=== PATIENT | female | born 1960 | race Caucasian/White ===

== ENCOUNTER 2016-08-30 13:55 | Inpatient (IN) | payer BC ==
--- NOTE | 2016-08-30 14:54 | PDOC ---
History of Present Illness - General Chief Complaint: Wound Stated Complaint: PCP SENT, RT LEG PAIN Time Seen by Provider: 08/30/16 14:43 History Source: Patient Exam Limitations: No Limitations - History of Present Illness Initial Comments: 08/30/16 14:55 Patient is a 56 year old female with significant PMH of HTN, Aortic stenosis, A- fib & lower extremity lymphedema who presents to ED with Right ankle erythema & tenderness since yesterday morning. Patient noticed posterior right ankle was tender & red yesterday morning. The pain is localized to that region and does not radiate up her calf or down to her feet. The pain has become more pronounced since then & the erythema has increased as well. Both legs are very swollen at baseline so unable to gauge if there has been an increase in swelling of that limb. Denies any calf tenderness. Denies fever, chills, SOB, CP , abdominal pain or changes in bowel movements. Patient is currently on Amoxicillin 500mg TID for bronchitis (day 3 of 10). Past History - Travel Traveled outside of the country in the last 30 days: No Close contact w/someone who was outside of country & ill: No - Past Medical History Allergies/Adverse Reactions: Allergies Allergy/AdvReac Type Severity Reaction Status Date / Time No Known Allergies Allergy Verified 08/30/16 14:01 Home Medications: Ambulatory Orders Apixaban [Eliquis -] 5 mg PO BID #60 tablet 11/28/15 Acetaminophen [Tylenol .Regular Strength -] 650 mg PO Q6H PRN #0 tablet Amlodipine Besylate [Norvasc -] 5 mg PO DAILY #14 tablet 04/12/16 Miscellaneous Medical Supply [Blood Pressure Cuff] 1 each MC DAILY #1 each 04/12 Nitroglycerin Sublingual [Nitrostat -] 0.4 mg SL Q5M PRN #7 tab 04/12/16 Metoprolol Succinate [Toprol XL -] 25 mg PO DAILY 06/15/16 Anemia: No Asthma: Yes Cancer: Yes (UTERINE AND OVARIAN. CA FREE X 3 YEARS) Cardiac Disorders: Yes (afib) CVA: No COPD: No CHF: No Dementia: No Diabetes: No GI Disorders: Yes (sbo) Disorders: No HTN: Yes Hypercholesterolemia: No Liver Disease: No Seizures: No Thyroid Disease: No Other medical history: Obesity - Surgical History Abdominal Surgery: Yes (hernia colon recection s/p sbo) Cardiac Surgery: No Cholecystectomy: Yes (2002) GI Surgery: Yes ([facility] 2001) Lung Surgery: No Neurologic Surgery: No Orthopedic Surgery: No - Immunization History Immunization Up to Date: Yes (FLU UTD) - Psycho/Social/Smoking Cessation Hx Anxiety: No Suicidal Ideation: No Smoking Status: No Smoking History: Never smoked Have you smoked in the past 12 months: No Number of Cigarettes Smoked Daily: 0 Information on smoking cessation initiated: No Hx Alcohol Use: No Drug/Substance Use Hx: No Substance Use Type: None Hx Substance Use Treatment: No Review of Systems - Review of Systems Able to Perform ROS?: Yes Is the patient limited Japanese proficient: No Constitutional: No: Chills, Diaphoresis, Fever HEENTM: No: Blurred Vision, Recent change in vision, Ear Pain Respiratory: Yes: Cough Cardiac (ROS): No: Chest Pain, Lightheadedness, Palpitations ABD/GI: No: Abdominal Distended, Blood Streaked Bowels, Diarrhea, Nausea, Vomiting, Indigestion : No: Burning, Dysuria Integumentary: Yes: Erythema Neurological: No: Headache, Tingling, Tremors, Weakness All Other Systems: Reviewed and Negative *Physical Exam - Vital Signs Last Vital Signs Temp Pulse Resp BP Pulse Ox 97.9 F 64 17 148/54 100 08/30/16 13:58 08/30/16 13:58 08/30/16 13:58 08/30/16 13:58 08/30/16 13:58 - Physical Exam General Appearance: Yes: Nourished, Appropriately Dressed, Obese HEENT: positive: EOMI, [place], Normal ENT Inspection Neck: positive: Trachea midline, Normal Thyroid, Supple Respiratory/Chest: positive: Lungs Clear, Normal Breath Sounds Cardiovascular: positive: Regular Rhythm, Regular Rate, S1, S2, Systolic Murmur (aortic stenosis) Gastrointestinal/Abdominal: positive: Normal Bowel Sounds, Soft, Other ( nontender) Musculoskeletal: positive: Normal Inspection Extremity: positive: Normal Range of Motion, Tender (tender, erythematous, right posterior ankle w/ increased warmth). negative: Coldness, Calf Tenderness Integumentary: negative: Dry, Warm Neurologic: positive: seed expert II-XII NML intact, Fully Oriented, Alert, Normal Mood/ Affect, Motor Strength 5/5 Medical Decision Making - Medical Decision Making 08/30/16 15:28 Acute cellulitis likely diagnosis. Given wide margins and 6/10 pain, patient will likely require admission for IV antibiotic treatment. 08/30/16 15:41 Discussed case with PCP Dr Link. Agrees patient will require inpatient admission. Started Cefazolin 1gm q8h and consulted ID Dr Laura. Will admit to Dr Link's service. *DC/Admit/Observation/Transfer Diagnosis at time of Disposition: Cellulitis of right ankle - Discharge Dispostion Admit: Yes Addendum entered and electronically signed by Kun Koroma, CASIMIRO 08/30/16 16:57: Progress Note - Progress Note Progress Note: Added Vancomycin to cover for MRSA.
--- NOTE | 2016-08-30 15:21 | PDOC ---
[id number] have performed the following: I have examined & evaluated the patient, The case was reviewed & discussed with the resident, I agree w/resident 's findings & plan, Exceptions are as noted - HPI HPI: 56 yo F history lymphedema presents with erythema, warmth, and pain to the RLE. Sent by Dr. Link for further evaluation. She notes worsening redness and pain to the posterior R leg, but that the swelling is no larger than her typical swelling. No recent fever. No open wounds or drainage. - Physicial Exam PE: GENERAL: Awake, alert, and fully oriented, in no acute distress HEAD: No signs of trauma EYES: PERRLA, EOMI, sclera anicteric, conjunctiva clear ENT: Auricles normal inspection, hearing grossly normal, nares patent, oropharynx clear without exudates. Moist mucosa NECK: Normal ROM, supple, no lymphadenopathy, JVD, or masses LUNGS: Breath sounds equal, clear to auscultation bilaterally. No wheezes, and no crackles HEART: Regular rate and rhythm, normal S1 and S2, no murmurs, rubs or gallops ABDOMEN: Soft, nontender, normoactive bowel sounds. No guarding, no rebound. No masses EXTREMITIES: Normal range of motion. No clubbing or cyanosis. +Significant lymphedema to BLE, no open wounds. BLE with chronic stasis changes. RLE noted to have erythema, warmth, and posterior tenderness. NEUROLOGICAL: Cranial nerves II through XII grossly intact. Normal speech, normal gait SKIN: Warm, Dry, normal turgor, no rashes or lesions noted. - Medical Decision Making D/w Dr. Link. Patient with lymphedema and significant cellulitis. Will place on IV abx and admit.
[2016-08-30] MEDS ORDERED: CEFAZOLIN 1 GM in DEXTROSE 5%-WATER - 50 ML IVPB SCH (15:45)
[2016-08-30 16:13] LABS: BASOPHIL 0.2 % (0-2.0); EOSINOPHIL 1.1 % (0-4.5); MCHC 32.1 g/dl (32.0-36.0); MEAN PLT VOLUME 8.9 fl (7.5-11.1); NEUTROPHILS 73.4 % (42.8-82.8); PLATELET COUNT 203 K/MM3 (134-434); RDW 15.9 % (11.6-15.6); WHITE BLOOD COUNT 6.4 K/mm3 (4.0-10.0)
[2016-08-30 16:52] LABS: ALBUMIN 3.4 g/dl (3.4-5.0); ANION GAP 9 (8-16); CALCIUM 8.6 mg/dL (8.5-10.1); CO2 27 mmol/L (21-32); CREATININE 0.7 mg/dL (0.55-1.02); GLUCOSE,RANDOM 91 mg/dL (74-106); SGOT/AST 15 U/L (15-37); SGPT/ALT 16 U/L (12-78)
[2016-08-30 16:54] LABS: ALK PHOS 122 U/L (45-117); BILIRUBIN,TOTAL 0.6 mg/dL (0.2-1.0); TOT PROT 7.1 g/dl (6.4-8.2)
[2016-08-30] MEDS ORDERED: VANCOMYCIN 1,250 MG in DEXTROSE 5%-WATER - 250 ML IVPB ONE (16:56)
[2016-08-30] MEDS ORDERED: NITROGLYCERIN SUBLINGUAL 1/150 0.4 MG TAB SL PRN (17:05)
[2016-08-30] MEDS ORDERED: ALBUTEROL SO4 6.7 GM HFA INHALER IH PRN (17:09)
[2016-08-30] MEDS ORDERED: CEFAZOLIN (PRE-DOCKED) 50 ML IVPB ONE (17:24)
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
--- NOTE | 2016-08-30 17:49 | PN ---
Progress Note (short form) - Note Progress Note: ID consult dictated imp/reccd 56 year old female with obesity and chronic lymphedema admitted with erythema and swelling of left foot/leg with pain she had some fever, chill, and cough on Friday- saw her PMD and was started on amox she noted the painful red leg and came to ED no more fever or chills d/w Dr Fariba mcdaniel/maria luisa cultures pending imaging of leg -r/o abscess
[2016-08-30] MEDS: oxyCODONE HCL 10 MG SUSTAINED ACTING TABLET PO SCH (22:15)
[2016-08-30] MEDS: POLYETHYLENE GLYCOL 3350 119 GM BTL PO SCH (22:15)
[2016-08-30] MEDS: PIPERACILLIN/TAZOB 4.5 GM/100 ML PRE-DOCKED IVPB SCH (22:15)
[2016-08-30] MEDS: APIXABAN 5 MG TABLET PO SCH (22:15)
[2016-08-30] MEDS ORDERED: PT OWN MED DRAWER 7, Y5N ONE (23:29)
[2016-08-30 23:38] VITALS: BMI 56.1
[2016-08-31] MEDS: PIPERACILLIN/TAZOB 4.5 GM/100 ML PRE-DOCKED IVPB SCH ×3 (02:11→18:02)
[2016-08-31 07:36] LABS: BASOPHIL 0.3 % (0-2.0); EOSINOPHIL 2.3 % (0-4.5); MCH 26.6 pg (25.7-33.7); MCHC 32.4 g/dl (32.0-36.0); MEAN CELL VOLUME 81.9 fl (80-96); MEAN PLT VOLUME 9.3 fl (7.5-11.1); PLATELET COUNT 162 K/MM3 (134-434)
[2016-08-31 08:26] LABS: ALBUMIN 2.9 g/dl (3.4-5.0); ANION GAP 10 (8-16); CALCIUM 8.1 mg/dL (8.5-10.1); CHOLESTEROL 119 mg/dL (50-200); CO2 29 mmol/L (21-32); GLUCOSE,RANDOM 75 mg/dL (74-106); MAGNESIUM 2.2 mg/dL (1.8-2.4); SGOT/AST 11 U/L (15-37)
[2016-08-31 08:28] LABS: ALK PHOS 100 U/L (45-117); BILIRUBIN,TOTAL 0.7 mg/dL (0.2-1.0); CREATININE 0.7 mg/dL (0.55-1.02); SGPT/ALT 12 U/L (12-78); TOT PROT 6.1 g/dl (6.4-8.2)
--- NOTE | 2016-08-31 08:30 | CONS ---
DATE OF CONSULTATION: 08/30/2016 REQUESTING PHYSICIAN: Juaquin Link MD HISTORY OF PRESENT ILLNESS: This is a 56-year-old woman with a history of lymphedema and morbid obesity. She was seen on Friday at Ds office with cough and fever and chills. She was given amoxicillin. It was subsequently noted that she had pain and erythema of her right lower extremity, and she came to the hospital. Both her legs are always swollen. She has chronic lymphedema, but she now notes that the right leg is perhaps slightly more swollen than the left. She also complains of pain. ALLERGIES: She has no known drug allergies. MEDICATIONS AT HOME: Include Eliquis, Norvasc, Nitrostat, Toprol XL. PAST MEDICAL HISTORY: Notable for asthma, uterine and ovarian cancer, atrial fibrillation. She has had a small bowel obstruction in the past. She has a history of morbid obesity. She has had cholecystitis in the past. She has a history of aortic valve stenosis, bilateral osteoarthritis of her knees, and obstructive sleep apnea. She has atrial fibrillation, as well. SURGICAL HISTORY: Notable for bariatric surgery, cholecystectomy, hernia repair, hysterectomy, oophorectomy. She has had radiation and chemotherapy, as well. FAMILY HISTORY: Notable for diabetes in her mother as well as heart disease. 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 She lives in the community. There is no history of any cigarette or substance use. REVIEW OF SYSTEMS: She still has a cough. She has had no further fevers or chills. She has no nausea, vomiting, diarrhea, or dysuria. PHYSICAL EXAMINATION: General: She is awake and alert. Vital signs: Her temperature was 97.9, blood pressure is 148/64, pulse is 64, respiratory rate 17. She weighs 175 pounds. HEENT: She is normocephalic. Her eyes are anicteric. Neck: Her neck is supple. Lungs: Clear to auscultation. Heart: Regular rate and rhythm. Abdomen: Soft, nontender. Extremities: Notable for chronic bilateral lymphedema, right worse than left. She has questionable area of fluctuance in her right ankle that is tender, and she has erythema of both her legs, right greater than left. LABORATORIES: White count is 6.4, hemoglobin 11.6, platelets are 203. BUN 14, creatinine 0.9. Blood cultures are pending. SUMMARY: This is a 56-year-old woman with cellulitis of both her legs in the setting of chronic lymphedema and obesity. We will treat her with vancomycin and Zosyn. Cultures are pending with imaging of the legs to rule out abscess. All of the above was discussed with Dr. Link. As well, will obtain an influenza screen given her cough. MERY DAVIS M.D. [id number]
[2016-08-31] MEDS ORDERED: PT OWN MED DRAWER 7, Y5N ONE ×2 (08:59→21:43)
[2016-08-31] MEDS: amLODIPine BESYLATE 5 MG TABLET (FP) PO SCH (09:23)
[2016-08-31] MEDS: LOSARTAN 50MG/HCTZ 12.5MG 1 TAB (FP) PO SCH (09:24)
[2016-08-31] MEDS: APIXABAN 5 MG TABLET PO SCH ×2 (09:24→21:46)
[2016-08-31] MEDS: METOPROLOL SUCCINATE 25 MG TAB.SR.24H (FP) PO SCH (09:24)
[2016-08-31] MEDS: oxyCODONE HCL 10 MG SUSTAINED ACTING TABLET PO SCH ×2 (09:25→21:47)
[2016-08-31] MEDS: POLYETHYLENE GLYCOL 3350 119 GM BTL PO SCH ×2 (09:25→21:48)
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
[2016-08-31] MEDS ORDERED: LOSARTAN 50MG/HCTZ 12.5MG 1 TAB (FP) PO SCH (10:00)
[2016-08-31 13:31] LABS: LDL CHOLESTEROL (ONLY SJRH) 61 mg/dL (5-100)
--- NOTE | 2016-08-31 14:50 | PN ---
Progress Note (short form) - Note Progress Note: much improved, still some pain but much less, less erythema Vital Signs Period Temp Pulse Resp BP Sys/Ruiz Pulse Ox Last 24 Hr 98.2 F-98.5 F 52-60 18-20 101-128/41-63 cor-rrr lungs clear abd soft,nt ext less erythema, less edema of both legs, wayne right ct scan no abscess CBC, BMP 08/31/16 06:15 08/31/16 06:15 Microbiology 08/30/16 19:15 Nasopharyngeal Swab Respiratory Virus Panel - Preliminary 08/30/16 19:15 Nasopharyngeal Swab Influenza Types A,B Antigen (SARAH) - Final 08/30/16 19:15 Nasopharyngeal Swab - Final a/p cellulitis lymphedema obesity doing well would continue iv antibiotics until Friday- hopefully switch to po on Friday day #1 jonas/maria luisa
[2016-09-01] MEDS: PIPERACILLIN/TAZOB 4.5 GM/100 ML PRE-DOCKED IVPB SCH ×3 (02:32→17:29)
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
[2016-09-01] MEDS ORDERED: PT OWN MED DRAWER 7, Y5N ONE ×2 (08:28→16:53)
[2016-09-01] MEDS: METOPROLOL SUCCINATE 25 MG TAB.SR.24H (FP) PO SCH (09:02)
[2016-09-01] MEDS: APIXABAN 5 MG TABLET PO SCH ×2 (09:02→21:53)
[2016-09-01] MEDS: LOSARTAN 50MG/HCTZ 12.5MG 1 TAB (FP) PO SCH (09:04)
[2016-09-01] MEDS: amLODIPine BESYLATE 5 MG TABLET (FP) PO SCH (09:04)
[2016-09-01] MEDS: POLYETHYLENE GLYCOL 3350 119 GM BTL PO SCH ×2 (09:04→21:54)
--- NOTE | 2016-09-01 09:36 | EKG ---
Test Reason : Blood Pressure : / mmHG Vent. Rate : 052 BPM Atrial Rate : 052 BPM P-R Int : 190 ms QRS Dur : 118 ms QT Int : 462 ms P-R-T Axes : -07 -24 046 degrees QTc Int : 429 ms SINUS BRADYCARDIA LEFT VENTRICULAR HYPERTROPHY WITH QRS WIDENING ABNORMAL ECG WHEN COMPARED WITH ECG OF 30-AUG-2016 17:25, NO SIGNIFICANT CHANGE WAS FOUND Confirmed by GARY KELLY MD ([id number]) on 09/01/2016 9:36:15 AM Referred By: Delmi VELEZ Confirmed By:GARY KELLY MD
--- NOTE | 2016-09-01 09:43 | EKG ---
Test Reason : Blood Pressure : / mmHG Vent. Rate : 062 BPM Atrial Rate : 062 BPM P-R Int : 148 ms QRS Dur : 114 ms QT Int : 440 ms P-R-T Axes : -05 -26 063 degrees QTc Int : 446 ms POOR DATA QUALITY, INTERPRETATION MAY BE ADVERSELY AFFECTED NORMAL SINUS RHYTHM INCOMPLETE RIGHT BUNDLE BRANCH BLOCK LEFT VENTRICULAR HYPERTROPHY WITH REPOLARIZATION ABNORMALITY ABNORMAL ECG Confirmed by GARY KELLY MD ([id number]) on 09/01/2016 9:42:36 AM Referred By: Confirmed By:GARY KELLY MD
[2016-09-01] MEDS: oxyCODONE HCL 10 MG SUSTAINED ACTING TABLET PO SCH ×2 (10:43→21:54)
[2016-09-02] MEDS: PIPERACILLIN/TAZOB 4.5 GM/100 ML PRE-DOCKED IVPB SCH ×2 (02:55→09:46)
--- NOTE | 2016-09-02 08:02 | PN ---
Progress Note (short form) - Note Progress Note: Less discomfort RLE. Afebrile Vital Signs Temp 97.4 F L 09/02/16 06:00 Pulse 51 L 09/02/16 06:00 Resp 20 09/02/16 06:00 BP 117/76 09/02/16 06:00 Pulse Ox 96 09/01/16 21:00 Intake & Output 09/01/16 09/01/16 09/02/16 11:59 23:59 11:59 Intake Total 1180 1060 350 Balance 1180 1060 350 Weight 369 lb 2 oz Intake: IVPB 700 100 350 Oral 480 960 Other: Voiding Method Toilet Toilet Bowel Movement Yes # Bowel Movements 1 Awake, alert, Ox3 Lungs clear Heart s1S2 abdomen soft, NT LE b/l lymphedema chronic stasis changes Current Active Problems Problem Status Diagnosed Bradycardia Acute Cellulitis of right ankle Acute Chest pain Acute DVT prophylaxis Acute Near syncope Acute Aortic stenosis, moderate Chronic HTN (hypertension) Chronic Paroxysmal atrial fibrillation Chronic Plan D/c home on PO abx F/u at the offic Surgical/vascular consult as outpt Compression stockings Problem List - Problems (1) Cellulitis of right ankle Code(s): L03.115 - CELLULITIS OF RIGHT LOWER LIMB (2) Aortic stenosis, moderate Code(s): I35.0 - NONRHEUMATIC AORTIC (VALVE) STENOSIS (3) HTN (hypertension) Code(s): I10 - ESSENTIAL (PRIMARY) HYPERTENSION Qualifiers: Hypertension type: essential hypertension (4) Paroxysmal atrial fibrillation Code(s): I48.0 - PAROXYSMAL ATRIAL FIBRILLATION
--- NOTE | 2016-09-02 08:04 | DS ---
Physical Examination Vital Signs: Vital Signs Temperature 97.4 F L 09/02/16 06:00 Pulse Rate 51 L 09/02/16 06:00 Respiratory Rate 20 09/02/16 06:00 Blood Pressure 117/76 09/02/16 06:00 O2 Sat by Pulse Oximetry (%) 96 09/01/16 21:00 Constitutional: Yes: No Distress, Calm Eyes: Yes: Conjunctiva Clear, EOM Intact HENT: Yes: Atraumatic, Normocephalic Neck: Yes: Supple, Trachea Midline Cardiovascular: Yes: Regular Rate and Rhythm. No: JVD Respiratory: Yes: Regular, CTA Bilaterally Gastrointestinal: Yes: Normal Bowel Sounds, Soft, Abdomen, Obese ...Rectal Exam: Yes: Deferred Renal/: No: Anuria, Bladder Distention, CVA Tenderness - Left, CVA Tenderness - Right Extremities: No: Cold, Cool, Cyanosis Edema: (Lymphedema) Integumentary: Yes: Other (chronic stasis changes LE) Neurological: Yes: Alert, Oriented. No: Aphasia, Dysarthria ...Motor Strength: WNL Psychiatric: Yes: WNL Labs: CBC, BMP 08/31/16 06:15 08/31/16 06:15 Discharge Summary Reason For Visit: CELLULITIS OF RIGHT ANKLE/b/l lymphedema Current Active Problems Bradycardia (Acute) Cellulitis of right ankle (Acute) Chest pain (Acute) DVT prophylaxis (Acute) Near syncope (Acute) Aortic stenosis, moderate (Chronic) HTN (hypertension) (Chronic) Paroxysmal atrial fibrillation (Chronic) Condition: Improved - Instructions Referrals: Juaquin Link MD [Primary Care Provider] - Disposition: HOME - Home Medications Comprehensive Discharge Medication List: Ambulatory Orders Apixaban [Eliquis -] 5 mg PO BID #60 tablet 11/28/15 Acetaminophen [Tylenol .Regular Strength -] 650 mg PO Q6H PRN #0 tablet Amlodipine Besylate [Norvasc -] 5 mg PO DAILY #14 tablet 04/12/16 Miscellaneous Medical Supply [Blood Pressure Cuff] 1 each [facility] DAILY #1 each 04/12 Nitroglycerin Sublingual [Nitrostat -] 0.4 mg SL Q5M PRN #7 tab 04/12/16 Metoprolol Succinate [Toprol XL -] 25 mg PO DAILY 06/15/16
[2016-09-02] MEDS ORDERED: PT OWN MED DRAWER 7, Y5N ONE (09:44)
[2016-09-02] MEDS: oxyCODONE HCL 10 MG SUSTAINED ACTING TABLET PO SCH (09:45)
[2016-09-02] MEDS: LOSARTAN 50MG/HCTZ 12.5MG 1 TAB (FP) PO SCH (09:47)
[2016-09-02] MEDS: amLODIPine BESYLATE 5 MG TABLET (FP) PO SCH (09:47)
[2016-09-02] MEDS: METOPROLOL SUCCINATE 25 MG TAB.SR.24H (FP) PO SCH (09:47)
[2016-09-02] MEDS: APIXABAN 5 MG TABLET PO SCH (09:48)
[2016-09-02] MEDS: POLYETHYLENE GLYCOL 3350 119 GM BTL PO SCH (09:48)
--- NOTE | 2016-09-02 10:34 | PN ---
Progress Note (short form) - Note Progress Note: leg much improved, minimal pain, no erythema, ambulating to the bathroom Vital Signs Period Temp Pulse Resp BP Sys/Ruiz Pulse Ox Last 24 Hr 97.4 F-99 F 51-70 18-20 114-132/50-76 96-96 cor-rrr lungs clear abd soft,nt ext minimal erythema of the RLE, lymphedema unchanged, less swelling CBC, BMP 08/31/16 06:15 08/31/16 06:15 Microbiology 08/30/16 15:30 Blood - Peripheral Venous Blood Culture - Preliminary NO GROWTH OBTAINED AFTER 48 HOURS, INCUBATION TO CONTINUE FOR 3 DAYS. 08/30/16 15:58 Blood - Peripheral Venous Blood Culture - Preliminary NO GROWTH OBTAINED AFTER 48 HOURS, INCUBATION TO CONTINUE FOR 3 DAYS. 08/30/16 19:15 Nasopharyngeal Swab Respiratory Virus Panel - Preliminary 08/30/16 19:15 Nasopharyngeal Swab Influenza Types A,B Antigen (SARAH) - Final 08/30/16 19:15 Nasopharyngeal Swab - Final a/p resolving cellulitis chronic lymphedema obesity can switch to po keflex 500 tid
[2016-09-02 10:39] VITALS: BP 123/58; PULSE 70; TEMP 97.9
== END 2016-09-02 11:48 | disposition home or self-care (01) | DRG 603 ==
LOC: JER 13:55 → JERBED 15:47 → J5S 20:11
PROVIDERS: ADMIT Internal Medicine; ATTEND Internal Medicine
DX: L03.115 Cellulitis of right lower limb (principal); Z68.43 Body mass index [BMI] 50.0-59.9, adult; I89.0 Lymphedema, not elsewhere classified; I48.0 Paroxysmal atrial fibrillation; Z79.01 Long term (current) use of anticoagulants; I35.0 Nonrheumatic aortic (valve) stenosis; I10 Essential (primary) hypertension; Z85.43 Personal history of malignant neoplasm of ovary; Z85.42 Personal history of malignant neoplasm of other parts of uterus; E66.9 Obesity, unspecified; Z98.84 Bariatric surgery status; Z90.710 Acquired absence of both cervix and uterus
CPT/HCPCS: 36415; 73700-TC-RT; 80053; 80061; 83721; 83735; 84100; 85025; 87040; 87254; 87804; 93005; 93010; 99282-25

== ENCOUNTER 2016-12-06 07:06 | Day surgery (SDC) | payer BC ==
[2016-12-02 14:02] VITALS: BMI 56.2
[2016-12-06] MEDS ORDERED: PROPOFOL 20 ML ONE ×2 (08:10→08:57)
[2016-12-06] MEDS ORDERED: MIDAZOLAM HCL 2 MG/2 ML SINGLE DOSE VIAL ONE (08:10)
[2016-12-06] MEDS ORDERED: ROCURONIUM BROMIDE 50 MG/5 ML VIAL ONE (08:57)
[2016-12-06] MEDS ORDERED: BUPIVACAINE HCL/PF 2.5 MG/ML - 30 ML VIAL IJ ONE (08:59)
[2016-12-06] MEDS ORDERED: ceFAZolin SODIUM 1 GM VIAL ONE (09:19)
[2016-12-06] MEDS ORDERED: ONDANSETRON 4 MG/2 ML VIAL ONE ×2 (09:23)
[2016-12-06] MEDS ORDERED: DEXAMETHASONE SOD PHOSPHATE 4 MG/1 ML VIAL ONE ×2 (09:23)
[2016-12-06] MEDS ORDERED: BUPIVACAINE HCL/PF 0.25% (2.5MG/ML) 10 ML VIAL IJ ONE (09:49)
[2016-12-06] MEDS ORDERED: LACTATED RINGERS SOLUTION 1,000 ML IV SCH (10:15)
[2016-12-06] MEDS ORDERED: oxyCODONE HCL 5 MG TABLET PO ONE ×2 (12:10→14:00)
[2016-12-06 13:13] VITALS: TEMP 97.5
[2016-12-06 13:23] VITALS: BP 163/96; PULSE 49
[2016-12-06] MEDS ORDERED: ONDANSETRON 4 MG/2 ML VIAL IVPUSH PRN (13:30)
[2016-12-06] MEDS ORDERED: oxyCODONE HCL 5 MG TABLET PO PRN (13:31)
--- NOTE | 2016-12-09 00:29 | OP ---
DATE OF OPERATION: 12/06/2016 SURGEON: Gómez Loja MD [facility] RN: DANNIELLE Hdz PREOPERATIVE DIAGNOSIS: 1. Left knee medial lateral meniscal tear. 2. Left knee cartilage injury and left knee synovitis. POSTOPERATIVE DIAGNOSIS: 1. Left knee medial lateral meniscal tear. 2. Left knee cartilage injury and left knee synovitis. PROCEDURE: 1. Left knee arthroscopy and partial meniscectomy of the medial and lateral meniscus. 2. Left knee arthroscopy with abrasioplasty. 3. Left knee arthroscopy with synovectomy major, CPT code 30529, 60353, 65110. FINDINGS: 1. Medial meniscus posterior horn tear. 2. Lateral meniscus posterior two-thirds tear. 3. Synovitis of patellofemoral, medial and lateral notch area. 4. Central grade 1-2 cartilage injury of the femoral condyle with small area of anterior grade 3 changes of medial femoral condyle. 5. ACL and PCL are intact. 6. Diffuse grade 1-2 cartilage injury of the mediolateral joint line. 7. Central grade 2-4 cartilage injury of the patellofemoral trochlea. PROCEDURE: Informed consent was obtained. The patient was taken to the operating room where the left lower extremity was prepped and draped in a sterile fashion. A tourniquet was placed on the left upper thigh but not inflated. Using standard arthroscopic technique, a lateral incision and portal were made which allowed for introduction of the camera into the suprapatellar bursa. This was then taken to the medial joint line where under direct visualization, a medial incision and portal were made. Excessive synovium noted in the medial, lateral, patellofemoral and notch area was removed by the up-biting shaver and Bovie cautery. This was found to bring inflammatory tissue into the joint surface, a source of joint pain and dysfunction. Probing of the medial and lateral meniscus found tears described in the findings. These were removed with an up-biting shaver and taken back to a stable rim. Grade 2-3 degenerative changes were treated with chondroplasty, removing all flaking surfaces with low setting Bovie used along the periphery. Grade 4 changes were treated with abrasion-plasty. All areas of the knee were once again re-examined. The knee was then drained. A single suture was placed on all portals. Sterile dressing was placed. The patient was transferred to the recovery room. GÓMEZ LOJA M.D. [id number]
--- NOTE | 2016-12-09 13:25 | PATH ---
Surgical Pathology Report Patient Name: [facility]. Rec. #: [id number] /Age/Gender: 1960 (Age: 56) / F Account: [id number] Location: [facility] AMBUL[facility]ORY Taken: 12/06/2016 Received: 12/06/2016 Reported: 12/09/2016 Physicians: Evan Brock M.D. Specimen(s) Received LEFT KNEE SHAVINGS Clinical History Left knee internal derangement Final Diagnosis KNEE, LEFT, ARTHROSCOPIC SHAVING: FIBROCARTILAGE WITH MYXOID DEGENERATIVE CHANGES, ALONG WITH PORTIONS OF SYNOVIUM AND HYALINE CARTILAGE. Electronically Signed Mo Haque M.D. Gross Description Received in formalin, labeled "left knee shavings," is a 4.0 x 3.4 x 0.5 cm. aggregate of sapp-yellow soft tissue fragments. A guest services representative portion is submitted in one cassette. /12/06/201612/06/2016
== END 2016-12-06 13:25 | disposition home or self-care (01) ==
LOC: FASU 07:06
PROVIDERS: ATTEND Orthopaedic Surgery
PROC: 0SBD4ZZ Excision of Left Knee Joint, Percutaneous Endoscopic Approach (ICD-10-PCS; 2016-12-06)
PROC: 0SBD4ZZ Excision of Left Knee Joint, Percutaneous Endoscopic Approach (ICD-10-PCS; 2016-12-06)
PROC: 0SBD4ZZ Excision of Left Knee Joint, Percutaneous Endoscopic Approach (ICD-10-PCS; principal; 2016-12-06 08:30)
DX: S83.242A Other tear of medial meniscus, current injury, left knee, initial encounter (principal); S83.282A Other tear of lateral meniscus, current injury, left knee, initial encounter; S83.8X2A Sprain of other specified parts of left knee, initial encounter; M65.862 Other synovitis and tenosynovitis, left lower leg; X58.XXXA Exposure to other specified factors, initial encounter; Y93.9 Activity, unspecified; Y92.9 Unspecified place or not applicable
CPT/HCPCS: 88304-TC; 94760

== ENCOUNTER 2017-01-03 16:29 | Inpatient (IN) | payer BC ==
[2017-01-03 16:37] VITALS: BMI 56.7
--- NOTE | 2017-01-03 17:23 | PDOC ---
History of Present Illness - History of Present Illness Initial Comments: 01/03/17 18:03 Patient is a 56 year old female with significant medical hx of AFib (on Eliquis) , HTN, aortic stenosis, and lower extremity lymphedema who is presenting to the ED with palpitations, chest pressure, and exertional dyspnea since today. Patient reports she becomes increasingly short of breath after walking ten feet or so which is unusual for her. She also endorses some non-radiating chest pressure that lasted for about a minute and then resolved. Patient denies any associated nausea, vomiting, diarrhea, diaphoresis, lightheadedness or weakness. Yesterday the patient saw her glove turner where she received an ECG which was normal. She also saw her PCP yesterday where she received IV abx in the office for lower extremity cellulitis and sent home with Keflex and Bactrim. Denies fever, chills. Commercial Correspondent: Devan Reddy MD PCP: Juaquin Link MD Surgical Hx: hernia colon resection s/p SBO, gastric bypass, left knee sx, cholecystectomy Other PMH: Uterine and ovarian CA, SBO, obesity <Abida Matthew - Last Filed: 01/03/17 18:11> <Suad Hernandez - Last Filed: 01/03/17 19:03> - General Chief Complaint: Irregular Heart Beat Stated Complaint: SHORTNESS OF BREATH,HEART PAL. Time Seen by Provider: 01/03/17 17:22 Past History <Abida Matthew - Last Filed: 01/03/17 18:11> - Past Medical History Anemia: No Asthma: Yes (CONTROLLED UNLESS PT GETS A COLD) Cancer: Yes (UTERINE AND OVARIAN. CA FREE 2008) Cardiac Disorders: Yes (AFIB 12/2015 / AORTIC STENOSIS) CVA: No COPD: No CHF: No Dementia: No Diabetes: No GI Disorders: No Disorders: No HTN: Yes Hypercholesterolemia: No Liver Disease: No Seizures: No Thyroid Disease: No Other medical history: CURRENT CELLULITIS OF RLE - Surgical History Abdominal Surgery: Yes (HERNIA REPAIR AFTER ALESSANDRO 2011) Appendectomy: No Cardiac Surgery: No Cholecystectomy: Yes (2002) GI Surgery: Yes ([facility]PASS 2001) Lung Surgery: No Neurologic Surgery: No Orthopedic Surgery: No - Immunization History Immunization Up to Date: Yes (FLU UTD) - Psycho/Social/Smoking Cessation Hx Anxiety: No Suicidal Ideation: No Smoking Status: No Smoking History: Never smoked Have you smoked in the past 12 months: No Number of Cigarettes Smoked Daily: 0 Hx Alcohol Use: No Drug/Substance Use Hx: No Substance Use Type: Alcohol Hx Substance Use Treatment: No <Suad Hernandez - Last Filed: 01/03/17 19:03> - Past Medical History Allergies/Adverse Reactions: Allergies Allergy/AdvReac Type Severity Reaction Status Date / Time No Known Allergies Allergy Verified 01/03/17 16:37 Home Medications: Ambulatory Orders Apixaban [Eliquis -] 5 mg PO BID #60 tablet 11/28/15 Acetaminophen [Tylenol .Regular Strength -] 650 mg PO Q6H PRN #0 tablet Nitroglycerin Sublingual [Nitrostat -] 0.4 mg SL Q5M PRN #7 tab 04/12/16 Metoprolol Succinate [Toprol XL -] 25 mg PO DAILY 06/15/16 Cholecalciferol (Vitamin D3) [Vitamin D-400] 800 unit PO HS 12/02/16 Losartan/Hydrochlorothiazide [Hyzaar 50-12.5 Tablet] 1 each PO DAILY 12/02/16 Hydrocodone/Acetaminophen [Hankins 5-325 Tablet] 1 each PO Q6H PRN #40 tablet MDD 4 12/06/16 Cephalexin [Keflex] 500 mg PO QID 01/03/17 Sulfamethoxazole/Trimethoprim [Bactrim Ds -] 1 tab PO DAILY 01/03/17 Review of Systems - Review of Systems Comments:: 01/03/17 18:04 GENERAL/CONSTITUTIONAL: No fever or chills. No weakness. HEAD, EYES, EARS, NOSE AND THROAT: No change in vision. No ear pain or discharge. No sore throat. CARDIOVASCULAR: Chest pain, palpitations, shortness of breath. RESPIRATORY: No cough, wheezing, or hemoptysis. GASTROINTESTINAL: No nausea, vomiting, diarrhea or constipation. GENITOURINARY: No dysuria, frequency, or change in urination. MUSCULOSKELETAL: No joint or muscle swelling or pain. No neck or back pain. ENDOCRINE: No increased thirst. No abnormal weight change. SKIN: No rash NEUROLOGIC: No headache, vertigo, loss of consciousness, or change in strength/ sensation. <Tiff,Abida - Last Filed: 01/03/17 18:11> *Physical Exam - Vital Signs Last Vital Signs Temp Pulse Resp BP Pulse Ox 97.8 F 82 20 118/79 98 01/03/17 16:34 01/03/17 16:34 01/03/17 16:34 01/03/17 16:34 01/03/17 16:34 - Physical Exam Comments: 01/03/17 18:04 GENERAL: Morbidly obese. Awake, alert, and fully oriented, in no acute distress HEAD: No signs of trauma EYES: PERRLA, EOMI, sclera anicteric, conjunctiva clear ENT: Auricles normal inspection, hearing grossly normal, nares patent, oropharynx clear without exudates. Moist mucosa NECK: Normal ROM, supple, no lymphadenopathy, JVD, or masses LUNGS: Breath sounds equal, clear to auscultation bilaterally. No wheezes, and no crackles HEART: 3/6 holosystolic murmur that radiated to carotids. Regular rate and rhythm, normal S1 and S2, no rubs or gallops ABDOMEN: Obese. Soft, nontender, normoactive bowel sounds. No guarding, no rebound. No masses EXTREMITIES: Skin changes consistent with lymphadema. Bilateral symmetric non pitting edema. Tenderness and erythema of her right ankle. NEUROLOGICAL: Cranial nerves II through XII grossly intact. Normal speech SKIN: Cellulitis of right ankle consistent with lymphadema. Warm, Dry HEMATOLOGIC/LYMPHATIC: No anemia, easy bleeding, or history of blood clots. ALLERGIC/IMMUNOLOGIC: No hives or skin allergy. <Abida Matthew - Last Filed: 01/03/17 18:11> - Vital Signs Last Vital Signs Temp Pulse Resp BP Pulse Ox 97.8 F 82 20 118/79 98 01/03/17 16:34 01/03/17 16:34 01/03/17 16:34 01/03/17 16:34 01/03/17 16:34 <Suad Hernandez - Last Filed: 01/03/17 19:03> Heart Score/ECG Review #1 01/03/17 18:10 Atrial fibrillation with rapid ventricular response Voltage criteria for left ventricular hypertrophy ST & T wave abnormality, consider lateral ischemia Abnormal ECG <Abida Matthew - Last Filed: 01/03/17 18:11> ED Treatment Course - LABORATORY CBC & Chemistry Diagram: 01/03/17 17:47 01/03/17 17:47 - Consult/PCP Time Called: 18:00 (Case discussed with Dr. Gaston. He agrees with checking cardiac enzymes and admitting to cardiac telemetry. Offers no other recommendations at this time.) Case discussed with personal care physician: Kamran Gaston <Abida Matthew - Last Filed: 01/03/17 18:11> - LABORATORY CBC & Chemistry Diagram: 01/03/17 17:47 01/03/17 17:47 <Suad Hernandez - Last Filed: 01/03/17 19:03> Medical Decision Making - Medical Decision Making 01/03/17 18:51 Pt presents to the ED complaining of a one day history of intermittent chest pressure and palpitations accompanied by shortness of breath and dyspnea on exertion. Labs are unremarkable. Initial EKG shows A fib with RVR, now in sinus with no intervention. Currently chest pain free. Will admit to medicine for continuned monitoring and serial enzymes. Case discussed with Dr. Gaston, who agrees with plan. <Suad Hernandez - Last Filed: 01/03/17 19:03> *DC/Admit/Observation/Transfer - Attestations Scribe Attestion: 01/03/17 18:10 Documentation prepared by Abida Matthew, acting as pediatrician/medical doctor for Suad Hernandez MD. <Abida Matthew - Last Filed: 01/03/17 18:11> - Discharge Dispostion Admit: Yes <Suad Hernandez - Last Filed: 01/03/17 19:03> Diagnosis at time of Disposition: Palpitations - Discharge Dispostion Condition at time of disposition: Good - Referrals Referrals: Juaquin Link MD [Primary Care Provider] -
[2017-01-03] MEDS ORDERED: ASPIRIN 81 MG CHEWABLE TABLETS PO ONE (17:43)
[2017-01-03 18:03] LABS: BASOPHIL 0.4 % (0-2.0); EOSINOPHIL 0.8 % (0-4.5); MCH 27.6 pg (25.7-33.7); MCHC 32.2 g/dl (32.0-36.0); MEAN CELL VOLUME 85.7 fl (80-96); MEAN PLT VOLUME 9.2 fl (7.5-11.1); NEUTROPHILS 76.1 % (42.8-82.8); PLATELET COUNT 223 K/MM3 (134-434); WHITE BLOOD COUNT 6.5 K/mm3 (4.0-10.0)
[2017-01-03] MEDS ORDERED: ASPIRIN 81 MG CHEWABLE TABLETS ONE (18:11)
[2017-01-03 18:16] LABS: INR 1.22 (0.82-1.09); PROTHROMBIN TIME (PATIENT) 13.5 SEC (9.98-11.88)
[2017-01-03 18:25] LABS: ALBUMIN 3.4 g/dl (3.4-5.0); ANION GAP 8 (8-16); BILIRUBIN,TOTAL 0.4 mg/dL (0.2-1.0); CALCIUM 8.9 mg/dL (8.5-10.1); CO2 30 mmol/L (21-32); COCKROFT - GAULT 188.615; CREATININE 0.9 mg/dL (0.55-1.02); GLUCOSE,RANDOM 95 mg/dL (74-106); MAGNESIUM 1.9 mg/dL (1.8-2.4); SGOT/AST 19 U/L (15-37); SGPT/ALT 16 U/L (12-78); TOT PROT 7.3 g/dl (6.4-8.2)
[2017-01-03 18:28] LABS: ALK PHOS 127 U/L (45-117); TROPONIN I 0.02 ng/ml (0.00-0.05)
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
[2017-01-03] MEDS: APIXABAN 5 MG TABLET PO SCH (21:45)
[2017-01-03] MEDS ORDERED: CHOLECALCIFEROL (VITAMIN D3) 400 UNIT TABLET (FP) PO SCH (22:00)
[2017-01-04 00:02] LABS: TROPONIN I 0.03 ng/ml (0.00-0.05)
[2017-01-04] MEDS ORDERED: CEFAZOLIN (PRE-DOCKED) 1 GM in DEXTROSE 5%-WATER - 50 ML IVPB SCH (02:00)
[2017-01-04] MEDS: APIXABAN 5 MG TABLET PO SCH (09:50)
[2017-01-04] MEDS ORDERED: POLYETHYLENE GLYCOL 3350 119 GM BTL PO SCH (10:00)
[2017-01-04] MEDS ORDERED: METOPROLOL SUCCINATE 25 MG TAB.SR.24H (FP) PO SCH (10:00)
[2017-01-04] MEDS ORDERED: LOSARTAN 50MG/HCTZ 12.5MG 1 TAB (FP) PO SCH (10:00)
[2017-01-04 10:28] LABS: BASOPHIL 0.6 % (0-2.0); EOSINOPHIL 3.3 % (0-4.5); MCH 27.8 pg (25.7-33.7); MCHC 32.6 g/dl (32.0-36.0); MEAN CELL VOLUME 85.4 fl (80-96); MEAN PLT VOLUME 8.5 fl (7.5-11.1); NEUTROPHILS 67.3 % (42.8-82.8); PLATELET COUNT 195 K/MM3 (134-434); RDW 16.9 % (11.6-15.6)
[2017-01-04 11:29] LABS: ALBUMIN 3.2 g/dl (3.4-5.0); ALK PHOS 116 U/L (45-117); ANION GAP 8 (8-16); BILIRUBIN,TOTAL 0.5 mg/dL (0.2-1.0); CALCIUM 8.7 mg/dL (8.5-10.1); CO2 29 mmol/L (21-32); COCKROFT - GAULT 242.505; CREATININE 0.7 mg/dL (0.55-1.02); GLUCOSE,RANDOM 76 mg/dL (74-106); MAGNESIUM 1.9 mg/dL (1.8-2.4); PHOSPHOROUS 3.3 mg/dL (2.5-4.9); SGOT/AST 15 U/L (15-37); SGPT/ALT 15 U/L (12-78); TOT PROT 6.8 g/dl (6.4-8.2)
--- NOTE | 2017-01-04 12:14 | CON.CARD ---
Consult Consult Specialty:: Cardiology Referred by:: Dr. Link Reason for Consultation:: Cardiac evaluation - History of Present Illness Chief Complaint: Palpitations History of Present Illness: Patient is a 56 year old female well known to our service (sees Dr. Reddy) with underlying history of hypertension, bronchial asthma, aortic valve disease , mitral valve disease, pulmonary hypertension, obstructive sleep apnea, CKD and paroxysmal atrial fibrillation. She presented to ED yesterday with recurrence of atrial fibrillation with RVR. She complained of shortness of breath on exertion as well. She was admitted for further evaluation. Currently , she is in sinus rhythm. She was given antibiotic for treatment of cellulitis. She denies fever or chills. She denies chest pain at this time and she denies SOB or palpitations at this time. She denies paroxysmal nocturnal dyspnea or orthopnea. She denies headache or lightheadedness. - History Source History Provided By: Patient Limitations to Obtaining History: No Limitations - Past Medical History Cardio/Vascular: Yes: AFIB, Aortic Stenosis, HTN, Mitral Insufficiency, Pulmonary Hypertension Pulmonary: Yes: Asthma, Sleep Apnea Gastrointestinal: Yes: Other (ventral hernia, small bowel obstruction) Hepatobiliary: Yes: Cholecystitis Musculoskeletal: Yes: Other (carpal tunnel) - Past Surgical History Past Surgical History: Yes: Bariatric Surgery, Cholecystectomy, Hernia Repair, Hysterectomy, Oopherectomy - Alcohol/Substance Use Hx Alcohol Use: No History of Substance Use: reports: None - Smoking History Smoking history: Never smoked Have you smoked in the past 12 months: No Aproximately how many cigarettes per day: 0 - Social History 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 History of Recent Travel: No Home Medications - Allergies Allergies/Adverse Reactions: Allergies Allergy/AdvReac Type Severity Reaction Status Date / Time No Known Allergies Allergy Verified 01/03/17 16:37 - Home Medications Home Medications: Ambulatory Orders Apixaban [Eliquis -] 5 mg PO BID #60 tablet 11/28/15 Acetaminophen [Tylenol .Regular Strength -] 650 mg PO Q6H PRN #0 tablet Nitroglycerin Sublingual [Nitrostat -] 0.4 mg SL Q5M PRN #7 tab 04/12/16 Metoprolol Succinate [Toprol XL -] 25 mg PO DAILY 06/15/16 Cholecalciferol (Vitamin D3) [Vitamin D-400] 800 unit PO HS 12/02/16 Losartan/Hydrochlorothiazide [Hyzaar 50-12.5 Tablet] 1 each PO DAILY 12/02/16 Hydrocodone/Acetaminophen [[place] 5-325 Tablet] 1 each PO Q6H PRN #40 tablet MDD 4 12/06/16 Cephalexin [Keflex] 500 mg PO QID 01/03/17 Sulfamethoxazole/Trimethoprim [Bactrim Ds -] 1 tab PO DAILY 01/03/17 Family Disease History - Family Disease History Family Disease History: Diabetes: Mother, Heart Disease: Mother, CA: Father ( colon) Review of Systems - Review of Systems Constitutional: denies: Chills, Fever Cardiovascular: reports: Palpitations, Shortness of Breath. denies: Chest Pain Respiratory: reports: SOB, SOB on Exertion. denies: Cough, Hemoptysis, Orthopnea, PND Gastrointestinal: denies: Abdominal Pain, Constipation, Diarrhea, Melena, Nausea , Rectal Bleeding, Vomiting Genitourinary: denies: Dysuria Musculoskeletal: denies: Joint Pain Neurological: denies: Dizziness, Headache, Numbness, Seizure, Syncope, Unsteady Gait Vital Signs: Vital Signs Temperature 98.2 F 01/04/17 08:00 Pulse Rate 62 01/04/17 08:00 Respiratory Rate 16 01/04/17 08:00 Blood Pressure 128/72 01/04/17 08:00 O2 Sat by Pulse Oximetry (%) 98 01/03/17 21:00 Neck: Yes: Supple Respiratory: Yes: Diminished Gastrointestinal: Yes: Normal Bowel Sounds, Soft, Abdomen, Obese. No: Tenderness Cardiovascular: Yes: Regular Rate and Rhythm JVD: No Carotid Bruit: No PMI: Non-Displaced Heart Sounds: Yes: S1, S2 Murmur: Yes: Systolic Murmur (Soft SLOAN right intercostal space) Edema: Yes - Other Data Labs, Other Data: CBC, BMP 01/04/17 09:40 01/04/17 09:40 INR, PTT INR 1.22 (0.82-1.09) H 01/03/17 17:47 Troponin, BNP 01/03/17 23:00 Troponin I 0.03 Laboratory Results - last 24 hr 01/03/17 01/03/17 01/03/17 17:47 17:47 17:47 WBC 6.5 D RBC 4.47 Hgb 12.3 D Hct 38.3 D MCV 85.7 MCHC 32.2 RDW 17.0 H Plt Count 223 D MPV 9.2 Neutrophils % 76.1 Lymphocytes % 13.7 D Monocytes % 9.0 Eosinophils % 0.8 Basophils % 0.4 INR 1.22 H Sodium 140 Potassium 4.0 Chloride 102 Carbon Dioxide 30 Anion Gap 8 BUN 16 D Creatinine 0.9 D Creat Clearance w eGFR > 60 Random Glucose 95 D Calcium 8.9 Phosphorus Magnesium 1.9 Total Bilirubin 0.4 D AST 19 D ALT 16 D Alkaline Phosphatase 127 H D Creatine Kinase 109 Troponin I 0.02 Total Protein 7.3 Albumin 3.4 01/03/17 01/04/17 01/04/17 23:00 09:40 09:40 WBC 5.0 RBC 3.97 Hgb 11.1 Hct 33.9 MCV 85.4 MCHC 32.6 RDW 16.9 H Plt Count 195 MPV 8.5 Neutrophils % 67.3 Lymphocytes % 18.5 D Monocytes % 10.3 H Eosinophils % 3.3 D Basophils % 0.6 INR Sodium 141 Potassium 3.9 Chloride 104 Carbon Dioxide 29 Anion Gap 8 BUN 14 Creatinine 0.7 D Creat Clearance w eGFR > 60 Random Glucose 76 Calcium 8.7 Phosphorus 3.3 Magnesium 1.9 Total Bilirubin 0.5 D AST 15 D ALT 15 Alkaline Phosphatase 116 Creatine Kinase 83 Troponin I 0.03 Total Protein 6.8 Albumin 3.2 L Atrial fibrillation with RVR now in sinus rhythm Problem List - Problems (1) Palpitations Code(s): R00.2 - PALPITATIONS (2) Aortic stenosis, moderate Code(s): I35.0 - NONRHEUMATIC AORTIC (VALVE) STENOSIS (3) HTN (hypertension) Code(s): I10 - ESSENTIAL (PRIMARY) HYPERTENSION Qualifiers: Hypertension type: essential hypertension (4) Paroxysmal atrial fibrillation Code(s): I48.0 - PAROXYSMAL ATRIAL FIBRILLATION (5) Cellulitis of right ankle Code(s): L03.115 - CELLULITIS OF RIGHT LOWER LIMB (6) Lymph edema Code(s): I89.0 - LYMPHEDEMA, NOT ELSEWHERE CLASSIFIED Assessment/Plan 1. Paroxysmal atrial fibrillation now back in sinus rhythm 2. Hypertension 3. Aortic valve disease with 4. Mitral valve disease with MR 5. Pulmonary hypertension 6. Obstructive sleep apnea 7. History of bronchial asthma 8. Possible cellulitis lower extremity 9. Exogenous obesity PLAN: 1. Continue Metoprolol and Hyzaar 2. Continue Eliquis 3. If patient continues to have intermittent AF with RVR, may consider reinitiation of antiarrhythmics. 4. Antibiotic given by PMD May discharge home cardiac standpoint. Kamran Gaston MD
[2017-01-04 15:23] VITALS: BP 122/68; PULSE 73; TEMP 98.5
--- NOTE | 2017-01-04 15:26 | PN ---
Progress Note (short form) - Note Progress Note: No Complaints, no A.Fib on monitor Vital Signs (72 hours) 01/03/17 01/03/17 01/03/17 16:34 17:04 17:25 Temperature 97.8 F Pulse Rate 82 115 H Pulse Rate [ 100 H Right Radial] Respiratory 20 16 Rate Blood Pressure 118/79 Blood Pressure 116/73 [Left Arm] O2 Sat by Pulse 98 100 100 Oximetry (%) 01/03/17 01/03/17 01/03/17 17:40 18:30 20:25 Temperature 97.7 F Pulse Rate Pulse Rate [ 75 73 72 Right Radial] Respiratory 17 16 20 Rate Blood Pressure Blood Pressure 114/83 106/71 111/67 [Left Arm] O2 Sat by Pulse 100 100 98 Oximetry (%) 01/03/17 01/04/17 01/04/17 21:00 02:00 05:49 Temperature 98.4 F 98 F 98 F Pulse Rate 76 64 61 Pulse Rate [ Right Radial] Respiratory 20 20 20 Rate Blood Pressure 124/77 115/78 125/71 Blood Pressure [Left Arm] O2 Sat by Pulse 98 Oximetry (%) 01/04/17 01/04/17 08:00 09:00 Temperature 98.2 F Pulse Rate 62 Pulse Rate [ Right Radial] Respiratory 16 Rate Blood Pressure 128/72 Blood Pressure [Left Arm] O2 Sat by Pulse 96 Oximetry (%) Necki-no JVD Lungs are clear Heart S1S2 3/6 SM LSB and apex Abdomen soft, NT, obese Ext -decreased redness RLE Laboratory Results - last 24 hr 01/03/17 01/03/17 01/03/17 17:47 17:47 17:47 WBC 6.5 D RBC 4.47 Hgb 12.3 D Hct 38.3 D MCV 85.7 MCHC 32.2 RDW 17.0 H Plt Count 223 D MPV 9.2 Neutrophils % 76.1 Lymphocytes % 13.7 D Monocytes % 9.0 Eosinophils % 0.8 Basophils % 0.4 INR 1.22 H Sodium 140 Potassium 4.0 Chloride 102 Carbon Dioxide 30 Anion Gap 8 BUN 16 D Creatinine 0.9 D Creat Clearance w eGFR > 60 Random Glucose 95 D Calcium 8.9 Phosphorus Magnesium 1.9 Total Bilirubin 0.4 D AST 19 D ALT 16 D Alkaline Phosphatase 127 H D Creatine Kinase 109 Troponin I 0.02 Total Protein 7.3 Albumin 3.4 01/03/17 01/04/17 01/04/17 23:00 09:40 09:40 WBC 5.0 RBC 3.97 Hgb 11.1 Hct 33.9 MCV 85.4 MCHC 32.6 RDW 16.9 H Plt Count 195 MPV 8.5 Neutrophils % 67.3 Lymphocytes % 18.5 D Monocytes % 10.3 H Eosinophils % 3.3 D Basophils % 0.6 INR Sodium 141 Potassium 3.9 Chloride 104 Carbon Dioxide 29 Anion Gap 8 BUN 14 Creatinine 0.7 D Creat Clearance w eGFR > 60 Random Glucose 76 Calcium 8.7 Phosphorus 3.3 Magnesium 1.9 Total Bilirubin 0.5 D AST 15 D ALT 15 Alkaline Phosphatase 116 Creatine Kinase 83 Troponin I 0.03 Total Protein 6.8 Albumin 3.2 L Current Active Problems Problem Status Diagnosed Bradycardia Acute Cellulitis and abscess of foot Acute Chest pain Acute DVT prophylaxis Acute Near syncope Acute Palpitations Acute Aortic stenosis, moderate Chronic HTN (hypertension) Chronic Paroxysmal atrial fibrillation Chronic Plan Dr Gaston cardiology consult appreciated. Dr Gaston recommends to d/c pt from cardiac point will d/c home and f/u as outpt F/u with cardiology Problem List - Problems (1) Aortic stenosis, moderate Code(s): I35.0 - NONRHEUMATIC AORTIC (VALVE) STENOSIS (2) Paroxysmal atrial fibrillation Code(s): I48.0 - PAROXYSMAL ATRIAL FIBRILLATION (3) Cellulitis and abscess of foot Code(s): L03.119 - CELLULITIS OF UNSPECIFIED PART OF LIMB L02.619 - CUTANEOUS ABSCESS OF UNSPECIFIED FOOT (4) Chest pain Code(s): R07.9 - CHEST PAIN, UNSPECIFIED Qualifiers: Chest pain type: unspecified Qualified Code(s): R07.9 - Chest pain, unspecified (5) HTN (hypertension) Code(s): I10 - ESSENTIAL (PRIMARY) HYPERTENSION Qualifiers: Hypertension type: essential hypertension
--- NOTE | 2017-01-04 15:27 | DS ---
Physical Examination Vital Signs: Vital Signs Temperature 98.5 F 01/04/17 14:00 Pulse Rate 73 01/04/17 14:00 Respiratory Rate 20 01/04/17 14:00 Blood Pressure 122/68 01/04/17 14:00 O2 Sat by Pulse Oximetry (%) 96 01/04/17 09:00 Constitutional: Yes: Well Nourished, Calm Eyes: Yes: Conjunctiva Clear, EOM Intact HENT: Yes: Atraumatic, Normocephalic Neck: Yes: Supple, Trachea Midline Cardiovascular: Yes: Regular Rate and Rhythm Respiratory: Yes: Regular, CTA Bilaterally Gastrointestinal: Yes: Normal Bowel Sounds, Soft, Abdomen, Obese. No: Pulsatile Mass, Tenderness, Tenderness, Epigastrium ...Rectal Exam: Yes: Deferred Renal/: No: Anuria Musculoskeletal: No: Joint Swelling, Muscle Weakness Extremities: No: Calf Tenderness, Cyanosis Edema: Yes Edema: LLE: Trace, RLE: Trace Peripheral Pulses WNL: No Integumentary: Yes: Erythema (improved) Neurological: Yes: WNL ...Motor Strength: WNL Psychiatric: Yes: WNL Labs: CBC, BMP 01/04/17 09:40 01/04/17 09:40 Discharge Summary Reason For Visit: PALPITATIONS Current Active Problems Bradycardia (Acute) Cellulitis and abscess of foot (Acute) Chest pain (Acute) DVT prophylaxis (Acute) Near syncope (Acute) Palpitations (Acute) Aortic stenosis, moderate (Chronic) HTN (hypertension) (Chronic) Paroxysmal atrial fibrillation (Chronic) - Instructions Referrals: Juaquin Link MD [Primary Care Provider] - - Home Medications Comprehensive Discharge Medication List: Ambulatory Orders Apixaban [Eliquis -] 5 mg PO BID #60 tablet 11/28/15 Acetaminophen [Tylenol .Regular Strength -] 650 mg PO Q6H PRN #0 tablet Nitroglycerin Sublingual [Nitrostat -] 0.4 mg SL Q5M PRN #7 tab 04/12/16 Metoprolol Succinate [Toprol XL -] 25 mg PO DAILY 06/15/16 Cholecalciferol (Vitamin D3) [Vitamin D-400] 800 unit PO HS 12/02/16 Losartan/Hydrochlorothiazide [Hyzaar 50-12.5 Tablet] 1 each PO DAILY 12/02/16 Hydrocodone/Acetaminophen [[place] 5-325 Tablet] 1 each PO Q6H PRN #40 tablet MDD 4 12/06/16 Cephalexin [Keflex] 500 mg PO QID 01/03/17 Sulfamethoxazole/Trimethoprim [Bactrim Ds -] 1 tab PO DAILY 01/03/17
--- NOTE | 2017-01-05 16:29 | EKG ---
Test Reason : Blood Pressure : / mmHG Vent. Rate : 117 BPM Atrial Rate : 092 BPM P-R Int : 000 ms QRS Dur : 112 ms QT Int : 330 ms P-R-T Axes : 000 -10 124 degrees QTc Int : 460 ms ATRIAL FIBRILLATION WITH RAPID VENTRICULAR RESPONSE VOLTAGE CRITERIA FOR LEFT VENTRICULAR HYPERTROPHY ABNORMAL ECG WHEN COMPARED WITH ECG OF 31-AUG-2016 10:44, ATRIAL FIBRILLATION HAS REPLACED SINUS RHYTHM VENT. RATE HAS INCREASED BY 65 BPM T WAVE INVERSION NOW EVIDENT IN LATERAL LEADS Confirmed by ENEDELIA CASTANON MD ([id number]) on 01/05/2017 4:29:17 PM Referred By: Confirmed By:ENEDELIA CASTANON MD
== END 2017-01-04 15:58 | disposition home or self-care (01) | DRG 309 ==
LOC: JER 16:29 → JERBED 19:03 → J4W 21:14
PROVIDERS: ADMIT Internal Medicine; ATTEND Internal Medicine
DX: I48.0 Paroxysmal atrial fibrillation (principal); Z68.43 Body mass index [BMI] 50.0-59.9, adult; L03.115 Cellulitis of right lower limb; Z79.01 Long term (current) use of anticoagulants; I35.0 Nonrheumatic aortic (valve) stenosis; E66.01 Morbid (severe) obesity due to excess calories; G47.33 Obstructive sleep apnea (adult) (pediatric); J45.909 Unspecified asthma, uncomplicated; I27.2 Other secondary pulmonary hypertension; I12.9 Hypertensive chronic kidney disease with stage 1 through stage 4 chronic kidney disease, or unspecified chronic kidney disease; N18.9 Chronic kidney disease, unspecified; I34.0 Nonrheumatic mitral (valve) insufficiency
CPT/HCPCS: 36415; 71010-TC; 80053; 82550; 83735; 84100; 84484; 85025; 85610; 93005; 93010; 99285-25

== ENCOUNTER 2017-03-02 23:01 | Emergency (ER) | payer BC ==
[2017-03-02 23:05] VITALS: BP 160/91; PULSE 68; TEMP 98.1; BMI 55.5
[2017-03-03 03:00] LABS: BASOPHIL 0.5 % (0-2.0); EOSINOPHIL 2.2 % (0-4.5); MCH 27.4 pg (25.7-33.7); MCHC 31.6 g/dl (32.0-36.0); MEAN CELL VOLUME 86.9 fl (80-96); MEAN PLT VOLUME 9.3 fl (7.5-11.1); NEUTROPHILS 66.8 % (42.8-82.8); PLATELET COUNT 167 K/MM3 (134-434); RDW 15.9 % (11.6-15.6); WHITE BLOOD COUNT 5.1 K/mm3 (4.0-10.0)
[2017-03-03 03:02] LABS: URINE APPEARANCE CLEAR; URINE BILIRUBIN NEGATIVE (NEGATIVE); URINE BLOOD 3+ (NEGATIVE); URINE COLOR LTYELLOW; URINE GLUCOSE (UA) NEGATIVE (NEGATIVE); URINE KETONE NEGATIVE (NEGATIVE); URINE LEUK ESTERASE NEGATIVE (NEGATIVE); URINE NITRITE NEGATIVE (NEGATIVE); URINE PROTEIN NEGATIVE (NEGATIVE); URINE UROBILINOGEN NEGATIVE mg/dL (0.2-1.0)
[2017-03-03 03:27] LABS: ALBUMIN 3.5 g/dl (3.4-5.0); ANION GAP 10 (8-16); BILIRUBIN,TOTAL 0.5 mg/dL (0.2-1.0); CALCIUM 8.6 mg/dL (8.5-10.1); CO2 25 mmol/L (21-32); CREATININE 0.9 mg/dL (0.55-1.02); GLUCOSE,RANDOM 92 mg/dL (74-106); SGOT/AST 20 U/L (15-37); SGPT/ALT 21 U/L (12-78); TOT PROT 7.1 g/dl (6.4-8.2)
[2017-03-03 03:28] LABS: ALK PHOS 132 U/L (45-117)
[2017-03-03] MEDS ORDERED: SODIUM CHLORIDE 1,000 ML IV STA (03:55)
--- NOTE | 2017-03-03 05:21 | PDOC ---
History of Present Illness - General Chief Complaint: Urinary Problem Stated Complaint: BLOOD IN URINE Time Seen by Provider: 03/03/17 01:39 History Source: Patient Exam Limitations: No Limitations - History of Present Illness Travel History: No Initial Comments: 03/03/17 05:15 56yo Female patient w/ PmHx: Afib, HTN, Lymph edema, Uterine and Ovarian Ca ( Remission), Hysterectomy, Obesity presents to ED c/o hematuria w/ lower abdominal discomfort. Patient states she currently take Eliquis 5mg BID. She denies vaginal bleeding, rectal bleeding, h/a, n/v/d, fever, CP, diff breathing , or any other complaints at this time. Timing/Duration: reports: constant Quality: reports: moderate Abdominal Pain Onset Location: reports: suprapubic Pain Radiation: reports: no radiation Activities at Onset: reports: no specific activity Treatment Prior to Arrive: worse with: analgesics, antacids, cold pack, heat, laxative, enema, other Aggravating Factors: worse with: None, Defecation, Eating, Emotional upset, Exertion, [place], Movement, Voiding, Change in position Alleviating Factors: worse with: None, Belching, Shallow Breathing, Defecation, Eating, Holding Breath, Passing Gas, Change in Position, Rest, Voiding, Vomiting Past History - Travel Traveled outside of the country in the last 30 days: No Close contact w/someone who was outside of country & ill: No - Past Medical History Allergies/Adverse Reactions: Allergies Allergy/AdvReac Type Severity Reaction Status Date / Time No Known Allergies Allergy Verified 03/02/17 23:05 Home Medications: Ambulatory Orders Apixaban [Eliquis -] 5 mg PO BID #60 tablet 11/28/15 Acetaminophen [Tylenol .Regular Strength -] 650 mg PO Q6H PRN #0 tablet Metoprolol Succinate [Toprol XL -] 25 mg PO DAILY 06/15/16 Losartan/Hydrochlorothiazide [Hyzaar 50-12.5 Tablet] 1 each PO DAILY 12/02/16 Anemia: No Asthma: Yes (CONTROLLED UNLESS PT GETS A COLD) Cancer: Yes (UTERINE AND OVARIAN. CA FREE 2008) Cardiac Disorders: Yes (AFIB 12/2015 / AORTIC STENOSIS) CVA: No COPD: No CHF: No Dementia: No Diabetes: No GI Disorders: No Disorders: No HTN: Yes Hypercholesterolemia: No Liver Disease: No Seizures: No Thyroid Disease: No - Surgical History Abdominal Surgery: Yes (HERNIA REPAIR AFTER ALESSANDRO 2011) Appendectomy: No Cardiac Surgery: No Cholecystectomy: Yes (2002) GI Surgery: Yes ([facility]PASS 2001) Lung Surgery: No Neurologic Surgery: No Orthopedic Surgery: No - Immunization History Immunization Up to Date: Yes (FLU UTD) - Psycho/Social/Smoking Cessation Hx Anxiety: No Suicidal Ideation: No Smoking Status: No Smoking History: Never smoked Have you smoked in the past 12 months: No Number of Cigarettes Smoked Daily: 0 Hx Alcohol Use: No Drug/Substance Use Hx: No Substance Use Type: Alcohol Hx Substance Use Treatment: No Abd/GI Specific PMHX - Complaint Specific PMHX Colitis: No Diverticulitis: No Gall Bladder Disease: No GERD: No Hepatitis: No Irritable Bowel Synd (IBS): No Pancreatitis: No GI Ulcer Disease: No Review of Systems - Review of Systems Able to Perform ROS?: Yes Is the patient limited Cypriot proficient: No Constitutional: No: Chills, Fever Respiratory: No: Shortness of Breath, Stridor, Wheezing Cardiac (ROS): No: Chest Pain, Edema ABD/GI: Yes: Abdominal cramping. No: Nausea, Vomiting : Yes: Hematuria. No: Dysuria, Flank Pain, Pain, Urgency Musculoskeletal: No: Back Pain Neurological: No: Headache All Other Systems: Reviewed and Negative *Physical Exam - Vital Signs Last Vital Signs Temp Pulse Resp BP Pulse Ox 98.1 F 68 18 160/91 98 03/02/17 23:02 03/02/17 23:02 03/02/17 23:02 03/02/17 23:02 03/03/17 02:10 - Physical Exam General Appearance: Yes: Nourished, Appropriately Dressed. No: Apparent Distress, Mild Distress, Moderate Distress, Severe Distress Neck: positive: Trachea midline, Supple. negative: Decreased range of motion, Stridor, Lymphadenopathy (R), Lymphadenopathy (L) Respiratory/Chest: positive: Lungs Clear, Normal Breath Sounds. negative: Chest Tender, Respiratory Distress, Accessory Muscle Use, Labored Respiration, Rapid RR, Stridor, Wheezing Cardiovascular: positive: Regular Rhythm, Regular Rate. negative: Tachycardia Gastrointestinal/Abdominal: positive: Normal Bowel Sounds, Soft, Distended. negative: Tender, Guarding, Rebound, Tenderness Musculoskeletal: positive: Normal Inspection. negative: CVA Tenderness, Vertebral Tenderness Extremity: positive: Normal Capillary Refill, Normal Inspection, Normal Range of Motion, Pedal Edema, Swelling. negative: Calf Tenderness, Erythema, Inflammation Integumentary: positive: Normal Color, Dry, Warm Neurologic: positive: broomcorn press feeder II-XII NML intact, Fully Oriented, Alert, Normal Mood/ Affect, Normal Response, Motor Strength 12/06 ED Treatment Course - LABORATORY CBC & Chemistry Diagram: 03/03/17 02:55 03/03/17 02:55 - ADDITIONAL ORDERS Additional order review: Laboratory Results 03/03/17 03/03/17 02:55 02:13 Sodium 141 Potassium 4.0 Chloride 106 Carbon Dioxide 25 Anion Gap 10 BUN 24 H D Creatinine 0.9 D Creat Clearance w eGFR > 60 Random Glucose 92 D Calcium 8.6 Total Bilirubin 0.5 AST 20 D ALT 21 D Alkaline Phosphatase 132 H Total Protein 7.1 Albumin 3.5 Urine Color Ltyellow Urine Appearance Clear Urine pH 5.0 Urine Protein Negative Urine Glucose (UA) Negative Urine Ketones Negative Urine Blood 3+ H Urine Nitrite Negative Urine Bilirubin Negative Urine Urobilinogen Negative Ur Leukocyte Esterase Negative 03/03/17 02:55 RBC 4.18 MCV 86.9 MCHC 31.6 L RDW 15.9 H MPV 9.3 Neutrophils % 66.8 Lymphocytes % 21.1 Monocytes % 9.4 Eosinophils % 2.2 Basophils % 0.5 - RADIOLOGY Radiology Studies Ordered: Category Date Time Status ABDOMEN & PELVIS CT W/O CONTR [CT] Stat CT Scan 03/03/17 04:34 Taken *DC/Admit/Observation/Transfer Diagnosis at time of Disposition: Hematuria Qualifiers: Hematuria type: gross Qualified Code(s): R31.0 - Gross hematuria - Discharge Dispostion Disposition: HOME Condition at time of disposition: Stable Admit: No - Referrals Referrals: Juaquin Dewey MD [Primary Care Provider] - Khoi Wilson MD [Staff Physician] - - Patient Instructions Printed Discharge Instructions: DI for Hematuria Additional Instructions: FOLLOW UP WITH DR. DEWEY THIS WEEK FOR FURTHER EVALUATION. CALL TO SCHEDULE APPOINTMENT. ALSO, FOLLOW UP WITH DR. WILSON (UROLOGY) REGARDING BLOOD IN URINE. CONTINUE YOUR MEDICATIONS PRESCRIBED. RETURN IF SYMPTOM WORSEN SUCH PASSING OUT, SHORTNESS OF BREATH, RECTAL BLEEDING OR ANY OTHER COMPLAINTS FOR FURTHER EVALUATION. Print Language: SAMMARINESE
[2017-03-03 06:16] LABS: INR 0.97 (0.82-1.09); PROTHROMBIN TIME (PATIENT) 10.7 SEC (9.98-11.88)
[2017-03-03 06:19] LABS: ACTIVATED PTT 30.3 SECONDS (26.9-34.4)
== END 2017-03-03 07:06 | disposition home or self-care (01) ==
LOC: JER 23:01
PROC: 3E0337Z Introduction of Electrolytic and Water Balance Substance into Peripheral Vein, Percutaneous Approach (ICD-10-PCS; principal; 2017-03-02)
DX: R31.0 Gross hematuria (principal); I48.91 Unspecified atrial fibrillation; Z79.01 Long term (current) use of anticoagulants; I10 Essential (primary) hypertension; I89.0 Lymphedema, not elsewhere classified; Z85.43 Personal history of malignant neoplasm of ovary; Z85.42 Personal history of malignant neoplasm of other parts of uterus
CPT/HCPCS: 36415; 74176-TC; 80053; 81003; 81015; 85025; 85610; 85730; 99283-25

== ENCOUNTER 2017-04-01 15:28 | Inpatient (IN) | payer BC ==
[2017-04-01 15:33] VITALS: BMI 56.2
--- NOTE | 2017-04-01 16:35 | PDOC ---
History of Present Illness - General Chief Complaint: Shortness of Breath Stated Complaint: SOB/a.fib/nebs,prednison Time Seen by Provider: 04/01/17 16:11 - History of Present Illness Initial Comments: 04/01/17 17:14 Ms. Simone Lopez is a 56 year old female with a significant past medical history of Super Morbid Obesity, Lymphadenopathy, HTN, Asthma, afib, aortic stenosis, gastric bypass, gall bladder, ovarian and uterine cancer who presents to the emergency department with a 2 day history of shortness of breath with any exertion. Of note she recently had an instance of acute bronchitis 3 weeks ago with confirmatory x-ray of clearance after. The patient denies chest pain, headache and dizziness. Denies fever, chills, nausea, vomit, diarrhea and constipation. Denies dysuria, frequency, urgency and hematuria. Allergies: NKDA Past surgical history: Gastric bypass '02, cholecystectomy '03, full hysterectomy '09 PMD - Juaquin Link 04/01/17 17:14 Past History - Past Medical History Allergies/Adverse Reactions: Allergies Allergy/AdvReac Type Severity Reaction Status Date / Time No Known Allergies Allergy Verified 04/01/17 15:29 Home Medications: Ambulatory Orders Apixaban [Eliquis -] 5 mg PO BID #60 tablet 11/28/15 Acetaminophen [Tylenol .Regular Strength -] 650 mg PO Q6H PRN #0 tablet Metoprolol Succinate [Toprol XL -] 25 mg PO DAILY 06/15/16 Losartan/Hydrochlorothiazide [Hyzaar 50-12.5 Tablet] 1 each PO DAILY 12/02/16 Anemia: No Asthma: Yes (CONTROLLED UNLESS PT GETS A COLD) Cancer: Yes (UTERINE AND OVARIAN. CA FREE 2008) Cardiac Disorders: Yes (AFIB 12/2015 / AORTIC STENOSIS) CVA: No COPD: No CHF: No Dementia: No Diabetes: No GI Disorders: No Disorders: No HTN: Yes Hypercholesterolemia: No Liver Disease: No Seizures: No Thyroid Disease: No - Surgical History Abdominal Surgery: Yes (HERNIA REPAIR AFTER ALESSANDRO 2011) Appendectomy: No Cardiac Surgery: No Cholecystectomy: Yes (2002) GI Surgery: Yes (BYPASS 2001) Lung Surgery: No Neurologic Surgery: No Orthopedic Surgery: No - Immunization History Immunization Up to Date: Yes (FLU UTD) - Psycho/Social/Smoking Cessation Hx Anxiety: No Suicidal Ideation: No Smoking Status: No Smoking History: Never smoked Have you smoked in the past 12 months: No Number of Cigarettes Smoked Daily: 0 Information on smoking cessation initiated: No Hx Alcohol Use: No Drug/Substance Use Hx: No Substance Use Type: Alcohol Hx Substance Use Treatment: No Review of Systems - Review of Systems Comments:: 04/01/17 17:14 GENERAL/CONSTITUTIONAL: No fever or chills. No weakness. HEAD, EYES, EARS, NOSE AND THROAT: No change in vision. No ear pain or discharge. No sore throat. CARDIOVASCULAR: +shortness of breath with any exertion for 2 days RESPIRATORY: No cough, wheezing, or hemoptysis. GASTROINTESTINAL: No nausea, vomiting, diarrhea or constipation. GENITOURINARY: No dysuria, frequency, or change in urination. MUSCULOSKELETAL: No joint or muscle swelling or pain. No neck or back pain. SKIN: No rash NEUROLOGIC: No headache, vertigo, loss of consciousness, or change in strength/ sensation. ENDOCRINE: No increased thirst. No abnormal weight change HEMATOLOGIC/LYMPHATIC: No anemia, easy bleeding, or history of blood clots. ALLERGIC/IMMUNOLOGIC: No hives or skin allergy. 04/01/17 17:19 *Physical Exam - Vital Signs Last Vital Signs Temp Pulse Resp BP Pulse Ox 98.2 F 98 H 22 146/74 99 04/01/17 15:29 04/01/17 15:29 04/01/17 15:29 04/01/17 15:29 04/01/17 15:29 - Physical Exam Comments: 04/01/17 17:14 GENERAL: +Patient super morbidly obese. Awake, alert, and fully oriented, in no acute distress HEAD: No signs of trauma, normocephalic, atraumatic EYES: PERRLA, EOMI, sclera anicteric, conjunctiva clear ENT: Auricles normal inspection, hearing grossly normal, nares patent, oropharynx clear without exudates. Moist mucosa NECK: Normal ROM, supple, no lymphadenopathy, JVD, or masses LUNGS: No distress at rest, speaks full sentences, clear to auscultation bilaterally HEART: +Afib irregular rhythm appreciated. ABDOMEN: Soft, nontender, normoactive bowel sounds. No guarding, no rebound. No masses EXTREMITIES: +Lymphadema in all extremities. Lower bilaterally discolored with R warmer than L in 1 central location. Normal range of motion. No clubbing or cyanosis. NEUROLOGICAL: Cranial nerves II through XII grossly intact. Normal speech, normal gait, no focal sensorimotor deficits SKIN: Warm, Dry, normal turgor, no rashes or lesions noted. ED Treatment Course - LABORATORY CBC & Chemistry Diagram: 04/01/17 17:45 04/01/17 17:45 Medical Decision Making - Medical Decision Making 04/01/17 17:27 Ms. Nichols presents on advice of her PCP as she has been having SOB for the past 2 days. Discussed patient with Dr. Link who recommended basic labs as well as imaging to look for possible causes. Patient signed out to oncoming resident for further care. *DC/Admit/Observation/Transfer Diagnosis at time of Disposition: Shortness of breath
--- NOTE | 2017-04-01 16:54 | PDOC ---
History of Present Illness - General Chief Complaint: Shortness of Breath Stated Complaint: SOB/a.fib/nebs,prednison Time Seen by Provider: 04/01/17 16:11 Past History - Past Medical History Allergies/Adverse Reactions: Allergies Allergy/AdvReac Type Severity Reaction Status Date / Time No Known Allergies Allergy Verified 04/01/17 15:29 Home Medications: Ambulatory Orders Apixaban [Eliquis -] 5 mg PO BID #60 tablet 11/28/15 Acetaminophen [Tylenol .Regular Strength -] 650 mg PO Q6H PRN #0 tablet Metoprolol Succinate [Toprol XL -] 25 mg PO DAILY 06/15/16 Losartan/Hydrochlorothiazide [Hyzaar 50-12.5 Tablet] 1 each PO DAILY 12/02/16 Anemia: No Asthma: Yes (CONTROLLED UNLESS PT GETS A COLD) Cancer: Yes (UTERINE AND OVARIAN. CA FREE 2008) Cardiac Disorders: Yes (AFIB 12/2015 / AORTIC STENOSIS) CVA: No COPD: No CHF: No Dementia: No Diabetes: No GI Disorders: No Disorders: No HTN: Yes Hypercholesterolemia: No Liver Disease: No Seizures: No Thyroid Disease: No - Surgical History Abdominal Surgery: Yes (HERNIA REPAIR AFTER ALESSANDRO 2011) Appendectomy: No Cardiac Surgery: No Cholecystectomy: Yes (2002) GI Surgery: Yes (BYPASS 2001) Lung Surgery: No Neurologic Surgery: No Orthopedic Surgery: No - Immunization History Immunization Up to Date: Yes (FLU UTD) - Psycho/Social/Smoking Cessation Hx Anxiety: No Suicidal Ideation: No Smoking Status: No Smoking History: Never smoked Have you smoked in the past 12 months: No Number of Cigarettes Smoked Daily: 0 Information on smoking cessation initiated: No Hx Alcohol Use: No Drug/Substance Use Hx: No Substance Use Type: Alcohol Hx Substance Use Treatment: No *Physical Exam - Vital Signs Last Vital Signs Temp Pulse Resp BP Pulse Ox 98.2 F 98 H 22 146/74 99 04/01/17 15:29 04/01/17 15:29 04/01/17 15:29 04/01/17 15:29 04/01/17 15:29
--- NOTE | 2017-04-01 17:06 | PDOC ---
Attending Attestation - Resident Resident Name: Edy Parnell - ED Attending Attestation I have performed the following: I have examined & evaluated the patient, The case was reviewed & discussed with the resident, I agree w/resident's findings & plan, Exceptions are as noted - HPI HPI: 04/01/17 16:54 morbidly obese 56 yo female sent in by Dr Keating for dyspnea since Friday. Denies fever,chills,nausea,vomiting, or productive cough. Recently finished prednisone for bronchitis -PMh -afib on ,hysterectomy 2008 for ovarian and cervical cancer,HTN, aortic stenosis 04/01/17 17:15 - Physicial Exam PE: 04/01/17 17:06 56 yo morbidly obese female HEENT wnl NECK no bruits LUNGS cta b/l CVS irreg rr S1S2,+ murmur ABd obese,no focal tenderness Extremities -mild tenderness on medial aspect right ankle neuro axox3 04/01/17 17:14 - Medical Decision Making 04/01/17 17:22 ekg,cbc,comp, cardiac 04/01/17 18:35 CBC is unremarkable, chemistries show a negative troponin, creatinine of 1.0 04/01/17 21:27 Discussed the case with primary care physician, Dr. Juaquin Link and the patient will be admitted to telemetry for shortness of breath, mild congestive heart failure, resulting from intermittent rapid A. fib. She also has some early cellulitis in the medial aspect of her right ankle Cardiac is [facility] Plan admit to telemetry, patient will get 100 mg Metroprolol, cardiology consult , IV antibiotics
[2017-04-01] MEDS ORDERED: LIDOCAINE HCL 1%, 10 MG/ML (20ML VIAL) ONE (17:29)
[2017-04-01 17:53] LABS: BASOPHIL 0.4 % (0-2.0); EOSINOPHIL 1.5 % (0-4.5); MCH 28.1 pg (25.7-33.7); MCHC 32.5 g/dl (32.0-36.0); MEAN CELL VOLUME 86.5 fl (80-96); MEAN PLT VOLUME 9.4 fl (7.5-11.1); NEUTROPHILS 80.5 % (42.8-82.8); PLATELET COUNT 188 K/MM3 (134-434); RDW 16.6 % (11.6-15.6); WHITE BLOOD COUNT 7.8 K/mm3 (4.0-10.0)
[2017-04-01 18:15] LABS: ALBUMIN 3.3 g/dl (3.4-5.0); ANION GAP 7 (8-16); BILIRUBIN,TOTAL 0.5 mg/dL (0.2-1.0); CALCIUM 8.8 mg/dL (8.5-10.1); CO2 25 mmol/L (21-32); GLUCOSE,RANDOM 92 mg/dL (74-106); SGOT/AST 30 U/L (15-37); SGPT/ALT 51 U/L (12-78)
[2017-04-01 18:18] LABS: ALK PHOS 141 U/L (45-117); CPK 55 IU/L (26-192); TROPONIN I < 0.02 ng/ml (0.00-0.05)
[2017-04-01] MEDS ORDERED: dilTIAZem HCL 50 MG/10 ML - 10 ML VIAL IVPUSH ONE (18:25)
[2017-04-01] MEDS ORDERED: dilTIAZem HCL 125 MG/25 ML - 25 ML VIAL ONE (18:51)
[2017-04-01] MEDS ORDERED: ACETAMINOPHEN 325 MG TABLET (FP) PO PRN (20:46)
[2017-04-01] MEDS ORDERED: CEFAZOLIN (PRE-DOCKED) 50 ML IVPB ONE (21:11)
[2017-04-01] MEDS: APIXABAN 5 MG TABLET PO SCH (21:29)
[2017-04-01] MEDS ORDERED: METOPROLOL SUCCINATE 50 MG TAB.SR.24H (FP) ONE (21:30)
--- NOTE | 2017-04-01 21:31 | PDOC ---
*Physical Exam - Vital Signs Last Vital Signs Temp Pulse Resp BP Pulse Ox 98.2 F 99 H 20 122/101 100 04/01/17 15:29 04/01/17 19:07 04/01/17 20:44 04/01/17 20:44 04/01/17 20:44 ED Treatment Course - LABORATORY CBC & Chemistry Diagram: 04/01/17 17:45 04/01/17 17:45 - ADDITIONAL ORDERS Additional order review: Laboratory Results 04/01/17 17:45 Sodium 140 Potassium 4.0 Chloride 108 H Carbon Dioxide 25 Anion Gap 7 L BUN 20 H Creatinine 1.0 Creat Clearance w eGFR 57.56 Random Glucose 92 Calcium 8.8 Total Bilirubin 0.5 AST 30 D ALT 51 D Alkaline Phosphatase 141 H Creatine Kinase 55 Troponin I < 0.02 B-Natriuretic Peptide 3370.16 H Total Protein 7.0 Albumin 3.3 L 04/01/17 17:45 RBC 4.18 MCV 86.5 MCHC 32.5 RDW 16.6 H MPV 9.4 Neutrophils % 80.5 D Lymphocytes % 13.1 D Monocytes % 4.5 Eosinophils % 1.5 Basophils % 0.4 - RADIOLOGY Radiology Studies Ordered: Category Date Time Status CHEST CT WITHOUT CONTRAST [CT] Stat CT Scan 04/01/17 20:18 Completed - Medications Given in the ED: ED Medications Discontinued Medications Generic Name Dose Route Start Last Admin Trade Name Freq PRN Reason Stop Dose Admin Diltiazem HCl 20 mg 04/01/17 18:25 04/01/17 18:45 Cardizem Injection - IVPUSH 04/01/17 18:26 20 mg ONCE ONE Administration *DC/Admit/Observation/Transfer Diagnosis at time of Disposition: Acute on chronic diastolic (congestive) heart failure, Paroxysmal atrial fibrillation, Aortic stenosis, moderate, Palpitations, Cellulitis of ankle Dyspnea Qualifiers: Dyspnea type: dyspnea on exertion Qualified Code(s): R06.09 - Other forms of dyspnea - Discharge Dispostion Admit: Yes
[2017-04-01] MEDS ORDERED: CEFAZOLIN 1 GM/D5W 50 ML IVPB ONE (21:39)
[2017-04-01] MEDS ORDERED: METOPROLOL SUCCINATE 100 MG TAB.SR.24H (FP) PO ONE (21:55)
[2017-04-02] MEDS ORDERED: METOPROLOL SUCCINATE 25 MG TAB.SR.24H (FP) PO ONE (00:30)
[2017-04-02] MEDS ORDERED: CEFAZOLIN (PRE-DOCKED) 50 ML IVPB SCH (02:00)
[2017-04-02] MEDS ORDERED: ceFAZolin SODIUM 1 GM VIAL ONE ×3 (04:12→16:47)
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
[2017-04-02 07:38] LABS: MCH 27.9 pg (25.7-33.7); MCHC 32.1 g/dl (32.0-36.0); MEAN CELL VOLUME 86.7 fl (80-96); MEAN PLT VOLUME 8.9 fl (7.5-11.1); PLATELET COUNT 153 K/MM3 (134-434); RDW 16.3 % (11.6-15.6); WHITE BLOOD COUNT 4.9 K/mm3 (4.0-10.0)
[2017-04-02 08:08] LABS: ALBUMIN 2.7 g/dl (3.4-5.0); ANION GAP 7 (8-16); BILIRUBIN,TOTAL 0.7 mg/dL (0.2-1.0); CALCIUM 8.5 mg/dL (8.5-10.1); CO2 26 mmol/L (21-32); CREATININE 0.8 mg/dL (0.55-1.02); GLUCOSE,RANDOM 80 mg/dL (74-106); SGOT/AST 18 U/L (15-37); SGPT/ALT 39 U/L (12-78); TOT PROT 5.6 g/dl (6.4-8.2)
[2017-04-02 08:09] LABS: ALK PHOS 108 U/L (45-117)
[2017-04-02] MEDS ORDERED: DEXTROSE 5%-WATER - 50 ML IVPB ONE ×2 (09:55→16:48)
[2017-04-02] MEDS ORDERED: LOSARTAN 50MG/HCTZ 12.5MG 1 TAB (FP) PO SCH (10:00)
[2017-04-02] MEDS ORDERED: METOPROLOL SUCCINATE 100 MG TAB.SR.24H (FP) PO SCH (10:00)
[2017-04-02] MEDS ORDERED: METOPROLOL SUCCINATE 25 MG TAB.SR.24H (FP) PO SCH (10:00)
[2017-04-02] MEDS ORDERED: predniSONE 5 MG TABLET (UD) PO SCH (10:00)
[2017-04-02] MEDS: CEFAZOLIN 1 GM in DEXTROSE 5%-WATER - 50 ML IVPB SCH ×2 (10:08→17:03)
[2017-04-02] MEDS: APIXABAN 5 MG TABLET PO SCH ×2 (10:09→21:34)
[2017-04-02] MEDS: METOPROLOL SUCCINATE 50 MG TAB.SR.24H (FP) PO SCH (10:09)
[2017-04-02] MEDS ORDERED: PT OWN MED DRAWER 7, Y5N ONE (10:12)
--- NOTE | 2017-04-02 11:54 | EKG ---
Test Reason : Blood Pressure : / mmHG Vent. Rate : 120 BPM Atrial Rate : 105 BPM P-R Int : 000 ms QRS Dur : 110 ms QT Int : 320 ms P-R-T Axes : 000 -15 135 degrees QTc Int : 452 ms ATRIAL FIBRILLATION WITH RAPID VENTRICULAR RESPONSE VOLTAGE CRITERIA FOR LEFT VENTRICULAR HYPERTROPHY ABNORMAL ECG WHEN COMPARED WITH ECG OF 03-JAN-2017 16:44, NO SIGNIFICANT CHANGE WAS FOUND REPEAT EKG IF CLINICALLY INDICATED Confirmed by LESA JAIMES MD ([id number]) on 04/02/2017 11:54:04 AM Referred By: Confirmed By:LESA JAIMES MD
--- NOTE | 2017-04-02 13:38 | CON.PULM ---
Consult Consult Specialty:: PULMONARY Referred by:: EDWARD Reason for Consultation:: SOB - History of Present Illness Chief Complaint: SOB History of Present Illness: Ms. Simone Lopez is a 56 year old female with a significant past medical history of Super Morbid Obesity, Lymphedema, HTN, Asthma, afib, aortic stenosis , gastric bypass, gall bladder, ovarian and uterine cancer, untreated osas who presents to the emergency department with a 2 day history of shortness of breath with minimal exertion. Of note she recently had an episode of acute bronchitis 3 weeks ago wich was successfully treated by the PMD and patient returned to work for one week without symptoms.The patient denies chest pain, headache and dizziness. Denies fever, chills, nausea, vomit, diarrhea and constipation. Denies dysuria, frequency, urgency and hematuria. Patient has been admitted with progressive sob and found to have rapid AF. 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 No: Ascites Hepatobiliary: Yes: Cholecystitis Renal/: No: Renal Failure Reproductive: Yes: Postmenopausal Heme/Onc: Yes: Anemia Infectious Disease: No: AIDS Psych: No: Addictions Musculoskeletal: Yes: Other (carpal tunnel) Rheumatology: No: Sarcoidosis - Past Surgical History Past Surgical History: Yes: Bariatric Surgery, Cholecystectomy, Hernia Repair, Hysterectomy, Oopherectomy - Alcohol/Substance Use Hx Alcohol Use: No History of Substance Use: reports: None - Smoking History Smoking history: Never smoked Have you smoked in the past 12 months: No Aproximately how many cigarettes per day: 0 - Social History ADL: Independent 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 Place of : [facility] History of Recent Travel: No Home Medications - Allergies Allergies/Adverse Reactions: Allergies Allergy/AdvReac Type Severity Reaction Status Date / Time No Known Allergies Allergy Verified 04/01/17 15:29 - Home Medications Home Medications: Ambulatory Orders Apixaban [Eliquis -] 5 mg PO BID #60 tablet 11/28/15 Acetaminophen [Tylenol .Regular Strength -] 650 mg PO Q6H PRN #0 tablet Metoprolol Succinate [Toprol XL -] 25 mg PO DAILY 06/15/16 Losartan/Hydrochlorothiazide [Hyzaar 50-12.5 Tablet] 1 each PO DAILY 12/02/16 Prednisone [Deltasone -] 20 mg PO DAILY 04/01/17 Family Disease History - Family Disease History Family Disease History: Diabetes: Mother, Heart Disease: Mother, CA: Father ( colon) Review of Systems - Review of Systems Constitutional: denies: Fever Eyes: denies: Blurred Vision HENT: denies: Difficult Swallowing Neck: denies: Decreased ROM Cardiovascular: reports: Shortness of Breath. denies: Chest Pain, Palpitations Respiratory: reports: Exercise Intolerance, SOB, SOB on Exertion, Wheezing. denies: Cough, Hemoptysis Gastrointestinal: denies: Abdominal Pain Genitourinary: reports: No Symptoms Physical Exam Vital Sings: Vital Signs Temperature 98 F 04/02/17 04:34 Pulse Rate 100 H 04/02/17 04:34 Respiratory Rate 20 04/02/17 04:34 Blood Pressure 112/78 04/02/17 04:34 O2 Sat by Pulse Oximetry (%) 97 04/02/17 01:58 Constitutional: Yes: Calm Eyes: Yes: EOM Intact HENT: Yes: Normocephalic Cardiovascular: Yes: Pulse Irregular, S1, S2 Gastrointestinal: Yes: Soft, Abdomen, Obese Edema: Yes Edema: LLE: 2+, RLE: 2+ Integumentary: Yes: WNL Neurological: Yes: WNL Labs: CBC, BMP 04/02/17 05:50 04/02/17 05:50 rest reviewed Imaging - Results Chest X-ray: Report Reviewed, Image Reviewed Cat Scan: Report Reviewed, Image Reviewed EKG: Report Reviewed, Image Reviewed Other: Report Reviewed Problem List - Problems (1) Acute on chronic diastolic (congestive) heart failure Code(s): I50.33 - ACUTE ON CHRONIC DIASTOLIC (CONGESTIVE) HEART FAILURE (2) Afib Code(s): I48.91 - UNSPECIFIED ATRIAL FIBRILLATION Qualifiers: Atrial fibrillation type: chronic Qualified Code(s): I48.2 - Chronic atrial fibrillation (3) Dyspnea Code(s): R06.00 - DYSPNEA, UNSPECIFIED Qualifiers: Dyspnea type: dyspnea on exertion Qualified Code(s): R06.09 - Other forms of dyspnea Assessment/Plan RAPID AF CAUSING DIMINISHED LV FILLING TIME WITH RESULTANT HF NO EVIDENCE TO SUPPORT INFECTIOUS PNEUMONIC PROCESS WOULD OPT FOR RATE CONTROL/DIURETICS MULTIPLE CO-MORBID CONDITIONS LISTED UNTREATED OSAS (TITRATION STUDY DONE WHICH SHOWED A CPAP PRESSURE OF 9CM WITH RELIEF OF APNEAS) UNTREATED OSAS IS ASSOCIATED WITH INCREASED INCIDENCE OF AF/FL/CVA/TIA IT IS IMPERATIVE THAT THIS PATIENT BE TREATED EITHER WITH ORAL APPLIANCE OR IDEALLY NASAL CPAP I HAVE EXPLAINED THIS IN DETAIL TO THE PATIENT AND SHE WILL FOLLOW IN MY OFFICE POST DISCHARGE WILL FOLLOW THANK YOU Clemente SAGE MD
[2017-04-03] MEDS ORDERED: ceFAZolin SODIUM 1 GM VIAL ONE ×2 (03:22→18:27)
[2017-04-03] MEDS ORDERED: DEXTROSE 5%-WATER - 50 ML IVPB ONE ×2 (03:23→18:27)
[2017-04-03] MEDS: CEFAZOLIN 1 GM in DEXTROSE 5%-WATER - 50 ML IVPB SCH ×3 (03:30→22:30)
--- NOTE | 2017-04-03 08:22 | PN ---
Progress Note (short form) - Note Progress Note: C/o still being very SOB, COWART. Pulmonary consult appreciated RLE ankle cellulitis improving HR is better controlled, Noted low BP Vital Signs Temp 98 F 04/03/17 06:14 Pulse 80 04/03/17 06:14 Resp 20 04/03/17 06:14 BP 88/54 04/03/17 06:14 Pulse Ox 97 04/02/17 21:00 Intake & Output 04/02/17 04/02/17 04/03/17 11:59 23:59 11:59 Intake Total 450 550 Balance 450 550 Intake: IVPB 50 Oral 400 550 Other: Voiding Method Toilet Toilet Bowel Movement No ECHO mod-sev MR, Mod Awake, alert Neck-no JVD Lungs Clear Heart S1S2 irregular, irregular Abdomen soft, NT LE blymphedema, cellulitis around ankle. Current Active Problems Problem Status Diagnosed Acute on chronic diastolic (congestive) heart failure Acute Afib Acute Bradycardia Acute Cellulitis of ankle Acute Chest pain Acute DVT prophylaxis Acute Dyspnea Acute Near syncope Acute Palpitations Acute Aortic stenosis, moderate Chronic HTN (hypertension) Chronic Paroxysmal atrial fibrillation Chronic Plan cHANGE Losartan HCT to Losartan Continue BAB 150 mg QD IV Abx Decrease Prednisone to 5 mg QD Problem List - Problems (1) Acute on chronic diastolic (congestive) heart failure Code(s): I50.33 - ACUTE ON CHRONIC DIASTOLIC (CONGESTIVE) HEART FAILURE (2) Dyspnea Code(s): R06.00 - DYSPNEA, UNSPECIFIED Qualifiers: Dyspnea type: dyspnea on exertion Qualified Code(s): R06.09 - Other forms of dyspnea (3) Cellulitis of ankle Code(s): L03.119 - CELLULITIS OF UNSPECIFIED PART OF LIMB (4) Afib Code(s): I48.91 - UNSPECIFIED ATRIAL FIBRILLATION Qualifiers: Atrial fibrillation type: chronic Qualified Code(s): I48.2 - Chronic atrial fibrillation
[2017-04-03] MEDS ORDERED: MAGNESIUM HYDROX 2400MG/30ML ORAL SUSPENSION 30 ML CUP PO ONE (08:24)
[2017-04-03] MEDS: predniSONE 5 MG TABLET (UD) PO SCH (09:55)
[2017-04-03] MEDS: APIXABAN 5 MG TABLET PO SCH ×2 (09:55→22:42)
--- NOTE | 2017-04-03 11:07 | CONS ---
DATE OF CONSULTATION: 04/03/2017 TIME OF CONSULTATION: 9:45 a.m. CARDIOLOGY CONSULTATION CONSULTATION REQUESTED BY: Juaquin Link M.D. HISTORY OF PRESENT ILLNESS: The patient is a 56-year-old morbidly obese female with a long-standing history of hypertension, hypertensive cardiovascular disease, calcific aortic valvular disease with probable moderate aortic stenosis, chronic bronchial asthma, paroxysmal atrial fibrillation, mitral valvular disease with mitral regurgitation, tricuspid regurgitation, history of moderate pulmonary hypertension, obstructive sleep apnea, and chronic venous insufficiency with chronic pedal edema. The patient states that a few weeks ago she developed an upper respiratory infection followed by acute asthmatic bronchitis, treated with antibiotics and oral steroids. The patient said she recovered from the episode, but for the last few days she started noticing increasing exertional dyspnea and prior to admission she was dyspneic even while walking in the room and came to the emergency room. The patient states on admission she found that she had gained approximately 20 pounds of weight. She denies having paroxysmal nocturnal dyspnea or orthopnea. There is no history of chest pain or discomfort either at rest or with exertion. She has a history of intermittent cough that is mostly nonproductive. She also was experiencing intermittent palpitations that usually were short-lived. There is no history of lightheadedness, dizziness, presyncope or syncope. There is no history of diabetes mellitus. PAST MEDICAL HISTORY: 1. As mentioned in the history of present illness. 2. History of ovarian and endometrial carcinoma. SURGICAL HISTORY: 1. Status post tonsillectomy. 2. Status post hysterectomy and oophorectomy, followed by radiation therapy. 3. Status post repair of a ventral hernia. 4. Status post laparoscopic surgery for left knee meniscus tear. 5. Status post cholecystectomy. 6. Status post surgery for intestinal adhesions causing bowel obstruction. 7. Status post gastric bypass surgery. SOCIAL HISTORY: She is , has no children, does not smoke. She has a drink on a rare occasion. She does not drink excessive amounts of caffeine. FAMILY HISTORY: Father in his 70s. He was a heavy smoker and alcoholic, and of a myocardial infarction. Mother in her 60s. She was a diabetic and was on dialysis, and also of a myocardial infarction. She had 2 brothers and 1 sister. One of the brother from a drug overdose. ALLERGIES: None reported. CURRENT MEDICATIONS: 1. Prednisone 5 mg p.o. daily. 2. Losartan 50 mg p.o. daily. 3. Eliquis 5 mg p.o. b.i.d. 4. Metoprolol succinate 150 mg p.o. daily. 5. Cefazolin 1 g IV q.8 h. REVIEW OF SYSTEMS: Constitutional: No history of chills, fever or night sweats. No history of unintentional weight loss. HEENT: No history of headaches, diplopia or blurred vision. No history of epistaxis, hoarseness, tinnitus or deafness reported. Cardiovascular: See history of present illness. Respiratory: See history of present illness. No history of hemoptysis or tuberculosis. Gastrointestinal: See history of present illness. No history of nausea, vomiting, melena or hematemesis. No history of abdominal pain or discomfort. No history of change in bowel habits. Neurological: No history of seizures, syncope or focal weakness. No history of lightheadedness or dizziness. No history of paresthesias. Endocrine: No history of polyuria or polydipsia. No history of intolerance to cold or warm weather. Musculoskeletal: No history of myalgias or arthralgias reported. Hematological: No history of anemia, bleeding or ecchymosis. Lymphatic: No history of lymphadenopathy. PHYSICAL EXAMINATION: General: A 56-year-old morbidly obese female who was in no distress. No pallor, cyanosis, clubbing or jaundice. Vital Signs: Weight on April 01, 2017, was 395 pounds 6 ounces. Blood pressure 88/55 mmHg. Pulse 80 beats per minute and irregularly irregular. Temperature 98 degrees Fahrenheit. Respirations 20 per minute. Neck: Supple. No jugular venous distention. Hepatojugular reflux was negative. Carotids were 2+; upstrokes were normal. No bruits were heard. No thyromegaly was present. Heart: PMI was not localized. No heaves or thrills. Heart sounds were distant. S1 was variable. S2 was normal. A faint grade 1/6 ejection systolic murmur was heard at held expiration at the 2nd right intercostal space. No diastolic murmur or gallops were appreciated. Lungs: Clear on auscultation. Abdomen: Morbidly obese, soft and nontender. No hepatosplenomegaly was appreciated. No palpable masses were felt. Bowel sounds were present. No bruits were heard. Extremities: There was 3+ to 4+ brawny edema involving both lower extremities. There were varicosities seen. No calf tenderness was elicited. There was an area of resolving cellulitis involving the right lower extremity just above the knee. DIAGNOSTIC STUDIES: ECG of April 01, 2017, showed atrial fibrillation with a rapid ventricular response, LVH by voltage criteria, left axis deviation, and diffuse ST and T-wave abnormalities. CT scan of the chest dated April 01, 2017, impression: 1. In comparison to a prior CT study of December 17, there has been apparent interval development of minimal to mild subtle ground-glass interstitial thickening within the mid and lower lung vásquez bilaterally, which could be on the basis of small airway disease. Correlate clinically. 2. Note is again made of mild parenchymal scarring within the right middle lobe. 3. The main pulmonary artery diameter appears to be mildly prominent. Correlate clinically in regards to possibly pulmonary hypertension. Additional evaluation utilizing echocardiogram. 4. Also mentioned was mitral annular calcification. Atherosclerotic aortic valve calcifications are seen. Chemistry on April 02, 2017: Sodium 143, potassium 4.1, chloride 110, CO2 of 26 mmol/L, BUN 18, creatinine 0.8 mg/dL. Alkaline phosphatase on April 01 was 141, and repeat on April 02 was 108. BNP on April 01, 2017, was 3370. 116. CBC on April 02, 2017: WBC count 4800; hemoglobin 10.4 g/dL; platelet count 153,000. Echocardiogram interpretation/summary: 1. The left ventricular size, thickness and function are normal. 2. The left ventricular ejection fraction is normal. 3. Right ventricular systolic pressure is normal. 4. Mild to moderate pulmonic valvular regurgitation. 5. There is moderate to severe mitral regurgitation. 6. There is severe tricuspid regurgitation. 7. Moderate valvular aortic stenosis. 8. Mild aortic regurgitation. 9. Regional wall motion abnormalities cannot be excluded due to limited visualization. IMPRESSION: 1. Clinical presentation is compatible with congestive heart failure, [place] Heart Association classification III. 2. Mitral valvular disease with mitral regurgitation, probably moderate to severe. 3. Tricuspid regurgitation reported to be severe. 4. Paroxysmal atrial fibrillation. 5. Hypertension, hypertensive cardiovascular disease. 6. Calcific aortic valvular disease, with probable moderate aortic stenosis. 7. Bronchial asthma. 8. Morbid obesity. 9. Pulmonary hypertension. 10. Venous insufficiency. 11. History of recent cellulitis involving the right lower extremity. RECOMMENDATIONS: 1. The patient should be on a diuretic in view of her clinical presentation and echocardiographic findings. 2. She will require further evaluation of her valvular heart disease. 3. Amiodarone should be reinstituted initially as 200 mg b.i.d. 4. Daily weights. 5. The patient is aware of her dietary restrictions. 6. T3, T4, TSH. 7. Further suggestions will depend on the patient's response to the above mentioned therapy. 8. The patient was again advised that she must consider the use of CPAP, as obstructive sleep apnea is contributing to some of her above-mentioned diagnoses. PROGNOSIS: Guarded. Thank you for your referral. Adela GILMAN/[id number] cc: PAULETTE ALATORRE M.D.
--- NOTE | 2017-04-03 12:40 | PN ---
Progress Note, Physician History of Present Illness: PULMONARY ALERT,FEELING BETTER,LESS DYSPNEIC - Current Medication List Current Medications: Active Medications Acetaminophen (Tylenol -) 650 mg PO Q6H PRN PRN Reason: FEVER OR PAIN Apixaban (Eliquis -) 5 mg PO BID [facility] Last Admin: 04/03/17 09:55 Dose: 5 mg Cefazolin Sodium 1 gm/ (Dextrose) 50 mls @ 100 mls/hr IVPB Q8H-IV [facility] Last Admin: 04/03/17 09:55 Dose: 100 mls/hr Losartan Potassium (Cozaar -) 50 mg PO DAILY [facility] Metoprolol Succinate (Toprol Xl -) 150 mg PO DAILY [facility] Last Admin: 04/02/17 10:09 Dose: 150 mg Prednisone (Deltasone -) 5 mg PO DAILY [facility] Last Admin: 04/03/17 09:55 Dose: 5 mg - Objective Vital Signs: Vital Signs Temperature 98.1 F 04/03/17 10:00 Pulse Rate 122 H 04/03/17 10:00 Respiratory Rate 20 04/03/17 10:00 Blood Pressure 106/68 04/03/17 10:00 O2 Sat by Pulse Oximetry (%) 98 04/03/17 10:00 Constitutional: Yes: Calm, Obese Eyes: Yes: WNL HENT: Yes: WNL Cardiovascular: Yes: Pulse Irregular, S1, S2 Respiratory: Yes: Rales (BIBASILAR RALES) Gastrointestinal: Yes: Normal Bowel Sounds, Soft Extremities: Yes: WNL Edema: Yes Labs: CBC, BMP 04/02/17 05:50 04/02/17 05:50 Assessment/Plan Problem List - Problems (1) Atrial fibrillation Code(s): I48.91 - UNSPECIFIED ATRIAL FIBRILLATION Qualifiers: Atrial fibrillation type: chronic Qualified Code(s): I48.2 - Chronic atrial fibrillation (2) SOB (shortness of breath) Code(s): R06.02 - SHORTNESS OF BREATH (3) CHF (congestive heart failure) Code(s): I50.9 - HEART FAILURE, UNSPECIFIED (4) ASHD (arteriosclerotic heart disease) Code(s): I25.10 - ATHSCL HEART DISEASE OF [place] CORONARY ARTERY W/O ANG PCTRS Assessment/Plan CHF RAPID AF MORBID OBESITY H/O GASTRIC BYPASS ASTHMA HTN H/O OVARIAN AND UTERINE CA PLAN O2 DIURETICS DAILY WTS INHALED BRONCHODILATORS CPAP RATE CONTROL AC DR LEMUS
[2017-04-03] MEDS: LOSARTAN POTASSIUM 50 MG TABLET (FP) PO SCH (13:48)
[2017-04-03] MEDS: METOPROLOL SUCCINATE 50 MG TAB.SR.24H (FP) PO SCH (13:48)
[2017-04-03] MEDS ORDERED: FUROSEMIDE 40 MG TABLET (FP) PO ONE (18:00)
[2017-04-04] MEDS: CEFAZOLIN 1 GM in DEXTROSE 5%-WATER - 50 ML IVPB SCH ×3 (05:07→17:50)
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
[2017-04-04 09:18] LABS: ANION GAP 8 (8-16); BILIRUBIN,TOTAL 0.5 mg/dL (0.2-1.0); CALCIUM 8.1 mg/dL (8.5-10.1); CO2 25 mmol/L (21-32); CREATININE 0.9 mg/dL (0.55-1.02); GLUCOSE,RANDOM 97 mg/dL (74-106); SGOT/AST 11 U/L (15-37); SGPT/ALT 28 U/L (12-78); TOT PROT 6.2 g/dl (6.4-8.2)
[2017-04-04 09:27] LABS: ALK PHOS 117 U/L (45-117); THYROID STIMULATING HORMONE 1.16 uIU/ml (0.358-3.74)
[2017-04-04] MEDS ORDERED: DEXTROSE 5%-WATER - 50 ML IVPB ONE ×2 (09:31→17:36)
[2017-04-04] MEDS ORDERED: ceFAZolin SODIUM 1 GM VIAL ONE ×2 (09:31→17:35)
[2017-04-04] MEDS: AMIODARONE HCL 200 MG TABLET (FP) PO SCH ×2 (09:46→21:50)
[2017-04-04] MEDS: APIXABAN 5 MG TABLET PO SCH ×2 (09:47→21:50)
[2017-04-04] MEDS: predniSONE 5 MG TABLET (UD) PO SCH (09:47)
--- NOTE | 2017-04-04 12:50 | PN ---
Progress Note, Physician History of Present Illness: pulmonary alert,feeling better,-resp distress. pt slept well on cpap - Current Medication List Current Medications: Active Medications Acetaminophen (Tylenol -) 650 mg PO Q6H PRN PRN Reason: FEVER OR PAIN Amiodarone HCl (Cordarone -) 200 mg PO BID [facility] Last Admin: 04/04/17 09:46 Dose: 200 mg Apixaban (Eliquis -) 5 mg PO BID [facility] Last Admin: 04/04/17 09:47 Dose: 5 mg Cefazolin Sodium 1 gm/ (Dextrose) 50 mls @ 100 mls/hr IVPB Q8H-IV [facility] Last Admin: 04/04/17 09:46 Dose: 100 mls/hr Losartan Potassium (Cozaar -) 50 mg PO DAILY [facility] Last Admin: 04/03/17 13:48 Dose: 50 mg Metoprolol Succinate (Toprol Xl -) 50 mg PO DAILY [facility] Prednisone (Deltasone -) 5 mg PO DAILY [facility] Last Admin: 04/04/17 09:47 Dose: 5 mg - Objective Vital Signs: Vital Signs Temperature 98.6 F 04/04/17 10:00 Pulse Rate 90 04/04/17 11:17 Respiratory Rate 20 04/04/17 10:00 Blood Pressure 104/68 04/04/17 10:00 O2 Sat by Pulse Oximetry (%) 100 04/04/17 11:17 Constitutional: Yes: Well Nourished, Calm, Obese Eyes: Yes: WNL HENT: Yes: WNL Neck: Yes: WNL Cardiovascular: Yes: Pulse Irregular, S1, S2 Respiratory: Yes: Diminished Gastrointestinal: Yes: WNL Extremities: Yes: WNL Edema: Yes Labs: 04/04/17 08:25 Assessment/Plan Problem List - Problems (1) Atrial fibrillation Code(s): I48.91 - UNSPECIFIED ATRIAL FIBRILLATION Qualifiers: Atrial fibrillation type: chronic Qualified Code(s): I48.2 - Chronic atrial fibrillation (2) SOB (shortness of breath) Code(s): R06.02 - SHORTNESS OF BREATH (3) CHF (congestive heart failure) Code(s): I50.9 - HEART FAILURE, UNSPECIFIED (4) ASHD (arteriosclerotic heart disease) Code(s): I25.10 - ATHSCL HEART DISEASE OF [id number] CORONARY ARTERY W/O ANG PCTRS Assessment/Plan CHF IMPROVING RAPID AF MORBID OBESITY H/O GASTRIC BYPASS ASTHMA HTN H/O OVARIAN AND UTERINE CA PLAN O2 DIURETICS DAILY WTS INHALED BRONCHODILATORS CPAP 9 cmH2O RATE CONTROL AC DR LEMUS
[2017-04-04] MEDS: LOSARTAN POTASSIUM 50 MG TABLET (FP) PO SCH (13:47)
[2017-04-04] MEDS: METOPROLOL SUCCINATE 50 MG TAB.SR.24H (FP) PO SCH (14:29)
--- NOTE | 2017-04-04 18:40 | PN ---
Progress Note (short form) - Note Progress Note: 56 year old female,feels better was on CPAP last night, less dyspneic, on amiodarone, dose of toprol was reduced,increase in heart rate,underlying rhythm is atrial fib. Active Medications Acetaminophen (Tylenol -) 650 mg PO Q6H PRN PRN Reason: FEVER OR PAIN Amiodarone HCl (Cordarone -) 200 mg PO BID [facility] Last Admin: 04/04/17 09:46 Dose: 200 mg Apixaban (Eliquis -) 5 mg PO BID [facility] Last Admin: 04/04/17 09:47 Dose: 5 mg Cefazolin Sodium 1 gm/ (Dextrose) 50 mls @ 100 mls/hr IVPB Q8H-IV [facility] Last Admin: 04/04/17 17:50 Dose: 100 mls/hr Losartan Potassium (Cozaar -) 50 mg PO DAILY [facility] Last Admin: 04/04/17 13:47 Dose: Not Given Metoprolol Succinate (Toprol Xl -) 50 mg PO DAILY [facility] Last Admin: 04/04/17 14:29 Dose: 50 mg Prednisone (Deltasone -) 5 mg PO DAILY [facility] Last Admin: 04/04/17 09:47 Dose: 5 mg 56 year morbidly obese female was resting comfortly, no pallor,cyanosis clubbing or jaundice. Vital Signs - 8 hr 04/04/17 04/04/17 04/04/17 11:15 11:17 14:03 Temperature 97.8 F Pulse Rate 90 81 Respiratory 16 Rate Blood Pressure 105/63 O2 Sat by Pulse 100 100 Oximetry (%) 04/04/17 15:42 Temperature Pulse Rate Respiratory Rate Blood Pressure O2 Sat by Pulse 99 Oximetry (%) NECK: Supple,no JVD,carotids 2+ no bruits. HEART: NO heaves or thrills, distant sounds,no murmur or gallops heard. LUNGS: Clear on auscultation. ABDOMEN: Obese,no organomegaly appreciated. EXTREMITIES: Bilateral 4+ brawny edema,no calf tenderness, CBC, BMP 04/02/17 05:50 04/04/17 08:25 A: 1. Paroxysmal atrial fibrillationwith periods of rapid ventricular response. 2. CHF,etiology: a). LV diastolic dysfunction. b). Mitral regurgitation. c). Aortic stenosis' 3. Morbid obesity 4. OSAS 1. Add lasix. 2. If necessary in dose of Toprol. 3. Daily weight.
[2017-04-05] MEDS ORDERED: ceFAZolin SODIUM 1 GM VIAL ONE ×2 (02:57→08:59)
[2017-04-05] MEDS ORDERED: DEXTROSE 5%-WATER - 50 ML IVPB ONE ×2 (02:58→08:59)
[2017-04-05] MEDS: CEFAZOLIN 1 GM in DEXTROSE 5%-WATER - 50 ML IVPB SCH ×2 (03:02→09:21)
[2017-04-05 08:09] LABS: ANION GAP 6 (8-16); CALCIUM 8.2 mg/dL (8.5-10.1); CO2 30 mmol/L (21-32); CREATININE 0.8 mg/dL (0.55-1.02); GLUCOSE,RANDOM 75 mg/dL (74-106)
[2017-04-05] MEDS: AMIODARONE HCL 200 MG TABLET (FP) PO SCH (09:21)
[2017-04-05] MEDS: APIXABAN 5 MG TABLET PO SCH (09:21)
[2017-04-05] MEDS: METOPROLOL SUCCINATE 50 MG TAB.SR.24H (FP) PO SCH (09:21)
[2017-04-05] MEDS: predniSONE 5 MG TABLET (UD) PO SCH (09:22)
[2017-04-05 10:11] VITALS: BP 114/64; PULSE 114; TEMP 98
--- NOTE | 2017-04-05 12:13 | PN ---
Progress Note (short form) - Note Progress Note: PULMONARY States breathing is improving. No chest pain. No cough or wheezing. Exercise tolerance improving. Last Vital Signs Temp Pulse Resp BP Pulse Ox 98 F 114 H 18 114/64 98 04/05/17 10:00 04/05/17 10:00 04/05/17 10:00 04/05/17 10:00 04/05/17 09:00 Intake & Output 04/02/17 04/03/17 04/04/17 04/05/17 23:59 23:59 23:59 23:59 Intake Total 1000 1390 635 50 Balance 1000 1390 635 50 Weight 392 lb 8 oz Gen: NAD in chair Heart: tachycardic, irregular Lung: decreased breath sounds at the bases Abd: soft, nontender Ext: + edema CBC, BMP 04/02/17 05:50 04/05/17 06:00 Active Medications Acetaminophen (Tylenol -) 650 mg PO Q6H PRN PRN Reason: FEVER OR PAIN Amiodarone HCl (Cordarone -) 200 mg PO BID [facility] Last Admin: 04/05/17 09:21 Dose: 200 mg Apixaban (Eliquis -) 5 mg PO BID [facility] Last Admin: 04/05/17 09:21 Dose: 5 mg Cefazolin Sodium 1 gm/ (Dextrose) 50 mls @ 100 mls/hr IVPB Q8H-IV [facility] Last Admin: 04/05/17 09:21 Dose: 100 mls/hr Losartan Potassium (Cozaar -) 50 mg PO DAILY [facility] Last Admin: 04/04/17 13:47 Dose: Not Given Metoprolol Succinate (Toprol Xl -) 50 mg PO DAILY [facility] Last Admin: 04/05/17 09:21 Dose: 50 mg Prednisone (Deltasone -) 5 mg PO DAILY [facility] Last Admin: 04/05/17 09:22 Dose: 5 mg A/P Acute on Chronic Diastolic Heart Failure Improving Atrial Fibrillation with RVR Mitral Regurgitation Morbid Obesity h/o Asthma HTN - continue lasix - monitor urine output, creatinine - rate control - continue anticoagulation - CPAP at night - O2 to keep Spo2 >90%
[2017-04-05] MEDS ORDERED: FUROSEMIDE 40 MG TABLET (FP) PO SCH (12:15)
--- NOTE | 2017-04-05 13:30 | PN ---
Progress Note (short form) - Note Progress Note: Pulmonary and cardiology f/u appreciated. Patient feels better, less dyspneic. Still in AFIB Vital Signs Temp 98 F 04/05/17 10:00 Pulse 114 H 04/05/17 10:00 Resp 18 04/05/17 10:00 BP 114/64 04/05/17 10:00 Pulse Ox 98 04/05/17 09:00 Intake & Output 04/04/17 04/05/17 04/05/17 23:59 11:59 23:59 Intake Total 285 50 Balance 285 50 Intake: IVPB 50 Oral 285 Other: Voiding Method Toilet Toilet Toilet Neck-no JVD Lungs are clear Heart S1S2 irregular, irregular abdomen obese, soft, NT/ND LE stasis changes, lymphedema Cellulitis RLE improved. Laboratory Results - last 24 hr 04/04/17 04/05/17 08:25 06:00 Sodium 142 Potassium 4.4 Chloride 106 Carbon Dioxide 30 Anion Gap 6 L BUN 23 H Creatinine 0.8 Random Glucose 75 D Calcium 8.2 L Free T3 1.8 L Imp Current Active Problems Problem Status Diagnosed Acute on chronic diastolic (congestive) heart failure Acute Afib Acute Bradycardia Acute Cellulitis of ankle Acute Chest pain Acute DVT prophylaxis Acute Dyspnea Acute Near syncope Acute Palpitations Acute Aortic stenosis, moderate Chronic HTN (hypertension) Chronic Paroxysmal atrial fibrillation Chronic Plan Continue Amio BID, Toprol XL, A/C, Lasix CPAP discussed D/C Abx. Follow up in the office. Problem List - Problems (1) Acute on chronic diastolic (congestive) heart failure Code(s): I50.33 - ACUTE ON CHRONIC DIASTOLIC (CONGESTIVE) HEART FAILURE (2) Dyspnea Code(s): R06.00 - DYSPNEA, UNSPECIFIED Qualifiers: Dyspnea type: dyspnea on exertion Qualified Code(s): R06.09 - Other forms of dyspnea (3) Cellulitis of ankle Code(s): L03.119 - CELLULITIS OF UNSPECIFIED PART OF LIMB (4) Afib Code(s): I48.91 - UNSPECIFIED ATRIAL FIBRILLATION Qualifiers: Atrial fibrillation type: chronic Qualified Code(s): I48.2 - Chronic atrial fibrillation
--- NOTE | 2017-04-05 13:33 | DS ---
Physical Examination Vital Signs: Vital Signs Temperature 98 F 04/05/17 10:00 Pulse Rate 114 H 04/05/17 10:00 Respiratory Rate 18 04/05/17 10:00 Blood Pressure 114/64 04/05/17 10:00 O2 Sat by Pulse Oximetry (%) 98 04/05/17 09:00 Constitutional: Yes: Calm, Mild Distress, Obese Eyes: Yes: Conjunctiva Clear, EOM Intact HENT: Yes: Atraumatic, Normocephalic. No: Drooling, Epistaxis, Hoarseness Neck: Yes: Supple, Trachea Midline. No: Lymphadenopathy, Rigid Cardiovascular: Yes: Pulse Irregular, Murmur, S1, S2. No: Tachycardia, Bruit, JVD, Rub Respiratory: Yes: Regular, CTA Bilaterally Gastrointestinal: Yes: Normal Bowel Sounds, Soft, Abdomen, Obese. No: Ascites, Palpable Mass, Tenderness ...Rectal Exam: Yes: Deferred Renal/: No: Anuria, Bladder Distention, CVA Tenderness - Left, CVA Tenderness - Right Extremities: No: Calf Tenderness, Cold, Cyanosis Edema: Yes (Lymphedema) Peripheral Pulses WNL: No Integumentary: Yes: Venous Stasis Changes. No: Erythema, Laceration, Pressure Ulcer, Rash, Skin Tear Wound/Incision: Yes: Unapproximated Neurological: Yes: Alert, Cran Nerves II-XII Intact. No: Aphasia, Asterixis, Ataxia, Confusion, Dysarthria, Unsteady Gait ...Motor Strength: WNL Psychiatric: Yes: WNL Labs: CBC, BMP 04/02/17 05:50 04/05/17 06:00 Discharge Summary Reason For Visit: PALPITATIONS,DYSPNEA,CELLULITIS OF RIGHT ANKLE Current Active Problems Acute on chronic diastolic (congestive) heart failure (Acute) Afib (Acute) Bradycardia (Acute) Cellulitis of ankle (Acute) Chest pain (Acute) DVT prophylaxis (Acute) Dyspnea (Acute) Near syncope (Acute) Palpitations (Acute) Aortic stenosis, moderate (Chronic) HTN (hypertension) (Chronic) Paroxysmal atrial fibrillation (Chronic) - Instructions Referrals: Juaquin Link MD [Primary Care Provider] - Disposition: HOME - Home Medications Comprehensive Discharge Medication List: Ambulatory Orders Apixaban [Eliquis -] 5 mg PO BID #60 tablet 11/28/15 Acetaminophen [Tylenol .Regular Strength -] 650 mg PO Q6H PRN #0 tablet Metoprolol Succinate [Toprol XL -] 25 mg PO DAILY 06/15/16 Losartan/Hydrochlorothiazide [Hyzaar 50-12.5 Tablet] 1 each PO DAILY 12/02/16 Prednisone [Deltasone -] 20 mg PO DAILY 04/01/17
[2017-04-05] MEDS: LOSARTAN POTASSIUM 50 MG TABLET (FP) PO SCH (13:56)
--- NOTE | 2017-04-05 15:17 | PN ---
Progress Note (short form) - Note Progress Note: 56 year old female with history of hypertension,aortic stenosis mitral regurgitation,severe trigurgitation,pulmonary hypertension,OSAS,recent recurrence of atrial fib, recent excerbationof bronchial asthma and CHF. feeling better and is to be discharged,tolerating therapy Active Medications Generic Name Dose Route Start Last Admin Trade Name Freq PRN Reason Stop Dose Admin Acetaminophen 650 mg 04/01/17 20:46 Tylenol - PO Q6H PRN FEVER OR PAIN Amiodarone HCl 200 mg 04/04/17 10:00 04/05/17 09:21 Cordarone - PO 200 mg BID [facility] Administration Apixaban 5 mg 04/01/17 22:00 04/05/17 09:21 Eliquis - PO 5 mg BID [facility] Administration Furosemide 40 mg 04/05/17 12:15 04/05/17 12:25 Lasix - PO 40 mg DAILY [facility] Administration Cefazolin Sodium 1 gm/ 50 mls @ 100 mls/hr 04/02/17 03:26 04/05/17 09:21 Dextrose IVPB 100 mls/hr Q8H-IV [facility] Administration Losartan Potassium 50 mg 04/03/17 10:00 04/05/17 13:56 Cozaar - PO 50 mg DAILY [facility] Administration Metoprolol Succinate 50 mg 04/04/17 07:27 04/05/17 09:21 Toprol Xl - PO 50 mg DAILY [facility] Administration Prednisone 5 mg 04/03/17 08:14 04/05/17 09:22 Deltasone - PO 5 mg DAILY [facility] Administration 56 year morbidly obese female was resting comfortly, no pallor,cyanosis clubbing or jaundice. Vital Signs - 8 hr 04/05/17 04/05/17 09:00 10:00 Temperature 98 F Pulse Rate 114 H Respiratory 18 Rate Blood Pressure 114/64 O2 Sat by Pulse 98 Oximetry (%) NECK: Supple,no JVD,carotids 2+ no bruits. HEART: NO heaves or thrills, distant sounds,no murmur or gallops heard. LUNGS: Clear on auscultation. ABDOMEN: Obese,no organomegaly appreciated. EXTREMITIES: Bilateral 4+ brawny edema,no calf tenderness, CBC, BMP 04/02/17 05:50 04/05/17 06:00 A: 1. Paroxysmal atrial fibrillation with controlled ventricular response. 2. CHF,resolved,etiology: a). LV diastolic dysfunction. b). Mitral regurgitation. c). Tricuspid reguritation. d). Pulmonary hypertension 3. Morbid obesity 4. OSAS. 1. current medications. 2. Patient is aware of er dietary restraints including salt restriction. 3. She is will to use a CPAP and will be following up with pulmonary medicine. 4. Out patient f/u in 2 weeks,earlier if necessary. 5. daily weights.
== END 2017-04-05 15:34 | disposition home or self-care (01) | DRG 292 ==
LOC: JER 15:28 → JERBED 21:31 → J4W 23:30
PROVIDERS: ADMIT Internal Medicine; ATTEND Internal Medicine
DX: I11.0 Hypertensive heart disease with heart failure (principal); L03.115 Cellulitis of right lower limb; Z68.43 Body mass index [BMI] 50.0-59.9, adult; I50.33 Acute on chronic diastolic (congestive) heart failure; E66.01 Morbid (severe) obesity due to excess calories; J45.909 Unspecified asthma, uncomplicated; I35.0 Nonrheumatic aortic (valve) stenosis; Z79.01 Long term (current) use of anticoagulants; Z85.43 Personal history of malignant neoplasm of ovary; Z85.41 Personal history of malignant neoplasm of cervix uteri; G47.33 Obstructive sleep apnea (adult) (pediatric); I34.0 Nonrheumatic mitral (valve) insufficiency; I36.1 Nonrheumatic tricuspid (valve) insufficiency; I27.2 Other secondary pulmonary hypertension; I87.2 Venous insufficiency (chronic) (peripheral); I35.1 Nonrheumatic aortic (valve) insufficiency; I48.0 Paroxysmal atrial fibrillation; M17.0 Bilateral primary osteoarthritis of knee; Z98.84 Bariatric surgery status
CPT/HCPCS: 36415; 71250-TC; 80048; 80053; 83880; 84439; 84443; 84481; 84484; 85025; 85027; 93005; 93010; 93306-TC; 94660; 99284-25

== ENCOUNTER 2017-09-30 10:42 | Inpatient (IN) | payer BC ==
[2017-09-30 10:49] VITALS: BMI 56.2
[2017-09-30] MEDS ORDERED: ACETAMINOPHEN 325 MG TABLET (FP) PO PRN (11:49)
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
[2017-09-30 12:22] LABS: BASO % 1.3 % (0-2.0); EOS % 2.7 % (0-4.5); HEMATOCRIT 35.5 % (32.4-45.2); HEMOGLOBIN 11.1 GM/dL (10.7-15.3); MCH 25.1 pg (25.7-33.7); MCHC 31.3 g/dl (32.0-36.0); MEAN CELL VOLUME 80.2 fl (80-96); MEAN PLT VOLUME 8.5 fl (7.5-11.1); MONO % 7.2 % (3.8-10.2); NEUT % 71.8 % (42.8-82.8); PLATELET COUNT 207 K/MM3 (134-434); RBC 4.43 M/mm3 (3.60-5.2); RDW 18.3 % (11.6-15.6); WHITE BLOOD COUNT 4.9 K/mm3 (4.0-10.0)
[2017-09-30] MEDS ORDERED: CEFTRIAXONE 1 GM/50 ML BAG IVPB SCH (12:30)
[2017-09-30 12:50] LABS: ALBUMIN 3.5 g/dl (3.4-5.0); ALK PHOS 127 U/L (45-117); ANION GAP 6 (8-16); BILIRUBIN,TOTAL 0.5 mg/dL (0.2-1.0); BLOOD UREA NITROGEN 16 mg/dL (7-18); CALCIUM 8.4 mg/dL (8.5-10.1); CHLORIDE 103 mmol/L (98-107); CO2 31 mmol/L (21-32); CREATININE 1.2 mg/dL (0.55-1.02); GLUCOSE,RANDOM 75 mg/dL (74-106); SGPT/ALT 16 U/L (12-78); SODIUM 140 mmol/L (136-145); TOT PROT 7.6 g/dl (6.4-8.2)
[2017-09-30 12:57] LABS: POTASSIUM 4.7 mmol/L (3.5-5.1); SGOT/AST 27 U/L (15-37)
[2017-09-30] MEDS ORDERED: CEFTRIAXONE 1 GM/50 ML BAG ONE (12:59)
[2017-09-30 13:05] LABS: URINE APPEARANCE CLEAR; URINE BILIRUBIN NEGATIVE (NEGATIVE); URINE BLOOD NEGATIVE (NEGATIVE); URINE COLOR COLORLESS; URINE GLUCOSE (UA) NEGATIVE (NEGATIVE); URINE KETONE NEGATIVE (NEGATIVE); URINE LEUK ESTERASE NEGATIVE (NEGATIVE); URINE NITRITE NEGATIVE (NEGATIVE); URINE PROTEIN NEGATIVE (NEGATIVE); URINE UROBILINOGEN NEGATIVE mg/dL (0.2-1.0)
--- NOTE | 2017-09-30 13:10 | PN ---
Progress Note (short form) - Note Progress Note: ID Consult dictated Cellulitis R LE Chronic LE lymphedema Pending c/s empiric cefazolin 2gm IVPB q8h
--- NOTE | 2017-09-30 13:51 | CONS ---
INFECTIOUS DISEASE CONSULTATION DATE OF CONSULTATION: 09/30/2017 REASON FOR CONSULTATION: The patient is a 57-year-old female with a history of chronic lower extremity lymphedema, history of cellulitis of the right lower extremity, now admitted with recurrent right lower extremity cellulitis. HISTORY OF PRESENT ILLNESS: She reports a several-day history of worsening erythema, warmth, and swelling of the distal right lower extremity. She had recently been seen by a dentist for a dental procedure and was prescribed Augmentin for a dental infection. Despite the oral antibiotic therapy, she noted increasing pain, redness, and swelling of her distal right leg. She denied any traumatic injury. No insect or animal bites or scratches. No fever or chills. She presented to her PMD who referred her to the emergency room for IV antibiotic therapy. Patient has a history of chronic lower extremity lymphedema. She has had a history of cellulitis of the right ankle approximately 1 year ago; for which, she was hospitalized for 3 days. PAST MEDICAL HISTORY: Positive for chronic lower extremity lymphedema, atrial fibrillation, aortic stenosis, uterine and ovarian carcinoma, obstructive sleep apnea, congestive heart failure, hypertension. PAST SURGICAL HISTORY: Status post small-bowel obstruction, hysterectomy, cholecystectomy, ventral hernia. ALLERGIES: No known allergies. MEDICATIONS: Include Eliquis, Tylenol, amiodarone, Lasix, Toprol. 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 She lives in the community. No active tobacco or alcohol use. SYSTEMS REVIEW: Neurologic: No loss of consciousness, seizure activity, focal weakness. Cardiac: Negative chest pain or palpitations. Respiratory: Negative cough or sputum production. Gastrointestinal: Negative vomiting or diarrhea. Genitourinary: Negative for urinary tract infection. LABORATORY DATA: White count 4.9, hematocrit 35.5, platelet count 207. BUN 16, creatinine 1.2. Liver enzymes normal. Blood culture is pending. PHYSICAL EXAMINATION: General: She is awake and alert. She is not acutely toxic appearing. Vital Signs: Temperature 97.7; blood pressure 160/40; pulse 51, regular; respirations 18 per minute. HEENT: Sclerae are anicteric. Heart: Sounds S1, S2. Lungs: Clear. Abdomen: Obese, soft, nontender. Extremities: Positive for lower extremity lymphedema, chronic venous stasis dermatitis. There is erythema and warmth involving the distal right lower extremity. There is slight tenderness. No crepitance or fluctuance. No lymphangitic streaking. IMPRESSION: 1. Recurrent lower extremity cellulitis. 2. Chronic lower extremity lymphedema. Previous cultures reviewed. Patient had a positive wound culture for Staphylococcus aureus in the past, methicillin sensitive. We will start cefazolin 2 g IV piggyback every 8 hours in conjunction with elevation and analgesics. Will follow. Thank you for the kind referral. GARY EDWARDS M.D. [id number]
[2017-09-30] MEDS: CEFAZOLIN 2 GM/D5W 2 GM/50 ML ML IVPB SCH ×2 (14:21→18:51)
[2017-09-30] MEDS: AMIODARONE HCL 200 MG TABLET (FP) PO SCH (22:27)
[2017-09-30] MEDS: APIXABAN 5 MG TABLET PO SCH (23:15)
[2017-10-01] MEDS: CEFAZOLIN 2 GM/D5W 2 GM/50 ML ML IVPB SCH ×3 (01:19→18:23)
[2017-10-01 07:06] LABS: BASO % 0.7 % (0-2.0); EOS % 2.6 % (0-4.5); HEMATOCRIT 31.6 % (32.4-45.2); LYMPH % 26.1 % (8-40); MCH 25.1 pg (25.7-33.7); MCHC 31.6 g/dl (32.0-36.0); MEAN CELL VOLUME 79.6 fl (80-96); MEAN PLT VOLUME 8.7 fl (7.5-11.1); MONO % 9.9 % (3.8-10.2); NEUT % 60.7 % (42.8-82.8); PLATELET COUNT 148 K/MM3 (134-434); RBC 3.97 M/mm3 (3.60-5.2); RDW 17.6 % (11.6-15.6); WHITE BLOOD COUNT 3.9 K/mm3 (4.0-10.0)
[2017-10-01 07:10] LABS: CHLORIDE 103 mmol/L (98-107); POTASSIUM 3.9 mmol/L (3.5-5.1); SODIUM 140 mmol/L (136-145)
[2017-10-01 07:13] LABS: ALBUMIN 2.9 g/dl (3.4-5.0); ALK PHOS 107 U/L (45-117); ANION GAP 7 (8-16); BILIRUBIN,TOTAL 0.4 mg/dL (0.2-1.0); BLOOD UREA NITROGEN 15 mg/dL (7-18); CALCIUM 7.9 mg/dL (8.5-10.1); CO2 30 mmol/L (21-32); CREATININE 0.8 mg/dL (0.55-1.02); GLUCOSE,RANDOM 78 mg/dL (74-106); MAGNESIUM 2.1 mg/dL (1.8-2.4); SGOT/AST 13 U/L (15-37); SGPT/ALT 9 U/L (12-78); TOT PROT 5.9 g/dl (6.4-8.2)
[2017-10-01] MEDS ORDERED: PT OWN MED DRAWER 7, Y5N ONE ×2 (09:34→21:11)
[2017-10-01] MEDS: AMIODARONE HCL 200 MG TABLET (FP) PO SCH ×2 (09:37→21:16)
[2017-10-01] MEDS: LOSARTAN POTASSIUM 50 MG TABLET (FP) PO SCH (09:38)
[2017-10-01] MEDS: FUROSEMIDE 40 MG TABLET (FP) PO SCH (09:38)
[2017-10-01] MEDS: APIXABAN 5 MG TABLET PO SCH ×2 (09:38→21:16)
--- NOTE | 2017-10-01 11:12 | PN ---
Progress Note (short form) - Note Progress Note: Vascular Surgery Pt seen and examined. Bilateral lower extremity lymphedema. Now has some cellulitis in right posterior ankle. Good pulses. ID on case for IV antibiotics. leg elevation. Pt has lymphedema pump at home. Advised pt to use lymphedema pump in the morning and at night. One hour each session. Pt should wear compression either with stockings or robert, once cellulitis resolves. Can follow up in wound care clinic as outpt once [facility] [phone] for appt. Wiley Lyles DO
--- NOTE | 2017-10-01 11:14 | PN ---
Progress Note, Physician History of Present Illness: Pt w/o fever, chill, SOB, CP, abd pain, diarrhea. Pt with leg pain, asking for medication (oxycodone). - Current Medication List Current Medications: Active Medications Acetaminophen (Tylenol -) 650 mg PO QID PRN PRN Reason: PAIN Amiodarone HCl (Cordarone -) 200 mg PO BID [facility] Last Admin: 10/01/17 09:37 Dose: 200 mg Apixaban (Eliquis -) 5 mg PO BID [facility] Last Admin: 10/01/17 09:38 Dose: 5 mg Furosemide (Lasix -) 40 mg PO DAILY [facility] Last Admin: 10/01/17 09:38 Dose: 40 mg Cefazolin Sodium/Dextrose (Ancef 2 Gm Premixed Ivpb -) 2 gm in 50 mls @ 200 mls /hr IVPB Q8H-IV [facility] Last Admin: 10/01/17 09:36 Dose: 200 mls/hr Losartan Potassium (Cozaar -) 50 mg PO DAILY [facility] Last Admin: 10/01/17 09:38 Dose: Not Given Metoprolol Succinate (Toprol Xl -) 50 mg PO DAILY [facility] Last Admin: 10/01/17 09:38 Dose: 50 mg - Objective Vital Signs: Vital Signs Temperature 98.4 F 10/01/17 09:00 Pulse Rate 45 L 10/01/17 09:00 Respiratory Rate 22 10/01/17 09:00 Blood Pressure 174/78 10/01/17 09:00 O2 Sat by Pulse Oximetry (%) 98 09/30/17 21:00 Constitutional: Yes: No Distress, Calm Cardiovascular: Yes: Regular Rate and Rhythm, Murmur, S1, S2 Respiratory: Yes: Regular, CTA Bilaterally Gastrointestinal: Yes: Normal Bowel Sounds, Soft, Abdomen, Obese. No: Tenderness Extremities: Yes: Other (Right posterior ankle with minimal erythema, calor.) Edema: Yes (Bilat Lymphedema) Neurological: Yes: Alert, Oriented Labs: CBC, BMP 10/01/17 06:10 10/01/17 06:10 Problem List - Problems (1) Cellulitis of right ankle Code(s): L03.115 - CELLULITIS OF RIGHT LOWER LIMB (2) HTN (hypertension) Code(s): I10 - ESSENTIAL (PRIMARY) HYPERTENSION Qualifiers: Hypertension type: essential hypertension (3) CHF (congestive heart failure) Code(s): I50.9 - HEART FAILURE, UNSPECIFIED (4) Obesity Code(s): E66.9 - OBESITY, UNSPECIFIED (5) Afib Code(s): I48.91 - UNSPECIFIED ATRIAL FIBRILLATION Qualifiers: Atrial fibrillation type: chronic Qualified Code(s): I48.2 - Chronic atrial fibrillation (6) Lymph edema Code(s): I89.0 - LYMPHEDEMA, NOT ELSEWHERE CLASSIFIED (7) Aortic valve stenosis Code(s): I35.0 - NONRHEUMATIC AORTIC (VALVE) STENOSIS Assessment/Plan ID, Vasc surgery consults appreciated IV abtx per ID Pain control Cont meds- pt states that is not taking [place] AM labs Case was d/w pt's nurse Covering Dr. Link.
--- NOTE | 2017-10-01 11:41 | EKG ---
Test Reason : Blood Pressure : / mmHG Vent. Rate : 049 BPM Atrial Rate : 049 BPM P-R Int : 146 ms QRS Dur : 110 ms QT Int : 500 ms P-R-T Axes : 045 -18 042 degrees QTc Int : 451 ms POOR DATA QUALITY, INTERPRETATION MAY BE ADVERSELY AFFECTED SINUS BRADYCARDIA VOLTAGE CRITERIA FOR LEFT VENTRICULAR HYPERTROPHY NONSPECIFIC ST ABNORMALITY ABNORMAL ECG WHEN COMPARED WITH ECG OF 01-APR-2017 15:51, SINUS RHYTHM HAS REPLACED ATRIAL FIBRILLATION VENT. RATE HAS DECREASED BY [address] ELEVATION NOW PRESENT IN LATERAL LEADS T WAVE INVERSION NO LONGER EVIDENT IN LATERAL LEADS Confirmed by LESA JAIMES MD ([id number]) on 10/01/2017 11:41:11 AM Referred By: Confirmed By:LESA JAIMES MD
[2017-10-01] MEDS: oxyCODONE HCL 5 MG TABLET PO PRN ×2 (14:11→21:14)
--- NOTE | 2017-10-01 16:27 | CONS ---
DATE OF CONSULTATION: 10/01/2017 REQUESTING PHYSICIAN: Juaquin Lnik M.D. REASON FOR CONSULTATION: Cardiology consultation. HISTORY OF PRESENT ILLNESS: Patient is a 57-year-old female with longstanding history of hypertension, hypertensive cardiovascular disease, morbid obesity, calcific aortic valvular disease, paroxysmal atrial fibrillation, chronic bronchial asthma, mitral valvular disease, mitral regurgitation, tricuspid regurgitation, history of pulmonary hypertension, obstructive sleep apnea syndrome, chronic venous insufficiency with chronic bilateral lower extremity edema. Patient recently developed cellulitis involving the right lower extremity especially around the ankle and lower calf which was initially treated with antibiotics and continue to persist and was hospitalized for IV antibiotics. Patient recently had palpitations associated with increasing exertional dyspnea, was found to be back in atrial fibrillation, and the dose of amiodarone was increased to 200 mg b.i.d. and has converted back to sinus rhythm. She denies any recent dyspnea either at rest or with exertion, no history of paroxysmal nocturnal dyspnea or orthopnea reported. There is no history of palpitations. No history of chest pain or discomfort either at rest or with exertion. No history of lightheadedness, dizziness, presyncope, or syncope. Patient admits to poor dietary compliance and has been noticing progressive bilateral pedal edema. PAST HISTORY: 1. As mentioned in the history of present illness. 2. History of endometrial and ovarian carcinoma. SURGICAL HISTORY: 1. Status post tonsillectomy. 2. Status post hysterectomy and oophorectomy. 3. Status post repair of a ventral hernia. 4. Status post gastric bypass surgery . 5. Status post laparoscopic surgery for left knee meniscal tear. 6. Status post cholecystectomy. 7. Status post surgery for intestinal adhesions. SOCIAL HISTORY: She is , has no children, does not smoke. She has a rare alcoholic drink. Does not drink excessive amounts of caffeine. FAMILY HISTORY: Father in his 70s . He was an alcoholic and was a heavy smoker, apparently had a myocardial infarction. Mother in her 60s . She was a diabetic, had end-stage renal disease, and also of a myocardial infarction. She has 2 brothers and a sister. One of the brothers of drug overdose. ALLERGIES: None reported. CURRENT MEDICATIONS: 1. Amiodarone 200 mg p.o. b.i.d. 2. Losartan 50 mg p.o. daily. 3. Tylenol 650 mg p.o. q.i.d. p.r.n. 4. Eliquis 5 mg p.o. b.i.d. 5. Metoprolol succinate 50 mg p.o. daily. 6. Furosemide 40 mg p.o. daily. 7. Oxycodone 5 mg p.o. q.6h. p.r.n. On admission, patient had received ceftriaxone 1 g IV piggyback. REVIEW OF SYSTEMS: Constitutional: No history of chills, fever, or night sweats reported. No history of unintentional weight loss. HEENT: No history of headaches, diplopia, blurred vision. No history of epistaxis, hoarseness, vertigo, tinnitus, or deafness. Cardiovascular: See history of present illness. Respiratory: No history of cough, expectoration or hemoptysis. No history of recent shortness of breath. Gastrointestinal: No history of nausea, vomiting, melena or hematemesis. No history of abdominal pain or discomfort. No history of change in bowel habits. Neurological: No history of seizures, syncope, focal weakness. No history of lightheadedness or dizziness. No history of paresthesias. Endocrine: No history of intolerance to cold or warm weather. No history of polyuria or polydipsia. No known history of thyroid disorder. Musculoskeletal: No history of myalgias or arthralgias. Hematological: No history of anemia, bleeding, or ecchymosis. Lymphatics: No history of lymphadenopathy or masses. PHYSICAL EXAMINATION: General: A 57-year-old morbidly obese female was in no distress, no pallor, cyanosis, clubbing, or jaundice. Vital signs: Blood pressure at 9 a.m. was 174/78 mmHg, pulse was 45 beats per minute, respirations 22 per minute, temperature 98.4 degrees Fahrenheit. Weight 366 pounds and 2 ounces. Neck: Supple. No jugulovenous distention, carotids were 2+, upstrokes were normal, there was bilateral radiation of murmur. No thyromegaly was appreciated. Heart: PMI was not localized. No heaves or thrills. S1 was normal. S2 A2 was slightly reduced. Ejection systolic murmur grade 2/6 was heard at the 2nd right intercostal space and along the lower left sternal border ending in systole. No diastolic murmur was heard. Lungs: Clear on auscultation . Abdomen: Obese, soft, nontender. No hepatosplenomegaly or palpable masses were felt. Extremities: Bilateral brawny nonpitting edema involving both lower extremities. There was induration around the right ankle and lower calf. Dorsalis pedis and posterior tibial pulses could not be palpated. Pulses in the upper extremities were equal. LABORATORY DATA: On October 01, 2017, CBC: WBC count 3900, hemoglobin 10.0 g/dL, microcytic disease. Platelet count 148,000. Differential was normal. Chemistry, October 01, 2017: sodium 140, potassium 3.9, chloride 103, CO2 of 30 mmol/L, BUN 15, creatinine 0.8 mg/dL, random glucose was 78 mg/dL, calcium was 7.9 mg per dL, magnesium was 2.1 mg/dL. Liver function tests were normal. Total protein was 5.9 and albumin was 2.9 (low). TSH was 1.16. ECG: Sinus bradycardia, left axis deviation, LVH by voltage criteria, nonspecific ST changes dated September 30, 2017. X-ray, chest: There is equivocal development of mild cephalization of the pulmonary vasculature in comparison to a prior radiological study of March 10, 2017, clinical correlation regards to possible mild volume overload. IMPRESSION: 1. Hypertension, hypertensive cardiovascular disease. 2. Paroxysmal atrial fibrillation currently in sinus rhythm. 3. Obstructive sleep apnea syndrome. 4. Chronic lower extremity brawny edema partly related to venous insufficiency. 5. Calcific aortic valvular disease with aortic stenosis probably of moderate severity. 6. Mitral valvular disease with mitral regurgitation. 7. History of tricuspid regurgitation. 8. Pulmonary hypertension. 9. Cellulitis involving the right ankle and lower right calf. 10. Bronchial asthma. RECOMMENDATION: 1. Continue current cardiac medication. 2. Amiodarone level. 3. Followup and treatment for sleep apnea syndrome. 4. Weight reduction. 5. Evaluation of anemia. Thank you for your referral. Yours sincerely, PAULETTE ALATORRE M.D. [id number]
[2017-10-02] MEDS: CEFAZOLIN 2 GM/D5W 2 GM/50 ML ML IVPB SCH ×2 (01:17→10:35)
[2017-10-02 08:04] LABS: HEMATOCRIT 32.1 % (32.4-45.2); HEMOGLOBIN 10.5 GM/dL (10.7-15.3); MCHC 32.7 g/dl (32.0-36.0); MEAN CELL VOLUME 79.6 fl (80-96); MEAN PLT VOLUME 8.7 fl (7.5-11.1); PLATELET COUNT 155 K/MM3 (134-434); RBC 4.03 M/mm3 (3.60-5.2); RDW 17.7 % (11.6-15.6); WHITE BLOOD COUNT 3.4 K/mm3 (4.0-10.0)
[2017-10-02 08:56] LABS: ANION GAP 6 (8-16); BLOOD UREA NITROGEN 19 mg/dL (7-18); CALCIUM 8.1 mg/dL (8.5-10.1); CHLORIDE 104 mmol/L (98-107); CO2 31 mmol/L (21-32); CREATININE 0.9 mg/dL (0.55-1.02); GLUCOSE,RANDOM 78 mg/dL (74-106); SGOT/AST 13 U/L (15-37); SGPT/ALT 9 U/L (12-78); SODIUM 141 mmol/L (136-145); TOT PROT 6.3 g/dl (6.4-8.2)
[2017-10-02 08:57] LABS: ALK PHOS 107 U/L (45-117); BILIRUBIN,TOTAL 0.5 mg/dL (0.2-1.0)
--- NOTE | 2017-10-02 09:46 | PN ---
Progress Note, Physician History of Present Illness: Pt w/o fever, chill, SOB, CP, abd pain, diarrhea. Pt with right leg pain, on and off, controlled with medication; pt states that is not much improvement since yesterday without medication. - Current Medication List Current Medications: Active Medications Acetaminophen (Tylenol -) 650 mg PO QID PRN PRN Reason: PAIN Amiodarone HCl (Cordarone -) 200 mg PO BID [facility] Last Admin: 10/01/17 21:16 Dose: 200 mg Apixaban (Eliquis -) 5 mg PO BID [facility] Last Admin: 10/01/17 21:16 Dose: 5 mg Furosemide (Lasix -) 40 mg PO DAILY [facility] Last Admin: 10/01/17 09:38 Dose: 40 mg Cefazolin Sodium/Dextrose (Ancef 2 Gm Premixed Ivpb -) 2 gm in 50 mls @ 200 mls /hr IVPB Q8H-IV [facility] Last Admin: 10/02/17 01:17 Dose: 200 mls/hr Losartan Potassium (Cozaar -) 50 mg PO DAILY [facility] Last Admin: 10/01/17 09:38 Dose: Not Given Metoprolol Succinate (Toprol Xl -) 50 mg PO DAILY [facility] Last Admin: 10/01/17 09:38 Dose: 50 mg Oxycodone HCl (Roxicodone -) 5 mg PO Q6H PRN PRN Reason: PAIN LEVEL 6-10 Last Admin: 10/01/17 21:14 Dose: 5 mg - Objective Vital Signs: Vital Signs Temperature 98.2 F 10/02/17 06:00 Pulse Rate 42 L 10/02/17 06:00 Respiratory Rate 20 10/01/17 23:24 Blood Pressure 154/89 10/02/17 06:00 O2 Sat by Pulse Oximetry (%) 97 10/01/17 22:00 Constitutional: Yes: No Distress, Calm Cardiovascular: Yes: Regular Rate and Rhythm, Murmur, S1, S2 Respiratory: Yes: Regular, CTA Bilaterally. No: Rales Gastrointestinal: Yes: Normal Bowel Sounds, Soft, Abdomen, Obese. No: Tenderness Extremities: Yes: Other (Bilateral lymphedema. Right distal leg with more skin changes c/w prior infections and chronic venous changes) Neurological: Yes: Alert, Oriented Labs: CBC, BMP 10/02/17 07:15 10/02/17 07:15 Problem List - Problems (1) Cellulitis of right ankle Code(s): L03.115 - CELLULITIS OF RIGHT LOWER LIMB (2) HTN (hypertension) Code(s): I10 - ESSENTIAL (PRIMARY) HYPERTENSION Qualifiers: Hypertension type: essential hypertension (3) CHF (congestive heart failure) Code(s): I50.9 - HEART FAILURE, UNSPECIFIED (4) Obesity Code(s): E66.9 - OBESITY, UNSPECIFIED (5) Afib Code(s): I48.91 - UNSPECIFIED ATRIAL FIBRILLATION Qualifiers: Atrial fibrillation type: chronic Qualified Code(s): I48.2 - Chronic atrial fibrillation (6) Lymph edema Code(s): I89.0 - LYMPHEDEMA, NOT ELSEWHERE CLASSIFIED (7) Aortic valve stenosis Code(s): I35.0 - NONRHEUMATIC AORTIC (VALVE) STENOSIS (8) Leukocytosis Code(s): D72.829 - ELEVATED WHITE BLOOD CELL COUNT, UNSPECIFIED Assessment/Plan ID, Vasc surgery consults appreciated IV abtx per ID To monitor WBC Pain control Cont meds- pt states that is not taking Losartan AM labs Case was d/w pt's nurse Covering Dr. Link.
[2017-10-02] MEDS ORDERED: PT OWN MED DRAWER 7, Y5N ONE ×3 (10:33→21:12)
[2017-10-02] MEDS: LOSARTAN POTASSIUM 50 MG TABLET (FP) PO SCH (10:34)
[2017-10-02] MEDS: FUROSEMIDE 40 MG TABLET (FP) PO SCH (10:35)
[2017-10-02] MEDS: AMIODARONE HCL 200 MG TABLET (FP) PO SCH ×2 (10:35→21:13)
[2017-10-02] MEDS: APIXABAN 5 MG TABLET PO SCH ×2 (10:36→21:13)
[2017-10-02] MEDS: CEFAZOLIN 2 GM in DEXTROSE 5%-WATER - 100 ML IVPB SCH ×2 (19:14→19:40)
[2017-10-02] MEDS: oxyCODONE HCL 5 MG TABLET PO PRN (19:30)
--- NOTE | 2017-10-02 22:00 | PN ---
Progress Note, Physician History of Present Illness: C/O R leg pain with wt bearing No fever/ chills Tolerating antibiotics - Current Medication List Current Medications: Active Medications Acetaminophen (Tylenol -) 650 mg PO QID PRN PRN Reason: PAIN Amiodarone HCl (Cordarone -) 200 mg PO BID [facility] Last Admin: 10/02/17 21:13 Dose: 200 mg Apixaban (Eliquis -) 5 mg PO BID [facility] Last Admin: 10/02/17 21:13 Dose: 5 mg Furosemide (Lasix -) 40 mg PO DAILY [facility] Last Admin: 10/02/17 10:35 Dose: 40 mg Cefazolin Sodium 2 gm/ (Dextrose) 100 mls @ 200 mls/hr IVPB Q8H-IV [facility] Last Admin: 10/02/17 19:40 Dose: 200 mls/hr Losartan Potassium (Cozaar -) 50 mg PO DAILY [facility] Last Admin: 10/02/17 10:34 Dose: Not Given Metoprolol Succinate (Toprol Xl -) 50 mg PO DAILY [facility] Last Admin: 10/02/17 10:36 Dose: 50 mg Oxycodone HCl (Roxicodone -) 5 mg PO Q6H PRN PRN Reason: PAIN LEVEL 6-10 Last Admin: 10/02/17 19:30 Dose: 5 mg - Objective Vital Signs: Vital Signs Temperature 98.0 F 10/02/17 21:51 Pulse Rate 50 L 10/02/17 21:51 Respiratory Rate 20 10/02/17 21:51 Blood Pressure 125/79 10/02/17 21:51 O2 Sat by Pulse Oximetry (%) 97 10/01/17 22:00 Constitutional: Yes: No Distress, Obese Cardiovascular: Yes: Regular Rate and Rhythm, S1, S2 Respiratory: Yes: CTA Bilaterally Gastrointestinal: Yes: Normal Bowel Sounds, Soft, Abdomen, Obese Extremities: Yes: Other (+ lymphedema + erythema / warmth R LE) Labs: CBC, BMP 10/02/17 07:15 10/02/17 07:15 Assessment/Plan Cellulitis, LE Lymphedema Leukopenia Continue cefazolin, elevation
[2017-10-03] MEDS: CEFAZOLIN 2 GM in DEXTROSE 5%-WATER - 100 ML IVPB SCH (01:57)
[2017-10-03 07:32] LABS: HEMATOCRIT 32.5 % (32.4-45.2); HEMOGLOBIN 10.4 GM/dL (10.7-15.3); MCH 25.6 pg (25.7-33.7); MEAN CELL VOLUME 80.1 fl (80-96); MEAN PLT VOLUME 8.5 fl (7.5-11.1); PLATELET COUNT 161 K/MM3 (134-434); RBC 4.05 M/mm3 (3.60-5.2); RDW 17.7 % (11.6-15.6); WHITE BLOOD COUNT 3.6 K/mm3 (4.0-10.0)
[2017-10-03 08:14] LABS: CHLORIDE 102 mmol/L (98-107); SODIUM 141 mmol/L (136-145)
[2017-10-03 08:20] LABS: ANION GAP 11 (8-16); BLOOD UREA NITROGEN 16 mg/dL (7-18); CALCIUM 8.6 mg/dL (8.5-10.1); CO2 28 mmol/L (21-32); CREATININE 0.8 mg/dL (0.55-1.02); GLUCOSE,RANDOM 76 mg/dL (74-106)
[2017-10-03] MEDS ORDERED: PT OWN MED DRAWER 7, Y5N ONE ×2 (10:11→21:16)
[2017-10-03] MEDS: APIXABAN 5 MG TABLET PO SCH ×2 (10:20→21:22)
[2017-10-03] MEDS: AMIODARONE HCL 200 MG TABLET (FP) PO SCH ×2 (10:20→21:22)
[2017-10-03] MEDS: FUROSEMIDE 40 MG TABLET (FP) PO SCH (10:20)
[2017-10-03] MEDS: LOSARTAN POTASSIUM 50 MG TABLET (FP) PO SCH ×2 (10:20→10:26)
[2017-10-03] MEDS: CEFAZOLIN 2 GM/D5W 2 GM/50 ML ML IVPB SCH ×2 (10:21→17:53)
--- NOTE | 2017-10-03 10:52 | PN ---
Progress Note, Physician History of Present Illness: Pt w/o fever, chill, SOB, CP, abd pain, diarrhea. Pt with right leg pain, on and off, controlled with PRN medication. - Current Medication List Current Medications: Active Medications Acetaminophen (Tylenol -) 650 mg PO QID PRN PRN Reason: PAIN Amiodarone HCl (Cordarone -) 200 mg PO BID [facility] Last Admin: 10/03/17 10:20 Dose: 200 mg Apixaban (Eliquis -) 5 mg PO BID [facility] Last Admin: 10/03/17 10:20 Dose: 5 mg Furosemide (Lasix -) 40 mg PO DAILY [facility] Last Admin: 10/03/17 10:20 Dose: 40 mg Cefazolin Sodium/Dextrose (Ancef 2 Gm Premixed Ivpb -) 2 gm in 50 mls @ 200 mls /hr IVPB Q8H-IV [facility] Last Admin: 10/03/17 10:21 Dose: 200 mls/hr Losartan Potassium (Cozaar -) 50 mg PO DAILY [facility] Last Admin: 10/03/17 10:26 Dose: Not Given Metoprolol Succinate (Toprol Xl -) 50 mg PO DAILY [facility] Last Admin: 10/03/17 10:20 Dose: 50 mg Oxycodone HCl (Roxicodone -) 5 mg PO Q6H PRN PRN Reason: PAIN LEVEL 6-10 Last Admin: 10/02/17 19:30 Dose: 5 mg - Objective Vital Signs: Vital Signs Temperature 98.4 F 10/03/17 08:00 Pulse Rate 46 L 10/03/17 08:00 Respiratory Rate 20 10/03/17 08:00 Blood Pressure 142/80 10/03/17 08:00 O2 Sat by Pulse Oximetry (%) 97 10/01/17 22:00 Constitutional: Yes: No Distress, Calm Cardiovascular: Yes: Regular Rate and Rhythm, Bradycardia, S1, S2 Respiratory: Yes: Regular, CTA Bilaterally. No: Rales Gastrointestinal: Yes: Normal Bowel Sounds, Soft, Abdomen, Obese. No: Tenderness Extremities: Yes: Other (right leg, behind the ankle is sensitive to palpation, warm to touch) Edema: Yes (bilateral lymphedema) Neurological: Yes: Alert, Oriented Labs: CBC, BMP 10/03/17 06:40 10/03/17 06:40 Problem List - Problems (1) Cellulitis of right ankle Code(s): L03.115 - CELLULITIS OF RIGHT LOWER LIMB (2) HTN (hypertension) Code(s): I10 - ESSENTIAL (PRIMARY) HYPERTENSION Qualifiers: Hypertension type: essential hypertension (3) CHF (congestive heart failure) Code(s): I50.9 - HEART FAILURE, UNSPECIFIED (4) Obesity Code(s): E66.9 - OBESITY, UNSPECIFIED (5) Afib Code(s): I48.91 - UNSPECIFIED ATRIAL FIBRILLATION Qualifiers: Atrial fibrillation type: chronic Qualified Code(s): I48.2 - Chronic atrial fibrillation (6) Lymph edema Code(s): I89.0 - LYMPHEDEMA, NOT ELSEWHERE CLASSIFIED (7) Aortic valve stenosis Code(s): I35.0 - NONRHEUMATIC AORTIC (VALVE) STENOSIS (8) Leukocytosis Code(s): D72.829 - ELEVATED WHITE BLOOD CELL COUNT, UNSPECIFIED Assessment/Plan ID, Vasc surgery consults appreciated IV abtx per ID To monitor WBC Pain control AM labs Case was d/w pt's nurse Covering Dr. Link.
--- NOTE | 2017-10-03 12:43 | PN ---
Progress Note, Physician History of Present Illness: Still with c/o R leg pain with wt bearing No fever/ chills Tolerating antibiotics - Current Medication List Current Medications: Active Medications Acetaminophen (Tylenol -) 650 mg PO QID PRN PRN Reason: PAIN Amiodarone HCl (Cordarone -) 200 mg PO BID [facility] Last Admin: 10/03/17 10:20 Dose: 200 mg Apixaban (Eliquis -) 5 mg PO BID [facility] Last Admin: 10/03/17 10:20 Dose: 5 mg Furosemide (Lasix -) 40 mg PO DAILY [facility] Last Admin: 10/03/17 10:20 Dose: 40 mg Cefazolin Sodium/Dextrose (Ancef 2 Gm Premixed Ivpb -) 2 gm in 50 mls @ 200 mls /hr IVPB Q8H-IV [facility] Last Admin: 10/03/17 10:21 Dose: 200 mls/hr Losartan Potassium (Cozaar -) 50 mg PO DAILY [facility] Last Admin: 10/03/17 10:26 Dose: Not Given Metoprolol Succinate (Toprol Xl -) 50 mg PO DAILY [facility] Last Admin: 10/03/17 10:20 Dose: 50 mg Oxycodone HCl (Roxicodone -) 5 mg PO Q6H PRN PRN Reason: PAIN LEVEL 6-10 Last Admin: 10/02/17 19:30 Dose: 5 mg - Objective Vital Signs: Vital Signs Temperature 98.4 F 10/03/17 08:00 Pulse Rate 46 L 10/03/17 08:00 Respiratory Rate 20 10/03/17 08:00 Blood Pressure 142/80 10/03/17 08:00 O2 Sat by Pulse Oximetry (%) 97 10/01/17 22:00 Constitutional: Yes: No Distress, Obese Eyes: Yes: Conjunctiva Clear Cardiovascular: Yes: Regular Rate and Rhythm, S1, S2 Respiratory: Yes: CTA Bilaterally Gastrointestinal: Yes: Normal Bowel Sounds, Soft. No: Tenderness Extremities: Yes: Other (+ LE lymphedema decreased erythema/ warmth R LE) Labs: CBC, BMP 10/03/17 06:40 10/03/17 06:40 Assessment/Plan Cellulitis, LE improved Lymphedema Leukopenia Continue cefazolin, elevation
--- NOTE | 2017-10-03 13:08 | PN ---
Progress Note (short form) - Note Progress Note: 57 year 0lr female known case of paroxysmal atrial fibrillation, aortic valvular disease, hypertension, OSAS, cellulitis and morbid obesity. Patient ambulating, no SOB or chest pain or discomfort. Being treated for right lower extremity cellulitis. Active Medications Generic Name Dose Route Start Last Admin Trade Name Freq PRN Reason Stop Dose Admin Acetaminophen 650 mg 09/30/17 11:49 Tylenol - PO QID PRN PAIN Amiodarone HCl 200 mg 09/30/17 22:00 10/03/17 10:20 Cordarone - PO 200 mg BID SHILRENE Administration Apixaban 5 mg 09/30/17 22:00 10/03/17 10:20 Eliquis - PO 5 mg BID SHIRLENE Administration Furosemide 40 mg 10/01/17 10:00 10/03/17 10:20 Lasix - PO 40 mg DAILY SHIRLENE Administration Cefazolin Sodium/Dextrose 2 gm in 50 mls @ 200 mls/hr 10/03/17 09:08 10:21 Ancef 2 Gm Premixed Ivpb - IVPB 200 mls/hr Q8H-IV SHIRLENE Administration Losartan Potassium 50 mg 10/01/17 10:00 10/03/17 10:26 Cozaar - PO Not Given DAILY SHIRLENE Metoprolol Succinate 50 mg 10/01/17 10:00 10/03/17 10:20 Toprol Xl - PO 50 mg DAILY SHIRLENE Administration Oxycodone HCl 5 mg 10/01/17 11:45 10/02/17 19:30 Roxicodone - PO 5 mg Q6H PRN Administration PAIN LEVEL 6-10 Last Vital Signs Temp Pulse Resp BP Pulse Ox 98.4 F 46 L 20 142/80 97 10/03/17 08:00 10/03/17 08:00 10/03/17 08:00 10/03/17 08:00 10/01/17 22:00 NECK: No JVD, carotids equal, faint radiation of murmur.No thyromegaly. HEART: No heaves or thrills, S1 normal, S2 slightly reduced. SLOAN II/ 2nd rt ICS, no diastolic or gallops heard. LUNGS: Clear on auscultation. ABDOMEN: obese, nontender, no organomegaly appreciated. EXTREMITIES: Brawny bilateral lower extremity edema and stases changes. CBC, BMP 10/03/17 06:40 10/03/17 06:40 IMPRESSION: 1. Aortivc valvular disease with modreate aortic stenosis. 2. Paroxysmal atrial fibrillation. 3. OSAS. 4. Hypertension. 5. Morbid obesity. 6. Right lower extremity cellulitis, resolving. RECOMMENDATION: 1. Current cardiac therapy. 2. Amiodarone level. 3. T3, T4, TSH. 4. If needed please call Thank you
[2017-10-03] MEDS: oxyCODONE HCL 5 MG TABLET PO PRN (18:00)
[2017-10-04] MEDS: oxyCODONE HCL 5 MG TABLET PO PRN (01:28)
[2017-10-04] MEDS: CEFAZOLIN 2 GM/D5W 2 GM/50 ML ML IVPB SCH ×3 (01:56→18:35)
[2017-10-04 07:14] LABS: HEMATOCRIT 33.4 % (32.4-45.2); HEMOGLOBIN 10.9 GM/dL (10.7-15.3); MCH 25.9 pg (25.7-33.7); MCHC 32.6 g/dl (32.0-36.0); MEAN CELL VOLUME 79.5 fl (80-96); MEAN PLT VOLUME 8.5 fl (7.5-11.1); PLATELET COUNT 160 K/MM3 (134-434); RDW 17.8 % (11.6-15.6); WHITE BLOOD COUNT 3.4 K/mm3 (4.0-10.0)
[2017-10-04 07:25] LABS: ALBUMIN 2.9 g/dl (3.4-5.0); ALK PHOS 106 U/L (45-117); ANION GAP 11 (8-16); BILIRUBIN,TOTAL 0.3 mg/dL (0.2-1.0); BLOOD UREA NITROGEN 15 mg/dL (7-18); CALCIUM 8.6 mg/dL (8.5-10.1); CHLORIDE 103 mmol/L (98-107); CO2 28 mmol/L (21-32); CREATININE 0.7 mg/dL (0.55-1.02); GLUCOSE,RANDOM 78 mg/dL (74-106); POTASSIUM 3.9 mmol/L (3.5-5.1); SGOT/AST 13 U/L (15-37); SGPT/ALT 7 U/L (12-78); SODIUM 142 mmol/L (136-145); TOT PROT 6.4 g/dl (6.4-8.2)
--- NOTE | 2017-10-04 09:04 | PN ---
Progress Note, Physician Chief Complaint: weekend coverage dr Keating chart meds consults reviewed pt in bed feels well no c/o; able to walk independently - Current Medication List Current Medications: Active Medications Acetaminophen (Tylenol -) 650 mg PO QID PRN PRN Reason: PAIN Last Admin: 10/03/17 21:21 Dose: 650 mg Amiodarone HCl (Cordarone -) 200 mg PO BID [facility] Last Admin: 10/03/17 21:22 Dose: 200 mg Apixaban (Eliquis -) 5 mg PO BID [facility] Last Admin: 10/03/17 21:22 Dose: 5 mg Furosemide (Lasix -) 40 mg PO DAILY [facility] Last Admin: 10/03/17 10:20 Dose: 40 mg Cefazolin Sodium/Dextrose (Ancef 2 Gm Premixed Ivpb -) 2 gm in 50 mls @ 200 mls /hr IVPB Q8H-IV [facility] Last Admin: 10/04/17 01:56 Dose: 200 mls/hr Losartan Potassium (Cozaar -) 50 mg PO DAILY [facility] Last Admin: 10/03/17 10:26 Dose: Not Given Metoprolol Succinate (Toprol Xl -) 50 mg PO DAILY [facility] Last Admin: 10/03/17 10:20 Dose: 50 mg Oxycodone HCl (Roxicodone -) 5 mg PO Q6H PRN PRN Reason: PAIN LEVEL 6-10 Last Admin: 10/04/17 01:28 Dose: 5 mg - Objective Vital Signs: Vital Signs Temperature 97.7 F 10/04/17 05:56 Pulse Rate 55 L 10/04/17 05:56 Respiratory Rate 19 10/04/17 05:56 Blood Pressure 122/74 10/04/17 05:56 O2 Sat by Pulse Oximetry (%) 95 10/03/17 21:00 Constitutional: Yes: No Distress, Calm Eyes: Yes: Conjunctiva Clear HENT: Yes: Atraumatic Neck: Yes: Supple Cardiovascular: No: Regular Rate and Rhythm Respiratory: Yes: CTA Bilaterally Gastrointestinal: Yes: Soft. No: Distention, Tenderness Genitourinary: No: CVA Tenderness - Left, CVA Tenderness - Right Musculoskeletal: No: Joint Stiffness, Joint Swelling Extremities: Yes: Other (R leg cellulitis much improved). No: Cold, Cool, Cyanosis Edema: Yes (lymphedema ) Integumentary: Yes: Rash (RLE better) Neurological: Yes: WNL, Alert, Oriented ...Motor Strength: WNL Psychiatric: Yes: WNL, Alert, Oriented. No: Agitated, Suicidal Ideation Labs: CBC, BMP 10/04/17 06:40 10/04/17 06:40 - ....Imaging Other: Report Reviewed Assessment/Plan 57 YOF ASHD Afib IA obesity, legs lymphedema and venous insufficiency and stasis dermatitis, admitted with cellulitis IV ATB per IDvascular surgery f/u legs elevation d/w pt consider PT rehab and VNS home, she said she will think about it falls PFX d/w pt cardio f/u
[2017-10-04] MEDS ORDERED: PT OWN MED DRAWER 7, Y5N ONE (10:16)
[2017-10-04] MEDS: LOSARTAN POTASSIUM 50 MG TABLET (FP) PO SCH (10:18)
[2017-10-04] MEDS: AMIODARONE HCL 200 MG TABLET (FP) PO SCH ×2 (10:23→21:14)
[2017-10-04] MEDS: FUROSEMIDE 40 MG TABLET (FP) PO SCH (10:23)
[2017-10-04] MEDS: APIXABAN 5 MG TABLET PO SCH ×2 (10:23→21:14)
[2017-10-05] MEDS: CEFAZOLIN 2 GM/D5W 2 GM/50 ML ML IVPB SCH ×3 (01:45→17:53)
[2017-10-05 08:23] LABS: BASO % 0.8 % (0-2.0); EOS % 4.2 % (0-4.5); HEMATOCRIT 33.1 % (32.4-45.2); HEMOGLOBIN 10.7 GM/dL (10.7-15.3); LYMPH % 23.2 % (8-40); MCH 25.7 pg (25.7-33.7); MCHC 32.3 g/dl (32.0-36.0); MEAN CELL VOLUME 79.4 fl (80-96); MEAN PLT VOLUME 8.5 fl (7.5-11.1); MONO % 10.9 % (3.8-10.2); NEUT % 60.9 % (42.8-82.8); PLATELET COUNT 171 K/MM3 (134-434); RBC 4.17 M/mm3 (3.60-5.2); RDW 17.8 % (11.6-15.6); WHITE BLOOD COUNT 3.8 K/mm3 (4.0-10.0)
[2017-10-05 08:55] LABS: ALBUMIN 3.1 g/dl (3.4-5.0); ANION GAP 7 (8-16); BLOOD UREA NITROGEN 20 mg/dL (7-18); CALCIUM 8.1 mg/dL (8.5-10.1); CHLORIDE 104 mmol/L (98-107); CO2 28 mmol/L (21-32); GLUCOSE,RANDOM 75 mg/dL (74-106); POTASSIUM 3.9 mmol/L (3.5-5.1); SODIUM 139 mmol/L (136-145)
[2017-10-05 09:00] LABS: ALK PHOS 106 U/L (45-117); BILIRUBIN,TOTAL 0.4 mg/dL (0.2-1.0); CREATININE 0.7 mg/dL (0.55-1.02); SGOT/AST 12 U/L (15-37); SGPT/ALT 8 U/L (12-78); TOT PROT 6.4 g/dl (6.4-8.2)
[2017-10-05 10:03] LABS: ERYTHROCYTE SEDIMENTATION RATE 83 mm/hr (0-30)
[2017-10-05] MEDS ORDERED: PT OWN MED DRAWER 7, Y5N ONE ×2 (10:25→20:57)
[2017-10-05] MEDS: FUROSEMIDE 40 MG TABLET (FP) PO SCH (10:33)
[2017-10-05] MEDS: LOSARTAN POTASSIUM 50 MG TABLET (FP) PO SCH (10:33)
[2017-10-05] MEDS: AMIODARONE HCL 200 MG TABLET (FP) PO SCH ×2 (10:33→21:15)
[2017-10-05] MEDS: APIXABAN 5 MG TABLET PO SCH ×2 (10:33→21:15)
--- NOTE | 2017-10-05 13:41 | PN ---
Progress Note, Physician History of Present Illness: OOB in chair Less R leg pain No fever/ chills Tolerating antibiotics - Current Medication List Current Medications: Active Medications Acetaminophen (Tylenol -) 650 mg PO QID PRN PRN Reason: PAIN Last Admin: 10/03/17 21:21 Dose: 650 mg Amiodarone HCl (Cordarone -) 200 mg PO BID [facility] Last Admin: 10/05/17 10:33 Dose: 200 mg Apixaban (Eliquis -) 5 mg PO BID [facility] Last Admin: 10/05/17 10:33 Dose: 5 mg Furosemide (Lasix -) 40 mg PO DAILY [facility] Last Admin: 10/05/17 10:33 Dose: 40 mg Cefazolin Sodium/Dextrose (Ancef 2 Gm Premixed Ivpb -) 2 gm in 50 mls @ 200 mls /hr IVPB Q8H-IV [facility] Last Admin: 10/05/17 10:33 Dose: 200 mls/hr Losartan Potassium (Cozaar -) 50 mg PO DAILY [facility] Last Admin: 10/05/17 10:33 Dose: Not Given Metoprolol Succinate (Toprol Xl -) 50 mg PO DAILY [facility] Last Admin: 10/05/17 10:33 Dose: 50 mg Oxycodone HCl (Roxicodone -) 5 mg PO Q6H PRN PRN Reason: PAIN LEVEL 6-10 Last Admin: 10/04/17 01:28 Dose: 5 mg - Objective Vital Signs: Vital Signs Temperature 98.2 F 10/05/17 07:38 Pulse Rate 46 L 10/05/17 07:38 Respiratory Rate 18 10/05/17 07:38 Blood Pressure 127/64 10/05/17 07:38 O2 Sat by Pulse Oximetry (%) 96 10/05/17 08:18 Constitutional: Yes: No Distress, Obese Eyes: Yes: Conjunctiva Clear Cardiovascular: Yes: Regular Rate and Rhythm, S1, S2 Respiratory: Yes: CTA Bilaterally Gastrointestinal: Yes: Normal Bowel Sounds, Soft, Abdomen, Obese Extremities: Yes: Other (+LE lymphedema) Edema: Yes Integumentary: Yes: Venous Stasis Changes, Other (erythema R LE almost completely resolved) Labs: CBC, BMP 10/05/17 07:30 10/05/17 07:30 Assessment/Plan Cellulitis, LE improved Lymphedema Leukopenia May substitute po keflex 500mg po q6h additional 7d
--- NOTE | 2017-10-05 15:27 | PN ---
Progress Note, Physician Chief Complaint: in bed NAD afebrile VSS no new c/o - Current Medication List Current Medications: Active Medications Acetaminophen (Tylenol -) 650 mg PO QID PRN PRN Reason: PAIN Last Admin: 10/03/17 21:21 Dose: 650 mg Amiodarone HCl (Cordarone -) 200 mg PO BID [facility] Last Admin: 10/05/17 10:33 Dose: 200 mg Apixaban (Eliquis -) 5 mg PO BID [facility] Last Admin: 10/05/17 10:33 Dose: 5 mg Furosemide (Lasix -) 40 mg PO DAILY [facility] Last Admin: 10/05/17 10:33 Dose: 40 mg Cefazolin Sodium/Dextrose (Ancef 2 Gm Premixed Ivpb -) 2 gm in 50 mls @ 200 mls /hr IVPB Q8H-IV [facility] Last Admin: 10/05/17 10:33 Dose: 200 mls/hr Losartan Potassium (Cozaar -) 50 mg PO DAILY [facility] Last Admin: 10/05/17 10:33 Dose: Not Given Metoprolol Succinate (Toprol Xl -) 50 mg PO DAILY [facility] Last Admin: 10/05/17 10:33 Dose: 50 mg Oxycodone HCl (Roxicodone -) 5 mg PO Q6H PRN PRN Reason: PAIN LEVEL 6-10 Last Admin: 10/04/17 01:28 Dose: 5 mg - Objective Vital Signs: Vital Signs Temperature 98.6 F 10/05/17 14:32 Pulse Rate 45 L 10/05/17 14:32 Respiratory Rate 18 10/05/17 07:38 Blood Pressure 127/75 10/05/17 14:32 O2 Sat by Pulse Oximetry (%) 96 10/05/17 08:18 Constitutional: Yes: No Distress, Calm Eyes: Yes: Conjunctiva Clear HENT: Yes: Atraumatic Neck: Yes: Supple Cardiovascular: No: Regular Rate and Rhythm Respiratory: Yes: CTA Bilaterally Gastrointestinal: Yes: Soft. No: Distention, Tenderness Genitourinary: No: CVA Tenderness - Left, CVA Tenderness - Right Musculoskeletal: No: Joint Stiffness, Joint Swelling Extremities: No: Cold, Cool Edema: Yes Integumentary: No: Rash, Venous Stasis Changes Neurological: Yes: WNL, Alert, Oriented ...Motor Strength: WNL Psychiatric: Yes: WNL, Alert, Oriented. No: Agitated, Suicidal Ideation Labs: CBC, BMP 10/05/17 07:30 10/05/17 07:30 - ....Imaging Other: Report Reviewed Assessment/Plan 57 YOF ASHD Afib PR obesity, legs lymphedema and venous insufficiency and stasis dermatitis, admitted with cellulitis IV ATB per ID vascular surgery f/u legs elevation d/w pt consider PT rehab and VNS home, she said she will think about it; anticipate DC in am falls PFX d/w pt cardio f/u dr Keating will be back 10/06/17
[2017-10-05] MEDS ORDERED: ACETAMINOPHEN 325 MG TABLET (FP) PO PRN (15:34)
[2017-10-06] MEDS: CEFAZOLIN 2 GM/D5W 2 GM/50 ML ML IVPB SCH ×2 (02:31→09:57)
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
--- NOTE | 2017-10-06 07:59 | DS ---
Physical Examination Vital Signs: Vital Signs Temperature 98.5 F 10/05/17 23:24 Pulse Rate 52 L 10/05/17 23:24 Respiratory Rate 20 10/05/17 23:24 Blood Pressure 144/67 10/05/17 23:24 O2 Sat by Pulse Oximetry (%) 96 10/05/17 20:22 Constitutional: Yes: No Distress, Calm. No: Anxious Eyes: Yes: Conjunctiva Clear, EOM Intact HENT: Yes: Atraumatic, Normocephalic Neck: Yes: Supple, Trachea Midline Cardiovascular: Yes: Regular Rate and Rhythm, Bradycardia, Murmur (-4/6 SLOAN LSB) Respiratory: Yes: Regular, CTA Bilaterally Gastrointestinal: Yes: Normal Bowel Sounds, Soft. No: Ascites ...Rectal Exam: Yes: Deferred Renal/: No: Anuria, Bladder Distention Breast(s): Yes: WNL Musculoskeletal: No: Back Pain, Joint Stiffness Edema: Yes Edema: LLE: Trace, RLE: Trace Integumentary: Yes: Venous Stasis Changes. No: Erythema, Pressure Ulcer, Rash Neurological: Yes: WNL ...Motor Strength: WNL Psychiatric: Yes: WNL Labs: CBC, BMP 10/05/17 07:30 10/05/17 07:30 Discharge Summary Reason For Visit: CELLULITIS OF RIGHT ANKLE Current Active Problems Aortic valve stenosis (Acute) CHF (congestive heart failure) (Acute) Cellulitis (Acute) Leg pain, right (Acute) Leukocytosis (Acute) Obesity (Acute) Condition: Stable - Instructions Referrals: Juaquin Link MD [Primary Care Provider] - Disposition: HOME - Home Medications Comprehensive Discharge Medication List: Ambulatory Orders Apixaban [Eliquis -] 5 mg PO BID #60 tablet 11/28/15 Acetaminophen [Tylenol .Regular Strength -] 650 mg PO Q6H PRN #0 tablet Amiodarone HCl [Cordarone -] 200 mg PO BID #60 tablet 04/05/17 Furosemide [Lasix -] 40 mg PO DAILY #30 tablet 04/05/17 Metoprolol Succinate 100 mg PO DAILY 10/03/17
[2017-10-06 09:48] VITALS: BP 152/68; PULSE 64; TEMP 98.5
[2017-10-06] MEDS: LOSARTAN POTASSIUM 50 MG TABLET (FP) PO SCH (09:56)
[2017-10-06] MEDS: AMIODARONE HCL 200 MG TABLET (FP) PO SCH (09:56)
[2017-10-06] MEDS: APIXABAN 5 MG TABLET PO SCH (09:56)
[2017-10-06] MEDS: FUROSEMIDE 40 MG TABLET (FP) PO SCH (09:56)
[2017-10-06] MEDS ORDERED: METOPROLOL SUCCINATE 100 MG PO SCH (10:00)
== END 2017-10-06 11:05 | disposition home or self-care (01) | DRG 602 ==
LOC: JER 10:42 → JERBED 13:46 → J6S 21:25
PROVIDERS: ADMIT Internal Medicine; ATTEND Internal Medicine
DX: L03.115 Cellulitis of right lower limb (principal); I50.33 Acute on chronic diastolic (congestive) heart failure; Z68.43 Body mass index [BMI] 50.0-59.9, adult; I11.0 Hypertensive heart disease with heart failure; J45.909 Unspecified asthma, uncomplicated; I35.0 Nonrheumatic aortic (valve) stenosis; G47.30 Sleep apnea, unspecified; I89.0 Lymphedema, not elsewhere classified; I48.0 Paroxysmal atrial fibrillation; D64.9 Anemia, unspecified; M17.0 Bilateral primary osteoarthritis of knee; E66.01 Morbid (severe) obesity due to excess calories; K43.9 Ventral hernia without obstruction or gangrene; I27.20 Pulmonary hypertension, unspecified; D72.829 Elevated white blood cell count, unspecified; D72.818 Other decreased white blood cell count; Z85.42 Personal history of malignant neoplasm of other parts of uterus; Z98.84 Bariatric surgery status; Z85.43 Personal history of malignant neoplasm of ovary
CPT/HCPCS: 36415; 71045-TC-FY; 73610-TC-RT-FY; 80048; 80053; 81003; 82607; 83735; 84100; 84155; 84156; 84157; 84165; 85025; 85027; 85651; 86038; 87040; 93005; 93010; 93970-TC; 99285-25

== ENCOUNTER 2018-02-25 17:18 | Inpatient (IN) | payer BC ==
[2018-02-25 17:37] VITALS: BMI 56.2
--- NOTE | 2018-02-25 17:41 | PDOC ---
Rapid Medical Evaluation Time Seen by Provider: 02/25/18 17:34 Medical Evaluation: Allergies Allergy/AdvReac Type Severity Reaction Status Date / Time No Known Allergies Allergy Verified 02/25/18 17:33 02/25/18 17:34 Pt states she has throbbing pain in her R ankle. Pt has hx of cellulitis and was placed on augmentin by Dr. Link two days ago. Pt states that the pain has gotten worse over the last day. Exam: R lower leg is warm to the touch with venous stasis changes. TTP of the lateral aspect Orders: CBC, CMP, blood culture, urine,pt/inr Ankle X-ray, Pt to proceed to the ED for further evaluation Discharge Disposition - Diagnosis Ankle pain, right - Referrals - Patient Instructions - Post Discharge Activity
--- NOTE | 2018-02-25 19:45 | PDOC ---
History of Present Illness - General Chief Complaint: Wound Stated Complaint: RT ANKLE PAIN Time Seen by Provider: 02/25/18 17:34 - History of Present Illness Initial Comments: 02/25/18 19:44 57 yo F with h/o HTN, CHF, ELLE, Asthma, A.fib-DCCV x2 (on Elquis BID) BLE lymphedema, and recurrent LE cellulitis, ALESSANDRO+BSO -for ovarian/endometrial CA- 2008 who p/w with worsening RLE redness and pain. Pt. reports ongoing RLE cellulitis BTK for past week. Recently seen in PMD (02/20/18) and given Augmentin (day 01/11 ) with no improvement in pain and redness. Ambulates without difficulty. Patient denies N/V, F/C, CP, SOB, urinary complaints, abdominal pain, diarrhea, constipation, lightheadedness, weakness, sensory changes. PMHx: as noted above ROS: as noted SHx: Denies Etoh, IVDA, tobacco use Allergies: NKDA Surgical Hx: R-en-Y gastric bypass 2001, Cholecystectomy 2002, ventral hernia repair 2011, SBO in (12/2015) release adhesions by Dr. Flood. Past History - Past Medical History Allergies/Adverse Reactions: Allergies Allergy/AdvReac Type Severity Reaction Status Date / Time No Known Allergies Allergy Verified 02/25/18 17:33 Home Medications: Ambulatory Orders Apixaban [Eliquis -] 5 mg PO BID #60 tablet 11/28/15 Acetaminophen [Tylenol .Regular Strength -] 650 mg PO Q6H PRN #0 tablet Amiodarone HCl [Cordarone -] 200 mg PO BID #60 tablet 04/05/17 Furosemide [Lasix -] 40 mg PO DAILY #30 tablet 04/05/17 Metoprolol Succinate [Toprol XL -] 12.5 mg PO DAILY 02/16/18 Amlodipine Besylate [Norvasc -] 5 mg PO DAILY 02/25/18 Anemia: No Asthma: Yes (CONTROLLED UNLESS PT GETS A COLD) Cancer: Yes (UTERINE AND OVARIAN. CA FREE 2008) Cardiac Disorders: Yes (AFIB 12/2015 / AORTIC STENOSIS) CVA: No COPD: No CHF: No DVT: No Dementia: No Diabetes: No GI Disorders: No Disorders: No HTN: Yes Hypercholesterolemia: No Liver Disease: No Seizures: No Thyroid Disease: No - Surgical History Abdominal Surgery: Yes (HERNIA REPAIR AFTER ALESSANDRO 2012,GASTRIC BYPASS) Appendectomy: No Cardiac Surgery: No Cholecystectomy: Yes (2002) GI Surgery: Yes (BYPASS 2001) Lung Surgery: No Neurologic Surgery: No Orthopedic Surgery: No - Immunization History Immunization Up to Date: Yes (FLU UTD) - Suicide/Smoking/Psychosocial Hx Smoking Status: No Smoking History: Never smoked Have you smoked in the past 12 months: No Number of Cigarettes Smoked Daily: 0 Hx Alcohol Use: No Drug/Substance Use Hx: No Substance Use Type: None Hx Substance Use Treatment: No Review of Systems - Review of Systems Comments:: 02/25/18 20:06 GENERAL/CONSTITUTIONAL: No fever or chills. No weakness. HEAD, EYES, EARS, NOSE AND THROAT: No change in vision. No ear pain or discharge. No sore throat. CARDIOVASCULAR: No chest pain or shortness of breath RESPIRATORY: No cough, wheezing, or hemoptysis. GASTROINTESTINAL: No nausea, vomiting, diarrhea or constipation. GENITOURINARY: No dysuria, frequency, or change in urination. MUSCULOSKELETAL: + RLE pain. No neck or back pain. SKIN: + RLE redness NEUROLOGIC: No headache, vertigo, loss of consciousness, or change in strength/ sensation. ENDOCRINE: No increased thirst. No abnormal weight change HEMATOLOGIC/LYMPHATIC: No anemia, easy bleeding, or history of blood clots. ALLERGIC/IMMUNOLOGIC: No hives or skin allergy. *Physical Exam - Vital Signs Last Vital Signs Temp Pulse Resp BP Pulse Ox 97.8 F 61 20 157/105 100 02/25/18 17:33 02/25/18 17:33 02/25/18 17:33 02/25/18 17:33 02/25/18 17:33 - Physical Exam Comments: 02/25/18 20:07 GENERAL: Awake, alert, and fully oriented, in no acute distress HEAD: No signs of trauma, normocephalic, atraumatic EYES: PERRLA, EOMI, sclera anicteric, conjunctiva clear ENT: Hearing grossly normal, nares patent, oropharynx clear without exudates. Moist mucosa NECK: Normal ROM, supple, no lymphadenopathy, JVD, or masses LUNGS: No distress, speaks full sentences, clear to auscultation bilaterally HEART: Regular rate and rhythm, normal S1 and S2, no murmurs, rubs or gallops, peripheral pulses normal and equal bilaterally. EXTREMITIES : BL LE lymphedema, and venous stasis discoloration. Difficult to palpate PT, and DP pulses d/t swelling and body habitus. RLE: Right lower extremity circumferential area of non indurated, non fluctuant , redness, warmth, and ttp, extending from ankle to mid tib/fib. Abent lesions/ wounds, lymphangitic streaking, drainage/discharge. Movement 5/5 BL LE. SKIN: Warm, Dry, normal turgor, no rashes or lesions noted ED Treatment Course - LABORATORY CBC & Chemistry Diagram: 02/25/18 22:11 02/25/18 22:30 Medical Decision Making - Medical Decision Making 02/25/18 20:11 57 yo F with h/o HTN, CHF, ELLE, Asthma, paroxysmal A.fib-DCCV x2 (on Amiodarne and Elquis BID) BLE lymphedema, and recurrent LE cellulitis, ALESSANDRO+BSO -for ovarian/endometrial CA-2008 who p/w with worsening RLE redness and pain. BP 157/ 105, vitals otherwise wnl, AF. Patient with worsening RLE cellulitis following failed outpt. antibiotic regimen. Patient with possible immunocompromised status. Most likely require IV antibiotics. absent evidence of abscess ( fluctuate, induration). Low suspicion of acute arterial occlusion. RLE DUPLEX VASC r/o DVT. R/o fracture/dislocation. ED Course: CBC,CMP, Blood Cx. R ANKLE RAD RLE DUPLEX VASC Morphine, Zofran R EJ placed 02/25/18 22:17 Vancomycin 1500 02/26/18 01:49 02/26/18 01:49 WBC: 12.3 CMP: Unremarkable UA: Neg Patient accepted to med/surg inpt./ Dr. romero. *DC/Admit/Observation/Transfer Diagnosis at time of Disposition: Ankle pain, right, Cellulitis of right leg - Discharge Dispostion Decision to Admit order: Yes - Referrals - Patient Instructions - Post Discharge Activity
[2018-02-25 20:29] LABS: URINE APPEARANCE CLEAR; URINE BILIRUBIN NEGATIVE (<2.0 mg/dL); URINE COLOR LTYELLOW; URINE GLUCOSE (UA) NEGATIVE (NEGATIVE); URINE KETONE NEGATIVE (NEGATIVE); URINE LEUK ESTERASE NEGATIVE (NEGATIVE); URINE NITRITE NEGATIVE (NEGATIVE); URINE PROTEIN NEGATIVE (NEGATIVE); URINE UROBILINOGEN NEGATIVE mg/dL (0.2-1.0)
--- NOTE | 2018-02-25 21:05 | PDOC ---
Attending Attestation - HPI HPI: 02/25/18 23:46 The patient is a 57-year-old male, with a past medical history of asthma, HTN, CHF, ELLE, A-fib, chronic lymphedema, and lower extremity cellulitis, who presents to the ED with 1 week of worsening right lower extremity pain and redness. Patient recently visited her PCP for her symptoms on 02/20/18 and was prescribed Augmentin but with no improvement. The patient denies any nausea, vomiting, diarrhea, or abdominal pain. She denies any chest pain or shortness of breath. Allergies: NKA PCP: Dr. Link - Physicial Exam PE: 02/25/18 23:47 GENERAL:(+)Morbidly obese. Awake, alert, and fully oriented, in no acute distress HEAD: No signs of trauma EYES: PERRLA, EOMI, sclera anicteric, conjunctiva clear ENT: Auricles normal inspection, hearing grossly normal, nares patent, oropharynx clear without exudates. Moist mucosa NECK: Normal ROM, supple, no lymphadenopathy, JVD, or masses LUNGS: Breath sounds equal, clear to auscultation bilaterally. No wheezes, and no crackles HEART: Regular rate and rhythm, normal S1 and S2, no murmurs, rubs or gallops ABDOMEN: Soft, nontender, normoactive bowel sounds. No guarding, no rebound. No masses EXTREMITIES: (+)Right lower extremity cellulitis, hot and tender to touch. Normal range of motion. No clubbing or cyanosis. No cords. NEUROLOGICAL: Cranial nerves II through XII grossly intact. Normal speech, normal gait SKIN: Warm, Dry, normal turgor, no rashes or lesions noted <Ilda Flores - Last Filed: 02/25/18 23:46> - Resident Resident Name: Lawson Abdi - ED Attending Attestation I have performed the following: I have examined & evaluated the patient, The case was reviewed & discussed with the resident, I agree w/resident's findings & plan, Exceptions are as noted - Medical Decision Making 02/25/18 21:05 I, Dr. Jolynn Tsai, DO, attest that this document has been prepared under my direction and personally reviewed by me in its entirety. I further attest, that it accurately reflects all work, treatment, procedures and medical decision -making performed by me. 02/25/18 22:11 a/p: 57yo female with RLE cellulitis and pain to the ankle -red, warmth, swelling -ttp on exam -on outpt augmentin x 5 days without improvement -sent by PMD -will start IV abx -xray, ultrasound, labs -will need admission for IV abx -pt willing to stay for further eval 02/26/18 00:34 resident discussed the case with Dr. Link resident discussed the case with SYED <Jolynn Tsai - Last Filed: 02/26/18 00:34> Heart Score/ECG Review - ECG Intrepretation Comment:: 02/25/18 22:35 sinus at 69, nl axis, lvh, t wave inversions avl, no acute st changes <Jolynn Tsai - Last Filed: 02/26/18 00:34> Attestations - Attestations 02/25/18 23:49 Documentation prepared by Ilda Flores, acting as site medical director for Jolynn Tsai DO. <Ilda Flores - Last Filed: 02/25/18 23:46>
[2018-02-25] MEDS ORDERED: morphine CARPU-JECT 4 MG/1 ML DISP.SYRIN IVPUSH ONE (22:16)
[2018-02-25] MEDS ORDERED: ONDANSETRON 4 MG/2 ML VIAL IVPUSH ONE (22:16)
[2018-02-25] MEDS ORDERED: VANCOMYCIN 1,500 MG in DEXTROSE 5%-WATER - 250 ML IVPB ONE (22:17)
[2018-02-25] MEDS ORDERED: morphine SULFATE 4 MG/ML VIAL ONE (22:21)
[2018-02-25] MEDS ORDERED: ONDANSETRON 4 MG/2 ML VIAL ONE (22:21)
[2018-02-25] MEDS ORDERED: VANCOMYCIN 1 GRAM (PRE-DOCKED) 1,000 MG/250 ML BAG IVPB ONE (22:21)
[2018-02-25 22:23] LABS: BASO % 0.6 % (0-2.0); EOS % 0.3 % (0-4.5); HEMATOCRIT 37.1 % (32.4-45.2); HEMOGLOBIN 11.8 GM/dL (10.7-15.3); LYMPH % 6.1 % (8-40); MCHC 31.9 g/dl (32.0-36.0); MEAN CELL VOLUME 81.4 fl (80-96); MEAN PLT VOLUME 9.4 fl (7.5-11.1); MONO % 5.8 % (3.8-10.2); NEUT % 87.2 % (42.8-82.8); PLATELET COUNT 241 K/MM3 (134-434); RBC 4.56 M/mm3 (3.60-5.2); WHITE BLOOD COUNT 12.3 K/mm3 (4.0-10.0)
[2018-02-25 23:05] LABS: ALBUMIN 3.7 g/dl (3.4-5.0); ALK PHOS 130 U/L (45-117); ANION GAP 6 (8-16); BILIRUBIN,TOTAL 0.5 mg/dL (0.2-1.0); BLOOD UREA NITROGEN 23 mg/dL (7-18); CHLORIDE 102 mmol/L (98-107); CO2 29 mmol/L (21-32); CREATININE 1.1 mg/dL (0.55-1.02); GLUCOSE,RANDOM 114 mg/dL (74-106); POTASSIUM 4.3 mmol/L (3.5-5.1); SGOT/AST 20 U/L (15-37); SGPT/ALT 21 U/L (12-78); SODIUM 137 mmol/L (136-145); TOT PROT 7.5 g/dl (6.4-8.2)
[2018-02-26] MEDS ORDERED: morphine SULFATE 4 MG/ML VIAL IVPUSH ONE ×2 (01:52→10:30)
[2018-02-26] MEDS ORDERED: SODIUM CHLORIDE 1,000 ML IV SCH (02:00)
--- NOTE | 2018-02-26 05:57 | HP ---
CHIEF COMPLAINT: PCP: HISTORY OF PRESENT ILLNESS: 57 yo F with PMH HTN, CHF, ELLE, Asthma, A.fib-DCCV x2 (on amio, Elquis BID), aortic stenosis, BLE lymphedema, and recurrent LE cellulitis, ALESSANDRO+BSO -for ovarian/endometrial CA-2008 s/p chemo who p/w with worsening RLE redness and pain. Pt. reports ongoing RLE cellulitis below the knee x1 week. Recently seen in PMD (02/20/18) and given Augmentin (day 01/11 ) with no improvement in pain and redness. Ambulates without difficulty. Patient denies F/C, CP, SOB, urinary complaints, abdominal pain, n/v/d, constipation, lightheadedness, weakness, sensory changes. ER course was notable for: (1) vanc 1.5g, zofran, morphine. (2) u/s - no DVT (3) UA - neg Recent Travel: PAST MEDICAL HISTORY: ALESSANDRO+BSO -for ovarian/endometrial CA-2008. Chemo - cisplatin PAST SURGICAL HISTORY: R-en-Y gastric bypass 2001, Cholecystectomy 2002, ventral hernia repair 2011, SBO in (12/2015) release adhesions by Dr. Flood. Social History: Smoking: denies Alcohol:denies Drugs: denies Family History: dad had colon CA Allergies No Known Allergies Allergy (Verified 02/25/18 17:33) HOME MEDICATIONS: Home Medications Medication Instructions Recorded Apixaban [Eliquis -] 5 mg PO BID #60 tablet 11/28/15 Acetaminophen [Tylenol .Regular 650 mg PO Q6H PRN #0 tablet 04/12/16 Strength -] Amiodarone HCl [Cordarone -] 200 mg PO BID #60 tablet 04/05/17 Furosemide [Lasix -] 40 mg PO DAILY #30 tablet 04/05/17 Metoprolol Succinate [Toprol XL -] 12.5 mg PO DAILY 02/16/18 Amlodipine Besylate [Norvasc -] 5 mg PO DAILY 02/25/18 REVIEW OF SYSTEMS reviewed in HPI PHYSICAL EXAMINATION Vital Signs - 24 hr 02/25/18 02/25/18 02/26/18 17:33 23:26 00:35 Temperature 97.8 F 99.3 F 98.5 F Pulse Rate 61 75 Pulse Rate [ 66 Left] Respiratory 20 18 18 Rate Blood Pressure 157/105 125/78 Blood Pressure 144/71 [Right Arm] O2 Sat by Pulse 100 93 L 94 L Oximetry (%) GENERAL: Awake, alert, and fully oriented, in no acute distress. obese HEAD: NCAT EYES: PERRLA, extraocular movements intact, sclera anicteric, conjunctiva clear. No lid lag. EARS, NOSE, THROAT: nares patent, oropharynx clear without exudates. MMM NECK: Normal ROM, supple without lymphadenopathy, JVD, or masses. LUNGS: CTAB. No wheezes, and no crackles. No accessory muscle use. HEART: Systolic murmur RRR, normal S1 and S2 without rub or gallop. ABDOMEN: Soft, NTND +BS, no guarding, no rebound, no masses. No hepatomegaly or splenomegaly. MUSCULOSKELETAL: Normal range of motion at all joints. No bony deformities or tenderness. UPPER EXTREMITIES: 2+ pulses, warm, well-perfused. No cyanosis. No clubbing. No peripheral edema. LOWER EXTREMITIES: 2+ pulses, warm, well-perfused. No calf tenderness. chronic stasis dermatitis w/ skin thickening, lymphedema, and swelling b/l. TTP on R lateral maleolus w/ erythema showing signs of cellulitis. No drainage noted NEUROLOGICAL: Cranial nerves II-XII intact. Normal speech. SKIN: Warm, dry, normal turgor, no rashes or lesions noted, normal capillary refill. Laboratory Results - last 24 hr 02/25/18 02/25/18 02/25/18 20:10 22:11 22:11 WBC 12.3 H RBC 4.56 Hgb 11.8 Hct 37.1 MCV 81.4 MCH 26.0 MCHC 31.9 L RDW 16.0 H Plt Count 241 D MPV 9.4 Absolute Neuts (auto) 10.7 Neutrophils % 87.2 H Lymphocytes % 6.1 L D Monocytes % 5.8 Eosinophils % 0.3 D Basophils % 0.6 Nucleated RBC % 0 Sodium Cancelled Potassium Cancelled Chloride Cancelled Carbon Dioxide Cancelled Anion Gap Cancelled BUN Cancelled Creatinine Cancelled Creat Clearance w eGFR Cancelled Random Glucose Cancelled Lactic Acid Calcium Cancelled Total Bilirubin Cancelled AST Cancelled ALT Cancelled Alkaline Phosphatase Cancelled Total Protein Cancelled Albumin Cancelled Urine Color Ltyellow Urine Appearance Clear Urine pH 5.0 Ur Specific [place] 1.016 Urine Protein Negative Urine Glucose (UA) Negative Urine Ketones Negative Urine Blood Negative Urine Nitrite Negative Urine Bilirubin Negative Urine Urobilinogen Negative Ur Leukocyte Esterase Negative 02/25/18 02/25/18 22:11 22:30 WBC RBC Hgb Hct MCV MCH MCHC RDW Plt Count MPV Absolute Neuts (auto) Neutrophils % Lymphocytes % Monocytes % Eosinophils % Basophils % Nucleated RBC % Sodium 137 Potassium 4.3 Chloride 102 Carbon Dioxide 29 Anion Gap 6 L BUN 23 H Creatinine 1.1 H Creat Clearance w eGFR 51.38 Random Glucose 114 H Lactic Acid 1.0 Calcium 9.0 Total Bilirubin 0.5 AST 20 ALT 21 Alkaline Phosphatase 130 H Total Protein 7.5 Albumin 3.7 Urine Color Urine Appearance Urine pH Ur Specific [place] Urine Protein Urine Glucose (UA) Urine Ketones Urine Blood Urine Nitrite Urine Bilirubin Urine Urobilinogen Ur Leukocyte Esterase ucx, bxc - pending UA - neg ASSESSMENT/PLAN: 57 yo F with PMH HTN, CHF, ELLE, Asthma, A.fib-DCCV x2 (on amio, Elquis BID), aortic stenosis, BLE lymphedema, and recurrent LE cellulitis, ALESSANDRO+BSO -for ovarian/endometrial CA-2008 who p/w with worsening RLE redness and pain x1wk. RLE Cellulitis - PE noted for RLE cellulitis and labs showing leukocytosis. hx of cellulitis and has had failed tx w/ Augmentin from PCP. will tx for MRSA. U/ S r/o DVT -ID consult -received vanc 1.5g in ED. -reorder vanc qd per ID consult -gave one dose 4mg morphine for pain and tylenol q4h prn for pain -will hold IV fluids for now, pt is not septic BERNABE - BUN/Cr is 23/1.1, dont have baseline Cr. likely prerenal although pt appears euvolemic on exam -encourage PO intake and monitor BMPs -will hold IV fluids for now as pt has hx of CHF and does not require aggressive resuscitation Obesity - -Will provide necessary assistance , counseling and positive reinforcement to facilitate weight loss. -Consult end frazer. -Not known to have DM but will check Hgb A1c given her obesity and mildly elevated glucose on labs HCM -c/w home dose meds for A-fib, HTN, CHF -pt reports taking spironolactone. confirm home dose #FEN -no IVF at this time -replete lytes as needed -low sodium/fat diet #DVTppx on eliquis #[facility] -Full code case discussed with attending, Dr. Zuly Mason MD PGY1 Visit type - Emergency Visit Emergency Visit: Yes ED Registration Date: 02/25/18 Care time: The patient presented to the Emergency Department on the above date and was hospitalized for further evaluation of their emergent condition. - New Patient This patient is new to me today: Yes Date on this admission: 02/26/18 - Critical Care Critical Care patient: No Hospitalist Screening - Colonoscopy Questionnaire Colonoscopy Questionnaire: Colonoscopy Questionnaire - Patient: 50 - 75 years old and never had a screening colonoscopy: Unknown History of colon or rectal polyps, or CA: Unknown History of IBD, Crohn's disease or UC: Unknown History of abdominal radiation therapy as a child: Unknown - Relative: 1 with colon or rectal CA, or polyps at age 60 or younger: Unknown Colon or rectal CA diagnosed at age 45 or younger: Unknown Multiple relatives with colon or rectal CA: Unknown - Outcome: Screening Result: Negative Screen
[2018-02-26] MEDS ORDERED: PT OWN MED DRAWER 7, Y5N ONE (07:13)
--- NOTE | 2018-02-26 07:13 | PN ---
Teaching Attending Note Name of Resident: Juaquin Mason ATTENDING PHYSICIAN STATEMENT I saw and evaluated the patient. I reviewed the resident's note and discussed the case with the resident. I agree with the resident's findings and plan as documented. SUBJECTIVE: 57 y/o F with RLE erythema with tenderness. Patient has h/o Lymphedema, Morbid obesity s/p gastric bypass, A Fib, aortic stenosis, ELLE, Asthma, CHF and HTN, s/p ALESSANDRO +BSO. OBJECTIVE: GEN: A&Ox3 in mild distress, afebrile, morbidly obese HEENT: NC, PERRLA, EOMI CVS: RRR Lungs: CTA, no wheezing Abd: Soft, nontender, BS+, no guarding or rebound. Ext: limited ROM due to size, pulse 2+,edema, right ankle with fluctuance, tenderness and erythema. Skin: b/l hyperkeratosis CBCD WBC 12.3 K/mm3 (4.0-10.0) H 02/25/18 22:11 RBC 4.56 M/mm3 (3.60-5.2) 02/25/18 22:11 Hgb 11.8 GM/dL (10.7-15.3) 02/25/18 22:11 Hct 37.1 % (32.4-45.2) 02/25/18 22:11 MCV 81.4 fl (80-96) 02/25/18 22:11 MCHC 31.9 g/dl (32.0-36.0) L 02/25/18 22:11 RDW 16.0 % (11.6-15.6) H 02/25/18 22:11 Plt Count 241 K/MM3 (134-434) D 02/25/18 22:11 MPV 9.4 fl (7.5-11.1) 02/25/18 22:11 CMP Sodium 137 mmol/L (136-145) 02/25/18 22:30 Potassium 4.3 mmol/L (3.5-5.1) 02/25/18 22:30 Chloride 102 mmol/L (98-107) 02/25/18 22:30 Carbon Dioxide 29 mmol/L (21-32) 02/25/18 22:30 Anion Gap 6 (8-16) L 02/25/18 22:30 BUN 23 mg/dL (7-18) H 02/25/18 22:30 Creatinine 1.1 mg/dL (0.55-1.02) H 02/25/18 22:30 Creat Clearance w eGFR 51.38 (>60) 02/25/18 22:30 Random Glucose 114 mg/dL (74-106) H 02/25/18 22:30 Calcium 9.0 mg/dL (8.5-10.1) 02/25/18 22:30 Total Bilirubin 0.5 mg/dL (0.2-1.0) 02/25/18 22:30 AST 20 U/L (15-37) 02/25/18 22:30 ALT 21 U/L (12-78) 02/25/18 22:30 Alkaline Phosphatase 130 U/L (45-117) H 02/25/18 22:30 Total Protein 7.5 g/dl (6.4-8.2) 02/25/18 22:30 Albumin 3.7 g/dl (3.4-5.0) 02/25/18 22:30 ASSESSMENT AND PLAN: RLE cellulitis- Vancomycin Follow bld cultures Morbid obesity- A1c, counselled on diet and exercise as tolerated
[2018-02-26 07:22] LABS: BASO % 0.4 % (0-2.0); EOS % 0.3 % (0-4.5); HEMOGLOBIN 10.7 GM/dL (10.7-15.3); LYMPH % 8.7 % (8-40); MCH 26.4 pg (25.7-33.7); MCHC 32.5 g/dl (32.0-36.0); MEAN CELL VOLUME 81.5 fl (80-96); NEUT % 83.6 % (42.8-82.8); PLATELET COUNT 189 K/MM3 (134-434); RBC 4.04 M/mm3 (3.60-5.2)
[2018-02-26 07:33] LABS: ALBUMIN 3.2 g/dl (3.4-5.0); ANION GAP 7 (8-16); BLOOD UREA NITROGEN 18 mg/dL (7-18); CALCIUM 8.7 mg/dL (8.5-10.1); CHLORIDE 104 mmol/L (98-107); CO2 28 mmol/L (21-32); GLUCOSE,RANDOM 95 mg/dL (74-106); MAGNESIUM 2.2 mg/dL (1.8-2.4); PHOSPHOROUS 3.9 mg/dL (2.5-4.9); POTASSIUM 4.3 mmol/L (3.5-5.1); SGOT/AST 14 U/L (15-37); SODIUM 139 mmol/L (136-145)
[2018-02-26 07:35] LABS: ALK PHOS 110 U/L (45-117); BILIRUBIN,TOTAL 0.7 mg/dL (0.2-1.0); CREATININE 0.9 mg/dL (0.55-1.02); SGPT/ALT 16 U/L (12-78); TOT PROT 6.4 g/dl (6.4-8.2)
[2018-02-26 07:42] LABS: INR 1.26 (0.82-1.09); PROTHROMBIN TIME (PATIENT) 14.2 SEC (9.7-13.0)
[2018-02-26 07:44] LABS: ACTIVATED PTT 27.2 SECONDS (25.2-36.5)
[2018-02-26] MEDS: ACETAMINOPHEN 325 MG TABLET (FP) PO PRN (08:51)
[2018-02-26] MEDS: APIXABAN 5 MG TABLET PO SCH ×2 (10:44→21:54)
[2018-02-26] MEDS: metoPROLOL SUCCINATE 25 MG TAB.SR.24H (FP) PO SCH (10:44)
[2018-02-26] MEDS: amLODIPine BESYLATE 5 MG TABLET (FP) PO SCH (10:44)
[2018-02-26] MEDS: AMIODARONE HCL 200 MG TABLET (FP) PO SCH ×2 (10:45→21:54)
[2018-02-26] MEDS: FUROSEMIDE 40 MG TABLET (FP) PO SCH (10:45)
[2018-02-26] MEDS ORDERED: ONDANSETRON 4 MG/2 ML VIAL IVPUSH PRN (10:55)
[2018-02-26] MEDS ORDERED: CLINDAMYCIN 600MG PREMIX IVPB 600 MG/50 ML BAG IVPB SCH (11:00)
[2018-02-26] MEDS ORDERED: INSULIN (LEVEMIR) 100 UNITS/ML UNITS SQ ONE (11:00)
[2018-02-26] MEDS ORDERED: INSULIN (NOVOLOG) ASPART 100 UNITS/ML 10ML VIAL ONE (12:55)
--- NOTE | 2018-02-26 14:32 | EKG ---
Test Reason : Blood Pressure : / mmHG Vent. Rate : 069 BPM Atrial Rate : 069 BPM P-R Int : 164 ms QRS Dur : 116 ms QT Int : 438 ms P-R-T Axes : 055 -27 085 degrees QTc Int : 469 ms POOR DATA QUALITY, INTERPRETATION MAY BE ADVERSELY AFFECTED NORMAL SINUS RHYTHM LEFT VENTRICULAR HYPERTROPHY WITH QRS WIDENING ABNORMAL ECG WHEN COMPARED WITH ECG OF 16-FEB-2018 17:31, NO SIGNIFICANT CHANGE WAS FOUND Confirmed by BIJAN CARREON MD ([id number]) on 02/26/2018 2:31:59 PM Referred By: Confirmed By:BIJAN CARREON MD
--- NOTE | 2018-02-26 16:44 | PN ---
Progress Note (short form) - Note Progress Note: ID consult dictated imp/reccd cellulitis RLE bilateral lymphedema no history of MRSA no signs of abscess formation received vancomycin in ED now on clindamycin NKDA can switch to cefazolin Problem List - Problems (1) Cellulitis of right leg Code(s): L03.115 - CELLULITIS OF RIGHT LOWER LIMB (2) Lymph edema Code(s): I89.0 - LYMPHEDEMA, NOT ELSEWHERE CLASSIFIED (3) Obesity Code(s): E66.9 - OBESITY, UNSPECIFIED
--- NOTE | 2018-02-26 17:34 | PN ---
Physical Exam: SUBJECTIVE: Patient seen and examined. Pt. could not get much sleep last night d /t the pain in her lower right calf. Pt. endorses a "stabbing" pain but is still able to walk around. OBJECTIVE: Vital Signs Period Temp Pulse Resp BP Sys/Ruiz Pulse Ox Last 24 Hr 97.3 F-99.6 F 51-81 16-20 120-157/58-105 93-100 GENERAL: The patient is awake, alert, and fully oriented, in no acute distress. HEAD: Normal with no signs of trauma. EYES: PERRL, extraocular movements intact, sclera anicteric, conjunctiva clear. No ptosis. ENT: Ears normal, nares patent, oropharynx clear without exudates, moist mucous membranes. NECK: Trachea midline, full range of motion, supple. LUNGS: Breath sounds equal, clear to auscultation bilaterally, no wheezes, no crackles, no accessory muscle use. HEART: Regular rate and rhythm, S1, S2 without murmur, rub or gallop. ABDOMEN: Soft, nontender, nondistended, normoactive bowel sounds, no guarding, no rebound, no hepatosplenomegaly, no masses. EXTREMITIES: 2+ pulses, warm, well-perfused, no edema. NEUROLOGICAL: Cranial nerves II through XII grossly intact. Normal speech, gait not observed. PSYCH: Normal mood, normal affect. SKIN: Warm, dry, normal turgor, no rashes or lesions noted Laboratory Results - last 24 hr 02/25/18 02/25/18 02/25/18 20:10 22:11 22:11 WBC 12.3 H RBC 4.56 Hgb 11.8 Hct 37.1 MCV 81.4 MCH 26.0 MCHC 31.9 L RDW 16.0 H Plt Count 241 D MPV 9.4 Absolute Neuts (auto) 10.7 Neutrophils % 87.2 H Lymphocytes % 6.1 L D Monocytes % 5.8 Eosinophils % 0.3 D Basophils % 0.6 Nucleated RBC % 0 PT with INR INR PTT (Actin FS) Sodium Cancelled Potassium Cancelled Chloride Cancelled Carbon Dioxide Cancelled Anion Gap Cancelled BUN Cancelled Creatinine Cancelled Creat Clearance w eGFR Cancelled Random Glucose Cancelled Lactic Acid Calcium Cancelled Phosphorus Magnesium Total Bilirubin Cancelled AST Cancelled ALT Cancelled Alkaline Phosphatase Cancelled Total Protein Cancelled Albumin Cancelled Urine Color Ltyellow Urine Appearance Clear Urine pH 5.0 Ur Specific [place] 1.016 Urine Protein Negative Urine Glucose (UA) Negative Urine Ketones Negative Urine Blood Negative Urine Nitrite Negative Urine Bilirubin Negative Urine Urobilinogen Negative Ur Leukocyte Esterase Negative 02/25/18 02/25/18 02/26/18 22:11 22:30 06:40 WBC 9.0 RBC 4.04 Hgb 10.7 Hct 33.0 MCV 81.5 MCH 26.4 MCHC 32.5 RDW 16.0 H Plt Count 189 D MPV 9.0 Absolute Neuts (auto) 7.5 Neutrophils % 83.6 H Lymphocytes % 8.7 D Monocytes % 7.0 Eosinophils % 0.3 Basophils % 0.4 Nucleated RBC % 0 PT with INR INR PTT (Actin FS) Sodium 137 Potassium 4.3 Chloride 102 Carbon Dioxide 29 Anion Gap 6 L BUN 23 H Creatinine 1.1 H Creat Clearance w eGFR 51.38 Random Glucose 114 H Lactic Acid 1.0 Calcium 9.0 Phosphorus Magnesium Total Bilirubin 0.5 AST 20 ALT 21 Alkaline Phosphatase 130 H Total Protein 7.5 Albumin 3.7 Urine Color Urine Appearance Urine pH Ur Specific [place] Urine Protein Urine Glucose (UA) Urine Ketones Urine Blood Urine Nitrite Urine Bilirubin Urine Urobilinogen Ur Leukocyte Esterase 02/26/18 02/26/18 06:40 06:40 WBC RBC Hgb Hct MCV MCH MCHC RDW Plt Count MPV Absolute Neuts (auto) Neutrophils % Lymphocytes % Monocytes % Eosinophils % Basophils % Nucleated RBC % PT with INR 14.20 H INR 1.26 H PTT (Actin FS) 27.2 Sodium 139 Potassium 4.3 Chloride 104 Carbon Dioxide 28 Anion Gap 7 L BUN 18 Creatinine 0.9 Creat Clearance w eGFR > 60 Random Glucose 95 Lactic Acid Calcium 8.7 Phosphorus 3.9 Magnesium 2.2 Total Bilirubin 0.7 AST 14 L ALT 16 Alkaline Phosphatase 110 D Total Protein 6.4 Albumin 3.2 L Urine Color Urine Appearance Urine pH Ur Specific [place] Urine Protein Urine Glucose (UA) Urine Ketones Urine Blood Urine Nitrite Urine Bilirubin Urine Urobilinogen Ur Leukocyte Esterase Active Medications Current Medications Acetaminophen (Tylenol -) 650 mg PO Q4H PRN PRN Reason: PAIN OR FEVER Last Admin: 02/26/18 08:51 Dose: 650 mg Amiodarone HCl (Cordarone -) 200 mg PO BID SHIRLENE Last Admin: 02/26/18 10:45 Dose: 200 mg Amlodipine Besylate (Norvasc -) 5 mg PO DAILY [facility] Last Admin: 02/26/18 10:44 Dose: 5 mg Apixaban (Eliquis -) 5 mg PO BID [facility] Last Admin: 02/26/18 10:44 Dose: 5 mg Furosemide (Lasix -) 40 mg PO DAILY [facility] Last Admin: 02/26/18 10:45 Dose: 40 mg Cefazolin Sodium/Dextrose (Ancef 2 Gm Premixed Ivpb -) 2 gm in 50 mls @ 100 mls /hr IVPB Q8H-IV SHIRLENE Metoprolol Succinate (Toprol Xl -) 12.5 mg PO DAILY [facility] Last Admin: 02/26/18 10:44 Dose: 12.5 mg Ondansetron HCl (Zofran Injection) 4 mg IVPUSH Q6H PRN PRN Reason: NAUSEA ASSESSMENT/PLAN: 57 yo F with PMH HTN, CHF, ELLE, Asthma, A.fib-DCCV x2 (on amio, Elquis BID), aortic stenosis, BLE lymphedema, and recurrent LE cellulitis, ALESSANDRO+BSO -for ovarian/endometrial CA-2008 who p/w with worsening RLE redness and pain x1wk. #RLE Cellulitis - RLE cellulitis and labs showing leukocytosis. - hx of cellulitis and has had failed tx w/ Augmentin from PCP (6 out of 10 days Tx.). - Will tx for MRSA.- pending Cx. - U/S r/o DVT - ID consult appreciated - starting cefazolin - will hold IV fluids for now, pt is not septic #BERNABE - BUN/Cr is 23/1.1(02/25/18/)--->18/0.9 (02/26/18): likely prerenal although pt appears euvolemic on exam - encourage PO intake and monitor BMPs - will hold IV fluids for now as pt has hx of CHF and does not require aggressive resuscitation #Obesity - - Will provide necessary assistance , counseling and positive reinforcement to facilitate weight loss. - Consult speech pathologist assistant. - Not known to have DM but will check Hgb A1c given her obesity and mildly elevated glucose on labs #HCM - c/w home dose meds for A-fib, HTN, CHF - pt reports taking spironolactone. confirm home dose #FEN - no IVF at this time - replete lytes as needed - low sodium/fat diet #DVTppx - on eliquis #Dispo - admit to [facility] -Full code Visit type - Emergency Visit Emergency Visit: Yes ED Registration Date: 02/25/18 Care time: The patient presented to the Emergency Department on the above date and was hospitalized for further evaluation of their emergent condition. - New Patient This patient is new to me today: Yes Date on this admission: 02/26/18 - Critical Care Critical Care patient: No - Discharge Referral Referred to [facility] No
[2018-02-26] MEDS: CEFAZOLIN 2 GM/D5W 2 GM/50 ML ML IVPB SCH (17:51)
--- NOTE | 2018-02-26 18:07 | CONS ---
DATE OF CONSULTATION: 02/26/2018 CONSULTATION REQUESTED BY: Hospitalist Service HISTORY OF PRESENT ILLNESS: The patient is a 57-year-old woman with a past medical history of obesity and chronic lymphedema of both legs. She has a history of recurrent cellulitis. She was seen by her primary care provider, Dr. Link, on Friday when she noted some erythema on the lateral aspect of her right lower extremity. She showed it to him. He suggested she take some Augmentin. She did not fill this prescription until Friday, as she was out of town on Friday. She has been up and walking at work and yesterday noted that she had increased erythema and pain and presented to the emergency room. She denies any fevers, chills, nausea, vomiting, diarrhea or dysuria. She has otherwise been well. She has no history of prior MRSA. She had an open wound on her leg many years ago which grew a methicillin Staphylococcus aureus. In the emergency room, she received vancomycin. She had an ultrasound that showed no DVT. PAST MEDICAL HISTORY: Notable for hypertension. She has a history of congestive heart failure, atrial fibrillation, asthma, aortic stenosis, bilateral lymphedema and recurrent lower extremity cellulitis. PAST SURGICAL HISTORY: She had a gastric bypass in 2001. She is status post cholecystectomy in 2002. She had a radical total abdominal hysterectomy and BSO for both endometrial and ovarian cancer in 2008. She had a ventral hernia repair in 2011 and in 2015, she had a small bowel obstruction requiring surgery. Of note, she received chemotherapy and radiation in 2009 for her gynecologic malignancy. SOCIAL HISTORY: She is . She has no children. There is no history of cigarette, alcohol or substance abuse. She lives with her . 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 FAMILY HISTORY: Noncontributory. ALLERGIES: No known drug allergies. HOME MEDICATIONS: Eliquis, amiodarone, Lasix, metoprolol and amlodipine. PHYSICAL EXAMINATION: General: She is resting comfortably. She is awake and alert. Vital Signs: Weight 167 kg. HEENT: Normocephalic. Her eyes are anicteric. Neck: Supple. Lungs: Clear to auscultation. Heart: Regular rate and rhythm. Abdomen: Soft, nontender. Extremities: Notable for bilateral lymphedema. She has some venous stasis changes of the left leg which she states are chronic. The lateral aspect of the right leg shows some erythema. She has full range of motion of her ankles bilaterally. There is no evidence of any joint effusion. LABORATORY DATA: Notable for a white count yesterday of 12.3. Today, it is 9. Hemoglobin is 10.7, platelets are 189. Her BUN and creatinine are 18 and 0.9. Urinalysis is negative and cultures are pending. In summary, this is a 57-year-old woman with morbid obesity and chronic lymphedema. She has a lymphedema machine at home that she does not use. She was admitted with recurrent cellulitis. She has no history of MRSA. I will treat her with cefazolin at this time with further recommendations to follow. I would suggest that when she is better that she chronically use her lymphedema machine in an effort to prevent further episodes such as this. MERY DAVIS M.D. [id number]
--- NOTE | 2018-02-26 18:33 | PN ---
Teaching Attending Note Name of Resident: Benjamin Hazel ATTENDING PHYSICIAN STATEMENT I saw and evaluated the patient. I reviewed the resident's note and discussed the case with the resident. I agree with the resident's findings and plan as documented. SUBJECTIVE:c/o pain in the leg. states she took augmentin x5 days and then started having shooting pain and warmth from the area and came to the ER. stated she is unable to see her legs so unclear if looked worse. states pain is improved with morphine and not tylenol. denies CP, SOB, fever, chills, N/v/C/D OBJECTIVE: Last Vital Signs Temp Pulse Resp BP Pulse Ox 98.7 F 56 L 20 130/77 96 02/26/18 17:06 02/26/18 17:06 02/26/18 17:06 02/26/18 17:06 02/26/18 09:00 General NAD CV S1 S2 RRR + murmur Lungs CTA B/L no wheezing/rales/rhonchi Extremities RLE circumferential erythema above the ankle +tender and warmth. no drainage or induration noted. hyperkeratosis and lymphedema with chronic skin changes noted to B/L LE ASSESSMENT AND PLAN: 57yo F wtih PMH HTN,. CHF, Afib, and lymphedema presented to the ER wtih worsening RLE cellulitis 1. RLE cellulitis- failed outpatient abx treatment. received vanco and then started on clindamcyin. evaluated by ID and now switched to cefazolin. will monitor for improvement. Cx pending. will switch to tramadol for pain control 2. BERNABE- due to infection. now resolved. can d/c IVf 3. Afib- rate controlled. on amio and elquis 4. - states she has periodic echo to monitor progress. cont as outpatient 5. morbid obesity- BMI 56. bariatric referal as outpatient 6. DVT ppx- eliquis
[2018-02-26] MEDS: traMADol HCL 50 MG TABLET PO PRN (21:54)
[2018-02-27] MEDS: ACETAMINOPHEN 325 MG TABLET (FP) PO PRN ×2 (00:07→09:16)
[2018-02-27] MEDS: CEFAZOLIN 2 GM/D5W 2 GM/50 ML ML IVPB SCH ×3 (01:38→17:39)
[2018-02-27 08:01] LABS: ANION GAP 7 (8-16); BLOOD UREA NITROGEN 16 mg/dL (7-18); CALCIUM 8.5 mg/dL (8.5-10.1); CHLORIDE 103 mmol/L (98-107); CO2 30 mmol/L (21-32); CREATININE 0.9 mg/dL (0.55-1.02); GLUCOSE,RANDOM 81 mg/dL (74-106); MAGNESIUM 2.3 mg/dL (1.8-2.4); PHOSPHOROUS 3.8 mg/dL (2.5-4.9); POTASSIUM 4.1 mmol/L (3.5-5.1); SODIUM 140 mmol/L (136-145)
--- NOTE | 2018-02-27 08:17 | PN ---
Physical Exam: SUBJECTIVE: Patient seen and examined. DOROTEO. Headache has decreased in pain, dizziness upon standing has decreased. Pt. still has some gait abnormalities but endorses improvement on walking as well. Pt. only complains of difficulty sleeping at night. OBJECTIVE: Vital Signs Period Temp Pulse Resp BP Sys/Ruiz Pulse Ox Last 24 Hr 97.3 F-99.2 F 51-81 16-20 109-137/52-77 96-97 GENERAL: The patient is awake, alert, and fully oriented, in no acute distress lying in bed. EYES: PERRL, extraocular movements intact, sclera anicteric, conjunctiva clear. No ptosis. LUNGS: Breath sounds equal, clear to auscultation bilaterally, no wheezes, no crackles, no accessory muscle use. HEART: Regular rate and rhythm, S1, S2 without murmur ABDOMEN: Soft, nontender, nondistended, normoactive bowel sounds, no guarding, PD tube in place, no erythema EXTREMITIES: B/l LE-2+ pulses, warm, well-perfused, no edema, 5/5 strength NEUROLOGICAL: Cranial nerves II through XII grossly intact. Normal speech, gait not observed ,Dysmetria and dysdiadochokinesia has improved. PSYCH: Normal mood, normal affect. SKIN: Warm, dry, normal turgor, no rashes or lesions noted Active Medications Current Medications Acetaminophen (Tylenol -) 650 mg PO Q4H PRN PRN Reason: PAIN OR FEVER Last Admin: 02/27/18 09:16 Dose: 650 mg Amiodarone HCl (Cordarone -) 200 mg PO BID [facility] Last Admin: 02/27/18 09:16 Dose: 200 mg Amlodipine Besylate (Norvasc -) 5 mg PO DAILY [facility] Last Admin: 02/27/18 09:16 Dose: 5 mg Apixaban (Eliquis -) 5 mg PO BID [facility] Last Admin: 02/27/18 09:15 Dose: 5 mg Furosemide (Lasix -) 40 mg PO DAILY [facility] Last Admin: 02/27/18 09:15 Dose: 40 mg Cefazolin Sodium/Dextrose (Ancef 2 Gm Premixed Ivpb -) 2 gm in 50 mls @ 100 mls /hr IVPB Q8H-IV [facility] Last Admin: 02/27/18 17:39 Dose: 100 mls/hr Metoprolol Succinate (Toprol Xl -) 12.5 mg PO DAILY [facility] Last Admin: 02/27/18 09:15 Dose: 12.5 mg Ondansetron HCl (Zofran Injection) 4 mg IVPUSH Q6H PRN PRN Reason: NAUSEA Tramadol HCl (Ultram -) 50 mg PO Q6H PRN PRN Reason: PAIN LEVEL 6-10 Last Admin: 02/27/18 09:15 Dose: 50 mg ASSESSMENT/PLAN: 57 yo F with PMH HTN, CHF, ELLE, Asthma, A.fib-DCCV x2 (on amio, Elquis BID), aortic stenosis, BLE lymphedema, and recurrent LE cellulitis, ALESSANDRO+BSO -for ovarian/endometrial CA-2008 who p/w with worsening RLE redness and pain x1wk. #RLE Cellulitis - RLE cellulitis and labs showing leukocytosis. - hx of cellulitis and has had failed tx w/ Augmentin from PCP (6 out of 10 days Tx.). - Will tx for MRSA.- pending Cx. - U/S r/o DVT - ID consult appreciated - c/w cefazolin for 24-48Hrs, then switch to Kefflex 500mg PO TID - will hold IV fluids for now, pt is not septic - encourage pt. to use lymphedema boot at home to prevent these recurrent cellulitis episodes. #BERNABE - BUN/Cr is 23/1.1(02/25/18/)--->18/0.9 (02/26/18): likely prerenal although pt appears euvolemic on exam - encourage PO intake and monitor BMPs - will hold IV fluids for now as pt has hx of CHF and does not require aggressive resuscitation - resolved #Obesity - - Will provide necessary assistance , counseling and positive reinforcement to facilitate weight loss. - Consult spring intern. - Not known to have DM but will check Hgb A1c given her obesity and mildly elevated glucose on labs #HCM - c/w home dose meds for A-fib, HTN, CHF - pt reports taking spironolactone. confirm home dose #FEN - no IVF at this time - replete lytes as needed - low sodium/fat diet #DVTppx - on eliquis #Dispo - admit to medsurg -Full code Visit type - Emergency Visit Emergency Visit: Yes ED Registration Date: 02/25/18 Care time: The patient presented to the Emergency Department on the above date and was hospitalized for further evaluation of their emergent condition. - New Patient This patient is new to me today: No - Critical Care Critical Care patient: No - Discharge Referral Referred to [facility] Med P.C.: No
[2018-02-27] MEDS ORDERED: INSULIN (LEVEMIR) 100 UNITS/ML UNITS SQ ONE (08:55)
[2018-02-27] MEDS: metoPROLOL SUCCINATE 25 MG TAB.SR.24H (FP) PO SCH (09:15)
[2018-02-27] MEDS: APIXABAN 5 MG TABLET PO SCH ×2 (09:15→21:51)
[2018-02-27] MEDS: FUROSEMIDE 40 MG TABLET (FP) PO SCH (09:15)
[2018-02-27] MEDS: traMADol HCL 50 MG TABLET PO PRN (09:15)
[2018-02-27] MEDS: AMIODARONE HCL 200 MG TABLET (FP) PO SCH ×2 (09:16→21:51)
[2018-02-27] MEDS: amLODIPine BESYLATE 5 MG TABLET (FP) PO SCH (09:16)
--- NOTE | 2018-02-27 12:47 | PN ---
Progress Note (short form) - Note Progress Note: feels improved less leg pain ambulating without difficulty Vital Signs Period Temp Pulse Resp BP Sys/Ruiz Pulse Ox Last 24 Hr 97.6 F-99.2 F 52-81 18-20 109-137/52-77 97-97 cor-rrr llungs clear abd soft,nt ext less erythema of the RLE bilateral lymphedema unchanged CBC, BMP 02/26/18 06:40 02/27/18 06:18 Microbiology 02/25/18 20:10 Urine - Urine Clean Catch Urine Culture - Final NO GROWTH OBTAINED 02/25/18 18:07 Blood - Peripheral Venous Blood Culture - Preliminary NO GROWTH OBTAINED AFTER 24 HOURS, INCUBATION TO CONTINUE FOR 4 DAYS. 02/25/18 18:07 Blood - Peripheral Venous Blood Culture - Preliminary NO GROWTH OBTAINED AFTER 24 HOURS, INCUBATION TO CONTINUE FOR 4 DAYS. a/p cellulitis RLE bilateral lymphedema no history of MRSA no signs of abscess formation clinically improving continue cefazolin another 24 to 48 hours if leg continues to improve can switch to po keflex 500 tid for 7 days we discussed using her lymphedema boot after her cellulitis resolves (she has not had the time to use it at home) I think it will help prevent recurrent infections Problem List - Problems (1) Cellulitis of right leg Code(s): L03.115 - CELLULITIS OF RIGHT LOWER LIMB (2) Lymph edema Code(s): I89.0 - LYMPHEDEMA, NOT ELSEWHERE CLASSIFIED (3) Obesity Code(s): E66.9 - OBESITY, UNSPECIFIED
--- NOTE | 2018-02-27 16:07 | PN ---
Teaching Attending Note Name of Resident: Benjamin Hazel ATTENDING PHYSICIAN STATEMENT I saw and evaluated the patient. I reviewed the resident's note and discussed the case with the resident. I agree with the resident's findings and plan as documented. SUBJECTIVE: OBJECTIVE: Last Vital Signs Temp Pulse Resp BP Pulse Ox 98.2 F 48 L 18 111/65 97 02/27/18 15:09 02/27/18 15:09 02/27/18 15:09 02/27/18 15:09 02/27/18 09:00 General NAD Extremities RLE circumferential erythema mostly resolved. area is no longer tender or warm. hyperkeratosis and lymphedema with chronic skin changes noted to B/L LE ASSESSMENT AND PLAN: 57yo F wtih PMH HTN,. CHF, Afib, and lymphedema presented to the ER wtih worsening RLE cellulitis 1. RLE cellulitis- failed outpatient abx treatment. on cefazolin day 2. (day 3 of abx) with significant improvement. will monitor over the next 24H with possible transition to po if continues to imprve. tramadol for pain control. ID on board. 2. BERNABE- due to infection. now resolved. 3. Afib- rate controlled. on amio and elquis 4. - states she has periodic echo to monitor progress. cont as outpatient 5. morbid obesity- BMI 56. bariatric referal as outpatient 6. DVT ppx- eliquis 7. d/c planning in 24-48H
[2018-02-28] MEDS: CEFAZOLIN 2 GM/D5W 2 GM/50 ML ML IVPB SCH ×2 (01:20→09:08)
[2018-02-28 06:54] VITALS: PULSE 42
[2018-02-28 07:03] LABS: BASO % 0.6 % (0-2.0); EOS % 3.9 % (0-4.5); HEMATOCRIT 32.3 % (32.4-45.2); HEMOGLOBIN 10.6 GM/dL (10.7-15.3); LYMPH % 20.2 % (8-40); MCH 26.9 pg (25.7-33.7); MCHC 32.9 g/dl (32.0-36.0); MEAN CELL VOLUME 81.9 fl (80-96); MONO % 13.4 % (3.8-10.2); NEUT % 61.9 % (42.8-82.8); PLATELET COUNT 183 K/MM3 (134-434); RBC 3.94 M/mm3 (3.60-5.2)
[2018-02-28 07:22] LABS: ANION GAP 5 (8-16); BLOOD UREA NITROGEN 19 mg/dL (7-18); CALCIUM 8.6 mg/dL (8.5-10.1); CHLORIDE 102 mmol/L (98-107); CO2 32 mmol/L (21-32); CREATININE 0.9 mg/dL (0.55-1.02); GLUCOSE,RANDOM 75 mg/dL (74-106); MAGNESIUM 2.1 mg/dL (1.8-2.4); PHOSPHOROUS 3.9 mg/dL (2.5-4.9); POTASSIUM 4.2 mmol/L (3.5-5.1); SODIUM 139 mmol/L (136-145)
[2018-02-28] MEDS ORDERED: PT OWN MED DRAWER 7, Y5N ONE ×2 (09:02→09:03)
[2018-02-28] MEDS: APIXABAN 5 MG TABLET PO SCH (09:06)
[2018-02-28] MEDS: traMADol HCL 50 MG TABLET PO PRN (09:06)
[2018-02-28] MEDS: FUROSEMIDE 40 MG TABLET (FP) PO SCH (09:07)
[2018-02-28] MEDS: ACETAMINOPHEN 325 MG TABLET (FP) PO PRN (09:07)
[2018-02-28] MEDS: amLODIPine BESYLATE 5 MG TABLET (FP) PO SCH (09:07)
[2018-02-28] MEDS: AMIODARONE HCL 200 MG TABLET (FP) PO SCH (09:07)
[2018-02-28] MEDS: metoPROLOL SUCCINATE 25 MG TAB.SR.24H (FP) PO SCH (09:07)
[2018-02-28 11:23] VITALS: BP 109/62; TEMP 98.5
--- NOTE | 2018-02-28 13:12 | DS ---
Physical Exam: SUBJECTIVE: Patient seen and examined. pain improved with medications. able to ambulate. denies CP, SOB, fever, chills OBJECTIVE: Vital Signs Period Temp Pulse Resp BP Sys/Ruiz Pulse Ox Last 24 Hr 98.1 F-98.5 F 42-52 18-20 100-119/60-73 97-97 PHYSICAL EXAM GENERAL: The patient is awake, alert, and fully oriented, in no acute distress. HEAD: Normal with no signs of trauma. EYES: PERRL, extraocular movements intact, sclera anicteric, conjunctiva clear. ENT: Ears normal, nares patent, oropharynx clear without exudates, moist mucous membranes. NECK: Trachea midline, full range of motion, supple. LUNGS: Breath sounds equal, clear to auscultation bilaterally, no wheezes, no crackles, no accessory muscle use. HEART: Regular rate and rhythm, S1, S2 + holosystolic murmur, rub or gallop. ABDOMEN: Soft, nontender, nondistended, normoactive bowel sounds, no guarding, no rebound, no hepatosplenomegaly, no masses. EXTREMITIES: 2+ pulses, B/L chronic venous changes with non pitting edema. no erythema noted to RLE. NEUROLOGICAL: Cranial nerves II through XII grossly intact. Normal speech, gait not observed. PSYCH: Normal mood, normal affect. SKIN: Warm, dry, normal turgor, no rashes or lesions noted. LABS Laboratory Results - last 24 hr 02/28/18 02/28/18 02/28/18 06:30 06:30 06:30 WBC 4.0 RBC 3.94 Hgb 10.6 L Hct 32.3 L MCV 81.9 MCH 26.9 MCHC 32.9 RDW 16.0 H Plt Count 183 MPV 9.0 Absolute Neuts (auto) 2.5 Neutrophils % 61.9 D Lymphocytes % 20.2 D Monocytes % 13.4 H D Eosinophils % 3.9 D Basophils % 0.6 Nucleated RBC % 0 Sodium 139 Potassium 4.2 Chloride 102 Carbon Dioxide 32 Anion Gap 5 L BUN 19 H Creatinine 0.9 Creat Clearance w eGFR > 60 Random Glucose 75 Hemoglobin A1c % 5.6 Calcium 8.6 Phosphorus 3.9 Magnesium 2.1 HOSPITAL COURSE: Date of Admission:02/25/18 Date of Discharge: 02/28/18 Admitting Diagnosis: RLE cellulitis, failued outpatient abx Pre hospital course 57 yo F with PMH HTN, CHF, ELLE, Asthma, A.fib-DCCV x2 (on amio, Elquis BID), aortic stenosis, BLE lymphedema, and recurrent LE cellulitis, ALESSANDRO+BSO -for ovarian/endometrial CA-2008 s/p chemo who p/w with worsening RLE redness and pain. Pt. reports ongoing RLE cellulitis below the knee x1 week. Recently seen in PMD (02/20/18) and given Augmentin (day 6 ) with no improvement in pain and redness. Ambulates without difficulty. Patient denies F/C, CP, SOB, urinary complaints, abdominal pain, n/v/d, constipation, lightheadedness, weakness, sensory changes. Subsequent hospital course Admitted to medicine. Received vanco in the ER and evaluated by ID and abx switched to Cefazolin. clinically improved. patient was able to ambulate better. Cx reported as negative. d/c home on keflex x7 days and several days of tramadol ISTOP Reference #: [id number] Minutes to complete discharge: 40 Discharge Summary Reason For Visit: RT ANKLE PAIN Current Active Problems Ankle pain, right (Acute) Cellulitis of right leg (Acute) - Instructions Referrals: Juaquin Link MD [Primary Care Provider] - - Home Medications Comprehensive Discharge Medication List: Ambulatory Orders Apixaban [Eliquis -] 5 mg PO BID #60 tablet 11/28/15 Acetaminophen [Tylenol .Regular Strength -] 650 mg PO Q6H PRN #0 tablet Amiodarone HCl [Cordarone -] 200 mg PO BID #60 tablet 04/05/17 Furosemide [Lasix -] 40 mg PO DAILY #30 tablet 04/05/17 Metoprolol Succinate [Toprol XL -] 12.5 mg PO DAILY 02/16/18 Amlodipine Besylate [Norvasc -] 5 mg PO DAILY 02/25/18 This patient is new to me today: No Emergency Visit: Yes ED Registration Date: 02/25/18 Care time: The patient presented to the Emergency Department on the above date and was hospitalized for further evaluation of their emergent condition. Critical Care patient: No - Discharge Referral Referred to [facility] Med P.C.: No
== END 2018-02-28 15:04 | disposition home or self-care (01) | DRG 603 ==
LOC: JER 17:18 → JERBED 21:25 → UNDOADMIN 02-26 00:35 → JERBED 02-26 00:35 → J8W 02-26 00:55
PROVIDERS: ADMIT Internal Medicine; ATTEND Internal Medicine
DX: L03.115 Cellulitis of right lower limb (principal); N17.9 Acute kidney failure, unspecified; Z68.43 Body mass index [BMI] 50.0-59.9, adult; E66.01 Morbid (severe) obesity due to excess calories; I11.0 Hypertensive heart disease with heart failure; I50.9 Heart failure, unspecified; I48.91 Unspecified atrial fibrillation; D72.829 Elevated white blood cell count, unspecified; G47.33 Obstructive sleep apnea (adult) (pediatric); J45.909 Unspecified asthma, uncomplicated; I35.0 Nonrheumatic aortic (valve) stenosis; I89.0 Lymphedema, not elsewhere classified; Z85.43 Personal history of malignant neoplasm of ovary; Z85.42 Personal history of malignant neoplasm of other parts of uterus; Z98.84 Bariatric surgery status
CPT/HCPCS: 36415; 73610-TC-RT-FY; 73630-TC-RT-FY; 80048; 80053; 81003; 83036; 83605; 83735; 84100; 85025; 85610; 85730; 87040; 87086; 93005; 93010; 93971-TC; 97116-GP; 97161-GP; 99283-25

== ENCOUNTER 2018-04-23 13:59 | Inpatient (IN) | payer BC ==
--- NOTE | 2018-04-23 15:11 | PDOC ---
History of Present Illness - General Chief Complaint: Pain, Acute Stated Complaint: RT LEG PAIN Time Seen by Provider: 04/23/18 14:36 History Source: Patient Exam Limitations: No Limitations - History of Present Illness Initial Comments: 04/23/18 15:06 57 yo female pmh of morbid obesity, hypertension, CHF, lymphedema, A-fib ( required 2 cardioverts, on Eliquis), SBO requiring surgery, uterine and ovarian cancer (removed uterus and ovaries in 2008) and multiple cellulites infections requiring IV antibiotics presents today for a 2 day history of right medial ankle pain with ambulation and redness. Patient states she called her PCP (Dr. Huff) who told her to go to the ED and get admitted for IV antibiotics for cellulites. Patient also admits to having intermittent chest palpitations and lightheadedness and her acid changer is expected to call today with results of holter monitor test. Patient denies CP, SOB, F/C/N/V Spoke with Dr. Keating who would like patient admitted to hospitalist for IV antibiotics. Past History - Past Medical History Allergies/Adverse Reactions: Allergies Allergy/AdvReac Type Severity Reaction Status Date / Time No Known Allergies Allergy Verified 04/23/18 14:05 Home Medications: Ambulatory Orders Apixaban [Eliquis -] 5 mg PO BID #60 tablet 11/28/15 Acetaminophen [Tylenol .Regular Strength -] 650 mg PO Q6H PRN #0 tablet Amiodarone HCl [Cordarone -] 200 mg PO BID #60 tablet 04/05/17 Furosemide [Lasix -] 40 mg PO DAILY #30 tablet 04/05/17 Metoprolol Succinate [Toprol XL -] 25 mg PO DAILY 02/16/18 Spironolactone [Aldactone] 25 mg PO DAILY 04/23/18 Anemia: No Asthma: Yes (CONTROLLED UNLESS PT GETS A COLD) Cancer: Yes (UTERINE AND OVARIAN. CA FREE 2008) Cardiac Disorders: Yes (AFIB 12/2015 / AORTIC STENOSIS) CVA: No COPD: No CHF: No DVT: No Dementia: No Diabetes: No GI Disorders: No Disorders: No HTN: Yes Hypercholesterolemia: No Liver Disease: No Seizures: No Thyroid Disease: No - Surgical History Abdominal Surgery: Yes (HERNIA REPAIR AFTER ALESSANDRO 2011,GASTRIC BYPASS) Appendectomy: No Cardiac Surgery: No Cholecystectomy: Yes (2002) GI Surgery: Yes (BYPASS 2001) Lung Surgery: No Neurologic Surgery: No Orthopedic Surgery: No - Immunization History Immunization Up to Date: Yes (FLU UTD) - Suicide/Smoking/Psychosocial Hx Smoking Status: No Smoking History: Unknown if ever smoked Have you smoked in the past 12 months: No Number of Cigarettes Smoked Daily: 0 Hx Alcohol Use: No Drug/Substance Use Hx: No Substance Use Type: None Hx Substance Use Treatment: No Review of Systems - Review of Systems Constitutional: No: Chills, Fever Respiratory: No: Shortness of Breath Cardiac (ROS): Yes: Palpitations (intermittent ended prior to arrival). No: Chest Pain, Lightheadedness, Syncope ABD/GI: No: Constipated, Diarrhea, Nausea, Vomiting : No: Burning, Dysuria, Frequency Neurological: No: Headache, Numbness, Dizziness *Physical Exam - Vital Signs Last Vital Signs Temp Pulse Resp BP Pulse Ox 98.1 F 48 L 16 144/00 97 04/23/18 14:10 04/23/18 14:10 04/23/18 14:10 04/23/18 14:10 04/23/18 14:10 - Physical Exam General Appearance: Yes: Nourished, Appropriately Dressed. No: Apparent Distress Respiratory/Chest: positive: Lungs Clear, Normal Breath Sounds Cardiovascular: positive: Regular Rhythm, S1, S2. negative: Edema, JVD, Murmur Vascular Pulses: Dorsalis-Pedis (R): 2+, Doralis-Pedis (L): 2+ Gastrointestinal/Abdominal: positive: Normal Bowel Sounds Extremity: positive: Other (medial ankle 2 inch diameter of redness and warmth and tenderness) Neurologic: positive: Fully Oriented, Alert, Normal Mood/Affect ED Treatment Course - LABORATORY CBC & Chemistry Diagram: 04/23/18 15:45 04/23/18 15:45 *DC/Admit/Observation/Transfer Diagnosis at time of Disposition: Cellulitis Qualifiers: Site of cellulitis of extremity: lower extremity Laterality: right Qualified Code(s): L03.115 - Cellulitis of right lower limb - Discharge Dispostion Condition at time of disposition: Good Decision to Admit order: Yes - Referrals Referrals: Juaquin Link MD [Primary Care Provider] - - Patient Instructions - Post Discharge Activity
[2018-04-23] MEDS ORDERED: CLINDAMYCIN 600MG PREMIX IVPB 600 MG/50 ML BAG IVPB ONE ×2 (16:32→16:37)
[2018-04-23 16:48] LABS: ALBUMIN 3.4 g/dl (3.4-5.0); ALK PHOS 146 U/L (45-117); ANION GAP 7 MMOL/L (8-16); BILIRUBIN,TOTAL 0.6 mg/dL (0.2-1); BLOOD UREA NITROGEN 21 mg/dL (7-18); CALCIUM 8.8 mg/dL (8.5-10.1); CHLORIDE 106 mmol/L (98-107); CO2 24 mmol/L (21-32); CREATININE 1.2 mg/dL (0.55-1.3); GLUCOSE,RANDOM 80 mg/dL (74-106); POTASSIUM 4.8 mmol/L (3.5-5.1); SGOT/AST 20 U/L (15-37); SGPT/ALT 18 U/L (13-61); SODIUM 137 mmol/L (136-145); TOT PROT 7.6 g/dl (6.4-8.2)
--- NOTE | 2018-04-23 17:03 | PDOC ---
Attending Attestation - ED Attending Attestation I have performed the following: I agree w/resident's findings & plan - HPI HPI: 04/23/18 17:07 The patient is a 57 year old female with a significant past medical history of morbid obesity, hypertension, CHF, lymphedema, A-fib (2 cardioverts, on Eliquis) , SBO requiring surgery, uterine and ovarian cancer (removed uterus and ovaries in 2008) and multiple cellulitis infections requiring IV antibiotics who presents to the ER with right ankle pain and redness for the past two days. Patient called her PCP, Dr. Link, who prompted her to come to the ER for IV antibiotics. Patient also admits to intermittent chest pain and lightheadedness. Patient reports she was on a holter monitor and is supposed to get her results back today. The patient denies chest pain, shortness of breath, headache, and dizziness. Denies fever, chills, nausea, vomit, diarrhea, and constipation. Denies dysuria, frequency, urgency, and hematuria. Allergies: NKA Past surgical history: gastric bypass Social history: No reported alcohol, drug, or cigarette use. PCP: Dr. Link <Malena Veliz - Last Filed: 04/23/18 17:07> - Resident Resident Name: Olvin Parson - ED Attending Attestation I have performed the following: I have examined & evaluated the patient, The case was reviewed & discussed with the resident, I agree w/resident's findings & plan, Exceptions are as noted - Physicial Exam PE: 04/23/18 20:00 awake alert lungs clear bilaterally heart regular no m/r/g. abd soft obese nontender. ext bilat brawning lymphedema, skin lichenification. bilat lower ext erythema from foot to mid barr. mild warmth over right medial ankle. small focal area of induration. no palp fluctuance. nuero alert oriented x 3 - Medical Decision Making 04/23/18 20:00 57 yo F wit h/o afib, htn hld, morbid obesity prior ca, recurrent cellulitis due to lymphedema here with c/o worsening right ankle pain and redness, and area of focal swelling. 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 on exam bilateral lower ext lympedema, mild erythema and warmth. differential includes chronic venous stasis changes, cellulitis, dvt, anemia renal failure. plan labs ekg doppelr riht lower ext. will admit to obs for cellulitis/ abx. d/ w dr. perez who would like pt admitted to hospitalist. <Tali Monroy - Last Filed: 04/24/18 12:30>
[2018-04-23 19:17] LABS: BASO % 0.5 % (0-2.0); EOS % 0.7 % (0-4.5); HEMATOCRIT 39.1 % (32.4-45.2); HEMOGLOBIN 12.4 GM/dL (10.7-15.3); LYMPH % 13.3 % (8-40); MCH 26.6 pg (25.7-33.7); MCHC 31.8 g/dl (32.0-36.0); MEAN CELL VOLUME 83.8 fl (80-96); MEAN PLT VOLUME 9.6 fl (7.5-11.1); MONO % 5.7 % (3.8-10.2); NEUT % 79.8 % (42.8-82.8); PLATELET COUNT 201 K/MM3 (134-434); RBC 4.67 M/mm3 (3.60-5.2); RDW 18.9 % (11.6-15.6); WHITE BLOOD COUNT 6.1 K/mm3 (4.0-10.0)
[2018-04-23 20:46] LABS: URINE APPEARANCE CLEAR; URINE BILIRUBIN NEGATIVE (<2.0 mg/dL); URINE COLOR STRAW; URINE GLUCOSE (UA) NEGATIVE (NEGATIVE); URINE KETONE NEGATIVE (NEGATIVE); URINE LEUK ESTERASE NEGATIVE (NEGATIVE); URINE NITRITE NEGATIVE (NEGATIVE); URINE PROTEIN NEGATIVE (NEGATIVE); URINE UROBILINOGEN NEGATIVE mg/dL (0.2-1.0)
--- NOTE | 2018-04-23 21:33 | HP ---
CHIEF COMPLAINT: Cellulitis PCP: Dr. Link CARDIO: Dr. Reddy HISTORY OF PRESENT ILLNESS: 57 y/o F with a PMHx of recurrent cellulitis, Lower Extremity Lymphedema b/l, AFIB (on Eliquis, Amiodarone), CHF presents with pain in the Right lower extremity. Patient was recently here on 02/26 for Culture negative RLE cellulitis and was treated with Cefazolin, and discharged home with Keflex. Patient has since felt fine until approx 1 week ago where she started to feel uncomfortable. 3 days ago after showering she noticed a sensitive and hard area on the RLE medially, approx 2 cm in diameter. The area is painful, 7/10, Ache that does not travel. The area has some mild erythema and warmth that has not increased since onset. Patient has not been able to identify any triggering or relieving factors. She spoke with her PCP today who suggested she visit the ED, given her hx of recurrent cellulitis and that this pain feels different from last time. Currently her pain is 4/10. Patient says her LE does not look more edematous, but she has noticed increased ankle swelling. She denies any purulent drainage or bleeding from the area. She has not recently been on any hikes, in any sewell, or vásquez with tall grass. Denies any Lyme hx and has not noticed any recent tick bites. Denies any hx of rash or shingles. She denies any recent trauma or surgeries. Patient has complained of recent dizziness and SOB. Her Game Protector decreased her Amiodarone dose to 200 daily approx 3 weeks ago. Denies Fevers, chills, chest pain, nausea, vomiting, diarrhea, constipation, malaise, headache. ER course was notable for: (1) DUPLEX (2) Clindamycin, Percocet (3) Recent Travel: Denies PAST MEDICAL HISTORY: ALESSANDRO + BSO for Ovarian/Endometerial Ca (2008; Treated with Surgery, Chemo [ Cisplatin] x2, Radiation) AFIB (s/p DCCV x2 [at [facility] in 2017, At [facility] in 2016] , on Eliquis, Amiodarone) HTN CHF (last echo >1 year ago) ELLE (Not on Bipap) Asthma (Not on home inhalers) Aortic Stenosis Lower Extremity Lymphedema b/l Morbid Obesity PAST SURGICAL HISTORY: Suze-en-Y (2001) Cholecystectomy (2003) Total abdominal hysterectomy (2009) Ventral Hernia repair (2012) Lysis of Abdominal Adhesions (to relieve SBO in 2016) Social History: Smoking: Denies Alcohol: Rarely Drugs: Denies 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 Residence: House with and brother Ambulation: On her Own Family History: Father: Colon Cancer Allergies No Known Allergies Allergy (Verified 04/23/18 14:05) HOME MEDICATIONS: Home Medications Medication Instructions Recorded Apixaban [Eliquis -] 5 mg PO BID #60 tablet 11/28/15 Acetaminophen [Tylenol .Regular 650 mg PO Q6H PRN #0 tablet 04/12/16 Strength -] Amiodarone HCl [Cordarone -] 200 mg PO BID #60 tablet 04/05/17 Furosemide [Lasix -] 40 mg PO DAILY #30 tablet 04/05/17 Metoprolol Succinate [Toprol XL -] 25 mg PO DAILY 02/16/18 Amlodipine Besylate 5 mg PO DAILY 04/23/18 Spironolactone [Aldactone] 25 mg PO DAILY 04/23/18 REVIEW OF SYSTEMS CONSTITUTIONAL: Absent: fever, chills, diaphoresis, generalized weakness, malaise, loss of appetite, weight change HEENT: Absent: rhinorrhea, nasal congestion, throat pain, throat swelling, difficulty swallowing, mouth swelling, ear pain, eye pain, visual changes CARDIOVASCULAR: Absent: chest pain, syncope, palpitations, irregular heart rate, lightheadedness , peripheral edema RESPIRATORY: Absent: cough, shortness of breath, dyspnea with exertion, orthopnea, wheezing, stridor, hemoptysis GASTROINTESTINAL: Absent: abdominal pain, abdominal distension, nausea, vomiting, diarrhea, constipation, melena, hematochezia GENITOURINARY: Absent: dysuria, frequency, urgency, hesitancy, hematuria, flank pain, genital pain MUSCULOSKELETAL: Present: Ankle joint swelling Absent: myalgia, arthralgia, back pain, neck pain SKIN: Absent: rash, itching, pallor HEMATOLOGIC/IMMUNOLOGIC: Absent: easy bleeding, easy bruising, lymphadenopathy, frequent infections ENDOCRINE: Absent: unexplained weight gain, unexplained weight loss, heat intolerance, cold intolerance NEUROLOGIC: Absent: headache, focal weakness or paresthesias, dizziness, unsteady gait, seizure, mental status changes, bladder or bowel incontinence PSYCHIATRIC: Absent: anxiety, depression, suicidal or homicidal ideation, hallucinations. PHYSICAL EXAMINATION Vital Signs - 24 hr 04/23/18 04/23/18 14:10 16:29 Temperature 98.1 F Pulse Rate 48 L Pulse Rate [ 50 L Apical] Respiratory 16 16 Rate Blood Pressure 144/00 Blood Pressure 170/87 [Right] O2 Sat by Pulse 97 99 Oximetry (%) GENERAL: Awake, alert, and fully oriented, in no acute distress. HEAD: NCAT EYES: PERRL, EOMI THROAT: Oropharynx clear without exudates. Moist mucous membranes. NECK: No JVD. LUNGS: Breath sounds equal, clear to auscultation bilaterally. No wheezes. HEART: Regular rate and rhythm, normal S1 and S2 without murmur. ABDOMEN: Soft, nontender, not distended, normoactive bowel sounds, no guarding. MUSCULOSKELETAL: No CVA tenderness. EXTREMITIES: 2+ pulses, Chronic bilateral stasis dermatitis w/ lichenification and lymphedema. 2cm, mildly erythematous bump over the R medial maleolus that is tender to palpation. No drainage noted. Muscle strength 5/5 b/l NEUROLOGICAL: Cranial nerves II-XII intact. Normal speech. Gross sensation intact throughout Laboratory Results - last 24 hr 04/23/18 04/23/18 04/23/18 15:45 15:45 15:45 WBC 6.1 RBC 4.67 Hgb 12.4 Hct 39.1 MCV 83.8 MCH 26.6 MCHC 31.8 L RDW 18.9 H Plt Count 201 MPV 9.6 Absolute Neuts (auto) 4.9 Neutrophils % 79.8 D Lymphocytes % 13.3 D Monocytes % 5.7 Eosinophils % 0.7 D Basophils % 0.5 Nucleated RBC % 0 Sodium 137 Potassium 4.8 Chloride 106 Carbon Dioxide 24 Anion Gap 7 L BUN 21 H Creatinine 1.2 Creat Clearance w eGFR 46.47 Random Glucose 80 Calcium 8.8 Total Bilirubin 0.6 AST 20 ALT 18 Alkaline Phosphatase 146 H Creatine Kinase 79 Troponin I < 0.02 Total Protein 7.6 Albumin 3.4 TSH 1.50 Urine Color Urine Appearance Urine pH Ur Specific [place] Urine Protein Urine Glucose (UA) Urine Ketones Urine Blood Urine Nitrite Urine Bilirubin Urine Urobilinogen Ur Leukocyte Esterase 04/23/18 20:20 WBC RBC Hgb Hct MCV MCH MCHC RDW Plt Count MPV Absolute Neuts (auto) Neutrophils % Lymphocytes % Monocytes % Eosinophils % Basophils % Nucleated RBC % Sodium Potassium Chloride Carbon Dioxide Anion Gap BUN Creatinine Creat Clearance w eGFR Random Glucose Calcium Total Bilirubin AST ALT Alkaline Phosphatase Creatine Kinase Troponin I Total Protein Albumin TSH Urine Color Straw Urine Appearance Clear Urine pH 5.0 Ur Specific [place] 1.009 Urine Protein Negative Urine Glucose (UA) Negative Urine Ketones Negative Urine Blood Negative Urine Nitrite Negative Urine Bilirubin Negative Urine Urobilinogen Negative Ur Leukocyte Esterase Negative ASSESSMENT/PLAN: 57 y/o F with a PMHx of recurrent cellulitis, Lower Extremity Lymphedema b/l, AFIB (on Eliquis, Amiodarone), CHF presents with Right lower extremity Cellulitis. 1. Right lower extremity pain - Unclear Etiology; Consider Cellulitis, Possibly arthritis - LE DUPLEX negative for DVT - Blood cultures pending - Vanco 2g BID, Ceftriaxone 2g Daily - MRSA Screen - RLE Xray to evaluate for Arthritis pending official read - Leg elevation and compressive stockings - Tylenol for pain PRN 2. Atrial Fibrillation - Continue home dose Eliquis, Metoprolol 3. HTN, controlled - Continue home dose Amiodarone 4. CHF - Continue home dose Lasix, Spironolactone - CXR to check for pleural effusions - Patient mentions last Echo was ~1 year ago 5. FEN - PO Fluids - Lytes WNL - Low sodium, low cholesterol diet 6. PPx - DVT: on Elliquis Dispo: Med-Surg Obs, will need Med-Rec Visit type - Emergency Visit Emergency Visit: Yes ED Registration Date: 04/25/18 Care time: The patient presented to the Emergency Department on the above date and was hospitalized for further evaluation of their emergent condition. - New Patient This patient is new to me today: Yes Date on this admission: 04/27/18 - Critical Care Critical Care patient: No Hospitalist Screening - Colonoscopy Questionnaire Colonoscopy Questionnaire: Colonoscopy Questionnaire - Patient: 50 - 75 years old and never had a screening colonoscopy: Unknown History of colon or rectal polyps, or CA: Unknown History of IBD, Crohn's disease or UC: Unknown History of abdominal radiation therapy as a child: Unknown - Relative: 1 with colon or rectal CA, or polyps at age 60 or younger: Unknown Colon or rectal CA diagnosed at age 45 or younger: Unknown Multiple relatives with colon or rectal CA: Unknown - Outcome: Screening Result: Negative Screen
--- NOTE | 2018-04-24 01:20 | PN ---
Teaching Attending Note Name of Resident: Ambika Puga ATTENDING PHYSICIAN STATEMENT I saw and evaluated the patient. Chart, data, imaging reviewed. I reviewed the resident's note and discussed the case with the resident. I agree with the resident's findings and plan as documented. SUBJECTIVE: 57 y/o F with a morbid obesity, chronic LE venous stasis dermatitis, AFIB (on Eliquis, Amiodarone), CHF recently rx for right lower ext cellulitis with cefazolin, cephalexin, and augmentin presents with pain in the right lower extremity. No fevers or chills. No trauma to leg. Dr. Link told patient to come to ER for admission. OBJECTIVE: Last Vital Signs Temp Pulse Resp BP Pulse Ox 97.6 F 51 L 22 141/63 99 04/24/18 00:14 04/24/18 00:14 04/24/18 00:14 04/24/18 00:14 04/23/18 16:29 general -nontoxic heent- at, nc neck supple cv -systolic murmur abdomen- obese, nt, bs+ ext -chronic venous stasis changes b/l with lichenification, small erythematous , tender bump on right medial leg Abnormal Lab Results 04/23/18 04/23/18 15:45 15:45 MCHC 31.8 L RDW 18.9 H Anion Gap 7 L BUN 21 H Alkaline Phosphatase 146 H right lower ext duplex US - no dvt ASSESSMENT AND PLAN: Right lower ext pain - unclear cause. Possible subacute cellulitis. DVT was r/ o. May be related to stasis dermatitis. -blood cultures x2 -vancomyin, ceftriaxone -leg elevation b/l -compressive stocking -tylenol prn for pain restart home meds for chronic medical problems see resident note for details Eliquis for dvt ppx
[2018-04-24] MEDS ORDERED: ACETAMINOPHEN 325 MG TABLET (FP) PO PRN (02:11)
[2018-04-24] MEDS ORDERED: HEPARIN NA (PORCINE) 5,000 UNITS/ML 1ML VIAL SQ SCH (06:00)
[2018-04-24 07:15] LABS: BASO % 0.9 % (0-2.0); EOS % 2.4 % (0-4.5); HEMOGLOBIN 11.5 GM/dL (10.7-15.3); LYMPH % 20.4 % (8-40); MCH 26.4 pg (25.7-33.7); MCHC 31.9 g/dl (32.0-36.0); MEAN CELL VOLUME 82.8 fl (80-96); MEAN PLT VOLUME 8.7 fl (7.5-11.1); MONO % 8.7 % (3.8-10.2); NEUT % 67.6 % (42.8-82.8); PLATELET COUNT 192 K/MM3 (134-434); RBC 4.35 M/mm3 (3.60-5.2); RDW 18.6 % (11.6-15.6); WHITE BLOOD COUNT 4.1 K/mm3 (4.0-10.0)
[2018-04-24 07:56] LABS: ALBUMIN 3.2 g/dl (3.4-5.0); ALK PHOS 126 U/L (45-117); ANION GAP 8 MMOL/L (8-16); BILIRUBIN,TOTAL 0.7 mg/dL (0.2-1); BLOOD UREA NITROGEN 20 mg/dL (7-18); CALCIUM 9.2 mg/dL (8.5-10.1); CHLORIDE 107 mmol/L (98-107); CO2 24 mmol/L (21-32); CREATININE 0.9 mg/dL (0.55-1.3); GLUCOSE,RANDOM 74 mg/dL (74-106); MAGNESIUM 2.3 mg/dL (1.8-2.4); PHOSPHOROUS 4.8 mg/dL (2.5-4.9); POTASSIUM 4.5 mmol/L (3.5-5.1); SGOT/AST 19 U/L (15-37); SGPT/ALT 16 U/L (13-61); SODIUM 139 mmol/L (136-145); TOT PROT 6.7 g/dl (6.4-8.2)
--- NOTE | 2018-04-24 08:06 | EKG ---
Test Reason : Blood Pressure : / mmHG Vent. Rate : 044 BPM Atrial Rate : 044 BPM P-R Int : 186 ms QRS Dur : 114 ms QT Int : 534 ms P-R-T Axes : 069 -24 037 degrees QTc Int : 456 ms POOR DATA QUALITY, INTERPRETATION MAY BE ADVERSELY AFFECTED MARKED SINUS BRADYCARDIA VOLTAGE CRITERIA FOR LEFT VENTRICULAR HYPERTROPHY ABNORMAL ECG WHEN COMPARED WITH ECG OF 25-FEB-2018 22:20, VENT. RATE HAS DECREASED BY 25 BPM NONSPECIFIC T WAVE ABNORMALITY HAS REPLACED INVERTED T WAVES IN LATERAL LEADS Confirmed by THEODORE ENGLISH, LESA ([id number]) on 04/24/2018 8:06:04 AM Referred By: Confirmed By:LESA JAIMES MD
[2018-04-24] MEDS: AMIODARONE HCL 200 MG TABLET (FP) PO SCH (10:31)
[2018-04-24] MEDS: SPIRONOLACTONE 25 MG TABLET (FP) PO SCH (10:31)
[2018-04-24] MEDS: amLODIPine BESYLATE 5 MG TABLET (FP) PO SCH (10:32)
[2018-04-24] MEDS: APIXABAN 5 MG TABLET PO SCH ×2 (10:32→22:04)
[2018-04-24] MEDS: FUROSEMIDE 40 MG TABLET (FP) PO SCH (10:32)
[2018-04-24] MEDS: CEFTRIAXONE 2 GM in DEXTROSE 5%-WATER 100 ML IVPB SCH ×2 (10:34→11:43)
[2018-04-24] MEDS: metoPROLOL SUCCINATE 25 MG TAB.SR.24H (FP) PO SCH (10:34)
[2018-04-24] MEDS ORDERED: VANCOMYCIN 2,000 MG in DEXTROSE 5%-WATER - 500 ML IVPB ONE (11:00)
--- NOTE | 2018-04-24 12:39 | PN ---
Progress Note (short form) - Note Progress Note: ID Consult dictated Recurrent LE cellulitis Chronic LE lymphedema Pending c/s empiric cefazolin 2gm IVPB q8h
--- NOTE | 2018-04-24 13:33 | CONS ---
DATE OF CONSULTATION: 04/24/2018 The patient is a 57-year-old female with a history of chronic lower extremity lymphedema, evaluated for recurrent lower extremity cellulitis. The patient was hospitalized in February of 2018 with cellulitis of the left lower extremity. She clinically improved with a course of IV cefazolin followed by oral Keflex. She now presents with increasing pain, erythema, and swelling of the right ankle area for the last 2 days. She was evaluated in the emergency room where she was noted to have cellulitis of the right lower extremity. A Doppler exam was performed and was negative for DVT. Cultures were obtained, and she was empirically treated with clindamycin, vancomycin, and ceftriaxone. She denies any traumatic injury to her lower extremity. No insect or animal bites or scratches. She has had a history of chronic lower extremity lymphedema which preceded chemotherapy and radiation therapy received for ovarian cancer. PAST MEDICAL HISTORY: Positive for morbid obesity, hypertension, left lower extremity cellulitis, congestive heart failure, chronic lymphedema, atrial fibrillation, ovarian carcinoma. PAST SURGICAL HISTORY: Status post hysterectomy, cholecystectomy. ALLERGIES: No known allergies. MEDICATIONS: Medications as an outpatient include Eliquis, amiodarone, Lasix, Toprol, spironolactone. SOCIAL HISTORY: Lives at home with significant other. Nonsmoker, nondrinker. REVIEW OF SYSTEMS: Neurologic: No loss of consciousness, seizure activity, focal weakness. Cardiac: Negative chest pain or palpitations. Respiratory: Negative cough or sputum production. Gastrointestinal: Negative vomiting or diarrhea. Genitourinary: Negative for urinary tract infection. LABORATORY DATA: White count 4.1, hematocrit 36.0, platelet count 192. Creatinine 0.9. Cultures pending. Urinalysis negative. PHYSICAL EXAMINATION: General: She is awake and alert, in no acute distress, not acutely toxic appearing. Patient is morbidly obese. Vital Signs: Temperature 97.7, blood pressure 156/87, pulse 50, regular. Respirations 18 per minute. HEENT: Sclerae are anicteric. Cardiovascular: Heart sounds S1, S2. Respiratory: Lungs clear. Abdomen: Obese, soft, nontender. Extremities: Bilateral lower extremity lymphedema present. There is stasis dermatitis involving both lower extremities. Faint erythema and warmth present to right ankle area. There is no crepitus or fluctuance. No lymphangitic streaking. IMPRESSION: 1. Recurrent lower extremity cellulitis. 2. Chronic lymphedema of the lower extremities bilaterally. Await culture results. Empiric antibiotic coverage with cefazolin 2 g IV piggyback every 8 hours in conjunction with elevation and analgesics. Will follow. Thank you for the kind referral. GARY EDWARDS M.D. PO/[id number]
[2018-04-24 14:34] VITALS: BMI 56.2
[2018-04-24] MEDS ORDERED: FLU VACCINE QUAD 60 MCG/0.5 ML (MDV 18-19) IM ONE (15:12)
[2018-04-24] MEDS: oxyCODONE HCL 5 MG TABLET PO PRN (15:51)
[2018-04-24] MEDS: CEFAZOLIN 2 GM/D5W 2 GM/50 ML ML IVPB SCH ×2 (16:01→18:14)
--- NOTE | 2018-04-24 17:40 | PN ---
Physical Exam: SUBJECTIVE: Patient seen and examined at the bedside. reports no complaints. OBJECTIVE: Vital Signs Period Temp Pulse Resp BP Sys/Ruiz Pulse Ox Last 24 Hr 97.6 F-98.4 F 44-51 17-22 108-156/56-87 96-99 GENERAL: Awake, alert, and fully oriented, in no acute distress. HEAD: no signs of trauma THROAT: Oropharynx clear without exudates. Moist mucous membranes. NECK: No JVD, supple LUNGS: Breath sounds equal, clear to auscultation bilaterally. No wheezes. HEART: Regular rate and rhythm, normal S1 and S2 without murmur. ABDOMEN: Soft, nontender, not distended, normoactive bowel sounds, no guarding. EXTREMITIES: 2+ pulses, bilateral lower ext lymphedema with a painful bump on right medial maleous that is tender to touch. No drainage noted. NEUROLOGICAL: Normal speech. Gross sensation intact throughout Laboratory Results - last 24 hr 04/23/18 04/23/18 04/23/18 15:45 15:45 20:20 WBC 6.1 RBC 4.67 Hgb 12.4 Hct 39.1 MCV 83.8 MCH 26.6 MCHC 31.8 L RDW 18.9 H Plt Count 201 MPV 9.6 Absolute Neuts (auto) 4.9 Neutrophils % 79.8 D Lymphocytes % 13.3 D Monocytes % 5.7 Eosinophils % 0.7 D Basophils % 0.5 Nucleated RBC % 0 Sodium Potassium Chloride Carbon Dioxide Anion Gap BUN Creatinine Creat Clearance w eGFR Random Glucose Calcium Phosphorus Magnesium Total Bilirubin AST ALT Alkaline Phosphatase Creatine Kinase 79 Troponin I < 0.02 Total Protein Albumin TSH 1.50 Urine Color Straw Urine Appearance Clear Urine pH 5.0 Ur Specific [place] 1.009 Urine Protein Negative Urine Glucose (UA) Negative Urine Ketones Negative Urine Blood Negative Urine Nitrite Negative Urine Bilirubin Negative Urine Urobilinogen Negative Ur Leukocyte Esterase Negative 04/24/18 04/24/18 06:30 06:30 WBC 4.1 RBC 4.35 Hgb 11.5 Hct 36.0 MCV 82.8 MCH 26.4 MCHC 31.9 L RDW 18.6 H Plt Count 192 MPV 8.7 Absolute Neuts (auto) 2.8 Neutrophils % 67.6 Lymphocytes % 20.4 D Monocytes % 8.7 Eosinophils % 2.4 D Basophils % 0.9 Nucleated RBC % 0 Sodium 139 Potassium 4.5 Chloride 107 Carbon Dioxide 24 Anion Gap 8 BUN 20 H Creatinine 0.9 Creat Clearance w eGFR > 60 Random Glucose 74 Calcium 9.2 Phosphorus 4.8 Magnesium 2.3 Total Bilirubin 0.7 AST 19 ALT 16 Alkaline Phosphatase 126 H Creatine Kinase Troponin I Total Protein 6.7 Albumin 3.2 L TSH Urine Color Urine Appearance Urine pH Ur Specific [place] Urine Protein Urine Glucose (UA) Urine Ketones Urine Blood Urine Nitrite Urine Bilirubin Urine Urobilinogen Ur Leukocyte Esterase Active Medications Generic Name Dose Route Start Last Admin Trade Name Freq PRN Reason Stop Dose Admin Acetaminophen 650 mg 04/24/18 02:11 04/24/18 15:53 Tylenol - PO 650 mg Q4H PRN Administration PAIN Amiodarone HCl 200 mg 04/24/18 10:00 04/24/18 10:31 Cordarone - PO 200 mg DAILY SHIRLENE Administration Amlodipine Besylate 5 mg 04/24/18 10:00 04/24/18 10:32 Norvasc - PO Not Given DAILY SHIRLENE Apixaban 5 mg 04/24/18 10:00 04/24/18 10:32 Eliquis - PO 5 mg BID SHIRLENE Administration Docusate Sodium 100 mg 04/24/18 22:00 Colace - PO TID SHIRLENE Furosemide 40 mg 04/24/18 10:00 04/24/18 10:32 Lasix - PO 40 mg DAILY SHIRLENE Administration Cefazolin Sodium/Dextrose 2 gm in 50 mls @ 100 mls/hr 04/24/18 13:00 16:01 Ancef 2 Gm Premixed Ivpb - IVPB 100 mls/hr Q8H-IV SHIRLENE Administration Metoprolol Succinate 25 mg 04/24/18 10:00 04/24/18 10:34 Toprol Xl - PO Not Given DAILY SHIRLENE Oxycodone HCl 5 mg 04/24/18 14:32 04/24/18 15:51 Roxicodone - PO 5 mg Q6H PRN Administration PAIN LEVEL 7 - 10 Spironolactone 25 mg 04/24/18 10:00 04/24/18 10:31 Aldactone - PO 25 mg DAILY SHIRLENE Administration ASSESSMENT/PLAN: Patient is a 57 year old female with a significant past medical history of recurrent cellulitis, chronic lower extremity lymphedema, atrial fibrillation ( on eliquis, Amiodarone) and CHF. Patient presents to the ED with c/o of right lower extremity pain. Patient was recently at [facility] for RLE cellulitis and was treated with cefazolin and discharged on Keflex. At home she began to notice a boggy area on the right lower ext that was painful to touch. She went to see her PCP who advised her to come to the ED. ID: Right lower extremity pain/cellulitis. Recenty treated for celluilitis of RLE, now presents with worsening pain. Negative for DVT. On Cefazolin day 2 per ID. No fracture of lower extremity seen on xray Encourage compression stockings for chronic lymphedema. elevated lower extremity. Pain managed with oxycodone Card: Atrial fib. On Eliquis 5mg bid On Metoprolol CHF. On Lasix daily, sprinolactone Hypertension, controlled. On Toprol, amiodorone Morbid obesity. outpatient follow up with bariatric specialist recommended. fen tolerating PO monitor electrolytes low salt diet prophy on eliquis discharge planning, consider transitioning to PO antibiotics. full code Visit type - Emergency Visit Emergency Visit: Yes ED Registration Date: 04/25/18 Care time: The patient presented to the Emergency Department on the above date and was hospitalized for further evaluation of their emergent condition. - New Patient This patient is new to me today: Yes Date on this admission: 04/25/18 - Critical Care Critical Care patient: No - Discharge Referral Referred to [facility] No
[2018-04-24] MEDS ORDERED: VANCOMYCIN 2,000 MG in DEXTROSE 5%-WATER - 500 ML IVPB SCH (22:00)
[2018-04-24] MEDS: DOCUSATE SODIUM 100 MG CAPSULE (FP) PO SCH (22:04)
[2018-04-25] MEDS: CEFAZOLIN 2 GM/D5W 2 GM/50 ML ML IVPB SCH ×3 (01:14→18:04)
[2018-04-25] MEDS: DOCUSATE SODIUM 100 MG CAPSULE (FP) PO SCH ×3 (05:27→22:22)
[2018-04-25] MEDS: SPIRONOLACTONE 25 MG TABLET (FP) PO SCH (09:09)
[2018-04-25] MEDS: AMIODARONE HCL 200 MG TABLET (FP) PO SCH (09:09)
[2018-04-25] MEDS: APIXABAN 5 MG TABLET PO SCH ×2 (09:12→22:22)
[2018-04-25] MEDS: metoPROLOL SUCCINATE 25 MG TAB.SR.24H (FP) PO SCH (09:12)
[2018-04-25] MEDS: FUROSEMIDE 40 MG TABLET (FP) PO SCH (09:12)
[2018-04-25] MEDS ORDERED: PT OWN MED DRAWER 7, Y5N ONE (09:28)
[2018-04-25 11:20] LABS: BASO % 0.4 % (0-2.0); EOS % 2.1 % (0-4.5); HEMATOCRIT 37.8 % (32.4-45.2); HEMOGLOBIN 12.2 GM/dL (10.7-15.3); MCH 26.7 pg (25.7-33.7); MCHC 32.3 g/dl (32.0-36.0); MEAN CELL VOLUME 82.8 fl (80-96); MONO % 6.6 % (3.8-10.2); NEUT % 78.9 % (42.8-82.8); PLATELET COUNT 209 K/MM3 (134-434); RBC 4.56 M/mm3 (3.60-5.2); RDW 18.3 % (11.6-15.6); WHITE BLOOD COUNT 4.3 K/mm3 (4.0-10.0)
[2018-04-25 12:19] LABS: ALBUMIN 3.4 g/dl (3.4-5.0); ALK PHOS 161 U/L (45-117); ANION GAP 8 MMOL/L (8-16); BILIRUBIN,TOTAL 0.4 mg/dL (0.2-1); BLOOD UREA NITROGEN 22 mg/dL (7-18); CALCIUM 9.1 mg/dL (8.5-10.1); CHLORIDE 105 mmol/L (98-107); CO2 26 mmol/L (21-32); GLUCOSE,RANDOM 77 mg/dL (74-106); POTASSIUM 4.3 mmol/L (3.5-5.1); SGOT/AST 27 U/L (15-37); SGPT/ALT 22 U/L (13-61); SODIUM 139 mmol/L (136-145); TOT PROT 7.4 g/dl (6.4-8.2)
--- NOTE | 2018-04-25 12:19 | PN ---
Progress Note (short form) - Note Progress Note: continued pain RLE Vital Signs Period Temp Pulse Resp BP Sys/Ruiz Pulse Ox Last 24 Hr 97.6 F-98.4 F 42-50 18-18 107-148/55-93 97-99 cor-rrr lungs clear ext +bilaeral lymphedema, minimal erythema and pain on palpation RLE CBC, BMP 04/25/18 10:55 Microbiology 04/23/18 20:20 Urine - Urine Clean Catch Urine Culture - Final NO GROWTH OBTAINED 04/23/18 17:00 Blood - Peripheral Venous Blood Culture - Preliminary NO GROWTH OBTAINED AFTER 24 HOURS, INCUBATION TO CONTINUE FOR 4 DAYS. 04/23/18 17:00 Blood - Peripheral Venous Blood Culture - Preliminary NO GROWTH OBTAINED AFTER 24 HOURS, INCUBATION TO CONTINUE FOR 4 DAYS. a/p cellulitis chronic lymphedema cultures negative to date continue cefazolin
[2018-04-25] MEDS: amLODIPine BESYLATE 5 MG TABLET (FP) PO SCH (13:00)
--- NOTE | 2018-04-25 13:06 | PN ---
Physical Exam: SUBJECTIVE: Patient seen and examined OBJECTIVE: Vital Signs Period Temp Pulse Resp BP Sys/Ruiz Pulse Ox Last 24 Hr 97.7 F-98.4 F 42-50 18-18 107-148/55-93 97-99 GENERAL: Awake, alert, and fully oriented, in no acute distress. HEAD: no signs of trauma THROAT: Oropharynx clear without exudates. Moist mucous membranes. NECK: No JVD, supple LUNGS: Breath sounds equal, clear to auscultation bilaterally. No wheezes. HEART: Regular rate and rhythm, normal S1 and S2 without murmur. ABDOMEN: Soft, nontender, not distended, normoactive bowel sounds, no guarding. EXTREMITIES: 2+ pulses, bilateral lower ext lymphedema with a painful bump on right medial maleous that is tender to touch. No drainage noted. NEUROLOGICAL: Normal speech. Gross sensation intact throughout Laboratory Results - last 24 hr 04/25/18 04/25/18 10:55 10:55 WBC 4.3 RBC 4.56 Hgb 12.2 Hct 37.8 MCV 82.8 MCH 26.7 MCHC 32.3 RDW 18.3 H Plt Count 209 MPV 9.0 Absolute Neuts (auto) 3.4 Neutrophils % 78.9 Lymphocytes % 12.0 D Monocytes % 6.6 Eosinophils % 2.1 Basophils % 0.4 Nucleated RBC % 0 Sodium 139 Potassium 4.3 Chloride 105 Carbon Dioxide 26 Anion Gap 8 BUN 22 H Creatinine 1.0 Creat Clearance w eGFR 57.35 Random Glucose 77 Calcium 9.1 Total Bilirubin 0.4 AST 27 ALT 22 Alkaline Phosphatase 161 H Total Protein 7.4 Albumin 3.4 Active Medications Generic Name Dose Route Start Last Admin Trade Name Freq PRN Reason Stop Dose Admin Acetaminophen 650 mg 04/24/18 02:11 04/24/18 15:53 Tylenol - PO 650 mg Q4H PRN Administration PAIN Amiodarone HCl 200 mg 04/24/18 10:00 04/25/18 09:09 Cordarone - PO 200 mg DAILY SHIRLENE Administration Amlodipine Besylate 5 mg 04/24/18 10:00 04/25/18 13:00 Norvasc - PO Not Given DAILY SHIRLENE Apixaban 5 mg 04/24/18 10:00 04/25/18 09:12 Eliquis - PO 5 mg BID SHIRLENE Administration Docusate Sodium 100 mg 04/24/18 22:00 04/25/18 05:27 Colace - PO 100 mg TID SHIRLENE Administration Furosemide 40 mg 04/24/18 10:00 04/25/18 09:12 Lasix - PO 40 mg DAILY SHIRLENE Administration Cefazolin Sodium/Dextrose 2 gm in 50 mls @ 100 mls/hr 04/24/18 13:00 09:12 Ancef 2 Gm Premixed Ivpb - IVPB 100 mls/hr Q8H-IV SHIRLENE Administration Metoprolol Succinate 25 mg 04/24/18 10:00 04/25/18 09:12 Toprol Xl - PO 25 mg DAILY SHIRLENE Administration Oxycodone HCl 5 mg 04/24/18 14:32 04/24/18 15:51 Roxicodone - PO 5 mg Q6H PRN Administration PAIN LEVEL 7 - 10 Spironolactone 25 mg 04/24/18 10:00 04/25/18 09:09 Aldactone - PO 25 mg DAILY SHIRLENE Administration ASSESSMENT/PLAN: Patient is a 57 year old female with a significant past medical history of recurrent cellulitis, chronic lower extremity lymphedema, atrial fibrillation ( on eliquis, Amiodarone) and CHF. Patient presents to the ED with c/o of right lower extremity pain. Patient was recently at [facility] for RLE cellulitis and was treated with cefazolin and discharged on Keflex. At home she began to notice a boggy area on the right lower ext that was painful to touch. She went to see her PCP who advised her to come to the ED. ID: Right lower extremity pain/cellulitis. Recenty treated for celluilitis of RLE, now presents with worsening pain. Negative for DVT. On Cefazolin day 2 per ID. No fracture of lower extremity seen on xray Encourage compression stockings for chronic lymphedema. elevated lower extremity. Pain managed with oxycodone Card: Atrial fib. On Eliquis 5mg bid On Metoprolol CHF. On Lasix daily, sprinolactone Hypertension, controlled. On Toprol, amiodorone Morbid obesity. outpatient follow up with bariatric specialist recommended. fen tolerating PO monitor electrolytes low salt diet prophy on eliquis discharge planning, consider transitioning to PO antibiotics. full code Visit type - Emergency Visit Emergency Visit: Yes ED Registration Date: 04/25/18 Care time: The patient presented to the Emergency Department on the above date and was hospitalized for further evaluation of their emergent condition. - New Patient This patient is new to me today: No - Critical Care Critical Care patient: No - Discharge Referral Referred to [facility] No
[2018-04-25] MEDS: LACTOBACILLUS ACIDOPHILUS 1 TABLET PO SCH (13:56)
[2018-04-25] MEDS: oxyCODONE HCL 5 MG TABLET PO PRN (22:21)
[2018-04-26] MEDS: CEFAZOLIN 2 GM/D5W 2 GM/50 ML ML IVPB SCH ×3 (02:26→18:24)
[2018-04-26] MEDS: DOCUSATE SODIUM 100 MG CAPSULE (FP) PO SCH ×3 (05:52→21:26)
[2018-04-26 08:04] LABS: BASO % 0.6 % (0-2.0); EOS % 3.2 % (0-4.5); HEMATOCRIT 34.2 % (32.4-45.2); HEMOGLOBIN 11.1 GM/dL (10.7-15.3); LYMPH % 21.4 % (8-40); MCH 26.9 pg (25.7-33.7); MCHC 32.5 g/dl (32.0-36.0); MEAN PLT VOLUME 9.3 fl (7.5-11.1); MONO % 12.2 % (3.8-10.2); NEUT % 62.6 % (42.8-82.8); PLATELET COUNT 186 K/MM3 (134-434); RBC 4.13 M/mm3 (3.60-5.2); RDW 18.6 % (11.6-15.6); WHITE BLOOD COUNT 3.5 K/mm3 (4.0-10.0)
[2018-04-26 08:57] LABS: ALBUMIN 2.9 g/dl (3.4-5.0); ALK PHOS 184 U/L (45-117); ANION GAP 6 MMOL/L (8-16); BILIRUBIN,TOTAL 0.3 mg/dL (0.2-1); BLOOD UREA NITROGEN 23 mg/dL (7-18); CALCIUM 8.2 mg/dL (8.5-10.1); CHLORIDE 105 mmol/L (98-107); CO2 29 mmol/L (21-32); GLUCOSE,RANDOM 71 mg/dL (74-106); POTASSIUM 4.1 mmol/L (3.5-5.1); SGOT/AST 74 U/L (15-37); SGPT/ALT 32 U/L (13-61); SODIUM 139 mmol/L (136-145); TOT PROT 6.4 g/dl (6.4-8.2)
[2018-04-26] MEDS: LACTOBACILLUS ACIDOPHILUS 1 TABLET PO SCH (10:03)
[2018-04-26] MEDS: SPIRONOLACTONE 25 MG TABLET (FP) PO SCH (10:03)
[2018-04-26] MEDS: metoPROLOL SUCCINATE 25 MG TAB.SR.24H (FP) PO SCH (10:04)
[2018-04-26] MEDS: APIXABAN 5 MG TABLET PO SCH ×2 (10:04→21:26)
[2018-04-26] MEDS: FUROSEMIDE 40 MG TABLET (FP) PO SCH (10:04)
[2018-04-26] MEDS: amLODIPine BESYLATE 5 MG TABLET (FP) PO SCH ×2 (10:04→10:11)
[2018-04-26] MEDS: AMIODARONE HCL 200 MG TABLET (FP) PO SCH (10:04)
--- NOTE | 2018-04-26 15:57 | PN ---
Physical Exam: SUBJECTIVE: Patient seen and examined, denies pain. OBJECTIVE: Vital Signs Period Temp Pulse Resp BP Sys/Ruiz Pulse Ox Last 24 Hr 97.4 F-98.7 F 43-58 18-20 125-138/74-87 GENERAL: Awake, alert, and fully oriented, in no acute distress. HEAD: no signs of trauma THROAT: Oropharynx clear without exudates. Moist mucous membranes. NECK: No JVD, supple LUNGS: Breath sounds equal, clear to auscultation bilaterally. No wheezes. HEART: Regular rate and rhythm, normal S1 and S2 without murmur. ABDOMEN: Soft, nontender, not distended, normoactive bowel sounds, no guarding. EXTREMITIES: 2+ pulses, bilateral lower ext lymphedema with a painful bump on right medial maleous that is tender to touch. No drainage noted. NEUROLOGICAL: Normal speech. Gross sensation intact throughout Laboratory Results - last 24 hr 04/26/18 04/26/18 06:30 06:30 WBC 3.5 L RBC 4.13 Hgb 11.1 Hct 34.2 MCV 83.0 MCH 26.9 MCHC 32.5 RDW 18.6 H Plt Count 186 MPV 9.3 Absolute Neuts (auto) 2.2 Neutrophils % 62.6 D Lymphocytes % 21.4 D Monocytes % 12.2 H D Eosinophils % 3.2 Basophils % 0.6 Nucleated RBC % 0 Sodium 139 Potassium 4.1 Chloride 105 Carbon Dioxide 29 Anion Gap 6 L BUN 23 H Creatinine 1.0 Creat Clearance w eGFR 57.35 Random Glucose 71 L Calcium 8.2 L Magnesium 2.0 Total Bilirubin 0.3 AST 74 H ALT 32 Alkaline Phosphatase 184 H Total Protein 6.4 Albumin 2.9 L Active Medications Generic Name Dose Route Start Last Admin Trade Name Freq PRN Reason Stop Dose Admin Acetaminophen 650 mg 04/24/18 02:11 04/24/18 15:53 Tylenol - PO 650 mg Q4H PRN Administration PAIN Amiodarone HCl 200 mg 04/24/18 10:00 04/26/18 10:04 Cordarone - PO 200 mg DAILY SHIRLENE Administration Amlodipine Besylate 5 mg 04/24/18 10:00 04/26/18 10:11 Norvasc - PO Not Given DAILY SHIRLENE Apixaban 5 mg 04/24/18 10:00 04/26/18 10:04 Eliquis - PO 5 mg BID SHIRLENE Administration Docusate Sodium 100 mg 04/24/18 22:00 04/26/18 15:21 Colace - PO 100 mg TID SHIRLENE Administration Furosemide 40 mg 04/24/18 10:00 04/26/18 10:04 Lasix - PO 40 mg DAILY SHIRLENE Administration Cefazolin Sodium/Dextrose 2 gm in 50 mls @ 100 mls/hr 04/24/18 13:00 10:05 Ancef 2 Gm Premixed Ivpb - IVPB 100 mls/hr Q8H-IV SHIRLENE Administration Lactobacillus Acidophilus 1 tab 04/25/18 13:30 04/26/18 10:03 Bacid - PO 1 tab DAILY SHIRLENE Administration Metoprolol Succinate 25 mg 04/24/18 10:00 04/26/18 10:04 Toprol Xl - PO 25 mg DAILY SHIRLENE Administration Oxycodone HCl 5 mg 04/24/18 14:32 04/25/18 22:21 Roxicodone - PO 5 mg Q6H PRN Administration PAIN LEVEL 7 - 10 Spironolactone 25 mg 04/24/18 10:00 04/26/18 10:03 Aldactone - PO 25 mg DAILY SHIRLENE Administration ASSESSMENT/PLAN: Patient is a 57 year old female with a significant past medical history of recurrent cellulitis, chronic lower extremity lymphedema, atrial fibrillation ( on eliquis, Amiodarone) and CHF. Patient presents to the ED with c/o of right lower extremity pain. Patient was recently at [facility] for RLE cellulitis and was treated with cefazolin and discharged on Keflex. At home she began to notice a boggy area on the right lower ext that was painful to touch. She went to see her PCP who advised her to come to the ED. ID: Right lower extremity pain/cellulitis. Recently treated for celluilitis of RLE , now presents with worsening pain. Negative for DVT. On Cefazolin day 3 per ID. No fracture of lower extremity seen on xray Encourage compression stockings for chronic lymphedema. elevate lower extremity. Pain managed with oxycodone Card: Atrial fib. On Eliquis 5mg bid On Metoprolol CHF. On Lasix daily, sprinolactone Hypertension, controlled. On Toprol, amiodorone Morbid obesity. outpatient follow up with bariatric specialist recommended. fen tolerating PO monitor electrolytes low salt diet prophy on eliquis discharge planning, consider transitioning to PO antibiotics. full code Visit type - Emergency Visit Emergency Visit: Yes ED Registration Date: 04/25/18 Care time: The patient presented to the Emergency Department on the above date and was hospitalized for further evaluation of their emergent condition. - New Patient This patient is new to me today: No - Critical Care Critical Care patient: No - Discharge Referral Referred to [facility] No
[2018-04-26] MEDS ORDERED: CEPHALEXIN MONOHYDRATE 500 MG CAPSULE (UD) PO ONE (18:15)
[2018-04-27] MEDS: CEFAZOLIN 2 GM/D5W 2 GM/50 ML ML IVPB SCH ×3 (01:24→17:48)
[2018-04-27] MEDS ORDERED: CEPHALEXIN MONOHYDRATE 500 MG CAPSULE (UD) PO ONE (02:00)
[2018-04-27] MEDS: DOCUSATE SODIUM 100 MG CAPSULE (FP) PO SCH ×3 (06:23→21:50)
[2018-04-27] MEDS: metoPROLOL SUCCINATE 25 MG TAB.SR.24H (FP) PO SCH (10:04)
[2018-04-27] MEDS: FUROSEMIDE 40 MG TABLET (FP) PO SCH (10:04)
[2018-04-27] MEDS: AMIODARONE HCL 200 MG TABLET (FP) PO SCH (10:04)
[2018-04-27] MEDS: APIXABAN 5 MG TABLET PO SCH ×2 (10:05→21:50)
[2018-04-27] MEDS: LACTOBACILLUS ACIDOPHILUS 1 TABLET PO SCH (10:05)
[2018-04-27] MEDS: amLODIPine BESYLATE 5 MG TABLET (FP) PO SCH (10:06)
[2018-04-27] MEDS: SPIRONOLACTONE 25 MG TABLET (FP) PO SCH (10:06)
[2018-04-27 10:38] LABS: BASO % 0.6 % (0-2.0); EOS % 1.9 % (0-4.5); HEMATOCRIT 35.8 % (32.4-45.2); HEMOGLOBIN 11.5 GM/dL (10.7-15.3); LYMPH % 16.5 % (8-40); MCH 26.8 pg (25.7-33.7); MCHC 32.1 g/dl (32.0-36.0); MEAN CELL VOLUME 83.6 fl (80-96); MEAN PLT VOLUME 9.2 fl (7.5-11.1); MONO % 9.4 % (3.8-10.2); NEUT % 71.6 % (42.8-82.8); PLATELET COUNT 186 K/MM3 (134-434); RBC 4.28 M/mm3 (3.60-5.2); RDW 18.5 % (11.6-15.6); WHITE BLOOD COUNT 4.3 K/mm3 (4.0-10.0)
[2018-04-27 11:46] LABS: ALBUMIN 3.1 g/dl (3.4-5.0); ALK PHOS 163 U/L (45-117); ANION GAP 8 MMOL/L (8-16); BILIRUBIN,TOTAL 0.5 mg/dL (0.2-1); BLOOD UREA NITROGEN 21 mg/dL (7-18); CALCIUM 8.8 mg/dL (8.5-10.1); CHLORIDE 104 mmol/L (98-107); CO2 29 mmol/L (21-32); CREATININE 0.8 mg/dL (0.55-1.3); GLUCOSE,RANDOM 76 mg/dL (74-106); MAGNESIUM 2.1 mg/dL (1.8-2.4); POTASSIUM 4.3 mmol/L (3.5-5.1); SGOT/AST 29 U/L (15-37); SGPT/ALT 19 U/L (13-61); SODIUM 141 mmol/L (136-145); TOT PROT 6.6 g/dl (6.4-8.2)
--- NOTE | 2018-04-27 13:28 | PN ---
Progress Note, Physician History of Present Illness: Seated in bed No c/o leg pain at rest No fever/ chills BC no growth - Current Medication List Current Medications: Active Medications Acetaminophen (Tylenol -) 650 mg PO Q4H PRN PRN Reason: PAIN Last Admin: 04/24/18 15:53 Dose: 650 mg Amiodarone HCl (Cordarone -) 200 mg PO DAILY [facility] Last Admin: 04/27/18 10:04 Dose: 200 mg Amlodipine Besylate (Norvasc -) 5 mg PO DAILY [facility] Last Admin: 04/27/18 10:06 Dose: Not Given Apixaban (Eliquis -) 5 mg PO BID [facility] Last Admin: 04/27/18 10:05 Dose: 5 mg Docusate Sodium (Colace -) 100 mg PO TID [facility] Last Admin: 04/27/18 06:23 Dose: 100 mg Furosemide (Lasix -) 40 mg PO DAILY [facility] Last Admin: 04/27/18 10:04 Dose: 40 mg Cefazolin Sodium/Dextrose (Ancef 2 Gm Premixed Ivpb -) 2 gm in 50 mls @ 100 mls /hr IVPB Q8H-IV [facility] Last Admin: 04/27/18 10:05 Dose: 100 mls/hr Lactobacillus Acidophilus (Bacid -) 1 tab PO DAILY [facility] Last Admin: 04/27/18 10:05 Dose: 1 tab Metoprolol Succinate (Toprol Xl -) 25 mg PO DAILY [facility] Last Admin: 04/27/18 10:04 Dose: 25 mg Oxycodone HCl (Roxicodone -) 5 mg PO Q6H PRN PRN Reason: PAIN LEVEL 7 - 10 Last Admin: 04/25/18 22:21 Dose: 5 mg Spironolactone (Aldactone -) 25 mg PO DAILY [facility] Last Admin: 04/27/18 10:06 Dose: 25 mg - Objective Vital Signs: Vital Signs Temperature 98.2 F 04/27/18 10:00 Pulse Rate 48 L 04/27/18 10:00 Respiratory Rate 18 04/27/18 10:00 Blood Pressure 116/67 04/27/18 10:00 O2 Sat by Pulse Oximetry (%) 99 04/26/18 21:00 Constitutional: Yes: No Distress, Obese Cardiovascular: Yes: Regular Rate and Rhythm, S1, S2 Respiratory: Yes: CTA Bilaterally Gastrointestinal: Yes: Normal Bowel Sounds, Soft. No: Tenderness Extremities: Yes: Other (+ Lymphedema + erythema/ warmth distal R LE) Labs: CBC, BMP 04/27/18 09:24 04/27/18 09:24 Assessment/Plan R LE cellulitis B/L LE lymphedema Continue cefazolin
--- NOTE | 2018-04-27 16:18 | DS ---
Physical Exam: SUBJECTIVE: Patient seen and examined at the bedside. feels well, in no acute distress. OBJECTIVE: Vital Signs Period Temp Pulse Resp BP Sys/Ruiz Pulse Ox Last 24 Hr 97.6 F-98.2 F 47-73 16-18 116-159/57-71 99-99 PHYSICAL EXAM GENERAL: Awake, alert, and fully oriented, in no acute distress. HEAD: no signs of trauma THROAT: Oropharynx clear without exudates. Moist mucous membranes. NECK: No JVD, supple LUNGS: Breath sounds equal, clear to auscultation bilaterally. No wheezes. HEART: Regular rate and rhythm, normal S1 and S2 without murmur. ABDOMEN: Soft, nontender, not distended, normoactive bowel sounds, no guarding. EXTREMITIES: 2+ pulses, bilateral lower ext lymphedema with a painful bump on right medial maleous that is tender to touch. No drainage noted. NEUROLOGICAL: Normal speech. Gross sensation intact throughout LABS Laboratory Results - last 24 hr 04/27/18 04/27/18 09:24 09:24 WBC 4.3 RBC 4.28 Hgb 11.5 Hct 35.8 MCV 83.6 MCH 26.8 MCHC 32.1 RDW 18.5 H Plt Count 186 MPV 9.2 Absolute Neuts (auto) 3.1 Neutrophils % 71.6 Lymphocytes % 16.5 D Monocytes % 9.4 Eosinophils % 1.9 Basophils % 0.6 Nucleated RBC % 0 Sodium 141 Potassium 4.3 Chloride 104 Carbon Dioxide 29 Anion Gap 8 BUN 21 H Creatinine 0.8 Creat Clearance w eGFR > 60 Random Glucose 76 Calcium 8.8 Magnesium 2.1 Total Bilirubin 0.5 AST 29 ALT 19 Alkaline Phosphatase 163 H Total Protein 6.6 Albumin 3.1 L HOSPITAL COURSE: Date of Admission:04/25/18 Date of Discharge: 04/27/18 ASSESSMENT/PLAN: Patient is a 57 year old female with a significant past medical history of recurrent cellulitis, chronic lower extremity lymphedema, atrial fibrillation ( on eliquis, Amiodarone) and CHF. Patient presents to the ED with c/o of right lower extremity pain. Patient was recently at [facility] for RLE cellulitis and was treated with cefazolin and discharged on Keflex. At home she began to notice a boggy area on the right lower ext that was painful to touch. She went to see her PCP who advised her to come to the ED. ID: Right lower extremity pain/cellulitis. Recently treated for celluilitis of RLE , now presents with worsening pain with failed outpatient PO antibiotics. Negative for DVT. On Cefazolin day 4 per ID. No fracture of lower extremity seen on xray Encourage compression stockings for chronic lymphedema. elevate lower extremity as tolerated Pain managed with oxycodone Card: Atrial fib. On Eliquis 5mg bid On Metoprolol CHF. On Lasix daily, sprinolactone Hypertension, controlled. On Toprol, amiodorone Bradycardia: patient was on amiodorone 200mg BID, was decreased by her pest locator to amiodorine 200mg daily. Had a holter monitor on last week. Outpatient follow up. Morbid obesity. outpatient follow up with bariatric specialist recommended. dietary following. fen tolerating PO monitor electrolytes low salt diet prophy on eliquis discharge planning, consider transitioning to PO antibiotics. full code Discharge Summary Reason For Visit: CELLULITIS OF ANKLE Current Active Problems Cellulitis (Acute) Condition: Good - Instructions Referrals: Juaquin Link MD [Primary Care Provider] - - Home Medications Comprehensive Discharge Medication List: Ambulatory Orders Apixaban [Eliquis -] 5 mg PO BID #60 tablet 11/28/15 Acetaminophen [Tylenol .Regular Strength -] 650 mg PO Q6H PRN #0 tablet Furosemide [Lasix -] 40 mg PO DAILY #30 tablet 04/05/17 Metoprolol Succinate [Toprol XL -] 25 mg PO DAILY 02/16/18 Amlodipine Besylate 5 mg PO DAILY 04/23/18 Spironolactone [Aldactone] 25 mg PO DAILY 04/23/18 Amiodarone HCl [Cordarone -] 200 mg PO DAILY 04/24/18 - Discharge Referral Referred to [facility] No
--- NOTE | 2018-04-27 16:23 | PN ---
Physical Exam: SUBJECTIVE: Patient seen and examined OBJECTIVE: Vital Signs Period Temp Pulse Resp BP Sys/Ruiz Pulse Ox Last 24 Hr 97.6 F-98.2 F 47-73 16-18 116-159/57-71 99-99 GENERAL: Awake, alert, and fully oriented, in no acute distress. HEAD: no signs of trauma THROAT: Oropharynx clear without exudates. Moist mucous membranes. NECK: No JVD, supple LUNGS: Breath sounds equal, clear to auscultation bilaterally. No wheezes. HEART: Regular rate and rhythm, normal S1 and S2 without murmur. ABDOMEN: Soft, nontender, not distended, normoactive bowel sounds, no guarding. EXTREMITIES: 2+ pulses, bilateral lower ext lymphedema with a painful bump on right medial maleous that is tender to touch. No drainage noted. NEUROLOGICAL: Normal speech. Gross sensation intact throughout Laboratory Results - last 24 hr 04/27/18 04/27/18 09:24 09:24 WBC 4.3 RBC 4.28 Hgb 11.5 Hct 35.8 MCV 83.6 MCH 26.8 MCHC 32.1 RDW 18.5 H Plt Count 186 MPV 9.2 Absolute Neuts (auto) 3.1 Neutrophils % 71.6 Lymphocytes % 16.5 D Monocytes % 9.4 Eosinophils % 1.9 Basophils % 0.6 Nucleated RBC % 0 Sodium 141 Potassium 4.3 Chloride 104 Carbon Dioxide 29 Anion Gap 8 BUN 21 H Creatinine 0.8 Creat Clearance w eGFR > 60 Random Glucose 76 Calcium 8.8 Magnesium 2.1 Total Bilirubin 0.5 AST 29 ALT 19 Alkaline Phosphatase 163 H Total Protein 6.6 Albumin 3.1 L Active Medications Generic Name Dose Route Start Last Admin Trade Name Freq PRN Reason Stop Dose Admin Acetaminophen 650 mg 04/24/18 02:11 04/24/18 15:53 Tylenol - PO 650 mg Q4H PRN Administration PAIN Amiodarone HCl 200 mg 04/24/18 10:00 04/27/18 10:04 Cordarone - PO 200 mg DAILY SHIRLENE Administration Amlodipine Besylate 5 mg 04/24/18 10:00 04/27/18 10:06 Norvasc - PO Not Given DAILY SHIRLENE Apixaban 5 mg 04/24/18 10:00 04/27/18 10:05 Eliquis - PO 5 mg BID SHIRLENE Administration Docusate Sodium 100 mg 04/24/18 22:00 04/27/18 15:37 Colace - PO 100 mg TID SHIRLENE Administration Furosemide 40 mg 04/24/18 10:00 04/27/18 10:04 Lasix - PO 40 mg DAILY SHIRLENE Administration Cefazolin Sodium/Dextrose 2 gm in 50 mls @ 100 mls/hr 04/24/18 13:00 10:05 Ancef 2 Gm Premixed Ivpb - IVPB 100 mls/hr Q8H-IV SHIRLENE Administration Lactobacillus Acidophilus 1 tab 04/25/18 13:30 04/27/18 10:05 Bacid - PO 1 tab DAILY SHIRLENE Administration Metoprolol Succinate 25 mg 04/24/18 10:00 04/27/18 10:04 Toprol Xl - PO 25 mg DAILY SHIRLENE Administration Oxycodone HCl 5 mg 04/24/18 14:32 04/25/18 22:21 Roxicodone - PO 5 mg Q6H PRN Administration PAIN LEVEL 7 - 10 Spironolactone 25 mg 04/24/18 10:00 04/27/18 10:06 Aldactone - PO 25 mg DAILY SHIRLENE Administration ASSESSMENT/PLAN: Patient is a 57 year old female with a significant past medical history of recurrent cellulitis, chronic lower extremity lymphedema, atrial fibrillation ( on eliquis, Amiodarone) and CHF. Patient presents to the ED with c/o of right lower extremity pain. Patient was recently at [facility] for RLE cellulitis and was treated with cefazolin and discharged on Keflex. At home she began to notice a boggy area on the right lower ext that was painful to touch. She went to see her PCP who advised her to come to the ED. ID: Right lower extremity pain/cellulitis. Recently treated for celluilitis of RLE , now presents with worsening pain with failed outpatient PO antibiotics. Negative for DVT. On Cefazolin day 4 per ID. No fracture of lower extremity seen on xray Encourage compression stockings for chronic lymphedema. elevate lower extremity as tolerated Pain managed with oxycodone Card: Atrial fib. On Eliquis 5mg bid On Metoprolol CHF. On Lasix daily, sprinolactone Hypertension, controlled. On Toprol, amiodorone Bradycardia: patient was on amiodorone 200mg BID, was decreased by her indian blanket weaver to amiodorine 200mg daily. Had a holter monitor on last week. Outpatient follow up with indian blanket weaver. Morbid obesity. outpatient follow up with bariatric specialist recommended. dietary following. fen tolerating PO monitor electrolytes low salt diet prophy on eliquis discharge planning, consider transitioning to PO antibiotics. full code Visit type - Emergency Visit Emergency Visit: Yes ED Registration Date: 04/25/18 Care time: The patient presented to the Emergency Department on the above date and was hospitalized for further evaluation of their emergent condition. - New Patient This patient is new to me today: No - Critical Care Critical Care patient: No - Discharge Referral Referred to [facility] No
[2018-04-28] MEDS: CEFAZOLIN 2 GM/D5W 2 GM/50 ML ML IVPB SCH ×3 (02:38→18:19)
[2018-04-28] MEDS: DOCUSATE SODIUM 100 MG CAPSULE (FP) PO SCH ×3 (06:41→21:17)
[2018-04-28 07:44] LABS: EOS % 2.8 % (0-4.5); HEMATOCRIT 32.7 % (32.4-45.2); HEMOGLOBIN 10.6 GM/dL (10.7-15.3); LYMPH % 24.3 % (8-40); MCH 26.7 pg (25.7-33.7); MCHC 32.4 g/dl (32.0-36.0); MEAN CELL VOLUME 82.4 fl (80-96); MEAN PLT VOLUME 8.9 fl (7.5-11.1); MONO % 11.7 % (3.8-10.2); NEUT % 60.2 % (42.8-82.8); PLATELET COUNT 171 K/MM3 (134-434); RBC 3.97 M/mm3 (3.60-5.2); RDW 18.6 % (11.6-15.6); WHITE BLOOD COUNT 3.6 K/mm3 (4.0-10.0)
[2018-04-28 08:54] LABS: ALBUMIN 2.8 g/dl (3.4-5.0); ALK PHOS 140 U/L (45-117); ANION GAP 9 MMOL/L (8-16); BILIRUBIN,TOTAL 0.3 mg/dL (0.2-1); BLOOD UREA NITROGEN 25 mg/dL (7-18); CALCIUM 8.4 mg/dL (8.5-10.1); CHLORIDE 106 mmol/L (98-107); CO2 28 mmol/L (21-32); CREATININE 0.9 mg/dL (0.55-1.3); GLUCOSE,RANDOM 65 mg/dL (74-106); SGOT/AST 18 U/L (15-37); SGPT/ALT 12 U/L (13-61); SODIUM 142 mmol/L (136-145); TOT PROT 6.1 g/dl (6.4-8.2)
[2018-04-28] MEDS: LACTOBACILLUS ACIDOPHILUS 1 TABLET PO SCH (10:20)
[2018-04-28] MEDS: APIXABAN 5 MG TABLET PO SCH ×2 (10:20→21:16)
--- NOTE | 2018-04-28 12:34 | PN ---
Physical Exam: SUBJECTIVE: Patient seen and examined at bedside. Had episode of nausea this morning. Left leg is at baseline. Right leg is much better, swelling and redness have resolved. Heart rate is usually low, no dizziness, palpitations, lightheadedness. Able to get out of bed and ambulate independently and without symptoms. OBJECTIVE: Vital Signs Period Temp Pulse Resp BP Sys/Ruiz Pulse Ox Last 24 Hr 97.9 F-98.1 F 44-73 16-20 102-152/51-71 99 GENERAL: The patient is awake, alert, and fully oriented, in no acute distress. LUNGS: Breath sounds equal, clear to auscultation bilaterally, no wheezes, no crackles, no accessory muscle use. HEART: Regular rate and rhythm, S1, S2 ABDOMEN: Soft, nontender, nondistended EXTREMITIES: extensive bilateral lymphedema; area of tenderness over right lateral malleolus; skin is dry and intact, no erythema, no warmth NEUROLOGICAL: Cranial nerves II through XII grossly intact. Normal speech, steady gait Laboratory Results - last 24 hr 04/28/18 04/28/18 07:15 07:15 WBC 3.6 L RBC 3.97 Hgb 10.6 L Hct 32.7 MCV 82.4 MCH 26.7 MCHC 32.4 RDW 18.6 H Plt Count 171 MPV 8.9 Absolute Neuts (auto) 2.2 Neutrophils % 60.2 Lymphocytes % 24.3 D Monocytes % 11.7 H Eosinophils % 2.8 Basophils % 1.0 Nucleated RBC % 0 Sodium 142 Potassium 4.0 Chloride 106 Carbon Dioxide 28 Anion Gap 9 BUN 25 H Creatinine 0.9 Creat Clearance w eGFR > 60 Random Glucose 65 L Calcium 8.4 L Total Bilirubin 0.3 AST 18 ALT 12 L Alkaline Phosphatase 140 H Total Protein 6.1 L Albumin 2.8 L Active Medications Generic Name Dose Route Start Last Admin Trade Name Freq PRN Reason Stop Dose Admin Acetaminophen 650 mg 04/24/18 02:11 04/24/18 15:53 Tylenol - PO 650 mg Q4H PRN Administration PAIN Amiodarone HCl 200 mg 04/24/18 10:00 04/27/18 10:04 Cordarone - PO 200 mg DAILY SHIRLENE Administration Amlodipine Besylate 5 mg 04/24/18 10:00 04/27/18 10:06 Norvasc - PO Not Given DAILY SHIRLENE Apixaban 5 mg 04/24/18 10:00 04/28/18 10:20 Eliquis - PO 5 mg BID SHIRLENE Administration Docusate Sodium 100 mg 04/24/18 22:00 04/28/18 06:41 Colace - PO 100 mg TID SHIRLENE Administration Furosemide 40 mg 04/24/18 10:00 04/27/18 10:04 Lasix - PO 40 mg DAILY SHIRLENE Administration Cefazolin Sodium/Dextrose 2 gm in 50 mls @ 100 mls/hr 04/24/18 13:00 10:19 Ancef 2 Gm Premixed Ivpb - IVPB 100 mls/hr Q8H-IV SHIRLENE Administration Lactobacillus Acidophilus 1 tab 04/25/18 13:30 04/28/18 10:20 Bacid - PO 1 tab DAILY SHIRLENE Administration Metoprolol Succinate 25 mg 04/24/18 10:00 04/27/18 10:04 Toprol Xl - PO 25 mg DAILY SHIRLENE Administration Oxycodone HCl 5 mg 04/24/18 14:32 04/25/18 22:21 Roxicodone - PO 5 mg Q6H PRN Administration PAIN LEVEL 7 - 10 Spironolactone 25 mg 04/24/18 10:00 04/27/18 10:06 Aldactone - PO 25 mg DAILY SHIRLENE Administration ASSESSMENT/PLAN 57 year-old female with a PMH significant for HTN, diastolic HF, aortic stenosis , afib on Eliquis, chronic bilateral lower extremity lymphedema, and recurrent cellulitis. Paroxysmal afib with slow RVR/sinus bradycardia --rate to low 40s on ToprolXL 25mg started [address] Reddy; request consult to review dosing --continue amiodarone, Eliquis Diastolic heart failure --04/28 Echo: in bradycardic rhythm during exam; LV normal, EF 65%, impaired LV relaxation; RV normal; LAE; mild to moderate MR; mild TR; pHTN; moderate , mild AI; mild PI; mildly dilated ascending aorta --continue lasix, spironolactone Hypertension --BP stable --continue amlodipine, lasix, spironolactone Right lower extremity cellulitis --clinically improved --continue cefazolin FEN Fluids: PO intake adequate Electrolytes: replete as indicated Nutrition: low sodium DVT prophylaxis: on Eliquis Physical therapy Dispo: continues to require inpatient care. Full code. Visit type - Emergency Visit Emergency Visit: Yes ED Registration Date: 04/25/18 Care time: The patient presented to the Emergency Department on the above date and was hospitalized for further evaluation of their emergent condition. - New Patient This patient is new to me today: Yes Date on this admission: 04/30/18 - Critical Care Critical Care patient: No
[2018-04-28] MEDS: amLODIPine BESYLATE 5 MG TABLET (FP) PO SCH (12:38)
[2018-04-28] MEDS: metoPROLOL SUCCINATE 25 MG TAB.SR.24H (FP) PO SCH (12:38)
[2018-04-28] MEDS: SPIRONOLACTONE 25 MG TABLET (FP) PO SCH (12:39)
[2018-04-28] MEDS: AMIODARONE HCL 200 MG TABLET (FP) PO SCH (12:39)
[2018-04-28] MEDS: FUROSEMIDE 40 MG TABLET (FP) PO SCH (12:40)
--- NOTE | 2018-04-28 17:04 | ECHO ---
Name: STEWART LIU Exam:Adult Echocardiogram Study Date: 04/28/2018 02:48 PM Age: 57 yrs Reason For Study: a-fib Height: 68 in Weight: 370 lb BSA: 2.7 m2 Procedure A complete two-dimensional transthoracic echocardiogram was performed (2D, M-mode, Doppler and color flow Doppler). The patient was in a bradycardic rhythm during the exam. Left Ventricle The left ventricular size, thickness and function are normal. Ejection Fraction = 65%. The transmitra l spectral Doppler flow pattern is suggestive of impaired LV relaxation. Right Ventricle The right ventricle is normal in size and function. Atria The left atrium is mildly dilated. Right atrial size is normal. Mitral Valve There is mild mitral valve thickening. There is mild to moderate mitral annular calcification. There is mild to moderate mitral regurgitation. Tricuspid Valve The tricuspid valve is not well visualized, but is grossly normal. There is mild tricuspid regurgitat ion. Right ventricular systolic pressure is elevated at 40-50mmHg. Aortic Valve There is moderate aortic sclerosis.;. Moderate valvular aortic stenosis. Ao Max PG 53/ mean PG 31. Mi ld aortic regurgitation. Pulmonic Valve The pulmonic valve is not well visualized. Mild pulmonic valvular regurgitation. Great Vessels The aortic root is normal size. Mildly dilated ascending aorta. Pericardium/Pleura There is no pericardial effusion. Interpretation Summary The left ventricular size, thickness and function are normal The transmitral spectral Doppler flow pattern is suggestive of impaired LV relaxation. The left atrium is mildly dilated. There is mild to moderate mitral annular calcification. There is mild to moderate mitral regurgitation. There is mild tricuspid regurgitation. Right ventricular systolic pressure is elevated at 40-50mmHg. Moderate valvular aortic stenosis. Mild aortic regurgitation. Mildly dilated ascending aorta. MD Ryan Phelps 04/28/2018 05:04 PM
[2018-04-29] MEDS: CEFAZOLIN 2 GM/D5W 2 GM/50 ML ML IVPB SCH ×2 (01:24→10:07)
[2018-04-29] MEDS: DOCUSATE SODIUM 100 MG CAPSULE (FP) PO SCH ×2 (06:13→14:25)
[2018-04-29] MEDS: FUROSEMIDE 40 MG TABLET (FP) PO SCH (10:06)
[2018-04-29] MEDS: SPIRONOLACTONE 25 MG TABLET (FP) PO SCH (10:06)
[2018-04-29] MEDS: AMIODARONE HCL 200 MG TABLET (FP) PO SCH (10:06)
[2018-04-29] MEDS: APIXABAN 5 MG TABLET PO SCH (10:06)
[2018-04-29] MEDS: LACTOBACILLUS ACIDOPHILUS 1 TABLET PO SCH (10:06)
--- NOTE | 2018-04-29 13:48 | CON.CARD ---
Consult Consult Specialty:: Cardiology Referred by:: hospitalist Reason for Consultation:: sinus bradycardia - History of Present Illness History of Present Illness: Patient is a 57 year old female with longstanding history of hypertension, hypertensive cardiovascular disease, morbid obesity, calcific aortic valvular disease, paroxysmal atrial fibrillation, mitral valvular disease, mitral regurgitation, tricuspid regurgitation, history of pulmonary hypertension, obstructive sleep apnea syndrome, history of bronchial asthma, chronic venous stasis insufficiency with chronic bilateral lower extremity edema. Patient admitted with cellulitis involving the right lower extremity. During hospitalization she was found to have a pulse rate in the low 40s while she was resting. She is mostly asymptomatic except on one occasion she had transient lightheadedness. On ambulating the patient, her pulse went up to 81 bpm with minimal exertion. No history of recent palpitations, dizziness, presyncope or syncope. Chronic exertional dyspnea, no paroxysmal nocturnal dyspnea or orthopnea. PAST HISTORY: 1. As mentioned in the history of present illness. 2. History of endometrial and ovarian carcinoma. SURGICAL HISTORY: 1. Status post tonsillectomy. 2. Status post hysterectomy and oophorectomy. 3. Status post repair of a ventral hernia. 4. Status post gastric bypass surgery. 5. Status post laparoscopic surgery for left knee muscle tear. 6. Status post cholecystectomy. 7. Status post surgery for intestinal adhesions. SOCIAL HISTORY: Disabled, , without children, a non-smoker. She has a rare alcoholic drink and occasional cup of coffee. FAMILY HISTORY: Father in his 70s of a myocardial infarction. He was a heavy smoker and alcoholic. Mother in her 60s also of a myocardial infarction. She was a diabetic and had ESRD. She has two brothers and one sister. One brother of a drug overdose. ALLERGIES: None Active Medications Acetaminophen (Tylenol -) 650 mg PO Q4H PRN PRN Reason: PAIN Last Admin: 04/24/18 15:53 Dose: 650 mg Amiodarone HCl (Cordarone -) 200 mg PO DAILY [facility] Last Admin: 04/29/18 10:06 Dose: 200 mg Amlodipine Besylate (Norvasc -) 5 mg PO DAILY [facility] Last Admin: 04/28/18 12:38 Dose: Not Given Apixaban (Eliquis -) 5 mg PO BID [facility] Last Admin: 04/29/18 10:06 Dose: 5 mg Docusate Sodium (Colace -) 100 mg PO TID [facility] Last Admin: 04/29/18 06:13 Dose: 100 mg Furosemide (Lasix -) 40 mg PO DAILY [facility] Last Admin: 04/29/18 10:06 Dose: 40 mg Cefazolin Sodium/Dextrose (Ancef 2 Gm Premixed Ivpb -) 2 gm in 50 mls @ 100 mls /hr IVPB Q8H-IV [facility] Last Admin: 04/29/18 10:07 Dose: 100 mls/hr Lactobacillus Acidophilus (Bacid -) 1 tab PO DAILY [facility] Last Admin: 04/29/18 10:06 Dose: 1 tab Metoprolol Succinate (Toprol Xl -) 25 mg PO DAILY [facility] Last Admin: 04/28/18 12:38 Dose: Not Given Oxycodone HCl (Roxicodone -) 5 mg PO Q6H PRN PRN Reason: PAIN LEVEL 7 - 10 Last Admin: 04/25/18 22:21 Dose: 5 mg Spironolactone (Aldactone -) 25 mg PO DAILY [facility] Last Admin: 04/29/18 10:06 Dose: 25 mg REVIEW OF SYSTEMS: Constitutional: No history of chills, fever, or night sweats reported. No history of unintentional weight loss. HEENT: No history of headaches, diplopia, blurred vision. No history of epistaxis, hoarseness, vertigo, tinnitus, or deafness. Cardiovascular: See HPI. Respiratory: No history of cough, expectoration or hemoptysis. No history of recent shortness of breath. Gastrointestinal: No history o nausea, vomiting, melena or hematemesis. No history of abdominal pain or discomfort. No history of change in bowel habits. Neurological: No history of seizures, syncope, focal weakness. No history of lightheadedness or dizziness. No history of paresthesias. Endocrine: No history of intolerance to cold or warm weather. No history of polyuria or polydipsia. Musculoskeletal: No known history of myalgias or arthralgias. Hematological: No history of anemia, bleeding or ecchymosis. Lymphatics: No history o lymphadenopathy or masses. 57 year old female was in no acute distress. No pallor, cyanosis, clubbing, or jaundice. Last Vital Signs Temp Pulse Resp BP Pulse Ox 98.1 F 53 At rest and 81 bpm with exertion 18 117/77 100 04/29/18 10:00 04/29/18 10:00 04/29/18 10:00 04/29/18 10:04/28/18 21:00 PHYSICAL EXAM: NECK: Supple, no JVD, negative HJR, carotids were 2+ and upstrokes were normal, bilateral radiation of murmur, no thyromegaly appreciated. HEART: PMI was not localized, no heaves or thrills, S1 was normal S2 A2 was slightly reduced. Ejection systolic murmur grade II/ was heard at the secon right intercostal space along the lower left sternal border. No diastolic murmurs or gallops were appreciated. LUNGS: Clear on auscultation bilaterally. ABDOMEN: Obese, Soft, nontender, no hepatosplenomegaly appreciated, and no palpable masses were felt. EXTREMITIES: Bilateral brawny nonpitting edema involving both lower extremities. There was induration around the right ankle and lower calf. Dorsalis pedis and posterior tibial pulses were not palpated. Pulses in the upper extremities were equal. CBC, BMP 04/28/18 07:15 04/28/18 07:15 Impression: 1. Resting sinus bradycardia most likely related to medication. 2. Hypertension, hypertensive cardiovascular disease. 3. Paroxysmal atrial fibrillation. 4. Obstructive sleep apnea syndrome. 5. Chronic lower extremity venous insufficiency. 6. Varicose veins of the lower extremities. 7. Calcific aortic valvular disease, probable moderate aortic stenosis. 8. Mitral valvular disease with mitral regurgitation. 9. Morbid obesity. Recommendations: 1. Dose of metoprolol succinate could be reduced to 12.5 mg PO daily and if bradycardia is pronounced, could be tapered off. 2. Outpatinet holter monitor. 3. Patient must be on CPAP. 4. Check thyroid function tests. 5. Follow up in the office in 1-2 weeks, earlier if necessary. Thank you. Sincerely, Devan Hooper MD, [facility]. - Past Medical History Cardio/Vascular: Yes: AFIB, Aortic Stenosis, HTN, Mitral Insufficiency, Pulmonary Hypertension Pulmonary: Yes: Asthma, Sleep Apnea Gastrointestinal: Yes: Other (ventral hernia, small bowel obstruction). 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 History of Recent Travel: No Home Medications - Allergies Allergies/Adverse Reactions: Allergies Allergy/AdvReac Type Severity Reaction Status Date / Time No Known Allergies Allergy Verified 04/23/18 14:05 - Home Medications Home Medications: Ambulatory Orders Apixaban [Eliquis -] 5 mg PO BID #60 tablet 11/28/15 Acetaminophen [Tylenol .Regular Strength -] 650 mg PO Q6H PRN #0 tablet Furosemide [Lasix -] 40 mg PO DAILY #30 tablet 04/05/17 Metoprolol Succinate [Toprol XL -] 25 mg PO DAILY 02/16/18 Amlodipine Besylate 5 mg PO DAILY 04/23/18 Spironolactone [Aldactone] 25 mg PO DAILY 04/23/18 Amiodarone HCl [Cordarone -] 200 mg PO DAILY 04/24/18 Family Disease History - Family Disease History Family Disease History: Diabetes: Mother, Heart Disease: Mother, CA: Father ( colon) Vital Signs: Vital Signs Temperature 98.1 F 04/29/18 10:00 Pulse Rate 53 L 04/29/18 10:00 Respiratory Rate 18 04/29/18 10:00 Blood Pressure 117/77 04/29/18 10:00 O2 Sat by Pulse Oximetry (%) 100 04/28/18 21:00 - Other Data Labs, Other Data: CBC, BMP 04/28/18 07:15 04/28/18 07:15
[2018-04-29 14:28] VITALS: BP 181/92; PULSE 51; TEMP 97.8
--- NOTE | 2018-04-29 21:24 | DS ---
Physical Exam: SUBJECTIVE: Patient seen and examined OBJECTIVE: Vital Signs Period Temp Pulse Resp BP Sys/Ruiz Pulse Ox Last 24 Hr 97.8 F-98.4 F 49-53 16-20 117-181/74-92 100 PHYSICAL EXAM GENERAL: The patient is awake, alert, and fully oriented, in no acute distress. HEAD: Normal with no signs of trauma. EYES: PERRL, extraocular movements intact, sclera anicteric, conjunctiva clear. ENT: Ears normal, nares patent, oropharynx clear without exudates, moist mucous membranes. NECK: Trachea midline, full range of motion, supple. LUNGS: Breath sounds equal, clear to auscultation bilaterally, no wheezes, no crackles, no accessory muscle use. HEART: Regular rate and rhythm, S1, S2 without murmur, rub or gallop. ABDOMEN: Soft, nontender, nondistended, normoactive bowel sounds, no guarding, no rebound, no hepatosplenomegaly, no masses. EXTREMITIES: 2+ pulses, warm, well-perfused, no edema. NEUROLOGICAL: Cranial nerves II through XII grossly intact. Normal speech, gait not observed. PSYCH: Normal mood, normal affect. SKIN: Warm, dry, normal turgor, no rashes or lesions noted. LABS HOSPITAL COURSE: Date of Admission:04/25/18 Date of Discharge: 04/29/18 Minutes to complete discharge: 35 Discharge Summary Reason For Visit: CELLULITIS OF ANKLE Condition: Improved - Instructions Diet, Activity, Other Instructions: Two prescriptions have been sent to your pharmacy. One is for cephalexin which is an antibiotic. Take this medication as directed and be sure to finish all the medication. The second prescription is for a LOWER dose of ToprolXL. Take this LOWER dose (12.5mg) starting tomorrow and stop taking the higher dose (25mg ) previously prescribed. You should follow up with your carburetor specialist Dr. Reddy within 1 to 2 weeks. Return to the emergency department for any new or worsening symptoms. Referrals: Juaquin Link MD [Primary Care Provider] - Devan Reddy MD [Staff Physician] - 2 Weeks Disposition: HOME - Home Medications Comprehensive Discharge Medication List: Ambulatory Orders Apixaban [Eliquis -] 5 mg PO BID #60 tablet 11/28/15 Acetaminophen [Tylenol .Regular Strength -] 650 mg PO Q6H PRN #0 tablet Furosemide [Lasix -] 40 mg PO DAILY #30 tablet 04/05/17 Amlodipine Besylate 5 mg PO DAILY 04/23/18 Spironolactone [Aldactone -] 25 mg PO DAILY 04/23/18 Amiodarone HCl [Cordarone -] 200 mg PO DAILY 04/24/18 Cephalexin [Keflex] 500 mg PO QID #20 capsule 04/29/18 Metoprolol Succinate [Toprol Xl] 12.5 mg PO DAILY #30 tab.er.24h 04/29/18 This patient is new to me today: Yes Date on this admission: 04/29/18 Emergency Visit: Yes ED Registration Date: 04/25/18 Care time: The patient presented to the Emergency Department on the above date and was hospitalized for further evaluation of their emergent condition. Critical Care patient: No - Discharge Referral Referred to [facility] Med P.C.: No
== END 2018-04-29 15:29 | disposition home or self-care (01) | DRG 603 ==
LOC: JER 13:59 → JERBED 19:54 → UNDOADMOB 19:54 → INTOOBSV 19:54 → JERBED 04-24 00:18 → J8W 04-24 12:51 → OBSVTOIN 04-25 15:28
PROVIDERS: ADMIT Internal Medicine; ATTEND Nurse Practitioner Acute Care
DX: L03.115 Cellulitis of right lower limb (principal); Z68.43 Body mass index [BMI] 50.0-59.9, adult; I50.30 Unspecified diastolic (congestive) heart failure; E66.01 Morbid (severe) obesity due to excess calories; G47.33 Obstructive sleep apnea (adult) (pediatric); J45.909 Unspecified asthma, uncomplicated; I11.0 Hypertensive heart disease with heart failure; I89.0 Lymphedema, not elsewhere classified; I48.0 Paroxysmal atrial fibrillation; I27.20 Pulmonary hypertension, unspecified; I08.3 Combined rheumatic disorders of mitral, aortic and tricuspid valves; R00.1 Bradycardia, unspecified; I83.93 Asymptomatic varicose veins of bilateral lower extremities; Z98.84 Bariatric surgery status; Z85.43 Personal history of malignant neoplasm of ovary; Z85.42 Personal history of malignant neoplasm of other parts of uterus
CPT/HCPCS: 36415; 71045-TC-FY; 73610-TC-RT-FY; 80053; 81003; 82550; 83735; 84100; 84443; 84484; 85025; 87040; 87086; 90688; 93005; 93010; 93306-TC; 93971-TC; 99284-25; G0008; G0378

== ENCOUNTER 2018-06-30 14:37 | Inpatient (IN) | payer BC ==
--- NOTE | 2018-06-30 14:48 | PDOC ---
Rapid Medical Evaluation Chief Complaint: Pain Time Seen by Provider: 06/30/18 14:41 Medical Evaluation: Allergies Allergy/AdvReac Type Severity Reaction Status Date / Time No Known Allergies Allergy Verified 06/30/18 14:44 Vital Signs Temp Pulse Resp BP Pulse Ox 97.9 F 75 16 202/95 H 100 06/30/18 14:41 06/30/18 14:41 06/30/18 14:41 06/30/18 14:41 06/30/18 14:41 06/30/18 14:45 pt c/o: rt leg redness with bumps now spreading to rt lower leg, no fever, no sob pt on brief exam: noted warm erythematous area to lateral aspect of rt calf and 2 small raised circular areas to rt upper thigh, elevated BP ( on meds but has not taken them x 2 weeks) pt ordered for: labs, us. iv Pt to proceed to the ED Discharge Disposition - Diagnosis Cellulitis - Referrals Referrals: Juaquin Link MD [Primary Care Provider] - - Patient Instructions - Post Discharge Activity
--- NOTE | 2018-06-30 15:23 | PDOC ---
History of Present Illness <Alena Ruiz Tristan - Last Filed: 06/30/18 18:53> - History of Present Illness Initial Comments: 06/30/18 15:23 Ms. Nichols is a 57 yo female w/ pmh of HTN, CHF, lymphedema, afib (on eliquis ), aortic stenosis, obesity, prior SBO requiring surgery, uterine and ovarian cancer (uterus/ovaries removed '), and multiple skin infections requiring ABX who presents for evaluation of 2 week history of painful red area on legs. Patient reports this is similar to prior cellulitic episodes however she has never had it cover her legs to this extent. The patient denies chest pain, shortness of breath, headache and dizziness. Denies fever, chills, nausea, vomit, diarrhea and constipation. Denies dysuria, frequency, urgency and hematuria. <Edy Parnell - Last Filed: 06/30/18 19:24> - General Chief Complaint: Pain Stated Complaint: PAIN,RT LEG Time Seen by Provider: 06/30/18 14:41 Past History <RuizAlena Tristan - Last Filed: 06/30/18 18:53> - Past Medical History Anemia: No Asthma: Yes (CONTROLLED UNLESS PT GETS A COLD) Cancer: Yes (UTERINE AND OVARIAN. CA FREE 2008) Cardiac Disorders: Yes (AFIB 12/2015 / AORTIC STENOSIS) CVA: No COPD: No CHF: No DVT: No Dementia: No Diabetes: No GI Disorders: No Disorders: No HTN: Yes Hypercholesterolemia: No Liver Disease: No Seizures: No Thyroid Disease: No - Surgical History Abdominal Surgery: Yes (HERNIA REPAIR AFTER ALESSANDRO 2011,GASTRIC BYPASS) Appendectomy: No Cardiac Surgery: No Cholecystectomy: Yes (2002) GI Surgery: Yes (BYPASS 2001) Lung Surgery: No Neurologic Surgery: No Orthopedic Surgery: No - Immunization History Immunization Up to Date: Yes (FLU UTD) - Suicide/Smoking/Psychosocial Hx Smoking Status: No Smoking History: Never smoked Have you smoked in the past 12 months: No Number of Cigarettes Smoked Daily: 0 Information on smoking cessation initiated: No Hx Alcohol Use: No Drug/Substance Use Hx: No Substance Use Type: None Hx Substance Use Treatment: No <Edy Parnell - Last Filed: 06/30/18 19:24> - Past Medical History Allergies/Adverse Reactions: Allergies Allergy/AdvReac Type Severity Reaction Status Date / Time No Known Allergies Allergy Verified 06/30/18 14:44 Home Medications: Ambulatory Orders Apixaban [Eliquis -] 5 mg PO BID #60 tablet 11/28/15 Acetaminophen [Tylenol .Regular Strength -] 650 mg PO Q6H PRN #0 tablet Furosemide [Lasix -] 40 mg PO DAILY #30 tablet 04/05/17 Spironolactone [Aldactone -] 25 mg PO DAILY 04/23/18 Amiodarone HCl [Cordarone -] 200 mg PO DAILY 04/24/18 Metoprolol Succinate [Toprol Xl] 12.5 mg PO DAILY #30 tab.er.24h 04/29/18 Review of Systems - Review of Systems Comments:: 06/30/18 15:23 GENERAL/CONSTITUTIONAL: No fever or chills. No weakness. HEAD, EYES, EARS, NOSE AND THROAT: No change in vision. No ear pain or discharge. No sore throat. CARDIOVASCULAR: No chest pain or shortness of breath RESPIRATORY: No cough, wheezing, or hemoptysis. GASTROINTESTINAL: No nausea, vomiting, diarrhea or constipation. GENITOURINARY: No dysuria, frequency, or change in urination. MUSCULOSKELETAL: No joint or muscle swelling or pain. No neck or back pain. SKIN: Painful rash as described. NEUROLOGIC: No headache, vertigo, loss of consciousness, or change in strength/ sensation. ENDOCRINE: No increased thirst. No abnormal weight change HEMATOLOGIC/LYMPHATIC: No anemia, easy bleeding, or history of blood clots. ALLERGIC/IMMUNOLOGIC: No hives or skin allergy. <Edy Parnell - Last Filed: 06/30/18 19:24> *Physical Exam - Vital Signs Last Vital Signs Temp Pulse Resp BP Pulse Ox 97.9 F 75 16 202/95 H 100 06/30/18 14:41 06/30/18 14:41 06/30/18 14:41 06/30/18 14:41 06/30/18 17:20 <Alena Ruiz - Last Filed: 06/30/18 18:53> - Vital Signs Last Vital Signs Temp Pulse Resp BP Pulse Ox 97.9 F 75 16 202/95 H 100 06/30/18 14:41 06/30/18 14:41 06/30/18 14:41 06/30/18 14:41 06/30/18 14:41 - Physical Exam Comments: 06/30/18 15:24 GENERAL: Patient morbidly obese. Awake, alert, and fully oriented, in no acute distress HEAD: No signs of trauma, normocephalic, atraumatic EYES: PERRLA, EOMI, sclera anicteric, conjunctiva clear ENT: Auricles normal inspection, hearing grossly normal, nares patent, oropharynx clear without exudates. Moist mucosa NECK: Normal ROM, supple, no lymphadenopathy, JVD, or masses LUNGS: No distress, speaks full sentences, clear to auscultation bilaterally HEART: Regular rate and rhythm, normal S1 and S2, no murmurs, rubs or gallops, peripheral pulses normal and equal bilaterally. ABDOMEN: Soft, nontender, normoactive bowel sounds. No guarding, no rebound. No masses EXTREMITIES: Normal inspection, Normal range of motion, no edema. No clubbing or cyanosis. NEUROLOGICAL: Cranial nerves II through XII grossly intact. Normal speech, normal gait, no focal sensorimotor deficits SKIN: +Impressive skin rash noted bilaterally to lower extremities. Erythematous , warm to touch. <Edy Parnell - Last Filed: 06/30/18 19:24> Moderate Sedation - Procedure Monitoring Vital Signs: Procedure Monitoring Vital Signs Temperature 97.9 F 06/30/18 14:41 Pulse Rate 75 06/30/18 14:41 Respiratory Rate 16 06/30/18 14:41 Blood Pressure 202/95 H 06/30/18 14:41 O2 Sat by Pulse Oximetry (%) 100 06/30/18 17:20 <Alena Ruiz - Last Filed: 06/30/18 18:53> - Procedure Monitoring Vital Signs: Procedure Monitoring Vital Signs Temperature 97.9 F 06/30/18 14:41 Pulse Rate 75 06/30/18 14:41 Respiratory Rate 16 06/30/18 14:41 Blood Pressure 202/95 H 06/30/18 14:41 O2 Sat by Pulse Oximetry (%) 100 06/30/18 14:41 <Edy Parnell - Last Filed: 06/30/18 19:24> ED Treatment Course - LABORATORY CBC & Chemistry Diagram: 06/30/18 15:54 06/30/18 15:54 - ADDITIONAL ORDERS Additional order review: Laboratory Results 06/30/18 06/30/18 06/30/18 17:19 15:54 15:54 Sodium 139 Potassium 4.4 Chloride 105 Carbon Dioxide 27 Anion Gap 7 L BUN 18 Creatinine 1.3 Creat Clearance w eGFR 42.37 Random Glucose 82 Lactic Acid 1.4 Calcium 8.5 Total Bilirubin 0.6 AST 23 ALT 16 Alkaline Phosphatase 155 H Total Protein 7.0 Albumin 3.3 L Urine Color Yellow Urine Appearance Clear Urine pH 5.0 Ur Specific [place] 1.021 Urine Protein Negative Urine Glucose (UA) Negative Urine Ketones Negative Urine Blood Negative Urine Nitrite Negative Urine Bilirubin Negative Urine Urobilinogen Negative Ur Leukocyte Esterase Negative 06/30/18 15:54 RBC 4.24 MCV 84.5 MCHC 33.8 RDW 16.3 H MPV 9.0 Neutrophils % 79.1 D Lymphocytes % 11.6 D Monocytes % 8.0 Eosinophils % 0.8 Basophils % 0.5 - Medications Given in the ED: ED Medications Discontinued Medications Generic Name Dose Route Start Last Admin Trade Name Jolie PRN Reason Stop Dose Admin Ceftriaxone Sodium 1,000 mg 06/30/18 16:53 06/30/18 17:25 Rocephin - IVPUSH 06/30/18 16:54 1,000 mg ONCE ONE Administration Vancomycin HCl 500 mg/ 100 mls @ 100 mls/hr 06/30/18 16:55 06/30/18 17:52 Dextrose IVPB 06/30/18 17:54 100 mls/hr ONCE ONE Administration Protocol Morphine Sulfate 4 mg 06/30/18 17:24 06/30/18 17:40 Morphine Injection - IVPUSH 06/30/18 17:25 4 mg ONCE ONE Administration <Alena Ruiz - Last Filed: 06/30/18 18:53> - LABORATORY CBC & Chemistry Diagram: 06/30/18 15:54 06/30/18 15:54 <Edy Parnell - Last Filed: 06/30/18 19:24> Medical Decision Making - Medical Decision Making 06/30/18 16:20 Ms. Nichols is a 57 yo female w/ pmh as described who presents for evaluation of symptoms concerning for cellulitis. According workup started. 06/30/18 16:56 Vancomycin / Ceftriaxone started. On repeat interview patient also endorses not taking medications for 2 weeks. No reason given. 06/30/18 18:44 PCP contacted for admission. Currently waiting callback. 06/30/18 19:06 Discussed patient with PCP who would like admitted to hospitalist for overnight care. Hospitalist paged. 06/30/18 19:24 Patient admitted to hospitalist. <Edy Parnell - Last Filed: 06/30/18 19:24> *DC/Admit/Observation/Transfer - Discharge Dispostion Decision to Admit order: Yes Decision to Admit order Date/Time: 06/30/18 18:53 <Alena Ruiz - Last Filed: 06/30/18 18:53> - Discharge Dispostion Decision to Admit order: Yes <Edy Parnell - Last Filed: 06/30/18 19:24> Diagnosis at time of Disposition: Cellulitis Qualifiers: Site of cellulitis: unspecified site Qualified Code(s): L03.90 - Cellulitis, unspecified - Discharge Dispostion Condition at time of disposition: Fair - Referrals Referrals: Juaquin Link MD [Primary Care Provider] - - Patient Instructions - Post Discharge Activity
[2018-06-30 16:10] LABS: BASO % 0.5 % (0-2.0); EOS % 0.8 % (0-4.5); HEMATOCRIT 35.8 % (32.4-45.2); HEMOGLOBIN 12.1 GM/dL (10.7-15.3); LYMPH % 11.6 % (8-40); MCH 28.6 pg (25.7-33.7); MCHC 33.8 g/dl (32.0-36.0); MEAN CELL VOLUME 84.5 fl (80-96); NEUT % 79.1 % (42.8-82.8); PLATELET COUNT 215 K/MM3 (134-434); RBC 4.24 M/mm3 (3.60-5.2); RDW 16.3 % (11.6-15.6); WHITE BLOOD COUNT 5.7 K/mm3 (4.0-10.0)
--- NOTE | 2018-06-30 16:35 | PDOC ---
Attending Attestation - HPI HPI: 06/30/18 17:00 Simone Lopez is a 57 yo female w/ pmh of HTN, CHF, chronic lymphedema, afib (on eliquis and amiodarone), Aortic stenosis, obesity, prior SBO requiring surgery, uterine and ovarian cancer (uterus/ovaries removed '09), and multiple skin infections requiring ABX who presents for skin rash and redness to right upper thigh x 2 weeks. similar to her previous episodes of cellulitis but covers a greater area this time in her right upper thigh. She also notes that she hasnt been taking her medications for 2 weeks. No trauma or noted injuries. No fever or chills. Allergies: NKA PCP: Juaquin Link <Sukhwinder Louis - Last Filed: 06/30/18 17:00> - Resident Resident Name: Edy Parnell - ED Attending Attestation I have performed the following: I have examined & evaluated the patient, The case was reviewed & discussed with the resident, I agree w/resident's findings & plan - Physicial Exam PE: 06/30/18 17:20 NAD, well appearing, MMM, nl conjunctiva, anicteric; neck supple. lungs clear, irregularly irregular, +holosystolic murmur abdomen soft nontender. US x4, no focal neuro deficits. +bilateral lymphedema and large legs and venous dermatitis changes, Right upper thigh with erythema and warmth and tender nodules. normal color for ethnicity, WWP. - Medical Decision Making 06/30/18 17:27 Simone Lopez Vitals with +hypertension. No fever or toxic/systemic findings DDx superficial thrombophlebitis, cellulitis, osteomyelitis, soft tissue infection, infected lymph node vs nodule. Lymphedema. DVT ED course: area demarcated, IV abx with ceftriaxone/vancomycin. Analgesia, then repeat VS. Septic workup pending. Labs and lytes, UA, CBC normal, reassuring. Duplex to r/o dvt, more likely infection and treated. duplex ordered. blood cx ordered and pending. repeat VS improved after analgesia. EKG with TWI/flattening in I, AVL, no elevations. no cp or sob. doubt ACS or angina sx w/o cp or sob, and with leg infection brewing. Dispo: admit for IV abx cellulitis with medical comorbidities and poor compliance. Pt agreeable to impression and plan. spoke with PMD, admit to hospitalist service. 06/30/18 18:56 <Alena Ruiz - Last Filed: 06/30/18 18:57> Heart Score/ECG Review - ECG Impressions Normal ECG: No Ischemic Changes: Yes Comment:: 06/30/18 18:55 EKG normal sinus rhythm, no interval abnormalities, narrow QRS, ST and T wave segments and morphology normal. Nonspecific T wave abnormalities - new changes in prior EKG, with TWF/inversion in I, AVL <Alena Ruiz - Last Filed: 06/30/18 18:57>
[2018-06-30 16:37] LABS: ALBUMIN 3.3 g/dl (3.4-5.0); ALK PHOS 155 U/L (45-117); ANION GAP 7 MMOL/L (8-16); BILIRUBIN,TOTAL 0.6 mg/dL (0.2-1); BLOOD UREA NITROGEN 18 mg/dL (7-18); CALCIUM 8.5 mg/dL (8.5-10.1); CHLORIDE 105 mmol/L (98-107); CO2 27 mmol/L (21-32); CREATININE 1.3 mg/dL (0.55-1.3); GLUCOSE,RANDOM 82 mg/dL (74-106); POTASSIUM 4.4 mmol/L (3.5-5.1); SGOT/AST 23 U/L (15-37); SGPT/ALT 16 U/L (13-61); SODIUM 139 mmol/L (136-145)
[2018-06-30] MEDS ORDERED: VANCOMYCIN 500 MG in DEXTROSE 5%-WATER - 100 ML IVPB ONE (16:55)
[2018-06-30] MEDS ORDERED: VANCOMYCIN 1,500 MG in DEXTROSE 5%-WATER - 500 ML IVPB ONE (16:55)
[2018-06-30] MEDS ORDERED: CEFTRIAXONE 1 GM/50 ML BAG ONE (17:10)
[2018-06-30] MEDS ORDERED: VANCOMYCIN 1 GRAM (PRE-DOCKED) 2,000 MG/500 ML BAG IVPB ONE (17:10)
[2018-06-30] MEDS ORDERED: morphine CARPU-JECT 4 MG/1 ML DISP.SYRIN IVPUSH ONE (17:24)
[2018-06-30 17:29] LABS: URINE APPEARANCE CLEAR; URINE BILIRUBIN NEGATIVE (<2.0 mg/dL); URINE COLOR YELLOW; URINE GLUCOSE (UA) NEGATIVE (NEGATIVE); URINE KETONE NEGATIVE (NEGATIVE); URINE LEUK ESTERASE NEGATIVE (NEGATIVE); URINE NITRITE NEGATIVE (NEGATIVE); URINE PROTEIN NEGATIVE (NEGATIVE); URINE UROBILINOGEN NEGATIVE mg/dL (0.2-1.0)
[2018-06-30] MEDS ORDERED: morphine SULFATE 4 MG/ML VIAL ONE (17:31)
--- NOTE | 2018-06-30 19:50 | HP ---
Admitting History and Physical - Primary Care Physician PCP: Juaquin Link - Admission Chief Complaint: Bilateral Lower Extremity Cellulitis History of Present Illness: This is a 57 y/o woman with a significant medical history of: HTN, HLD, CHF, Afib (on Eliquis), , Lympedema, Uterine Ca, Ovarian Ca (completed Chemo and RT - in remission), Multiple Skin Infections. Who presents to the ED with lower extremity pain, swelling and redness x 2 weeks. Patient denies fever, chills, cough, SOB, CP, palpitations, AP, N/V/D, constipation, dysuria. History Source: Patient Limitations to Obtaining History: No Limitations - Past Medical History Cardiovascular: Yes: AFIB, Aortic Stenosis, HTN, Mitral Insufficiency, Pulmonary Hypertension Pulmonary: Yes: Asthma, Sleep Apnea Gastrointestinal: Yes: Other (ventral hernia, small bowel obstruction). 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 History of Recent Travel: No Home Medications - Allergies Allergies/Adverse Reactions: Allergies Allergy/AdvReac Type Severity Reaction Status Date / Time No Known Allergies Allergy Verified 06/30/18 14:44 - Home Medications Home Medications: Ambulatory Orders Apixaban [Eliquis -] 5 mg PO BID #60 tablet 11/28/15 Acetaminophen [Tylenol .Regular Strength -] 650 mg PO Q6H PRN #0 tablet Furosemide [Lasix -] 40 mg PO DAILY #30 tablet 04/05/17 Spironolactone [Aldactone -] 25 mg PO DAILY 04/23/18 Amiodarone HCl [Cordarone -] 200 mg PO DAILY 04/24/18 Metoprolol Succinate [Toprol Xl] 12.5 mg PO DAILY #30 tab.er.24h 04/29/18 Family Disease History - Family Disease History Family Disease History: Diabetes: Mother, Heart Disease: Mother, CA: Father ( colon) Review of Systems - Review of Systems Constitutional: reports: No Symptoms Eyes: reports: No Symptoms HENT: reports: No Symptoms Neck: reports: No Symptoms Cardiovascular: reports: Edema Respiratory: reports: No Symptoms Gastrointestinal: reports: No Symptoms Genitourinary: reports: No Symptoms Breasts: reports: No Symptoms Reported Musculoskeletal: reports: Extremity Pain, Joint Swelling, Muscle Weakness Integumentary: reports: Erythema, Lump Neurological: reports: No Symptoms Endocrine: reports: No Symptoms Hematology/Lymphatic: reports: No Symptoms Psychiatric: reports: Depression Physical Examination Vital Signs: Vital Signs Temperature 97.9 F 06/30/18 14:41 Pulse Rate 66 06/30/18 19:11 Respiratory Rate 16 06/30/18 14:41 Blood Pressure 155/83 06/30/18 19:11 O2 Sat by Pulse Oximetry (%) 98 06/30/18 19:11 Constitutional: Yes: No Distress, Calm, Obese Eyes: Yes: WNL, Conjunctiva Clear, EOM Intact, PERRL HENT: Yes: WNL, Atraumatic, Normocephalic Neck: Yes: WNL, Supple, Trachea Midline Cardiovascular: Yes: Regular Rate and Rhythm, S1, S2 Respiratory: Yes: WNL, Regular, CTA Bilaterally Gastrointestinal: Yes: Normal Bowel Sounds, Soft, Abdomen, Obese Breast(s): Yes: WNL Musculoskeletal: Yes: Joint Swelling Extremities: Yes: Erythema (b/l LE), Other (induration, tenderess to palpation R - anterior thigh, lower leg) Edema: Yes Edema: LLE: 2+, RLE: 2+ Peripheral Pulses WNL: Yes Peripheral Pulses: Left Doralis Pedis: 1+, Right Dorsalis Pedis: 1+ Integumentary: Yes: Erythema, Venous Stasis Changes Neurological: Yes: WNL, Alert, Oriented, Cran Nerves II-XII Intact ...Motor Strength: WNL Psychiatric: Yes: WNL, Alert, Oriented Labs: CBC, BMP 06/30/18 15:54 06/30/18 15:54 Laboratory Results - last 24 hr 06/30/18 06/30/18 06/30/18 15:54 15:54 15:54 WBC 5.7 RBC 4.24 Hgb 12.1 Hct 35.8 MCV 84.5 MCH 28.6 MCHC 33.8 RDW 16.3 H Plt Count 215 D MPV 9.0 Absolute Neuts (auto) 4.5 Neutrophils % 79.1 D Lymphocytes % 11.6 D Monocytes % 8.0 Eosinophils % 0.8 Basophils % 0.5 Nucleated RBC % 0 Sodium 139 Potassium 4.4 Chloride 105 Carbon Dioxide 27 Anion Gap 7 L BUN 18 Creatinine 1.3 Creat Clearance w eGFR 42.37 Random Glucose 82 Lactic Acid 1.4 Calcium 8.5 Total Bilirubin 0.6 AST 23 ALT 16 Alkaline Phosphatase 155 H Total Protein 7.0 Albumin 3.3 L Urine Color Urine Appearance Urine pH Ur Specific Elsie Urine Protein Urine Glucose (UA) Urine Ketones Urine Blood Urine Nitrite Urine Bilirubin Urine Urobilinogen Ur Leukocyte Esterase 06/30/18 17:19 WBC RBC Hgb Hct MCV MCH MCHC RDW Plt Count MPV Absolute Neuts (auto) Neutrophils % Lymphocytes % Monocytes % Eosinophils % Basophils % Nucleated RBC % Sodium Potassium Chloride Carbon Dioxide Anion Gap BUN Creatinine Creat Clearance w eGFR Random Glucose Lactic Acid Calcium Total Bilirubin AST ALT Alkaline Phosphatase Total Protein Albumin Urine Color Yellow Urine Appearance Clear Urine pH 5.0 Ur Specific Elsie 1.021 Urine Protein Negative Urine Glucose (UA) Negative Urine Ketones Negative Urine Blood Negative Urine Nitrite Negative Urine Bilirubin Negative Urine Urobilinogen Negative Ur Leukocyte Esterase Negative Intake & Output 06/28/18 06/29/18 06/30/18 07/01/18 23:59 23:59 23:59 23:59 Weight 166.468 kg Imaging - Results Chest X-ray: Report Reviewed, Image Reviewed EKG: Image Reviewed Problem List - Problems (1) Cellulitis Assessment/Plan: Blood Cultures-pending Vancomycin and Ceftriaxone given in ED Will continue Vancomycin Appreciate ID consult Monitor CBC, BMP Monitor vitals Code(s): L03.90 - CELLULITIS, UNSPECIFIED Qualifiers: Site of cellulitis: unspecified site Qualified Code(s): L03.90 - Cellulitis , unspecified (2) Thrombosis Assessment/Plan: Duplex of LE- acute thrombosis within right greater saphenous vein extending to the saphenofemoral junction Continue Eliquis Monitor closely with serial US Tylenol prn Morphine Sulfate judiciously for PS 7-10 Compression Stockings Elevate extremity Monitor vitals Code(s): I82.90 - ACUTE EMBOLISM AND THROMBOSIS OF UNSPECIFIED VEIN (3) Lymph edema Assessment/Plan: Continue diuretics Elevate extremities Code(s): I89.0 - LYMPHEDEMA, NOT ELSEWHERE CLASSIFIED (4) CHF (congestive heart failure) Assessment/Plan: Stable Chest Xray- cardiomegaly, no acute pathology Continue Lasix, Spironolactone Strict INOs Daily weigh Monitor BMP Monitor vitals Code(s): I50.9 - HEART FAILURE, UNSPECIFIED (5) Paroxysmal atrial fibrillation Assessment/Plan: EKG-reviewed [id number] 3 Continue Eliquis Code(s): I48.0 - PAROXYSMAL ATRIAL FIBRILLATION (6) Aortic stenosis, moderate Code(s): I35.0 - NONRHEUMATIC AORTIC (VALVE) STENOSIS (7) HTN (hypertension) Assessment/Plan: Not well controlled Secondary to non-vice president compliance BP Continue Metoprolol with parameters Monitor renal function Code(s): I10 - ESSENTIAL (PRIMARY) HYPERTENSION (8) Morbid obesity with BMI of 50.0-59.9, adult Assessment/Plan: s/p Gastric Bypass Carb Control Diet Code(s): E66.01 - MORBID (SEVERE) OBESITY DUE TO EXCESS CALORIES; Z68.43 - BODY MASS INDEX (BMI) 50-59.9, ADULT Assessment/Plan This is a 57 y/o woman with a PMHx of: HTN, CHF, Afib (on Eliquis), , Lymphedema, Uterine Ca, Ovarian Ca, Multiple Skin Infections. Admitted for Cellulitis of Lower Extremities, Thrombophlebitis for further evaluation of their emergent condition. Plan: FEN Fluid Restriction 1L Replete lytes prn Low Na Diet DVT ppx OOB TEDs Continue Eliquis Code Status: Full Code Dispo: Requires Inpatient Care Visit type - Emergency Visit Emergency Visit: Yes ED Registration Date: 06/30/18 Care time: The patient presented to the Emergency Department on the above date and was hospitalized for further evaluation of their emergent condition. - New Patient This patient is new to me today: Yes Date on this admission: 06/30/18 - Critical Care Critical Care patient: No
[2018-06-30] MEDS ORDERED: traMADol HCL 50 MG TABLET PO ONE (23:46)
[2018-06-30] MEDS ORDERED: traMADol HCL 50 MG TABLET ONE (23:58)
[2018-06-30] MEDS ORDERED: APIXABAN 5 MG TABLET PO ONE (23:59)
[2018-07-01] MEDS: APIXABAN 5 MG TABLET PO SCH ×3 (00:01→21:29)
[2018-07-01] MEDS ORDERED: morphine SULFATE 4 MG/ML VIAL IVPUSH ONE (02:19)
[2018-07-01] MEDS ORDERED: morphine CARPU-JECT 4 MG/1 ML DISP.SYRIN IVPUSH ONE (02:19)
[2018-07-01] MEDS ORDERED: morphine SULFATE 4 MG/ML VIAL ONE (02:28)
[2018-07-01 08:10] LABS: BASO % 0.8 % (0-2.0); EOS % 1.8 % (0-4.5); HEMATOCRIT 34.3 % (32.4-45.2); HEMOGLOBIN 10.9 GM/dL (10.7-15.3); LYMPH % 16.1 % (8-40); MCH 27.1 pg (25.7-33.7); MCHC 31.9 g/dl (32.0-36.0); MEAN CELL VOLUME 85.2 fl (80-96); MEAN PLT VOLUME 8.5 fl (7.5-11.1); MONO % 9.9 % (3.8-10.2); NEUT % 71.4 % (42.8-82.8); PLATELET COUNT 188 K/MM3 (134-434); RBC 4.02 M/mm3 (3.60-5.2); WHITE BLOOD COUNT 5.8 K/mm3 (4.0-10.0)
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
[2018-07-01 09:06] LABS: ANION GAP 7 MMOL/L (8-16); BLOOD UREA NITROGEN 18 mg/dL (7-18); CALCIUM 8.3 mg/dL (8.5-10.1); CHLORIDE 105 mmol/L (98-107); CO2 26 mmol/L (21-32); CREATININE 0.8 mg/dL (0.55-1.3); GLUCOSE,RANDOM 81 mg/dL (74-106); POTASSIUM 4.1 mmol/L (3.5-5.1); SODIUM 137 mmol/L (136-145)
[2018-07-01] MEDS ORDERED: VANCOMYCIN 1,250 MG in DEXTROSE 5%-WATER - 250 ML IVPB ONE (10:00)
[2018-07-01] MEDS ORDERED: VANCOMYCIN 1,250 MG in DEXTROSE 5%-WATER - 250 ML IVPB SCH (10:00)
[2018-07-01] MEDS: metoPROLOL SUCCINATE 25 MG TAB.SR.24H (FP) PO SCH (10:09)
[2018-07-01] MEDS: AMIODARONE HCL 200 MG TABLET (FP) PO SCH (10:10)
[2018-07-01] MEDS: oxyCODONE HCL 5 MG TABLET PO PRN ×2 (10:11→15:20)
[2018-07-01] MEDS: FUROSEMIDE 40 MG TABLET (FP) PO SCH (10:11)
[2018-07-01] MEDS: ACETAMINOPHEN 325 MG TABLET (FP) PO PRN ×2 (10:12→15:19)
[2018-07-01] MEDS: SPIRONOLACTONE 25 MG TABLET (FP) PO SCH (10:14)
--- NOTE | 2018-07-01 11:08 | CON.ID ---
Consult Consult Specialty:: infectious disease Referred by:: dr castellano Reason for Consultation:: patchy erythema of the right thigh - History of Present Illness Chief Complaint: right leg pain and erythema for two weeks History of Present Illness: 57 yo female pmh obesity, on eliquis for afib, hsitory of endometrial/ovarian cancer, recurrent rle cellulitis, chronic lymphedema of both legs presented with 2 weeks of right thigh pain and erythema, also notes patch of erythema left thigh no fevers no chills otherwise well she self d/ed all her meds two weeks ago in ED she had a duplex of her leg with acute thrombosis of the right greater saphenous vein given vancomycin and ceftriaxone in the ED no sob - History Source History Provided By: Patient, Medical Record Limitations to Obtaining History: No Limitations - Past Medical History Cardio/Vascular: Yes: AFIB, Aortic Stenosis, HTN, Mitral Insufficiency, Pulmonary Hypertension Pulmonary: Yes: Asthma, Sleep Apnea Gastrointestinal: Yes: Other (ventral hernia, small bowel obstruction). No: Ascites Hepatobiliary: Yes: Cholecystitis ...: No Heme/Onc: Yes: Cancer (endometrial and ovarain cancer- s/p chem and RT) Musculoskeletal: Yes: Other (carpal tunnel) - Past Surgical History Past Surgical History: Yes: Bariatric Surgery, Cholecystectomy, Hernia Repair, Hysterectomy, Oopherectomy Additional Surgical History: recent SBO - Alcohol/Substance Use Hx Alcohol Use: No History of Substance Use: reports: None - Smoking History Smoking history: Never smoked Have you smoked in the past 12 months: No Aproximately how many cigarettes per day: 0 - Social History Usual Living Arrangement: With Spouse ADL: Independent 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 History of Recent Travel: No Home Medications - Allergies Allergies/Adverse Reactions: Allergies Allergy/AdvReac Type Severity Reaction Status Date / Time No Known Allergies Allergy Verified 06/30/18 14:44 - Home Medications Home Medications: Ambulatory Orders Apixaban [Eliquis -] 5 mg PO BID #60 tablet 11/28/15 Acetaminophen [Tylenol .Regular Strength -] 650 mg PO Q6H PRN #0 tablet Furosemide [Lasix -] 40 mg PO DAILY #30 tablet 04/05/17 Spironolactone [Aldactone -] 25 mg PO DAILY 04/23/18 Amiodarone HCl [Cordarone -] 200 mg PO DAILY 04/24/18 Metoprolol Succinate [Toprol Xl] 12.5 mg PO DAILY #30 tab.er.24h 04/29/18 Family Disease History - Family Disease History Family Disease History: Diabetes: Mother, Heart Disease: Mother, CA: Father ( colon) Review of Systems - Review of Systems Constitutional: reports: No Symptoms. denies: Chills, Fever Eyes: reports: No Symptoms HENT: reports: No Symptoms Neck: reports: No Symptoms Cardiovascular: reports: No Symptoms. denies: Chest Pain Respiratory: reports: No Symptoms. denies: Cough, SOB Gastrointestinal: reports: No Symptoms Physical Exam Vital Signs: Vital Signs Temperature 98.0 F 07/01/18 03:42 Pulse Rate 64 07/01/18 06:25 Respiratory Rate 19 07/01/18 02:48 Blood Pressure 128/79 07/01/18 06:25 O2 Sat by Pulse Oximetry (%) 96 07/01/18 03:42 Constitutional: Yes: Well Nourished, No Distress, Calm, Other (obese) Eyes: Yes: Conjunctiva Clear HENT: Yes: Atraumatic, Normocephalic Neck: Yes: Supple Cardiovascular: Yes: Regular Rate and Rhythm, Murmur (3/6 radiating to neck) Respiratory: Yes: CTA Bilaterally Gastrointestinal: Yes: Normal Bowel Sounds, Abdomen, Obese. No: Tenderness, Rebound ...Rectal Exam: Yes: Deferred Extremities: Yes: Other (chronic venous stasis changes both lower extremites below the knee Right thigh with serpiginous erythema with tender varicosities left thigh with lateral area of erythema/discoloration) Peripheral Pulses WNL: Yes Psychiatric: Yes: Alert, Oriented Labs: CBC, BMP 07/01/18 06:30 07/01/18 06:30 cultures pending Imaging - Results Chest X-ray: Report Reviewed, Image Reviewed Problem List - Problems (1) Thrombophlebitis of right saphenous vein Code(s): I80.01 - PHLEBITIS AND THOMBOPHLB OF SUPERFIC VESSELS OF R LOW EXTREM (2) Cellulitis Code(s): L03.90 - CELLULITIS, UNSPECIFIED Qualifiers: Site of cellulitis: unspecified site Qualified Code(s): L03.90 - Cellulitis , unspecified (3) Morbid obesity with BMI of 50.0-59.9, adult Code(s): E66.01 - MORBID (SEVERE) OBESITY DUE TO EXCESS CALORIES; Z68.43 - BODY MASS INDEX (BMI) 50-59.9, ADULT Assessment/Plan suspect erythema ls due to acute thrombosis of the vein, but cannot explain the erythema of the other leg will treat with ancef no history of MRSA eliquis has been resumed to be seen by vascular surgery d/w PMD
--- NOTE | 2018-07-01 11:46 | EKG ---
Test Reason : Blood Pressure : / mmHG Vent. Rate : 071 BPM Atrial Rate : 071 BPM P-R Int : 154 ms QRS Dur : 124 ms QT Int : 448 ms P-R-T Axes : 097 -23 082 degrees QTc Int : 486 ms POOR DATA QUALITY, INTERPRETATION MAY BE ADVERSELY AFFECTED NORMAL SINUS RHYTHM LEFT VENTRICULAR HYPERTROPHY WITH QRS WIDENING AND REPOLARIZATION ABNORMALITY ABNORMAL ECG WHEN COMPARED WITH ECG OF 24-APR-2018 00:28, VENT. RATE HAS INCREASED BY [address] NO LONGER ELEVATED IN LATERAL LEADS INVERTED T WAVES HAVE REPLACED NONSPECIFIC T WAVE ABNORMALITY IN LATERAL LEADS Confirmed by THEODORE ENGLISH, LESA ([id number]) on 07/01/2018 11:46:01 AM Referred By: Confirmed By:LESA JAIMES MD
[2018-07-01] MEDS ORDERED: DEXTROSE 5%-WATER - 50 ML IVPB ONE ×2 (11:53→17:21)
[2018-07-01] MEDS ORDERED: ceFAZolin SODIUM 1 GM VIAL ONE ×2 (11:53→17:21)
[2018-07-01] MEDS: CEFAZOLIN 1 GM in DEXTROSE 5%-WATER - 50 ML IVPB SCH ×2 (12:08→18:02)
--- NOTE | 2018-07-01 14:51 | CONSULT ---
Consultation: REQUESTING PROVIDER: Dr. Link CONSULT REQUEST: We have been asked to medically evaluate this patient for Thrombophilia. HISTORY OF PRESENT ILLNESS: Patient is a 57 year old female with a PMHx of Recurrent Cellulitis, HTN, Atrial Fibrillation (On eliquis), Diastolic CHF, aortic stenosis, Uterine/ Ovarian cancer, chronic Lymphedema bilaterally who presented to the hospital complaining of right thigh pain and bilateral erythema for the last two weeks to the point it was difficult to ambulate and very painful. She also noticed a "hard" erythemetous patch on her right thigh. Patient reports she stopped taking her medications, including Eliquis, two weeks ago. She states she was being noncompliant and stopped taking it. Patient also mentioned that she had two falls in the last two months due to her left knee pain, for which she saw ortho and gave her a cane to stabilize her gait, as well as cortisone shots. Patient otherwise denies any fever, chills, nausea, vomiting, abdominal pain, chest pain, palpitations, shortness of breath, dysuria, hematuria, melena, hemotochezia. Patient denies any recent travel or immobilization. States she was on her feet a lot last week. Denies any hormone therapy, steroid use, or family history of blood clots or blood disorders. Patient does report a history of having a "Blood clot" in her Lower extremities (Unsure which side) when she was 22 years old due to a soft ball injury, which she was placed on Warfarin for but had to discontinue it due to her "body being sensitive" to it. Patient also mentioned having an IVC filter placed in 2001 when she had her gastric bypass done Patient last had a mammogram 2 years ago Patient last had a colonoscopy done >10-15 years ago Patient last had Pap smear >1 year ago Patient reports having two rounds of Chemotherapy and RT back in 2008 In the ED patient had Duplex of bilateral legs and was found to have an acute thrombosis of the right greater Saphenous vein. She was given Vancomycin and Ceftriaxone for cellulitis and started back on her Eliquis for AC PMHx: Recurrent Cellulitis HTN Aortic Stenosis Atrial Fibrillation (On Eliquis) Diastolic CHF Uterine/Ovarian cancer Chronic Lymphedema PSHx: Gastric Bypass 2002 Laparoscopic Cholecystecomy 2002 ALESSANDRO and BSO 2009 Ventral Hernia Repair 2011 Laparoscopic lysis of adhesions 2016 Left Knee Arthroscopy 2017 Social Hx: Disabled. and Lives with and brother. 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 Ambulates with a cane Denies smoking Denies drugs Denies alcohol use Family Hx: Father- from [place] at 70's, Melanoma and colon cancer Mother- from [place] at 60's, Diabetes and ESRD Half Sister- Breast Cancer ALLERGIES: NKDA REVIEW OF SYSTEMS: CONSTITUTIONAL: Absent: fever, chills, diaphoresis, generalized weakness, malaise, loss of appetite, weight change HEENT: Absent: rhinorrhea, nasal congestion, throat pain, throat swelling, difficulty swallowing, mouth swelling, ear pain, eye pain, visual changes CARDIOVASCULAR: Absent: chest pain, syncope, palpitations, irregular heart rate, lightheadedness , peripheral edema RESPIRATORY: Absent: cough, shortness of breath, dyspnea with exertion, orthopnea, wheezing, stridor, hemoptysis GASTROINTESTINAL: Absent: abdominal pain, abdominal distension, nausea, vomiting, diarrhea, constipation, melena, hematochezia GENITOURINARY: Absent: dysuria, frequency, urgency, hesitancy, hematuria, flank pain, genital pain MUSCULOSKELETAL: Left knee pain Absent: myalgia, arthralgia, joint swelling, back pain, neck pain SKIN: Erythema and swelling of right thigh Absent: rash, itching, pallor HEMATOLOGIC/IMMUNOLOGIC: Lymphedema Absent: easy bleeding, easy bruising, lymphadenopathy, frequent infections ENDOCRINE: Absent: unexplained weight gain, unexplained weight loss, heat intolerance, cold intolerance NEUROLOGIC: Absent: headache, focal weakness or paresthesias, dizziness, unsteady gait, seizure, mental status changes, bladder or bowel incontinence PSYCHIATRIC: Absent: anxiety, depression, suicidal or homicidal ideation, hallucinations. PHYSICAL EXAMINATION Vital Signs Temperature 98.5 F 07/01/18 15:23 Pulse Rate 61 07/01/18 15:23 Respiratory Rate 20 07/01/18 15:23 Blood Pressure 142/93 07/01/18 15:23 O2 Sat by Pulse Oximetry (%) 97 07/01/18 09:00 PHYSICAL EXAMINATION: GENERAL: Awake, alert, and fully oriented, in no acute distress. HEAD: Normal with no signs of trauma. EYES: Pupils equal, round and reactive to light, extraocular movements intact, sclera anicteric, conjunctiva clear. ENT:Oropharynx clear without exudates. Moist mucous membranes. NECK: Normal range of motion, supple without lymphadenopathy, JVD, or masses. LUNGS: CTA B/L with no wheezes, and no crackles. No accessory muscle use. HEART: Regular rate and rhythm, normal S1 and S2 (+) 2/6 Ejection systolic murmur heard at the right second intercostal space. BREASTS: No discoloration, retraction, or masses felt. No nipple discharge ABDOMEN: Soft, morbidly obese, nontender, not distended, normoactive bowel sounds, no guarding, no rebound, no masses. No hepatomegaly or splenomegaly. MUSCULOSKELETAL: No CVA tenderness. UPPER EXTREMITIES: No peripheral edema. LOWER EXTREMITIES: Medial right knee tenderness upon light palpation with erythema and swelling of the right thigh. Lateral left thigh erythema and ecchymosis NEUROLOGICAL: Cranial nerves II-XII intact. Normal speech. PSYCHIATRIC: Cooperative. Good eye contact. Appropriate mood and affect. SKIN: Chronic bilateral stasis dermatitis w/ lichenification and lymphedema Laboratory Results 07/01/18 06:30 07/01/18 06:30 Active Medications Generic Name Dose Route Start Last Admin Trade Name Freq PRN Reason Stop Dose Admin Acetaminophen 650 mg 06/30/18 23:43 07/01/18 10:12 Tylenol - PO 650 mg Q6H PRN Administration FEVER Amiodarone HCl 200 mg 07/01/18 10:00 07/01/18 10:10 Cordarone - PO 200 mg DAILY SHIRLENE Administration Apixaban 5 mg 06/30/18 23:45 07/01/18 10:09 Eliquis - PO 5 mg BID SHIRLENE Administration Furosemide 40 mg 07/01/18 10:00 07/01/18 10:11 Lasix - PO 40 mg DAILY SHIRLENE Administration Cefazolin Sodium 1 gm/ 50 mls @ 100 mls/hr 07/01/18 11:30 07/01/18 12:08 Dextrose IVPB 100 mls/hr Q8H-IV SHIRLENE Administration Metoprolol Succinate 12.5 mg 07/01/18 10:00 07/01/18 10:09 Toprol Xl - PO 12.5 mg DAILY SHIRLENE Administration Oxycodone HCl 5 mg 07/01/18 08:22 07/01/18 10:11 Roxicodone - PO 5 mg Q6H PRN Administration PAIN LEVEL 7 - 10 Spironolactone 25 mg 07/01/18 10:00 07/01/18 10:14 Aldactone - PO 25 mg DAILY SHIRLENE Administration ASSESSMENT/PLAN: Patient is a 57 year old female who presented for worsening right thigh pain and erythema after stopping her Eliquis two weeks ago. Patient had Duplex done , which revealed acute thrombosis of the right greater Saphenous vein. We were consulted for further evaluation and recommendations. Problem List: Acute thrombosis of the right greater Saphenous Vein History of Uterine/Ovarian cancer Recurrent Cellulitis Chronic Lymphedema HTN Aortic Stenosis Atrial Fibrillation (On Eliquis) Diastolic CHF PLAN: -Patient likely had provoked DVT due noncompliance with her Eliquis. However, patient has extensive history and family history of malignancies with no recent age appropriate malignancy screening such as colonoscopy and mammogram. Chest CT done done 03/2018 with no acute pathology. -Continue Eliquis 5mg BID, however it has been suggested by to avoid the use of Eliquis in patients with BMI >40 due to the lack of clinical data in this population. Visit type - Emergency Visit Emergency Visit: Yes ED Registration Date: 06/30/18 Care time: The patient presented to the Emergency Department on the above date and was hospitalized for further evaluation of their emergent condition. - New Patient This patient is new to me today: Yes Date on this admission: 07/01/18 - Critical Care Critical Care patient: No
--- NOTE | 2018-07-01 16:34 | CONSULT ---
Consult - History of Present Illness History of Present Illness: 57 year old woman with long history of lymphedema of both legs. She is unable to use compression due to severe swelling and obesity. She is now admitted with tenderness and erythema across the upper thigh and calf. She had been on Eliquis for atrial fibrillation but stopped 2 weeks ago. An ultrasound showed thrombosis of the saphenous vein without DVT. - Past Medical History Cardio/Vascular: Yes: AFIB, Aortic Stenosis, HTN, Mitral Insufficiency, Pulmonary Hypertension Pulmonary: Yes: Asthma, Sleep Apnea Gastrointestinal: Yes: Other (ventral hernia, small bowel obstruction). No: Ascites Hepatobiliary: Yes: Cholecystitis ...: No Musculoskeletal: Yes: Other (carpal tunnel) - Past Surgical History Past Surgical History: Yes: Bariatric Surgery, Cholecystectomy, Hernia Repair, Hysterectomy, Oopherectomy Additional Surgical History: recent SBO - Alcohol/Substance Use Hx Alcohol Use: No History of Substance Use: reports: None - Smoking History Smoking history: Never smoked Have you smoked in the past 12 months: No Aproximately how many cigarettes per day: 0 - Social History Usual Living Arrangement: With Spouse ADL: Independent 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 History of Recent Travel: No Home Medications - Allergies Allergies/Adverse Reactions: Allergies Allergy/AdvReac Type Severity Reaction Status Date / Time No Known Allergies Allergy Verified 06/30/18 14:44 - Home Medications Home Medications: Ambulatory Orders Apixaban [Eliquis -] 5 mg PO BID #60 tablet 11/28/15 Acetaminophen [Tylenol .Regular Strength -] 650 mg PO Q6H PRN #0 tablet Furosemide [Lasix -] 40 mg PO DAILY #30 tablet 04/05/17 Spironolactone [Aldactone -] 25 mg PO DAILY 04/23/18 Amiodarone HCl [Cordarone -] 200 mg PO DAILY 04/24/18 Metoprolol Succinate [Toprol Xl] 12.5 mg PO DAILY #30 tab.er.24h 04/29/18 Family Disease History - Family Disease History Family Disease History: Diabetes: Mother, Heart Disease: Mother, CA: Father ( colon) Physical Exam Vital Signs: Vital Signs Temperature 98.5 F 07/01/18 15:23 Pulse Rate 61 07/01/18 15:23 Respiratory Rate 20 07/01/18 15:23 Blood Pressure 142/93 07/01/18 15:23 O2 Sat by Pulse Oximetry (%) 97 07/01/18 09:00 Constitutional: Yes: Obese Extremities: Yes: Other (Massive swelling of both thighs with induration of the lower calves and ankles. Induration and erythema over varicose veins of the right anterior thigh and calf. Feet warm.) Labs: CBC, BMP 07/01/18 06:30 07/01/18 06:30 Problem List - Problems (1) Thrombophlebitis of right saphenous vein Assessment/Plan: Acute phlebitis of right leg anterior saphenous varicose veins. No DVT by Duplex. No fever. Normal WBC. Resumption of Eliquis for anticoagulation. Warm compress to phlebitic veins. No indication for antibiotics for phlebitis. I recommended she try to get CircAid to help with calf edema. Code(s): I80.01 - PHLEBITIS AND THOMBOPHLB OF [facility] [facility] OF [facility]
--- NOTE | 2018-07-01 20:40 | PN ---
Teaching Attending Note Name of Resident: Luisana Cortes ATTENDING PHYSICIAN STATEMENT I saw and evaluated the patient. I reviewed the resident's note and discussed the case with the resident. I agree with the resident's findings and plan as documented. ASSESSMENT AND PLAN: Patient is a 57 year old female with morbid obesity. who presented for worsening right thigh pain and erythema after stopping her Eliquis( which she was on for afib) two weeks ago. Patient had Duplex done, which revealed acute thrombosis of the right greater Saphenous vein with involvement of the saphenofemoral junction. Problem List: Acute thrombosis of the right greater Saphenous Vein History of Uterine cancer 2008 s/p surgery/chemo/RT and adjuvant chemotherapy -- -treated at [facility] Recurrent Cellulitis Chronic Lymphedema ? POST RT morbid obesity HTN Aortic Stenosis Atrial Fibrillation (On Eliquis) Diastolic CHF Remote h/o DVT at age 22 ---had hematuria from coumadin and took it on;y for a very brief perio superficial vein thrombosis with extension into jxn with deep vein-- saphenofemoral junction discussed paucity of data on use of NOACS in paient with BMI > 40 --but they are still being used and there is some retrospetive data. discussed this with patient she is very reluctant to be bridged to coumadin given her past experience Also discussed lovenox or arixtra as alternatives wants to coninue eliquis ---reheck duplex in 2 weeks . if there arisesac oncern for progression on eliquis will switch to lovenox will discuss with Dr. Reddy from cardiology
[2018-07-01] MEDS ORDERED: PROCHLORPERAZINE INJECTION 10 MG/2 ML VIAL IVPB ONE (21:39)
[2018-07-02] MEDS ORDERED: DEXTROSE 5%-WATER - 50 ML IVPB ONE ×2 (00:45→09:15)
[2018-07-02] MEDS ORDERED: ceFAZolin SODIUM 1 GM VIAL ONE ×2 (00:45→09:14)
[2018-07-02] MEDS: CEFAZOLIN 1 GM in DEXTROSE 5%-WATER - 50 ML IVPB SCH ×2 (01:13→09:20)
--- NOTE | 2018-07-02 07:24 | PN ---
Progress Note (short form) - Note Progress Note: Dr Hazel consult appreciated. I agree , that there is no data showing better outcomes on Comadin versus NOACS. Recent reviewes showed equal efficacy and better side effect profile in cancer patients. Interaction of Warfarin with Amiodarone and other meds represents another challenge. Dr Jha consult appreciated. He advised to D/C antibiotics and continue A/C, soaks. ID consult noted. Today NAD, feels well. No progression of LE phlebitis. Last Vital Signs Temp Pulse Resp BP Pulse Ox 98.2 F 60 20 130/70 97 07/02/18 06:19 07/02/18 06:19 07/02/18 06:19 07/02/18 06:19 07/01/18 21:00 Neck-no JVD, supple Lungs are clear Heart S1S2 regular Abdomen soft, obese. Ext Right thigh thrombosed s/c veins, erythema along the veins, less Left LE. Neuro non-focal. Laboratory Results - last 24 hr 07/01/18 07/01/18 06:30 06:30 WBC 5.8 RBC 4.02 Hgb 10.9 Hct 34.3 MCV 85.2 MCH 27.1 MCHC 31.9 L RDW 16.0 H Plt Count 188 MPV 8.5 Absolute Neuts (auto) 4.1 Neutrophils % 71.4 Lymphocytes % 16.1 D Monocytes % 9.9 Eosinophils % 1.8 D Basophils % 0.8 Nucleated RBC % 0 Sodium 137 Potassium 4.1 Chloride 105 Carbon Dioxide 26 Anion Gap 7 L BUN 18 Creatinine 0.8 Creat Clearance w eGFR > 60 Random Glucose 81 Calcium 8.3 L Current Medications Generic Name Dose Route Start Last Admin Trade Name Freq PRN Reason Stop Dose Admin Acetaminophen 650 mg 06/30/18 23:43 07/01/18 15:19 Tylenol - PO 650 mg Q6H PRN Administration FEVER Amiodarone HCl 200 mg 07/01/18 10:00 07/01/18 10:10 Cordarone - PO 200 mg DAILY SHIRLENE Administration Apixaban 5 mg 06/30/18 23:45 07/01/18 21:29 Eliquis - PO 5 mg BID SHIRLENE Administration Furosemide 40 mg 07/01/18 10:00 07/01/18 10:11 Lasix - PO 40 mg DAILY SHIRLENE Administration Cefazolin Sodium 1 gm/ 50 mls @ 100 mls/hr 07/01/18 11:30 07/02/18 01:13 Dextrose IVPB 100 mls/hr Q8H-IV SHIRLENE Administration Metoprolol Succinate 12.5 mg 07/01/18 10:00 07/01/18 10:09 Toprol Xl - PO 12.5 mg DAILY SHIRLENE Administration Oxycodone HCl 5 mg 07/01/18 08:22 07/01/18 15:20 Roxicodone - PO 5 mg Q6H PRN Administration PAIN LEVEL 7 - 10 Spironolactone 25 mg 07/01/18 10:00 07/01/18 10:14 Aldactone - PO 25 mg DAILY SHIRLENE Administration Imp Current Active Problems Problem Status Onset Cellulitis Acute Morbid obesity with BMI of 50.0-59.9, adult Acute Thrombophlebitis of right saphenous vein Acute Thrombosis Acute Plan D/c home Continue Eloquis Onc f/u, possible CT scans Venous dupplex f/u in 2 weeks D/C Abx Problem List - Problems (1) Cellulitis Code(s): L03.90 - CELLULITIS, UNSPECIFIED Qualifiers: Site of cellulitis: unspecified site Qualified Code(s): L03.90 - Cellulitis , unspecified (2) Thrombosis Code(s): I82.90 - ACUTE EMBOLISM AND THROMBOSIS OF UNSPECIFIED VEIN (3) Acute on chronic diastolic (congestive) heart failure Code(s): I50.33 - ACUTE ON CHRONIC DIASTOLIC (CONGESTIVE) HEART FAILURE (4) Afib Code(s): I48.91 - UNSPECIFIED ATRIAL FIBRILLATION Qualifiers: Atrial fibrillation type: chronic Qualified Code(s): I48.2 - Chronic atrial fibrillation (5) Aortic valve stenosis Code(s): I35.0 - NONRHEUMATIC AORTIC (VALVE) STENOSIS
--- NOTE | 2018-07-02 07:26 | DS ---
Physical Examination Vital Signs: Vital Signs Temperature 98.2 F 07/02/18 06:19 Pulse Rate 60 07/02/18 06:19 Respiratory Rate 20 07/02/18 06:19 Blood Pressure 130/70 07/02/18 06:19 O2 Sat by Pulse Oximetry (%) 97 07/01/18 21:00 Constitutional: Yes: Anxious, Mild Distress Eyes: Yes: Conjunctiva Clear, EOM Intact HENT: Yes: Atraumatic, Normocephalic Neck: Yes: Supple, Trachea Midline. No: Decreased ROM Cardiovascular: Yes: Regular Rate and Rhythm, S1, S2. No: Bradycardia, Tachycardia Respiratory: Yes: Regular, CTA Bilaterally Gastrointestinal: Yes: Normal Bowel Sounds, Soft, Abdomen, Obese ...Rectal Exam: Yes: Deferred Renal/: No: Anuria Breast(s): Yes: WNL Extremities: Yes: Other (Saphenous thrombosis, thrombophlebitis) Peripheral Pulses WNL: No Integumentary: Yes: Venous Stasis Changes (B/L LE,) Neurological: Yes: WNL ...Motor Strength: WNL Psychiatric: Yes: WNL Labs: CBC, BMP 07/01/18 06:30 07/01/18 06:30 Discharge Summary Reason For Visit: CELLULITIS Current Active Problems Cellulitis (Acute) Morbid obesity with BMI of 50.0-59.9, adult (Acute) Thrombophlebitis of right saphenous vein (Acute) Thrombosis (Acute) Condition: Fair - Instructions Referrals: Juaquin Link MD [Primary Care Provider] - - Home Medications Comprehensive Discharge Medication List: Ambulatory Orders Apixaban [Eliquis -] 5 mg PO BID #60 tablet 11/28/15 Acetaminophen [Tylenol .Regular Strength -] 650 mg PO Q6H PRN #0 tablet Furosemide [Lasix -] 40 mg PO DAILY #30 tablet 04/05/17 Spironolactone [Aldactone -] 25 mg PO DAILY 04/23/18 Amiodarone HCl [Cordarone -] 200 mg PO DAILY 04/24/18 Metoprolol Succinate [Toprol Xl] 12.5 mg PO DAILY #30 tab.er.24h 04/29/18
[2018-07-02 08:44] VITALS: BP 135/69; PULSE 52; TEMP 98
[2018-07-02] MEDS: FUROSEMIDE 40 MG TABLET (FP) PO SCH (09:19)
[2018-07-02] MEDS: metoPROLOL SUCCINATE 25 MG TAB.SR.24H (FP) PO SCH (09:20)
[2018-07-02] MEDS: APIXABAN 5 MG TABLET PO SCH (09:20)
[2018-07-02] MEDS: AMIODARONE HCL 200 MG TABLET (FP) PO SCH (09:20)
[2018-07-02] MEDS: SPIRONOLACTONE 25 MG TABLET (FP) PO SCH (09:20)
[2018-07-02 11:56] VITALS: BMI 58.6
== END 2018-07-02 12:47 | disposition home or self-care (01) | DRG 602 ==
LOC: JER 14:37 → JERBED 20:16 → J6S 07-01 03:22
PROVIDERS: ADMIT Internal Medicine; ATTEND Internal Medicine
DX: L03.116 Cellulitis of left lower limb (principal); I50.33 Acute on chronic diastolic (congestive) heart failure; Z68.43 Body mass index [BMI] 50.0-59.9, adult; I82.4Z1 Acute embolism and thrombosis of unspecified deep veins of right distal lower extremity; I80.01 Phlebitis and thrombophlebitis of superficial vessels of right lower extremity; L03.115 Cellulitis of right lower limb; I10 Essential (primary) hypertension; E78.5 Hyperlipidemia, unspecified; I48.91 Unspecified atrial fibrillation; I27.20 Pulmonary hypertension, unspecified; I08.0 Rheumatic disorders of both mitral and aortic valves; G47.30 Sleep apnea, unspecified; K43.9 Ventral hernia without obstruction or gangrene; D64.9 Anemia, unspecified; I89.0 Lymphedema, not elsewhere classified; I48.0 Paroxysmal atrial fibrillation; E66.01 Morbid (severe) obesity due to excess calories; G47.33 Obstructive sleep apnea (adult) (pediatric); M17.0 Bilateral primary osteoarthritis of knee; Z85.42 Personal history of malignant neoplasm of other parts of uterus; Z85.43 Personal history of malignant neoplasm of ovary; Z98.84 Bariatric surgery status
CPT/HCPCS: 36415; 71045-TC-FY; 80048; 80053; 81003; 83605; 85025; 87040; 87086; 93005; 93010; 93971-TC; 99285-25

== ENCOUNTER 2019-02-11 17:34 | Inpatient (IN) | payer BC, OTHER ==
--- NOTE | 2019-02-11 17:55 | PDOC ---
Rapid Medical Evaluation Chief Complaint: Chest Pain Time Seen by Provider: 02/11/19 17:54 Medical Evaluation: Allergies Allergy/AdvReac Type Severity Reaction Status Date / Time No Known Allergies Allergy Verified 06/30/18 14:44 02/11/19 17:54 I have performed a brief in-person evaluation of this patient. The patient presents with a chief complaint of: midsternal chest pain intermittent over 1 week. Worse today Pertinent physical exam findings: VSS. AF. RRR. No m/r/g. I have ordered the following: cardiac w/u The patient will proceed to the ED for further evaluation. Discharge Disposition - Diagnosis Chest pain - Referrals - Patient Instructions - Post Discharge Activity
[2019-02-11 19:14] LABS: BASO % 0.6 % (0-2.0); EOS % 0.1 % (0-4.5); HEMATOCRIT 36.6 % (32.4-45.2); HEMOGLOBIN 11.8 GM/dL (10.7-15.3); LYMPH % 21.1 % (8-40); MCH 27.9 pg (25.7-33.7); MCHC 32.3 g/dl (32.0-36.0); MEAN CELL VOLUME 86.3 fl (80-96); MEAN PLT VOLUME 8.8 fl (7.5-11.1); MONO % 10.1 % (3.8-10.2); NEUT % 68.1 % (42.8-82.8); PLATELET COUNT 205 K/MM3 (134-434); RBC 4.25 M/mm3 (3.60-5.2); RDW 15.1 % (11.6-15.6); WHITE BLOOD COUNT 4.3 K/mm3 (4.0-10.0)
[2019-02-11 19:25] LABS: INR 1.04 (0.83-1.09); PROTHROMBIN TIME (PATIENT) 12.3 SEC (9.7-13.0)
[2019-02-11 19:43] LABS: ALBUMIN 3.6 g/dl (3.4-5.0); ALK PHOS 119 U/L (45-117); ANION GAP 5 MMOL/L (8-16); BILIRUBIN,TOTAL 0.4 mg/dL (0.2-1); BLOOD UREA NITROGEN 16.2 mg/dL (7-18); CALCIUM 8.5 mg/dL (8.5-10.1); CHLORIDE 108 mmol/L (98-107); CO2 27 mmol/L (21-32); CREATININE 0.9 mg/dL (0.55-1.3); GLUCOSE,RANDOM 86 mg/dL (74-106); MAGNESIUM 2.2 mg/dL (1.8-2.4); POTASSIUM 4.3 mmol/L (3.5-5.1); SGOT/AST 13 U/L (15-37); SGPT/ALT 12 U/L (13-61); SODIUM 140 mmol/L (136-145); TOT PROT 6.9 g/dl (6.4-8.2)
--- NOTE | 2019-02-11 20:31 | PDOC ---
History of Present Illness - General Chief Complaint: Chest Pain Stated Complaint: CHEST PAIN Time Seen by Provider: 02/11/19 17:54 History Source: Patient Exam Limitations: No Limitations Past History - Past Medical History Allergies/Adverse Reactions: Allergies Allergy/AdvReac Type Severity Reaction Status Date / Time No Known Allergies Allergy Verified 02/11/19 17:56 Home Medications: Ambulatory Orders Apixaban [Eliquis -] 5 mg PO BID #60 tablet 11/28/15 Acetaminophen [Tylenol .Regular Strength -] 650 mg PO Q6H PRN #0 tablet Furosemide [Lasix -] 40 mg PO DAILY #30 tablet 04/05/17 Spironolactone [Aldactone -] 25 mg PO DAILY 04/23/18 Amiodarone HCl [Cordarone -] 200 mg PO DAILY 04/24/18 Metoprolol Succinate [Toprol Xl] 12.5 mg PO DAILY #30 tab.er.24h 04/29/18 Anemia: No Asthma: Yes (CONTROLLED UNLESS PT GETS A COLD) Cancer: Yes (UTERINE AND OVARIAN. CA FREE 2008) Cardiac Disorders: Yes (AFIB 12/2015 / AORTIC STENOSIS) CVA: No COPD: No CHF: Yes DVT: No Dementia: No Diabetes: No GI Disorders: No Disorders: No HTN: Yes Hypercholesterolemia: No Liver Disease: No Seizures: No Thyroid Disease: No Other medical history: obesity - Surgical History Abdominal Surgery: Yes (HERNIA REPAIR AFTER ALESSANDRO 2011,GASTRIC BYPASS) Appendectomy: No Cardiac Surgery: No Cholecystectomy: Yes (2002) GI Surgery: Yes (BYPASS 2001) Lung Surgery: No Neurologic Surgery: No Orthopedic Surgery: No - Immunization History Immunization Up to Date: Yes (FLU UTD) - Suicide/Smoking/Psychosocial Hx Smoking Status: No Smoking History: Never smoked Have you smoked in the past 12 months: No Number of Cigarettes Smoked Daily: 0 Information on smoking cessation initiated: No Hx Alcohol Use: No Drug/Substance Use Hx: No Substance Use Type: None Hx Substance Use Treatment: No Cardiac Specific PMH - Complaint Specific PMHX GERD: No *Physical Exam - Vital Signs Last Vital Signs Temp Pulse Resp BP Pulse Ox 98.4 F 66 19 153/81 96 02/11/19 17:53 02/11/19 17:53 02/11/19 17:53 02/11/19 17:53 02/11/19 17:53 - Physical Exam General Appearance: No: Apparent Distress Respiratory/Chest: positive: Lungs Clear, Normal Breath Sounds. negative: Respiratory Distress Cardiovascular: positive: Regular Rhythm, Regular Rate, S1, S2, Systolic Murmur (+2/6 mid systolic murmur along R 2nd ICS) Gastrointestinal/Abdominal: positive: Normal Bowel Sounds, Soft. negative: Tender, Distended, Guarding, Rebound Extremity: positive: Other (+BLE lymphedema) Neurologic: positive: Alert, Normal Mood/Affect ED Treatment Course - LABORATORY CBC & Chemistry Diagram: 02/11/19 18:50 02/11/19 18:50 - ADDITIONAL ORDERS Additional order review: Laboratory Results 02/11/19 02/11/19 18:50 18:50 PT with INR 12.30 INR 1.04 Sodium 140 Potassium 4.3 Chloride 108 H Carbon Dioxide 27 Anion Gap 5 L BUN 16.2 Creatinine 0.9 Est GFR (CKD-EPI)AfAm 82.26 Est GFR (CKD-EPI)NonAf 70.98 Random Glucose 86 Calcium 8.5 Magnesium 2.2 Total Bilirubin 0.4 AST 13 L ALT 12 L Alkaline Phosphatase 119 H Creatine Kinase 75 Troponin I < 0.02 Total Protein 6.9 Albumin 3.6 02/11/19 18:50 RBC 4.25 MCV 86.3 MCHC 32.3 RDW 15.1 MPV 8.8 Neutrophils % 68.1 Lymphocytes % 21.1 D Monocytes % 10.1 Eosinophils % 0.1 D Basophils % 0.6 Medical Decision Making - Medical Decision Making 58 y/o F morbidly obese hx of HTN, CHF, Afib s/p cardioversion x2 (on eliquis), gastric bypass, BLE lymphedema, R ovarian CA s/p ALESSANDRO-BSO, SBO 2016, aortic valve stenosis presents with intermittent substernal chest tightness x 4 days along with sensation of heart beating hard and SOB Sxs worse with exertion ( after walking around 40 feet which per patient, does not usually happen). Denies fever, cough, abd pain, n/v. Patient has photographic double, Dr. Reddy, who she saw last month. Does not recall having a stress test anytime recently. EKG: NSR at 67 bpm, TWI leads V2-V3 (inversions not seen in prior EKG 06/2018) Initial trop neg CXR negative Given EKG changes and risk factors, will admit patient for r/o ACS 02/11/19 20:27 *DC/Admit/Observation/Transfer Diagnosis at time of Disposition: Chest pain Qualifiers: Chest pain type: unspecified Qualified Code(s): R07.9 - Chest pain, unspecified - Discharge Dispostion Condition at time of disposition: Stable Decision to Admit order: Yes - Referrals Referrals: Juaquin Link MD [Primary Care Provider] - - Patient Instructions - Post Discharge Activity
--- NOTE | 2019-02-11 20:37 | PDOC ---
*Physical Exam - Vital Signs Last Vital Signs Temp Pulse Resp BP Pulse Ox 98.4 F 66 19 153/81 96 02/11/19 17:53 02/11/19 17:53 02/11/19 17:53 02/11/19 17:53 02/11/19 17:53 ED Treatment Course - LABORATORY CBC & Chemistry Diagram: 02/11/19 18:50 02/11/19 18:50 - ADDITIONAL ORDERS Additional order review: Laboratory Results 02/11/19 02/11/19 18:50 18:50 PT with INR 12.30 INR 1.04 Sodium 140 Potassium 4.3 Chloride 108 H Carbon Dioxide 27 Anion Gap 5 L BUN 16.2 Creatinine 0.9 Est GFR (CKD-EPI)AfAm 82.26 Est GFR (CKD-EPI)NonAf 70.98 Random Glucose 86 Calcium 8.5 Magnesium 2.2 Total Bilirubin 0.4 AST 13 L ALT 12 L Alkaline Phosphatase 119 H Creatine Kinase 75 Troponin I < 0.02 Total Protein 6.9 Albumin 3.6 02/11/19 18:50 RBC 4.25 MCV 86.3 MCHC 32.3 RDW 15.1 MPV 8.8 Neutrophils % 68.1 Lymphocytes % 21.1 D Monocytes % 10.1 Eosinophils % 0.1 D Basophils % 0.6 Medical Decision Making - Medical Decision Making 02/11/19 20:36 Case reviewed, agree with assessment and plan *DC/Admit/Observation/Transfer Diagnosis at time of Disposition: Chest pain Qualifiers: Chest pain type: unspecified Qualified Code(s): R07.9 - Chest pain, unspecified - Discharge Dispostion Condition at time of disposition: Stable - Referrals Referrals: Juaquin Link MD [Primary Care Provider] - - Patient Instructions - Post Discharge Activity
--- NOTE | 2019-02-11 22:48 | HP ---
Admitting History and Physical - Primary Care Physician PCP: Juaquin Link - Admission Chief Complaint: Chest Pain History of Present Illness: This is a 58 y/o woman with a PMHx of HTN, CAD, Morbid Obesity, paroxysmal Afib , Mitral Valve Disease, PHTN, ELLE, Bronchial Asthma, Chronic Venous Stasis Insufficiency with Lymph Edema. Patient reports having chest pain pressure and "heart heaviness" to sharp in nature, with radiation to her left arm. lasting intermittently, during rest and activity. Patient reports SOB on activity. Patient reports having increased pain to b/l LE with increased swelling to her ankles started tonight. Patient denies fever, chills, CRUZ, AP, N/V/D, constipation, dysuria. History Source: Patient Limitations to Obtaining History: No Limitations - Past Medical History Cardiovascular: Yes: AFIB, Aortic Stenosis, HTN, Mitral Insufficiency, Pulmonary Hypertension Pulmonary: Yes: Asthma, Sleep Apnea Gastrointestinal: Yes: Other (ventral hernia, small bowel obstruction). No: Ascites Hepatobiliary: Yes: Cholecystitis Heme/Onc: Yes: Cancer (endometrial and ovarain cancer- s/p chem and RT) Psych: Yes: Depression Musculoskeletal: Yes: Other (carpal tunnel) - Past Surgical History Past Surgical History: Yes: Bariatric Surgery, Cholecystectomy, Hernia Repair, Hysterectomy, Oopherectomy - Smoking History Smoking history: Never smoked Have you smoked in the past 12 months: No Aproximately how many cigarettes per day: 0 - Alcohol/Substance Use Hx Alcohol Use: No History of Substance Use: reports: None - Social History ADL: Independent 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 History of Recent Travel: No Home Medications - Allergies Allergies/Adverse Reactions: Allergies Allergy/AdvReac Type Severity Reaction Status Date / Time No Known Allergies Allergy Verified 02/11/19 17:56 - Home Medications Home Medications: Ambulatory Orders Apixaban [Eliquis -] 5 mg PO BID #60 tablet 11/28/15 Furosemide [Lasix -] 40 mg PO DAILY #30 tablet 04/05/17 Spironolactone [Aldactone -] 25 mg PO DAILY 04/23/18 Amiodarone HCl [Cordarone -] 200 mg PO BID 04/24/18 Duloxetine HCl [Cymbalta -] 60 mg PO HS 02/12/19 traZODone HCL [Trazodone HCl] 100 mg PO HS 02/12/19 Family Disease History - Family Disease History Family Disease History: Diabetes: Mother, Heart Disease: Mother, CA: Father ( colon) Review of Systems - Review of Systems Constitutional: reports: Weakness Eyes: reports: No Symptoms HENT: reports: No Symptoms Neck: reports: No Symptoms Cardiovascular: reports: Chest Pain, Shortness of Breath Respiratory: reports: SOB, SOB on Exertion Gastrointestinal: reports: No Symptoms Genitourinary: reports: No Symptoms Breasts: reports: No Symptoms Reported Musculoskeletal: reports: No Symptoms Integumentary: reports: Erythema Neurological: reports: No Symptoms Endocrine: reports: No Symptoms Hematology/Lymphatic: reports: No Symptoms Pain Intensity: 0 Physical Examination Vital Signs: Vital Signs Temperature 98.4 F 02/11/19 17:53 Pulse Rate 66 02/11/19 17:53 Respiratory Rate 02/11/19 17:53 Blood Pressure 153/81 02/11/19 17:53 O2 Sat by Pulse Oximetry (%) 96 02/11/19 17:53 Constitutional: Yes: No Distress, Calm, Obese Eyes: Yes: WNL, Conjunctiva Clear, EOM Intact, PERRL HENT: Yes: WNL, Atraumatic, Normocephalic Neck: Yes: WNL, Supple, Trachea Midline Cardiovascular: Yes: Regular Rate and Rhythm, Murmur, S1, S2 Respiratory: Yes: WNL, Regular, CTA Bilaterally Gastrointestinal: Yes: Normal Bowel Sounds, Soft, Abdomen, Obese Renal/: Yes: WNL Breast(s): Yes: WNL Musculoskeletal: Yes: WNL Edema: Yes Edema: LLE: 4+, RLE: 4+ Peripheral Pulses WNL: Yes Integumentary: Yes: Erythema, Venous Stasis Changes Neurological: Yes: WNL, Alert, Oriented ...Motor Strength: WNL Psychiatric: Yes: WNL, Alert, Oriented Labs: CBC, BMP 02/11/19 18:50 02/11/19 18:50 Laboratory Results - last 24 hr 02/11/19 02/11/19 02/11/19 18:50 18:50 18:50 WBC 4.3 RBC 4.25 Hgb 11.8 Hct 36.6 MCV 86.3 MCH 27.9 MCHC 32.3 RDW 15.1 Plt Count 205 MPV 8.8 Absolute Neuts (auto) 2.9 Neutrophils % 68.1 Lymphocytes % 21.1 D Monocytes % 10.1 Eosinophils % 0.1 D Basophils % 0.6 Nucleated RBC % 0 PT with INR 12.30 INR 1.04 Sodium 140 Potassium 4.3 Chloride 108 H Carbon Dioxide 27 Anion Gap 5 L BUN 16.2 Creatinine 0.9 Est GFR (CKD-EPI)AfAm 82.26 Est GFR (CKD-EPI)NonAf 70.98 Random Glucose 86 Calcium 8.5 Magnesium 2.2 Total Bilirubin 0.4 AST 13 L ALT 12 L Alkaline Phosphatase 119 H Creatine Kinase 75 Troponin I < 0.02 Total Protein 6.9 Albumin 3.6 02/12/19 00:00 WBC RBC Hgb Hct MCV MCH MCHC RDW Plt Count MPV Absolute Neuts (auto) Neutrophils % Lymphocytes % Monocytes % Eosinophils % Basophils % Nucleated RBC % PT with INR INR Sodium Potassium Chloride Carbon Dioxide Anion Gap BUN Creatinine Est GFR (CKD-EPI)AfAm Est GFR (CKD-EPI)NonAf Random Glucose Calcium Magnesium Total Bilirubin AST ALT Alkaline Phosphatase Creatine Kinase Troponin I < 0.02 Total Protein Albumin Intake & Output 02/09/19 02/10/19 02/11/19 02/12/19 23:59 23:59 23:59 23:59 Weight 167.829 kg Current Medications Generic Name Dose Route Start Last Admin Trade Name Freq PRN Reason Stop Dose Admin Acetaminophen 650 mg 02/12/19 05:10 Tylenol - PO Q6H PRN FEVER Amiodarone HCl 200 mg 02/12/19 10:00 Cordarone - PO BID [facility] Apixaban 5 mg 02/12/19 10:00 Eliquis - PO BID [facility] Duloxetine HCl 60 mg 02/12/19 10:00 Cymbalta - PO DAILY [facility] Spironolactone 25 mg 02/12/19 10:00 Aldactone - PO DAILY [facility] Trazodone HCl 100 mg 02/12/19 22:00 Desyrel - PO [facility] Problem List - Problems (1) Chest pain Code(s): R07.9 - CHEST PAIN, UNSPECIFIED Qualifiers: Chest pain type: unspecified Qualified Code(s): R07.9 - Chest pain, unspecified (2) Aortic stenosis, moderate Code(s): I35.0 - NONRHEUMATIC AORTIC (VALVE) STENOSIS (3) HTN (hypertension) Code(s): I10 - ESSENTIAL (PRIMARY) HYPERTENSION (4) Lymph edema Code(s): I89.0 - LYMPHEDEMA, NOT ELSEWHERE CLASSIFIED (5) Paroxysmal atrial fibrillation Code(s): I48.0 - PAROXYSMAL ATRIAL FIBRILLATION (6) Morbid obesity with BMI of 50.0-59.9, adult Code(s): E66.01 - MORBID (SEVERE) OBESITY DUE TO EXCESS CALORIES; Z68.43 - BODY MASS INDEX (BMI) 50-59.9, ADULT Assessment/Plan This is a 58 y/o woman placed in Tele Observation for Chest Pain r/o ACS. Plan: Admit Chest Pain r/o ACS HEART Score 4 SAMY 1 Continue cardiac monitoring Serial Enzymes neg x1, trend Appreciate Cardiology consult Chest Xray-reviewed EKG- NSR with RBBB, TWI new Last Echo 04/2018- LVSF nl, mild-mod MR, mild TR, mild AR Will defer further diagnostic testing to Cardiology Continue home meds with parameters Echo in am Lipid Panel Duplex b/l LE r/o DVT Wells Score 2 Elevate extremities Consider Vascular consult Monitor CBC, BMP FEN- Replete lytes prn Low Na Diet DVT ppx- TEDs, Continue Eliquis Dispo: Observation Visit type - Emergency Visit Emergency Visit: Yes ED Registration Date: 02/11/19 Care time: The patient presented to the Emergency Department on the above date and was hospitalized for further evaluation of their emergent condition. - New Patient This patient is new to me today: Yes Date on this admission: 02/11/19 - Critical Care Critical Care patient: No
[2019-02-12] MEDS ORDERED: ACETAMINOPHEN 325 MG TABLET (FP) PO PRN (05:10)
[2019-02-12] MEDS ORDERED: traMADol HCL 50 MG TABLET PO ONE (05:17)
[2019-02-12 07:16] LABS: BASO % 0.5 % (0-2.0); EOS % 0.1 % (0-4.5); HEMATOCRIT 34.9 % (32.4-45.2); HEMOGLOBIN 11.2 GM/dL (10.7-15.3); LYMPH % 22.3 % (8-40); MCH 27.9 pg (25.7-33.7); MCHC 32.1 g/dl (32.0-36.0); MEAN CELL VOLUME 86.9 fl (80-96); MEAN PLT VOLUME 8.9 fl (7.5-11.1); MONO % 9.5 % (3.8-10.2); NEUT % 67.6 % (42.8-82.8); PLATELET COUNT 189 K/MM3 (134-434); RBC 4.02 M/mm3 (3.60-5.2); WHITE BLOOD COUNT 3.8 K/mm3 (4.0-10.0)
[2019-02-12 07:24] LABS: ANION GAP 5 MMOL/L (8-16); BLOOD UREA NITROGEN 16.1 mg/dL (7-18); CALCIUM 8.4 mg/dL (8.5-10.1); CHLORIDE 109 mmol/L (98-107); CO2 26 mmol/L (21-32); GLUCOSE,RANDOM 87 mg/dL (74-106); MAGNESIUM 2.1 mg/dL (1.8-2.4); SODIUM 140 mmol/L (136-145)
[2019-02-12] MEDS: SPIRONOLACTONE 25 MG TABLET (FP) PO SCH (09:15)
[2019-02-12] MEDS: APIXABAN 5 MG TABLET PO SCH ×2 (09:15→21:19)
[2019-02-12] MEDS: AMIODARONE HCL 200 MG TABLET (FP) PO SCH ×2 (09:15→21:18)
[2019-02-12] MEDS ORDERED: DULoxetine HCL 30 MG CAPSULE.DR PO SCH (10:00)
--- NOTE | 2019-02-12 13:36 | EKG ---
Test Reason : Blood Pressure : / mmHG Vent. Rate : 067 BPM Atrial Rate : 067 BPM P-R Int : 176 ms QRS Dur : 112 ms QT Int : 434 ms P-R-T Axes : 028 -22 025 degrees QTc Int : 458 ms NORMAL SINUS RHYTHM POSSIBLE LEFT ATRIAL ENLARGEMENT INCOMPLETE RIGHT BUNDLE BRANCH BLOCK LEFT VENTRICULAR HYPERTROPHY ANTEROSEPTAL INFARCT , AGE UNDETERMINED ABNORMAL ECG WHEN COMPARED WITH ECG OF 30-JUN-2018 18:18, ANTEROSEPTAL INFARCT IS NOW PRESENT NON-SPECIFIC CHANGE IN ST SEGMENT IN ANTERIOR LEADS T WAVE INVERSION NOW EVIDENT IN ANTERIOR LEADS T WAVE INVERSION NO LONGER EVIDENT IN LATERAL LEADS Confirmed by GARY KELLY MD ([id number]) on 02/12/2019 1:36:32 PM Referred By: Confirmed By:GARY KELLY MD
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
--- NOTE | 2019-02-12 16:52 | CON.CARD ---
Consult Consult Specialty:: Cardiology Referred by:: Dr. Juaquin Link - History of Present Illness History of Present Illness: Patient is a 58 year old female with longstanding history of hypertension, hypertensive cardiovascular disease, morbid obesity, calcific aortic valvular disease, paroxysmal atrial fibrillation, mitral valvular disease, mitral regurgitation, tricuspid regurgitation, history of pulmonary hypertension, obstructive sleep apnea syndrome, history of bronchial asthma, chronic venous stasis insufficiency with chronic bilateral lower extremity edema. Patient admitted with cellulitis involving the right lower extremity. During hospitalization she was found to have a pulse rate in the low 40s while she was resting. She is mostly asymptomatic except on one occasion she had transient lightheadedness. On ambulating the patient, her pulse went up to 81 bpm with minimal exertion. No history of recent palpitations, dizziness, presyncope or syncope. Chronic exertional dyspnea, no paroxysmal nocturnal dyspnea or orthopnea. PAST HISTORY: 1. As mentioned in the history of present illness. 2. History of endometrial and ovarian carcinoma. SURGICAL HISTORY: 1. Status post tonsillectomy. 2. Status post hysterectomy and oophorectomy. 3. Status post repair of a ventral hernia. 4. Status post gastric bypass surgery. 5. Status post laparoscopic surgery for left knee muscle tear. 6. Status post cholecystectomy. 7. Status post surgery for intestinal adhesions. SOCIAL HISTORY: Disabled, , without children, a non-smoker. She has a rare alcoholic drink and occasional cup of coffee. FAMILY HISTORY: Father in his 70s of a myocardial infarction. He was a heavy smoker and alcoholic. Mother in her 60s also of a myocardial infarction. She was a diabetic and had ESRD. She has two brothers and one sister. One brother of a drug overdose. ALLERGIES: None Active Medications Acetaminophen (Tylenol -) 650 mg PO Q6H PRN PRN Reason: FEVER Amiodarone HCl (Cordarone -) 200 mg PO BID [facility] Last Admin: 02/12/19 09:15 Dose: 200 mg Apixaban (Eliquis -) 5 mg PO BID [facility] Last Admin: 02/12/19 09:15 Dose: 5 mg Duloxetine HCl (Cymbalta -) 60 mg PO DAILY [facility] Last Admin: 02/12/19 10:01 Dose: Not Given Duloxetine HCl (Cymbalta -) 60 mg PO [facility] Furosemide (Lasix -) 40 mg PO DAILY [facility] Polyethylene Glycol (Miralax (For Daily Use) -) 17 gm PO BID [facility] Spironolactone (Aldactone -) 25 mg PO DAILY [facility] Last Admin: 02/12/19 09:15 Dose: 25 mg Trazodone HCl (Desyrel -) 100 mg PO HS [facility] Trazodone HCl (Desyrel -) 100 mg PO HS [facility] Zolpidem Tartrate (Ambien -) 10 mg PO HS PRN PRN Reason: INSOMNIA REVIEW OF SYSTEMS: Constitutional: No history of chills, fever, or night sweats reported. No history of unintentional weight loss. HEENT: No history of headaches, diplopia, blurred vision. No history of epistaxis, hoarseness, vertigo, tinnitus, or deafness. Cardiovascular: See HPI. Respiratory: No history of cough, expectoration or hemoptysis. No history of recent shortness of breath. Gastrointestinal: No history o nausea, vomiting, melena or hematemesis. No history of abdominal pain or discomfort. No history of change in bowel habits. Neurological: No history of seizures, syncope, focal weakness. No history of lightheadedness or dizziness. No history of paresthesias. Endocrine: No history of intolerance to cold or warm weather. No history of polyuria or polydipsia. Musculoskeletal: No known history of myalgias or arthralgias. Hematological: No history of anemia, bleeding or ecchymosis. Lymphatics: No history o lymphadenopathy or masses. 58 year old female was in no acute distress. No pallor, cyanosis, clubbing, or jaundice. Last Vital Signs Temp Pulse Resp BP Pulse Ox 97.9 F 65 18 114/65 97 02/12/19 15:51 02/12/19 15:51 02/12/19 15:51 02/12/19 15:51 02/12/19 15:51 PHYSICAL EXAM: NECK: Supple, no JVD, negative HJR, carotids were 2+ and upstrokes were normal, bilateral radiation of murmur, no thyromegaly appreciated. HEART: PMI was not localized, no heaves or thrills, S1 was normal S2 A2 was slightly reduced. Ejection systolic murmur grade II/ was heard at the secon right intercostal space along the lower left sternal border. No diastolic murmurs or gallops were appreciated. LUNGS: Clear on auscultation bilaterally. ABDOMEN: Obese, Soft, nontender, no hepatosplenomegaly appreciated, and no palpable masses were felt. EXTREMITIES: Bilateral brawny nonpitting edema involving both lower extremities. There was induration around the right ankle and lower calf. Dorsalis pedis and posterior tibial pulses were not palpated. Pulses in the upper extremities were equal. ECG: Dated: 02-11-2019 CBC, BMP 02/12/19 06:25 02/12/19 06:25 Chest X-ray: Dated: 02-11-19 2 views of the chest reveal degenerative changes with wedging, clear lungs, sharp angles, sclerotic , normal pia and normal heart. There is a small hiatal hernia. Since 06/30/2018, the increased lung markings have cleared. Correlation recommended. Right Lower Extremity Doppler: Dated 02-12-19 2 views of the chest reveal degenerative changes with wedging, clear lungs, sharp angles, sclerotic , normal pia and normal heart. There is a small hiatal hernia. Since 06/30/2018, the increased lung markings have cleared. Correlation recommended. Impression: 1. Resting sinus bradycardia most likely related to medication. 2. Hypertension, hypertensive cardiovascular disease. 3. Paroxysmal atrial fibrillation. 4. Obstructive sleep apnea syndrome. 5. Chronic lower extremity venous insufficiency. 6. Varicose veins of the lower extremities. 7. Calcific aortic valvular disease, probable moderate aortic stenosis. 8. Mitral valvular disease with mitral regurgitation. 9. Morbid obesity. Recommendations: 1. Dose of metoprolol succinate could be reduced to 12.5 mg PO daily and if bradycardia is pronounced, could be tapered off. 2. Outpatinet holter monitor. 3. Patient must be on CPAP. 4. Check thyroid function tests. 5. Follow up in the office in 1-2 weeks, earlier if necessary. Thank you. Sincerely, Devan Hooper MD, [facility]. - Past Medical History Cardio/Vascular: Yes: AFIB, Aortic Stenosis, HTN, Mitral Insufficiency, Pulmonary Hypertension Pulmonary: Yes: Asthma, Sleep Apnea Gastrointestinal: Yes: Other (ventral hernia, small bowel obstruction). No: Ascites Hepatobiliary: Yes: Cholecystitis Psych: Yes: Depression Musculoskeletal: Yes: Other (carpal tunnel) - Past Surgical History Past Surgical History: Yes: Bariatric Surgery, Cholecystectomy, Hernia Repair, Hysterectomy, Oopherectomy - Alcohol/Substance Use Hx Alcohol Use: No History of Substance Use: reports: None - Smoking History Smoking history: Never smoked Have you smoked in the past 12 months: No Aproximately how many cigarettes per day: 0 - Social History Usual Living Arrangement: With Spouse ADL: Independent 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 History of Recent Travel: No Home Medications - Allergies Allergies/Adverse Reactions: Allergies Allergy/AdvReac Type Severity Reaction Status Date / Time No Known Allergies Allergy Verified 02/11/19 17:56 - Home Medications Home Medications: Ambulatory Orders Apixaban [Eliquis -] 5 mg PO BID #60 tablet 11/28/15 Furosemide [Lasix -] 40 mg PO DAILY #30 tablet 04/05/17 Spironolactone [Aldactone -] 25 mg PO DAILY 04/23/18 Amiodarone HCl [Cordarone -] 200 mg PO BID 04/24/18 Duloxetine HCl [Cymbalta -] 60 mg PO HS 02/12/19 traZODone HCL [Trazodone HCl] 100 mg PO HS 02/12/19 Family Disease History - Family Disease History Family Disease History: Diabetes: Mother, Heart Disease: Mother, CA: Father ( colon) Vital Signs: Vital Signs Temperature 97.9 F 02/12/19 15:51 Pulse Rate 65 02/12/19 15:51 Respiratory Rate 18 02/12/19 15:51 Blood Pressure 114/65 02/12/19 15:51 O2 Sat by Pulse Oximetry (%) 97 02/12/19 15:51 - Other Data Labs, Other Data: CBC, BMP 02/12/19 06:25 02/12/19 06:25 INR, PTT INR 1.04 (0.83-1.09) 02/11/19 18:50 Troponin, BNP 02/11/19 02/12/19 02/12/19 18:50 00:00 06:25 Troponin I < 0.02 < 0.02 < 0.02 Troponin, BNP 02/11/19 02/12/19 02/12/19 18:50 00:00 06:25 Troponin I < 0.02 < 0.02 < 0.02
[2019-02-12] MEDS: DULoxetine HCL 30 MG CAPSULE.DR PO SCH (21:18)
[2019-02-12] MEDS: traZODone HCL 50 MG TABLET (FP) PO SCH (21:19)
[2019-02-12] MEDS: POLYETHYLENE GLYCOL 3350 119 GM BTL PO SCH (21:19)
[2019-02-12] MEDS ORDERED: traZODone HCL 100 MG TABLET (FP) PO SCH (22:00)
--- NOTE | 2019-02-13 00:30 | CONS ---
DATE OF CONSULTATION: 02/12/2019 REQUESTING PHYSICIAN: Juaquin Link M.D. REASON FOR CONSULTATION: Cardiology consultation CHIEF COMPLAINT: Retrosternal chest pain. HISTORY OF PRESENT ILLNESS: The patient is a 58-year-old female with longstanding history of hypertension, hypertensive cardiovascular disease, calcified aortic valvular disease, morbid obesity, paroxysmal atrial fibrillation, mitral valvular disease, mitral regurgitation, history of chronic bronchial asthma, obstructive sleep apnea syndrome, tricuspid regurgitation, pulmonary hypertension, history of chronic venous insufficiency with chronic bilateral brawny pedal edema and recurring lower extremity cellulitis. The patient was admitted with recurring retrosternal like chest tightness that occurred both at rest and with exertion and started approximately 3 days ago and progressively became over pronounced. She has chronic exertional dyspnea, and patient has been experiencing dyspnea in association with chest discomfort. No history of orthopnea. Patient has occasional lightheadedness, has occasional occipital headaches. Denies having diabetes mellitus. PAST HISTORY: As mentioned in the history of present illness. History of an ovarian and endometrial carcinoma. SURGICAL HISTORY: Status post tonsillectomy. Status post repair of ventral hernia. Status post hysterectomy and oophorectomy. Status post gastric bypass surgery. Status post surgery on the left knee. Status post cholecystectomy. Status post surgery for intestinal adhesions. SOCIAL HISTORY: She is disabled. without children. She is a nonsmoker and on rare occasion has a drink. Has an occasional cup of coffee. FAMILY HISTORY: Mother in her 60s, apparently related to a myocardial infarction. Father in his 70s of a myocardial infarction. Father was a heavy smoker and an alcoholic. She had 2 brothers and a sister, one of the brothers of drug overdose. ALLERGIES: None reported. CURRENT MEDICATIONS: 1. Amiodarone 200 mg p.o. b.i.d. 2. 5 mg p.o. b.i.d. 3. Cymbalta 600 mg p.o. at bedtime. 4. Trazodone 100 mg p.o. daily. 5. Ambien 10 mg p.o. at bedtime p.r.n. 6. Miralax 17 g p.o. b.i.d. 7. Furosemide 40 mg p.o. daily. 8. Spironolactone 25 mg p.o. daily. REVIEW OF SYSTEMS: Constitutional: No history of chills, fever, or night sweats. No history of unintentional weight loss. HEENT: No history of headaches, diplopia, blurred vision. No history of epistaxis, hoarseness, tinnitus, or deafness. Cardiovascular: See history of present illness. Respiratory: No history of cough, expectoration, or hemoptysis. Gastrointestinal: No history of nausea, vomiting, melena, or hematemesis. No history of abdominal pain or discomfort. No history of change in bowel habits. Neurological: No history of seizures or syncope, no history of focal weakness. Endocrine: No history of polyuria or polydipsia. No history of intolerance to cold or warm weather. Musculoskeletal: No history of myalgias or arthralgias. Hematological/Lymphatics: No history of anemia, bleeding, or ecchymosis. There is no history of lymphadenopathy or masses. PHYSICAL EXAMINATION: General: A 58-year-old morbidly obese female was in no acute distress, no pallor, cyanosis, clubbing, or jaundice. Vital signs: Weight 167.829 kg. Blood pressure 135/56 mmHg, pulse 56 beats per minute and regular, temperature 98.0 degrees Fahrenheit, respirations were 18 per minute, oxygen saturation was 96% on room air. Neck: Supple. No jugulovenous distention, carotids were 2+, upstrokes were normal, no bruits were heard, and no thyromegaly was appreciated. Heart: No heaves or thrills. PMI was not localized. Heart sounds were distant, grade 2/6 ejection systolic murmur was heard at the 2nd right intercostal space. No diastolic murmur or gallops were appreciated. Lungs: Clear on auscultation. Abdomen: Obese, soft, nontender, unable to appreciate hepatosplenomegaly or palpable masses. Extremities: No calf tenderness. There were bilateral lower extremity brawny edema with stasis changes. Dorsalis pedis and posterior tibial pulses were not palpable. LABORATORY DATA: X-ray chest 2 views of the chest reveal degenerative changes with wedging, clear lungs, sharp angles, sclerotic, normal hilar and normal heart. There is a small hiatus hernia. Since 06/30/2018, increased lung markings have cleared. Correlation recommended. ECG of February 11, 2019: Sinus rhythm with intraatrial conduction abnormality, left axis deviation consistent with left anterior hemiblock, LVH per voltage criteria (AVL), right bundle branch block, QS pattern in V2 and V3, possibility of an intraseptal wall myocardial infarction of indeterminate age cannot be excluded. CMP: Sodium 140, potassium 4.0, chloride 109, CO2 of 26 mmol/L. BUN 16, creatinine 1.0 mg/dL. Calcium 8.4 mg/dL. CK on February 11, 2019: 75. Troponin I on 3 different occasions was less than 0.03. TSH was 1.35. CBC on February 12, 2019: WBC 3800, hemoglobin 11.2 g, platelet count was 187,000. IMPRESSION: 1. Chest pain syndrome. Etiology to be determined. A. Pain of musculoskeletal origin. B. Secondary to left ventricular diastolic dysfunction. 2. Obstructive sleep apnea syndrome. 3. Hypertension, hypertensive cardiovascular disease. 4. Paroxysmal atrial fibrillation, currently in sinus rhythm. 5. Chronic venous insufficiency. 6. Calcific aortic valvular disease without evidence of critical aortic stenosis. 7. Mitral valvular disease with mitral regurgitation. 8. Morbid obesity. RECOMMENDATION: 1. Echocardiogram. 2. Amiodarone level. 3. . 4. Consider adding amlodipine 2.5 mg and titrating upwards if necessary. 5. Continue current medications. 6. Further suggestions as necessary. Thank you for your referral. PAULETTE ALATORRE M.D. [id number]
[2019-02-13] MEDS: ZOLPIDEM TARTRATE 5 MG TABLET PO PRN (00:35)
[2019-02-13 07:44] LABS: ALBUMIN 3.5 g/dl (3.4-5.0); BILIRUBIN,TOTAL 0.6 mg/dL (0.2-1); BLOOD UREA NITROGEN 17.3 mg/dL (7-18); CALCIUM 8.6 mg/dL (8.5-10.1); CREATININE 0.9 mg/dL (0.55-1.3); POTASSIUM 4.2 mmol/L (3.5-5.1); TOT PROT 6.8 g/dl (6.4-8.2)
[2019-02-13] MEDS: AMIODARONE HCL 200 MG TABLET (FP) PO SCH ×2 (10:31→23:05)
[2019-02-13] MEDS: APIXABAN 5 MG TABLET PO SCH ×2 (10:31→23:07)
[2019-02-13] MEDS: SPIRONOLACTONE 25 MG TABLET (FP) PO SCH (10:31)
[2019-02-13] MEDS: FUROSEMIDE 40 MG TABLET (FP) PO SCH (10:31)
[2019-02-13] MEDS: POLYETHYLENE GLYCOL 3350 119 GM BTL PO SCH ×2 (10:32→23:07)
--- NOTE | 2019-02-13 10:35 | PN ---
Progress Note, Physician Chief Complaint: still having some chest tightness intermittently, denies shortness of breath History of Present Illness: tele monitor: sinus dami 54 patient is a 58 y/o woman with a PMHx of HTN, CAD, Morbid Obesity, paroxysmal Afib, Mitral Valve Disease, PHTN, ELLE, Bronchial Asthma, Chronic Venous Stasis Insufficiency with Lymph Edema. Patient comes to the ED for chest pain pressure and "heart heaviness" to sharp in nature, with radiation to her left arm. lasting intermittently, during rest and activity. Patient reports SOB on activity. Patient reports having increased pain to b/l LE with increased swelling to her ankles. Patient denies fever, chills, CRUZ, AP, N/V/D, constipation, dysuria. - Current Medication List Current Medications: Active Medications Acetaminophen (Tylenol -) 650 mg PO Q6H PRN PRN Reason: FEVER Amiodarone HCl (Cordarone -) 200 mg PO BID [facility] Last Admin: 02/12/19 21:18 Dose: 200 mg Apixaban (Eliquis -) 5 mg PO BID [facility] Last Admin: 02/12/19 21:19 Dose: 5 mg Duloxetine HCl (Cymbalta -) 60 mg PO HS [facility] Last Admin: 02/12/19 21:18 Dose: 60 mg Furosemide (Lasix -) 40 mg PO DAILY [facility] Polyethylene Glycol (Miralax (For Daily Use) -) 17 gm PO BID [facility] Last Admin: 02/12/19 21:19 Dose: Not Given Spironolactone (Aldactone -) 25 mg PO DAILY [facility] Last Admin: 02/12/19 09:15 Dose: 25 mg Trazodone HCl (Desyrel -) 100 mg PO HS [facility] Last Admin: 02/12/19 21:19 Dose: 100 mg Zolpidem Tartrate (Ambien -) 10 mg PO HS PRN PRN Reason: INSOMNIA Last Admin: 02/13/19 00:35 Dose: 10 mg - Objective Vital Signs: Vital Signs Temperature 98.0 F 02/13/19 06:00 Pulse Rate 66 02/13/19 06:00 Respiratory Rate 18 02/13/19 06:00 Blood Pressure 137/72 02/13/19 06:00 O2 Sat by Pulse Oximetry (%) 97 02/13/19 05:00 Labs: CBC, BMP 02/12/19 06:25 07/13/19 05:31 INR, PTT INR 1.04 (0.83-1.09) 02/11/19 18:50 Problem List - Problems (1) Chest pain Assessment/Plan: Chest pain improving from admission. comfortable at rest Patient being followed by cardiology. further workup per cardiology Troponins negative, no events on telemonitoring Code(s): R07.9 - CHEST PAIN, UNSPECIFIED Qualifiers: Chest pain type: unspecified Qualified Code(s): R07.9 - Chest pain, unspecified (2) Acute on chronic diastolic (congestive) heart failure Assessment/Plan: Monitor daily weights. weights appear to be increasing. dry weight apx 167kg. continue lasix and spironolactone. Echo to evaluate LV function. Code(s): I50.33 - ACUTE ON CHRONIC DIASTOLIC (CONGESTIVE) HEART FAILURE (3) Afib Assessment/Plan: On Eliquis 5mg BID. NSR on telemonitoring. Code(s): I48.91 - UNSPECIFIED ATRIAL FIBRILLATION Qualifiers: Atrial fibrillation type: chronic Qualified Code(s): I48.2 - Chronic atrial fibrillation (4) CHF (congestive heart failure) Code(s): I50.9 - HEART FAILURE, UNSPECIFIED Qualifiers: Heart failure type: diastolic (5) HTN (hypertension) Assessment/Plan: controlled. on amiodorone Code(s): I10 - ESSENTIAL (PRIMARY) HYPERTENSION (6) Aortic valve stenosis Assessment/Plan: Echo follow up cardiology following Code(s): I35.0 - NONRHEUMATIC AORTIC (VALVE) STENOSIS (7) Morbid obesity Assessment/Plan: Morbid obesity. outpatient follow up with bariatric specialist recommended. dietary following. Code(s): E66.01 - MORBID (SEVERE) OBESITY DUE TO EXCESS CALORIES Visit type - Emergency Visit Emergency Visit: Yes ED Registration Date: 02/12/19 Care time: The patient presented to the Emergency Department on the above date and was hospitalized for further evaluation of their emergent condition. - New Patient This patient is new to me today: Yes Date on this admission: 02/13/19 - Critical Care Critical Care patient: No - Discharge Referral Referred to [facility] Med P.C.: No
--- NOTE | 2019-02-13 11:23 | CON.PULM ---
Consult Consult Specialty:: PULMONARY Referred by:: EDWARD Reason for Consultation:: UNTREATED OSAS - History of Present Illness Chief Complaint: CHEST PAIN History of Present Illness: This is a 58 y/o woman with a PMHx of HTN, CAD, Morbid Obesity, paroxysmal Afib , Mitral Valve Disease, PHTN, ELLE untreated and diagnosed a number of years ago , Bronchial Asthma, Chronic Venous Stasis Insufficiency with Lymph Edema. Patient reports having chest pain pressure and "heart heaviness" to sharp in nature, with radiation to her left arm. lasting intermittently, during rest and activity. Patient reports SOB on activity. Patient reports having increased pain to b/l LE with increased swelling to her ankles started tonight. Patient denies fever, chills, CRUZ, AP, N/V/D, constipation, dysuria. - History Source History Provided By: Patient, Medical Record Limitations to Obtaining History: No Limitations - Past Medical History [employer]: No: Alzheimer's Cardio/Vascular: Yes: AFIB, Aortic Stenosis, HTN, Mitral Insufficiency, Pulmonary Hypertension Pulmonary: Yes: Asthma, Sleep Apnea Gastrointestinal: Yes: Other (ventral hernia, small bowel obstruction). No: Ascites Hepatobiliary: Yes: Cholecystitis Heme/Onc: Yes: Anemia Psych: Yes: Depression Musculoskeletal: Yes: Other (carpal tunnel) - Past Surgical History Past Surgical History: Yes: Bariatric Surgery, Cholecystectomy, Hernia Repair, Hysterectomy, Oopherectomy - Alcohol/Substance Use Hx Alcohol Use: No History of Substance Use: reports: None - Smoking History Smoking history: Never smoked Have you smoked in the past 12 months: No Aproximately how many cigarettes per day: 0 - Social History Usual Living Arrangement: With Spouse ADL: Independent 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 History of Recent Travel: No Home Medications - Allergies Allergies/Adverse Reactions: Allergies Allergy/AdvReac Type Severity Reaction Status Date / Time No Known Allergies Allergy Verified 02/11/19 17:56 - Home Medications Home Medications: Ambulatory Orders Apixaban [Eliquis -] 5 mg PO BID #60 tablet 11/28/15 Furosemide [Lasix -] 40 mg PO DAILY #30 tablet 04/05/17 Spironolactone [Aldactone -] 25 mg PO DAILY 04/23/18 Amiodarone HCl [Cordarone -] 200 mg PO BID 04/24/18 Duloxetine HCl [Cymbalta -] 60 mg PO HS 02/12/19 traZODone HCL [Trazodone HCl] 100 mg PO HS 02/12/19 Family Disease History - Family Disease History Family Disease History: Diabetes: Mother, Heart Disease: Mother, CA: Father ( colon) Review of Systems - Review of Systems Constitutional: denies: Fever Eyes: denies: Blurred Vision HENT: denies: Difficult Swallowing Neck: denies: Decreased ROM Cardiovascular: reports: Chest Pain, Edema, Shortness of Breath. denies: Palpitations Respiratory: reports: Exercise Intolerance, SOB, SOB on Exertion, Wheezing. denies: Cough, Hemoptysis Gastrointestinal: denies: Abdominal Pain Genitourinary: denies: Burning Physical Exam Vital Sings: Vital Signs Temperature 98.0 F 02/13/19 06:00 Pulse Rate 66 02/13/19 06:00 Respiratory Rate 18 02/13/19 06:00 Blood Pressure 137/72 02/13/19 06:00 O2 Sat by Pulse Oximetry (%) 97 02/13/19 05:00 Constitutional: Yes: Calm Eyes: Yes: EOM Intact HENT: Yes: Normocephalic Neck: Yes: Trachea Midline Cardiovascular: Yes: Regular Rate and Rhythm, Murmur, S1, S2 Respiratory: Yes: CTA Bilaterally Gastrointestinal: Yes: Abdomen, Obese Edema: Yes Integumentary: Yes: Venous Stasis Changes, Other (lymphedema b/l lower ext) Neurological: Yes: Alert Psychiatric: Yes: Alert Labs: CBC, BMP 02/12/19 06:25 02/13/19 05:31 Imaging - Results X-ray: Report Reviewed, Image Reviewed Ultrasound: Report Reviewed Problem List - Problems (1) Chest pain Code(s): R07.9 - CHEST PAIN, UNSPECIFIED Qualifiers: Chest pain type: unspecified Qualified Code(s): R07.9 - Chest pain, unspecified (2) Acute on chronic diastolic (congestive) heart failure Code(s): I50.33 - ACUTE ON CHRONIC DIASTOLIC (CONGESTIVE) HEART FAILURE (3) Cellulitis Code(s): L03.90 - CELLULITIS, UNSPECIFIED Qualifiers: Site of cellulitis: unspecified site Qualified Code(s): L03.90 - Cellulitis , unspecified (4) DVT prophylaxis Code(s): [id number] - (5) Dyspnea Code(s): R06.00 - DYSPNEA, UNSPECIFIED Qualifiers: Dyspnea type: dyspnea on exertion Qualified Code(s): R06.09 - Other forms of dyspnea (6) Leg pain, right Code(s): M79.604 - PAIN IN RIGHT LEG (7) Morbid obesity with BMI of 50.0-59.9, adult Code(s): E66.01 - MORBID (SEVERE) OBESITY DUE TO EXCESS CALORIES; Z68.43 - BODY MASS INDEX (BMI) 50-59.9, ADULT (8) Aortic stenosis, moderate Code(s): I35.0 - NONRHEUMATIC AORTIC (VALVE) STENOSIS Assessment/Plan ASKED TO EVAL FOR UNTREATED OSAS PATIENT WAS DIAGNOSED A NUMBER OF YEARS AGO AT [facility](STUDY UNAVAILABLE) ADMITTED WITH ATYPICAL CHEST PAIN M. OBESITY MULTIPLE CO-MORBID CONDITIONS PRESENT MOST OF WHICH WILL BE WORSENED BY UNTREATED OSAS SUGGEST OBTAIN PSG TO DETERMINE CORRECT PRESSURE WOULD SUGGEST AUTO PAP 4-20 CM FOR NOW CONSIDER A REPEAT STUDY AN OUTPATIENT WILL FOLLOW Clemente SAGE MD
[2019-02-13] MEDS: DULoxetine HCL 30 MG CAPSULE.DR PO SCH (23:05)
[2019-02-13] MEDS: traZODone HCL 50 MG TABLET (FP) PO SCH (23:05)
[2019-02-14] MEDS: ZOLPIDEM TARTRATE 5 MG TABLET PO PRN (00:40)
--- NOTE | 2019-02-14 09:33 | PN ---
DATE OF VISIT: DATE OF DICTATION: 02/13/2019 The patient is a 58-year-old female with history of calcific aortic valvular disease, hypertension, hypertensive cardiovascular disease, paroxysmal atrial fibrillation, mitral valvular disease, history of chronic bronchial asthma, obstructive sleep apnea syndrome, pulmonary hypertension, tricuspid regurgitation, bilateral lower extremity venous insufficiency, and history of chest pain syndrome. Since admission, patient has had mild localized left upper anterior chest discomfort. No paroxysmal nocturnal dyspnea or orthopnea has been reported. No palpitations, lightheadedness, dizziness, presyncope, or syncope. MEDICATIONS: 1. Amiodarone 200 mg p.o. b.i.d. 2. Tylenol 650 mg q.6 hours p.r.n. 3. Eliquis 5 mg p.o. b.i.d. 4. Cymbalta 60 mg p.o. at bedtime. 5. Trazodone 100 mg p.o. at bedtime. 6. Ambien 10 mg p.o. at bedtime p.r.n. 7. MiraLAX 17 g p.o. b.i.d. 8. Furosemide 40 mg p.o. daily. 9. Spironolactone 25 mg p.o. daily. PHYSICAL EXAMINATION: General: A 58-year-old morbidly obese female who is in no distress. No pallor, cyanosis, clubbing, or jaundice. Vital Signs: Blood pressure 135/79 mmHg, pulse 70 beats/min and regular, temperature 98.0 degrees Fahrenheit, respirations were 20/min, O2 saturation was 100% on room air. Neck: Supple. No jugular venous distention. Carotids were 2+, upstrokes were normal. No bruits were heard. Heart: PMI was not localized. Heart sounds were distant. Grade 2/6 ejection systolic murmur was heard at the 2nd right intercostal space and along the left sternal border, ending in midsystole. No diastolic murmur or gallops were heard. Lungs: Clear on auscultation. Abdomen: Morbidly obese, nontender. No hepatosplenomegaly or palpable masses were felt. Extremities: No calf tenderness. There were bilateral stasis changes and chronic brawny edema. LABORATORY DATA: Chemistry: Sodium 142, potassium 4.2, chloride 108, CO2 of 29 mmol/L, BUN 17.3, creatinine 0.9 mg/dL. IMPRESSION: 1. Chest pain syndrome, atypical presentation for coronary artery disease. Etiology to be determined. 2. History of aortic valvular disease. 3. Hypertension, hypertensive cardiovascular disease. 4. History of left ventricular diastolic dysfunction. 5. History of paroxysmal atrial fibrillation, currently in sinus rhythm. 6. Morbid obesity. RECOMMENDATIONS: 1. Continue medications as outlined. 2. Amiodarone level. 3. Consider CT of the chest. 4. Pulmonary function tests. 5. Consider GI evaluation. 6. Please refer to consultation of February 12, 2019. PAULETTE ALATORRE M.D. [id number]
--- NOTE | 2019-02-14 10:11 | PN ---
Progress Note (short form) - Note Progress Note: PULMONARY RESTING COMFORTABLY LESS CHEST DISCOMFORT HAS NOTED SOME PALPITATIONS TODAY VSS/AFEBRILE PALE/ANICTERIC DIMINISHED BIBASILAR BREATH SOUNDS S1S2 OBESE B/L LYMPH EDEMA LOWER EXT ORDERED NIPPV LAST PM (NOTED NOT AT BEDSIDE) LABS/MEDS/NOTES/IMAGES REVIEWED UNTREATED OSAS PATIENT WAS DIAGNOSED A NUMBER OF YEARS AGO AT [facility](STUDY UNAVAILABLE) ADMITTED WITH ATYPICAL CHEST PAIN M. OBESITY MULTIPLE CO-MORBID CONDITIONS PRESENT MOST OF WHICH WILL BE WORSENED BY UNTREATED OSAS SUGGEST OBTAIN PSG TO DETERMINE CORRECT PRESSURE WOULD SUGGEST AUTO PAP 4-20 CM FOR NOW IF UNAVAILABLE WILL GIVE APPROXIMATE SETTINGS CONSIDER A REPEAT STUDY AN OUTPATIENT Clemente SAGE MD Problem List - Problems (1) Chest pain Code(s): R07.9 - CHEST PAIN, UNSPECIFIED Qualifiers: Chest pain type: unspecified Qualified Code(s): R07.9 - Chest pain, unspecified (2) Acute on chronic diastolic (congestive) heart failure Code(s): I50.33 - ACUTE ON CHRONIC DIASTOLIC (CONGESTIVE) HEART FAILURE (3) Cellulitis Code(s): L03.90 - CELLULITIS, UNSPECIFIED Qualifiers: Site of cellulitis: unspecified site Qualified Code(s): L03.90 - Cellulitis , unspecified (4) DVT prophylaxis Code(s): [id number] - (5) Dyspnea Code(s): R06.00 - DYSPNEA, UNSPECIFIED Qualifiers: Dyspnea type: dyspnea on exertion Qualified Code(s): R06.09 - Other forms of dyspnea (6) Leg pain, right Code(s): M79.604 - PAIN IN RIGHT LEG (7) Morbid obesity with BMI of 50.0-59.9, adult Code(s): E66.01 - MORBID (SEVERE) OBESITY DUE TO EXCESS CALORIES; Z68.43 - BODY MASS INDEX (BMI) 50-59.9, ADULT (8) Aortic stenosis, moderate Code(s): I35.0 - NONRHEUMATIC AORTIC (VALVE) STENOSIS
[2019-02-14] MEDS: AMIODARONE HCL 200 MG TABLET (FP) PO SCH ×2 (10:57→21:24)
[2019-02-14] MEDS: FUROSEMIDE 40 MG TABLET (FP) PO SCH (10:57)
[2019-02-14] MEDS: SPIRONOLACTONE 25 MG TABLET (FP) PO SCH (10:57)
[2019-02-14] MEDS: APIXABAN 5 MG TABLET PO SCH ×2 (10:58→21:23)
[2019-02-14] MEDS: POLYETHYLENE GLYCOL 3350 119 GM BTL PO SCH ×2 (10:58→21:24)
--- NOTE | 2019-02-14 11:56 | PN ---
Progress Note, Physician Chief Complaint: no chest pain, denies shortness of breath. History of Present Illness: tele monitor: sinus dami 60s patient is a 58 y/o woman with a PMHx of HTN, CAD, Morbid Obesity, paroxysmal Afib, Mitral Valve Disease, PHTN, ELLE, Bronchial Asthma, Chronic Venous Stasis Insufficiency with Lymph Edema. Patient comes to the ED for chest pain pressure and "heart heaviness" to sharp in nature, with radiation to her left arm. lasting intermittently, during rest and activity. Patient reports SOB on activity. Patient reports having increased pain to b/l LE with increased swelling to her ankles. Patient denies fever, chills, CRUZ, AP, N/V/D, constipation, dysuria. - Current Medication List Current Medications: Active Medications Acetaminophen (Tylenol -) 650 mg PO Q6H PRN PRN Reason: FEVER Amiodarone HCl (Cordarone -) 200 mg PO BID [facility] Last Admin: 02/14/19 10:57 Dose: 200 mg Apixaban (Eliquis -) 5 mg PO BID [facility] Last Admin: 02/14/19 10:58 Dose: 5 mg Duloxetine HCl (Cymbalta -) 60 mg PO HS [facility] Last Admin: 02/13/19 23:05 Dose: 60 mg Furosemide (Lasix -) 40 mg PO DAILY [facility] Last Admin: 02/14/19 10:57 Dose: 40 mg Polyethylene Glycol (Miralax (For Daily Use) -) 17 gm PO BID [facility] Last Admin: 02/14/19 10:58 Dose: Not Given Spironolactone (Aldactone -) 25 mg PO DAILY [facility] Last Admin: 02/14/19 10:57 Dose: 25 mg Trazodone HCl (Desyrel -) 100 mg PO HS [facility] Last Admin: 02/13/19 23:05 Dose: 100 mg Zolpidem Tartrate (Ambien -) 10 mg PO HS PRN PRN Reason: INSOMNIA Last Admin: 02/14/19 00:40 Dose: 10 mg - Objective Vital Signs: Vital Signs Temperature 98.0 F 02/14/19 05:00 Pulse Rate 60 02/14/19 05:00 Respiratory Rate 20 02/14/19 05:00 Blood Pressure 130/77 02/14/19 05:00 O2 Sat by Pulse Oximetry (%) 100 02/13/19 21:30 Constitutional: Yes: No Distress, Calm Eyes: Yes: WNL HENT: Yes: WNL, Atraumatic Neck: Yes: WNL, Supple Cardiovascular: Yes: Regular Rate and Rhythm Respiratory: Yes: WNL, CTA Bilaterally Gastrointestinal: Yes: WNL, Normal Bowel Sounds, Soft, Abdomen, Obese ...Rectal Exam: Yes: Deferred Genitourinary: Yes: WNL Edema: Yes Edema: LLE: 2+ (hx of lymphedema), RLE: 2+ (hx of lymphedema) Integumentary: Yes: WNL Neurological: Yes: WNL Labs: CBC, BMP 02/12/19 06:25 02/13/19 05:31 INR, PTT INR 1.04 (0.83-1.09) 02/11/19 18:50 Problem List - Problems (1) Chest pain Assessment/Plan: Chest pain resolved. comfortable at rest Troponins x 3 negative Patient being followed by cardiology. further workup per cardiology No events on telemonitoring Code(s): R07.9 - CHEST PAIN, UNSPECIFIED Qualifiers: Chest pain type: unspecified Qualified Code(s): R07.9 - Chest pain, unspecified (2) Acute on chronic diastolic (congestive) heart failure Assessment/Plan: Monitor daily weights. continue lasix and spironolactone. Echo to evaluate LV function. on amiodorone 200mg bid monitor daily weights Code(s): I50.33 - ACUTE ON CHRONIC DIASTOLIC (CONGESTIVE) HEART FAILURE (3) Afib Assessment/Plan: On Eliquis 5mg BID. NSR on telemonitoring. Code(s): I48.91 - UNSPECIFIED ATRIAL FIBRILLATION Qualifiers: Atrial fibrillation type: chronic Qualified Code(s): I48.2 - Chronic atrial fibrillation (4) CHF (congestive heart failure) Code(s): I50.9 - HEART FAILURE, UNSPECIFIED Qualifiers: Heart failure type: diastolic (5) HTN (hypertension) Assessment/Plan: controlled. on amiodorone 200 bid Code(s): I10 - ESSENTIAL (PRIMARY) HYPERTENSION (6) Aortic valve stenosis Assessment/Plan: Echo follow up cardiology following Code(s): I35.0 - NONRHEUMATIC AORTIC (VALVE) STENOSIS (7) Morbid obesity Assessment/Plan: Morbid obesity. outpatient follow up with bariatric specialist recommended. dietary following. Code(s): E66.01 - MORBID (SEVERE) OBESITY DUE TO EXCESS CALORIES (8) Prophylactic measure Assessment/Plan: fen tolerating PO monitor electrolytes with daily labs low salt diet dvt prophy Code(s): Z29.9 - ENCOUNTER FOR PROPHYLACTIC MEASURES, UNSPECIFIED Visit type - Emergency Visit Emergency Visit: Yes ED Registration Date: 02/12/19 Care time: The patient presented to the Emergency Department on the above date and was hospitalized for further evaluation of their emergent condition. - New Patient This patient is new to me today: No - Critical Care Critical Care patient: No - Discharge Referral Referred to [facility] Med P.C.: No
--- NOTE | 2019-02-14 13:24 | PN ---
Progress Note (short form) - Note Progress Note: 58 year female admitted with chest pain, h/o hypertension OSAS, paroxysmal atrial fib. H/o aortic valvular disease, s/p gastric bypass surgery. H/o chronic pedal edema related to venous insufficiency No further chest pain or discomfort, no SOB or palpitations. Active Medications Acetaminophen (Tylenol -) 650 mg PO Q6H PRN PRN Reason: FEVER Amiodarone HCl (Cordarone -) 200 mg PO BID [facility] Last Admin: 02/14/19 10:57 Dose: 200 mg Apixaban (Eliquis -) 5 mg PO BID [facility] Last Admin: 02/14/19 10:58 Dose: 5 mg Duloxetine HCl (Cymbalta -) 60 mg PO HS [facility] Last Admin: 02/13/19 23:05 Dose: 60 mg Furosemide (Lasix -) 40 mg PO DAILY [facility] Last Admin: 02/14/19 10:57 Dose: 40 mg Polyethylene Glycol (Miralax (For Daily Use) -) 17 gm PO BID [facility] Last Admin: 02/14/19 10:58 Dose: Not Given Spironolactone (Aldactone -) 25 mg PO DAILY [facility] Last Admin: 02/14/19 10:57 Dose: 25 mg Trazodone HCl (Desyrel -) 100 mg PO HS [facility] Last Admin: 02/13/19 23:05 Dose: 100 mg Zolpidem Tartrate (Ambien -) 10 mg PO HS PRN PRN Reason: INSOMNIA Last Admin: 02/14/19 00:40 Dose: 10 mg Last Vital Signs Temp Pulse Resp BP Pulse Ox 98.2 F 89 20 147/93 98 02/14/19 09:00 02/14/19 09:00 02/14/19 10:00 02/14/19 09:00 02/14/19 10:00 NECK: Supple, no JVD, carotids 2+, bilateral radiation of murmur. HEART: PMI is not localised, SLOAN II/ at 2nd RCS and left sternal border ending in midsystole, no diastolic murmur or gallops heard LUNGS: Clear on auscultation ABDOMEN, Obese, nontender, no organomagaly. EXTREMITIES: No calf tenderness bilateral brawny lower extremity edema. CBC, BMP 02/12/19 06:25 07/13/19 05:31 Intake & Output 02/11/19 02/12/19 02/13/19 02/14/19 23:59 23:59 23:59 23:59 Intake Total 200 1220 0 Balance 200 1220 0 Weight 167.829 kg 175.087 kg IMPRESSION: 1. Chest pain syndrome wit h/o normal coronary arteries. a). Musculoskeletal. b). GE reflux. c). Progressive aortic stenosis. d). LV diastolic dysfunction. 2. OSAS. 3. Hypertension. 4. Venous insuffiency. 5. Morbid obesity. 6. Paroxysmal atrial fib. RECOMMENDATIONS 1. Echocardiogram. 2. Should consider Bariatic evaluation. 3. If echo reveals LVDD, consider Ranexa 500mg. BID 4. GI evaluation.
[2019-02-14 16:03] VITALS: BMI 58.6
[2019-02-14] MEDS: DULoxetine HCL 30 MG CAPSULE.DR PO SCH (21:23)
[2019-02-14] MEDS: traZODone HCL 50 MG TABLET (FP) PO SCH (21:24)
[2019-02-15] MEDS: ZOLPIDEM TARTRATE 5 MG TABLET PO PRN (00:33)
[2019-02-15 06:37] VITALS: TEMP 98.2
[2019-02-15 07:58] LABS: BASO % 0.3 % (0-2.0); EOS % 0.1 % (0-4.5); HEMOGLOBIN 10.9 GM/dL (10.7-15.3); LYMPH % 24.6 % (8-40); MCH 28.1 pg (25.7-33.7); MCHC 32.9 g/dl (32.0-36.0); MEAN CELL VOLUME 85.4 fl (80-96); MEAN PLT VOLUME 8.6 fl (7.5-11.1); MONO % 11.3 % (3.8-10.2); NEUT % 63.7 % (42.8-82.8); PLATELET COUNT 188 K/MM3 (134-434); RBC 3.87 M/mm3 (3.60-5.2); RDW 15.2 % (11.6-15.6); WHITE BLOOD COUNT 3.7 K/mm3 (4.0-10.0)
--- NOTE | 2019-02-15 08:09 | PN ---
Progress Note (short form) - Note Progress Note: Cardiology f/u appreciated. Trial of CPAP was ordered by Pulm. Will arrange for a formal sleep study as outpt. Airways Class 1 AAS. Vital Signs - 24 hr 02/14/19 02/14/19 02/14/19 09:00 10:00 15:00 Temperature 98.2 F 98.2 F Pulse Rate 89 74 Respiratory 20 20 20 Rate Blood Pressure 147/93 149/93 O2 Sat by Pulse 98 Oximetry (%) 02/14/19 02/14/19 02/15/19 17:00 21:00 01:00 Temperature 98.7 F 97.8 F 97.8 F Pulse Rate 63 71 60 Respiratory 20 20 20 Rate Blood Pressure 126/96 143/80 121/66 O2 Sat by Pulse 99 Oximetry (%) 02/15/19 02/15/19 02:48 05:00 Temperature 98.2 F Pulse Rate 60 Respiratory 18 Rate Blood Pressure 125/71 O2 Sat by Pulse 95 Oximetry (%) No chest pain. NECK-NO jvd, NO BRUITS. Lungs are clear Heart S1S2 regular, SLOAN on aorta and LSB c/w Abdomen soft, obese. Ext-No CCE, Stasis changes. Current Active Problems Problem Status Onset Aortic valve stenosis PAF Acute Chest pain Acute Morbid obesity R-en-Y bypass. Acute Prophylactic measure LE stasis , recurrent cellulitis. Acute Plan D/c home Zantac 75 mg bid po Sleep study. continue current meds Cardiology f/u. Bariatric surgery re-eval. Problem List - Problems (1) Chest pain Code(s): R07.9 - CHEST PAIN, UNSPECIFIED Qualifiers: Chest pain type: unspecified Qualified Code(s): R07.9 - Chest pain, unspecified (2) Acute on chronic diastolic (congestive) heart failure Code(s): I50.33 - ACUTE ON CHRONIC DIASTOLIC (CONGESTIVE) HEART FAILURE (3) Aortic valve stenosis Code(s): I35.0 - NONRHEUMATIC AORTIC (VALVE) STENOSIS Qualifiers: Cardiac valve disease etiology: nonrheumatic Qualified Code(s): I35.0 - Nonrheumatic aortic (valve) stenosis (4) CHF (congestive heart failure) Code(s): I50.9 - HEART FAILURE, UNSPECIFIED Qualifiers: Heart failure type: diastolic (5) Afib Code(s): I48.91 - UNSPECIFIED ATRIAL FIBRILLATION Qualifiers: Atrial fibrillation type: chronic Qualified Code(s): I48.2 - Chronic atrial fibrillation
--- NOTE | 2019-02-15 08:12 | DS ---
Physical Examination Vital Signs: Vital Signs Temperature 98.2 F 02/15/19 05:00 Pulse Rate 60 02/15/19 05:00 Respiratory Rate 18 02/15/19 05:00 Blood Pressure 125/71 02/15/19 05:00 O2 Sat by Pulse Oximetry (%) 95 02/15/19 02:48 Constitutional: Yes: No Distress, Calm, Obese Eyes: Yes: Conjunctiva Clear, EOM Intact HENT: Yes: Atraumatic, Normocephalic Neck: Yes: Supple, Trachea Midline. No: Decreased ROM, Lymphadenopathy Cardiovascular: Yes: Regular Rate and Rhythm, Murmur (SLOAN of ), S1, S2 Respiratory: Yes: Regular, CTA Bilaterally Gastrointestinal: Yes: Normal Bowel Sounds, Soft, Abdomen, Obese ...Rectal Exam: Yes: Deferred Renal/: No: Anuria Musculoskeletal: Yes: WNL Extremities: No: Calf Tenderness, Cold, Cyanosis Edema: No Neurological: Yes: WNL ...Motor Strength: WNL Psychiatric: Yes: WNL Discharge Summary Reason For Visit: CHEST PAIN Current Active Problems Aortic valve stenosis (Acute) Chest pain (Acute) Morbid obesity (Acute) Prophylactic measure (Acute) Condition: Stable - Instructions Disposition: HOME - Home Medications Comprehensive Discharge Medication List: Ambulatory Orders Apixaban [Eliquis -] 5 mg PO BID #60 tablet 11/28/15 Furosemide [Lasix -] 40 mg PO DAILY #30 tablet 04/05/17 Spironolactone [Aldactone -] 25 mg PO DAILY 04/23/18 Amiodarone HCl [Cordarone -] 200 mg PO BID 04/24/18 Duloxetine HCl [Cymbalta -] 60 mg PO HS 02/12/19 traZODone HCL [Trazodone HCl] 100 mg PO HS 02/12/19
[2019-02-15 08:26] LABS: ALBUMIN 3.2 g/dl (3.4-5.0); BILIRUBIN,TOTAL 0.6 mg/dL (0.2-1); BLOOD UREA NITROGEN 19.6 mg/dL (7-18); CALCIUM 8.1 mg/dL (8.5-10.1); CREATININE 0.9 mg/dL (0.55-1.3); MAGNESIUM 2.1 mg/dL (1.8-2.4); POTASSIUM 3.9 mmol/L (3.5-5.1); TOT PROT 6.3 g/dl (6.4-8.2)
[2019-02-15 09:22] VITALS: BP 130/77; PULSE 68
[2019-02-15] MEDS: POLYETHYLENE GLYCOL 3350 119 GM BTL PO SCH (10:13)
[2019-02-15] MEDS: FUROSEMIDE 40 MG TABLET (FP) PO SCH (10:13)
[2019-02-15] MEDS: APIXABAN 5 MG TABLET PO SCH (10:13)
[2019-02-15] MEDS: AMIODARONE HCL 200 MG TABLET (FP) PO SCH (10:13)
[2019-02-15] MEDS: SPIRONOLACTONE 25 MG TABLET (FP) PO SCH (10:13)
--- NOTE | 2019-02-15 10:24 | PN ---
Progress Note, Physician History of Present Illness: PULMONARY ALERT,NO DISTRESS,-SOB,-CP,SLEPT WELL ON BIPAP - Current Medication List Current Medications: Active Medications Acetaminophen (Tylenol -) 650 mg PO Q6H PRN PRN Reason: FEVER Amiodarone HCl (Cordarone -) 200 mg PO BID [facility] Last Admin: 02/15/19 10:13 Dose: 200 mg Apixaban (Eliquis -) 5 mg PO BID [facility] Last Admin: 02/15/19 10:13 Dose: 5 mg Duloxetine HCl (Cymbalta -) 60 mg PO HS [facility] Last Admin: 02/14/19 21:23 Dose: 60 mg Furosemide (Lasix -) 40 mg PO DAILY [facility] Last Admin: 02/15/19 10:13 Dose: 40 mg Polyethylene Glycol (Miralax (For Daily Use) -) 17 gm PO BID [facility] Last Admin: 02/15/19 10:13 Dose: 17 grams Spironolactone (Aldactone -) 25 mg PO DAILY [facility] Last Admin: 02/15/19 10:13 Dose: 25 mg Trazodone HCl (Desyrel -) 100 mg PO HS [facility] Last Admin: 02/14/19 21:24 Dose: 100 mg Zolpidem Tartrate (Ambien -) 10 mg PO HS PRN PRN Reason: INSOMNIA Last Admin: 02/15/19 00:33 Dose: 10 mg - Objective Vital Signs: Vital Signs Temperature 98.2 F 02/15/19 05:00 Pulse Rate 68 02/15/19 09:00 Respiratory Rate 18 02/15/19 09:00 Blood Pressure 130/77 02/15/19 09:00 O2 Sat by Pulse Oximetry (%) 99 02/15/19 09:00 Constitutional: Yes: Well Nourished, Calm, Obese Eyes: Yes: WNL HENT: Yes: WNL Neck: Yes: WNL Cardiovascular: Yes: Regular Rate and Rhythm, S1, S2 Respiratory: Yes: CTA Bilaterally Gastrointestinal: Yes: Normal Bowel Sounds, Soft Extremities: Yes: WNL Edema: Yes Labs: CBC, BMP 02/15/19 07:29 02/15/19 07:29 INR, PTT INR 1.04 (0.83-1.09) 02/11/19 18:50 Assessment/Plan Problem List - Problems (1) Chest pain Code(s): R07.9 - CHEST PAIN, UNSPECIFIED Qualifiers: Chest pain type: unspecified Qualified Code(s): R07.9 - Chest pain, unspecified (2) Acute on chronic diastolic (congestive) heart failure Code(s): I50.33 - ACUTE ON CHRONIC DIASTOLIC (CONGESTIVE) HEART FAILURE (3) Cellulitis Code(s): L03.90 - CELLULITIS, UNSPECIFIED Qualifiers: Site of cellulitis: unspecified site Qualified Code(s): L03.90 - Cellulitis , unspecified (4) DVT prophylaxis Code(s): [id number] - (5) Dyspnea Code(s): R06.00 - DYSPNEA, UNSPECIFIED Qualifiers: Dyspnea type: dyspnea on exertion Qualified Code(s): R06.09 - Other forms of dyspnea (6) Leg pain, right Code(s): M79.604 - PAIN IN RIGHT LEG (7) Morbid obesity with BMI of 50.0-59.9, adult Code(s): E66.01 - MORBID (SEVERE) OBESITY DUE TO EXCESS CALORIES; Z68.43 - BODY MASS INDEX (BMI) 50-59.9, ADULT (8) Aortic stenosis, moderate Code(s): I35.0 - NONRHEUMATIC AORTIC (VALVE) STENOSIS Assessment/Plan UNTREATED OSAS ATYPICAL CHEST PAIN M. OBESITY MULTIPLE CO-MORBID CONDITIONS PRESENT MOST OF WHICH WILL SUGGEST OBTAIN PSG TO DETERMINE CORRECT PRESSURE BIPAP AT NIGHT REPEAT SLEEP STUDY AN OUTPATIENT DR LEMUS
--- NOTE | 2019-02-15 10:36 | ECHO ---
Name: VANESA STEWART TEMPLE Exam:Adult Echocardiogram Study Date: 02/15/2019 08:59 AM Age: 58 yrs Reason For Study: SEVERE Height: 68 in Weight: 370 lb BSA: 2.7 m2 MMode/2D Measurements & Calculations IVSd: 1.2 cm ACS: 1.3 cm LVIDd: 3.8 cm LVIDs: 3.3 cm LVPWd: 1.6 cm EDV(Teich): 63.3 ml LVOT diam: 1.7 cm ESV(Teich): 43.1 ml RV S Alok: 11.9 cm/sec Doppler Measurements & Calculations MV E max alok: 124.6 cm/sec Ao V2 max: 358.2 cm/sec MV A max alok: 112.3 cm/sec Ao max P.3 mmHg MV E/A: 1.1 Ao V2 mean: 262.4 cm/sec Ao mean P.4 mmHg Ao V2 VTI: 97.9 cm CHIVO(I,D): 1.3 cm2 CHIVO(V,D): 1.6 cm2 LV V1 max P.0 mmHg MR max alok: 493.0 cm/sec LV V1 mean P.5 mmHg MR max P.2 mmHg LV V1 max: 264.6 cm/sec LV V1 mean: 153.7 cm/sec LV V1 VTI: 59.0 cm SV(LVOT): 128.9 ml TR max alok: 312.8 cm/sec TR max P.7 mmHg Med Peak E' Alok: 9.2 cm/sec Med E/e': 13.6 Lat Peak E' Alok: 10.9 cm/sec Lat E/e': 11.4 Procedure A complete two-dimensional transthoracic echocardiogram was performed (2D, M-mode, Doppler and color flow Doppler). Left Ventricle The left ventricle is normal in size. There is mild concentric left ventricular hypertrophy. Left alberto tricular systolic function is normal. Ejection Fraction = 55-60%. No regional wall motion abnormalities noted. Right Ventricle The right ventricle is normal size. The right ventricular systolic function is normal. RV systolic TD I is 12 cm/s. Atria The left atrial size is normal. Right atrial size is normal. Mitral Valve There is moderate to severe mitral annular calcification. There is mild mitral regurgitation. Tricuspid Valve The tricuspid valve is normal in structure and function. There is mild tricuspid regurgitation. Pulmo nary artery systolic pressure is at least 48 mmHg as RA pressure is assumed 15 mmHg (dilated IVC with <50% collapse). Aortic Valve There is moderate aortic valve thickening. Moderate valvular aortic stenosis. The calculated aortic v alve area using the continuity equation is 1.3 cm2. Aortic mean pressure gradient= 31 mmHg. Moderate aortic regurgitation. Pulmonic Valve The pulmonic valve is not well visualized. Mild pulmonic valvular regurgitation. Great Vessels The aortic root is normal size. Pericardium/Pleura There is no pericardial effusion. Interpretation Summary The left ventricle is normal in size. There is mild concentric left ventricular hypertrophy. Left ventricular systolic function is normal. No regional wall motion abnormalities noted. Ejection Fraction = 55-60%. The right ventricular systolic function is normal. The left atrial size is normal. Right atrial size is normal. There is moderate to severe mitral annular calcification. There is mild mitral regurgitation. There is mild tricuspid regurgitation. Pulmonary artery systolic pressure is at least 48 mmHg as RA pressure is assumed 15 mmHg (dilated IVC with <50% collapse) There is moderate aortic valve thickening. Moderate valvular aortic stenosis. The calculated aortic valve area using the continuity equation is 1.3 cm2. Aortic mean pressure gradient= 31 mmHg Moderate aortic regurgitation. Mild pulmonic valvular regurgitation. There is no pericardial effusion. When compared to study dated 04/28/18, likely no significant changes Kamran Gaston MD 02/15/2019 10:35 AM
== END 2019-02-15 11:38 | disposition home or self-care (01) | DRG 313 ==
LOC: JER 17:34 → JERBED 20:34 → OBSVTOIN 02-12 16:22 → J4W 02-12 16:34
PROVIDERS: ADMIT Internal Medicine; ATTEND Internal Medicine
DX: R07.89 Other chest pain (principal); I50.33 Acute on chronic diastolic (congestive) heart failure; Z68.43 Body mass index [BMI] 50.0-59.9, adult; L03.90 Cellulitis, unspecified; E66.01 Morbid (severe) obesity due to excess calories; I48.0 Paroxysmal atrial fibrillation; G47.33 Obstructive sleep apnea (adult) (pediatric); I27.20 Pulmonary hypertension, unspecified; I25.10 Atherosclerotic heart disease of native coronary artery without angina pectoris; K21.9 Gastro-esophageal reflux disease without esophagitis; K43.9 Ventral hernia without obstruction or gangrene; F32.9 Major depressive disorder, single episode, unspecified; I89.0 Lymphedema, not elsewhere classified; I08.0 Rheumatic disorders of both mitral and aortic valves; M17.0 Bilateral primary osteoarthritis of knee; J45.909 Unspecified asthma, uncomplicated; I48.2 Chronic atrial fibrillation; I73.9 Peripheral vascular disease, unspecified; R06.09 Other forms of dyspnea; D64.9 Anemia, unspecified; I11.0 Hypertensive heart disease with heart failure; Z85.42 Personal history of malignant neoplasm of other parts of uterus; Z85.43 Personal history of malignant neoplasm of ovary; Z98.84 Bariatric surgery status
CPT/HCPCS: 36415; 71046-TC-FY; 80048; 80053; 80299; 82550; 83735; 84443; 84484; 85025; 85610; 93005; 93010; 93306-TC; 93970-TC; 94660; 99285-25; G0378

== ENCOUNTER 2019-09-21 17:37 | Inpatient (IN) | payer OTHER ==
--- NOTE | 2019-09-21 17:53 | PDOC ---
Rapid Medical Evaluation Time Seen by Provider: 09/21/19 17:47 Medical Evaluation: Allergies Allergy/AdvReac Type Severity Reaction Status Date / Time No Known Allergies Allergy Verified 09/21/19 17:48 09/21/19 17:49 Pt with pmh of asthma/copd, afib presents for evaluation of a cough and rapid heart rate. Was treated with tamiflu with no relief of symptoms. Exam: Tachycardic to 130, Lungs with expiratory wheezing, dry cough noted Orders: labs, EKG, CXR, IV Pt to proceed to the ER for further evaluation Discharge Disposition - Diagnosis Cough - Referrals - Patient Instructions - Post Discharge Activity
[2019-09-21 17:56] VITALS: BMI 57.7
[2019-09-21 18:39] LABS: BASO % 0.4 % (0-2.0); EOS % 0.1 % (0-4.5); HEMATOCRIT 38.2 % (32.4-45.2); HEMOGLOBIN 12.3 GM/dL (10.7-15.3); LYMPH % 13.8 % (8-40); MCH 28.4 pg (25.7-33.7); MCHC 32.1 g/dl (32.0-36.0); MEAN CELL VOLUME 88.4 fl (80-96); MEAN PLT VOLUME 8.8 fl (7.5-11.1); MONO % 9.2 % (3.8-10.2); NEUT % 76.5 % (42.8-82.8); PLATELET COUNT 288 K/MM3 (134-434); RBC 4.33 M/mm3 (3.60-5.2); RDW 16.8 % (11.6-15.6); WHITE BLOOD COUNT 7.3 K/mm3 (4.0-10.0)
[2019-09-21 19:09] LABS: ALBUMIN 3.1 g/dl (3.4-5.0); BILIRUBIN,TOTAL 0.5 mg/dL (0.2-1); BLOOD UREA NITROGEN 14.6 mg/dL (7-18); CALCIUM 8.7 mg/dL (8.5-10.1); CREATININE 1.2 mg/dL (0.55-1.3); POTASSIUM 4.3 mmol/L (3.5-5.1); TOT PROT 6.7 g/dl (6.4-8.2)
--- NOTE | 2019-09-21 19:23 | PDOC ---
History of Present Illness - General Chief Complaint: Shortness of Breath Stated Complaint: SENT BY PCP/[facility]CH[facility]IS Time Seen by Provider: 09/21/19 17:47 History Source: Patient Exam Limitations: No Limitations - History of Present Illness Initial Comments: 59 year old female with PMH HTN, CHF, obesity, ELLE, asthma (never intubated, never hospitalized 2/2 asthma), OA, atrial fibrillation on Eliquis, DVT, aortic stenosis, mitral regurgitation, SBO, pulmonary HTN, gastric bypass, endometrial and ovarian cancer s/p ALESSANDRO + BSO (2008) s/p chemo, sent to ED by PCP for shortness of breath occurring over the last couple of weeks, worsening today. Pt reported over a week ago she was seen by her PCP, told she had the flu, prescribed Tamiflu, which she completed. She reported she has had two family members pass away, she returned on an 8 [address] ride from [place] last Friday, and then on Friday had to drive four hours. She reported left calf pain. She reported left sided chest pain, intermittent, worse with inspiration, worse with coughing, nonradiating, no alleviating factors for the last 3-4 days. She believes this pain is related to her cough which she has had for 1.5 weeks. She reported she has albuterol nebuilzer at home, which she tried this morning with minimal improvement. She reported she felt palpitations today and figured her atrial fibrillation "was acting up" prompting her to go to her PCP Dr. Link today. She denied fever, vomiting, abdominal pain. She denied active malignancy <6 months, surgery <4 weeks, hormone use, control use, hemoptysis. She reported a history of a DVT in the leg in the setting of an injury (reported was hit by softball). Pt reported she may have missed her Eliquis x3 days ago once, and has missed her Lasix over the last three days because she was out of town and didnt want to urinate a lot. ROS General: denied fever, chills, generalized weakness. HEENT: denied sore throat, rhinorrhea, ear pain. Cardiovascular: admitted to chest pain, palpitations. denied syncope, diaphoresis. Respiratory: admitted to shortness of breath, cough, sputum production. denied hemoptysis. Gastrointestinal: denied abdominal pain, nausea, vomiting, diarrhea, constipation, blood in stool. Genitourinary: denied dysuria, increased urinary frequency, hematuria, urinary incontinence, flank pain. Back: denied back pain. Musculoskeletal: admitted to calf pain. denied joint pain, joint swelling. Neurological: denied headache, dizziness, numbness, tingling, weakness. Integumentary: denied rash, laceration, abrasion. Hematologic/Lymphatic: denied bruising or bleeding. PE Constitutional: Well-nourished, Well-developed, appearing stated age. morbidly obese. HEENT: head is normocephalic, atraumatic. EOMI. PERRLA. Neck: supple. Full ROM. Cardiovascular: irregularly irregular heart rhythm. Normal S1 and S2. no murmurs. no pericardial friction rub. Respiratory: wheezing bilaterally. decreased air movement bilaterally. no stridor. speaking full sentences. no labored breathing. Gastrointestinal: soft, flat, nontender. normal bowel sounds. no rebound, guarding, or masses. Extremities: peripheral pulses intact and equal. no lower extremity pitting edema noted. pain with palpation of left calf. equal warmth of LE. Neurological: CN 2-12 grossly intact. moves all four extremities. Psych: awake, alert, oriented x3. follows commands. answers questions appropriately. Past History - Past Medical History Allergies/Adverse Reactions: Allergies Allergy/AdvReac Type Severity Reaction Status Date / Time No Known Allergies Allergy Verified 09/21/19 17:48 Home Medications: Ambulatory Orders Apixaban [Eliquis -] 5 mg PO BID #60 tablet 11/28/15 Furosemide [Lasix -] 40 mg PO DAILY #30 tablet 04/05/17 Spironolactone [Aldactone -] 25 mg PO DAILY 04/23/18 Amiodarone HCl [Cordarone -] 200 mg PO BID 04/24/18 Duloxetine HCl [Cymbalta -] 60 mg PO HS 02/12/19 traZODone HCL [Trazodone HCl] 100 mg PO HS 02/12/19 Ranitidine HCl [Zantac 75] 75 mg PO BID #60 tablet 02/15/19 - Psycho Social/Smoking Cessation Hx Number of Cigarettes Smoked Daily: 0 *Physical Exam - Vital Signs Last Vital Signs Temp Pulse Resp BP Pulse Ox 98.2 F 117 H 22 H 150/92 97 09/21/19 17:48 09/21/19 17:48 09/21/19 17:48 09/21/19 17:48 09/21/19 17:48 ED Treatment Course - LABORATORY CBC & Chemistry Diagram: 09/21/19 18:13 09/21/19 18:13 Medical Decision Making - Medical Decision Making 59 year old female with above PMH sent to ED from PCP for shortness of breath, palpitations, cough. Initial Vital Signs Temp Pulse Resp BP Pulse Ox 98.2 F 117 H 22 H 150/92 97 09/21/19 17:48 09/21/19 17:48 09/21/19 17:48 09/21/19 17:48 09/21/19 17:48 Afebrile. Tachycardic. Tachypneic. Hypertensive. No hypoxia on room air. EKG performed at 1810: rate 138, irregularly irregular rhythm, left axis, WTC 496, flipped T wave in aVL/I/V2. Duoneb and solumedrol ordered. Pt will alternate between sinus rhythm without tachycardia (rates in the 60s-70s ) to atrial fibrillation with rates in the 120s on the monitor. Imaging ordered: CXR, CTA chest, bilateral LE Duplex US Concern for CHF exacerbation, asthma exacerbation, ACS, aortic stenosis, pneumonia, pulmonary HTN, DVT, PE. CXR my view: cardiomegaly. no infiltrate noted. no large pneumothorax noted. mild pulmonary vascular congestion. -Pending official report Laboratory Last Values WBC 7.3 K/mm3 (4.0-10.0) 09/21/19 18:13 RBC 4.33 M/mm3 (3.60-5.2) 09/21/19 18:13 Hgb 12.3 GM/dL (10.7-15.3) 09/21/19 18:13 Hct 38.2 % (32.4-45.2) D 09/21/19 18:13 MCV 88.4 fl (80-96) 09/21/19 18:13 MCH 28.4 pg (25.7-33.7) 09/21/19 18:13 MCHC 32.1 g/dl (32.0-36.0) 09/21/19 18:13 RDW 16.8 % (11.6-15.6) H 09/21/19 18:13 Plt Count 288 K/MM3 (134-434) D 09/21/19 18:13 MPV 8.8 fl (7.5-11.1) 09/21/19 18:13 Absolute Neuts (auto) 5.6 K/mm3 (1.5-8.0) 09/21/19 18:13 Neutrophils % 76.5 % (42.8-82.8) D 09/21/19 18:13 Lymphocytes % 13.8 % (8-40) D 09/21/19 18:13 Monocytes % 9.2 % (3.8-10.2) 09/21/19 18:13 Eosinophils % 0.1 % (0-4.5) 09/21/19 18:13 Basophils % 0.4 % (0-2.0) 09/21/19 18:13 Nucleated RBC % 0 % (0-0) 09/21/19 18:13 Sodium 142 mmol/L (136-145) 09/21/19 18:13 Potassium 4.3 mmol/L (3.5-5.1) 09/21/19 18:13 Chloride 109 mmol/L (98-107) H 09/21/19 18:13 Carbon Dioxide 26 mmol/L (21-32) 09/21/19 18:13 Anion Gap 7 MMOL/L (8-16) L 09/21/19 18:13 BUN 14.6 mg/dL (7-18) 09/21/19 18:13 Creatinine 1.2 mg/dL (0.55-1.3) 09/21/19 18:13 Est GFR (CKD-EPI)AfAm 57.69 09/21/19 18:13 Est GFR (CKD-EPI)NonAf 49.78 09/21/19 18:13 Random Glucose 141 mg/dL (74-106) H 09/21/19 18:13 Calcium 8.7 mg/dL (8.5-10.1) 09/21/19 18:13 Total Bilirubin 0.5 mg/dL (0.2-1) 09/21/19 18:13 AST 14 U/L (15-37) L 09/21/19 18:13 ALT 22 U/L (13-61) 09/21/19 18:13 Alkaline Phosphatase 118 U/L (45-117) H 09/21/19 18:13 Creatine Kinase 79 U/L (26-192) 09/21/19 18:13 Troponin I 0.03 ng/ml (0.00-0.05) 09/21/19 18:13 B-Natriuretic Peptide 2232.8 pg/ml (5-125) H 09/21/19 18:13 Total Protein 6.7 g/dl (6.4-8.2) 09/21/19 18:13 Albumin 3.1 g/dl (3.4-5.0) L 09/21/19 18:13 Coags + D-dimer ordered. 09/21/19 21:41 research technician reported right peripheral AC line will not flush while pt has arm extended for CT, but does flush while arm is not extended. research technician will try to have pt place arm to the side instead of up in the air. Additional peripheral line placed in left AC under US guidance. 09/21/19 21:51 Pt signed out to Dr. Farooq, EM resident. Discharge - Discharge Information Problems reviewed: Yes Clinical Impression/Diagnosis: Cough Condition: Guarded - Admission Yes - Follow up/Referral Referrals: Juaquin Link MD [Primary Care Provider] - - Patient Discharge Instructions - Post Discharge Activity
--- NOTE | 2019-09-21 19:28 | PDOC ---
Attending Attestation - Resident Resident Name: Avis Trujillo - ED Attending Attestation I have performed the following: I have examined & evaluated the patient, The case was reviewed & discussed with the resident, I agree w/resident's findings & plan - HPI HPI: 09/21/19 22:04 see resident hpi - Physicial Exam PE: 09/21/19 22:04 see resident exam - Critical Care Time Total Critical Care Time: 40 Critical Care Statement: The care of this patient involved high complexity decision making to prevent further life threatening deterioration of the patient 's condition and/or to evaluate & treat vital organ system(s) failure or risk of failure. - Medical Decision Making 09/21/19 22:05 59-year-old morbidly obese female with shortness of breath and history of recent travel Patient admits noncompliance with her Eliquis which she is on for atrial fibrillation Duo nebs and steroids administered in the emergency department with some improvement Attempts were made to perform CTA of the chest to rule out pulmonary embolism though IV access was difficult and patient became too short of breath in supine position We will restart Eliquis this evening, will attempt to notify admitting MD Patient has no active chest pain, she is awake alert Admission for asthma exacerbation, CHF
[2019-09-21 19:50] LABS: N-TERMINAL BNP 2232.8 pg/ml (5-125)
[2019-09-21] MEDS ORDERED: ALBUTEROL SO4 2.5/IPRATROPIUM 0.5 INH SOL 3 ML VIAL.NEB. NEB ONE ×2 (20:36→22:00)
[2019-09-21] MEDS: ALBUTEROL SO4 2.5/IPRATROPIUM 0.5 INH SOL 3 ML VIAL.NEB. NEB SCH (21:43)
[2019-09-21] MEDS ORDERED: methylPREDNISolone NA SUCC 125 MG/2 ML VIAL IVPUSH ONE (21:47)
[2019-09-21 22:00] LABS: INR 1.05 (0.83-1.09); PROTHROMBIN TIME (PATIENT) 12.4 SEC (9.7-13.0)
[2019-09-21] MEDS ORDERED: RANITIDINE HCL 75 MG PO SCH (22:00)
[2019-09-21] MEDS ORDERED: APIXABAN 5 MG TABLET ONE (22:01)
[2019-09-21] MEDS ORDERED: methylPREDNISolone NA SUCC 125 MG/2 ML VIAL ONE (22:01)
[2019-09-21 22:03] LABS: ACTIVATED PTT 28.2 SECONDS (25.2-36.5)
[2019-09-21] MEDS: APIXABAN 5 MG TABLET PO SCH (23:00)
--- NOTE | 2019-09-22 01:48 | HP ---
Admitting History and Physical - Primary Care Physician PCP: Juaquin Link - Admission Chief Complaint: SOB, Palpitations, Cough, Calf Pain History of Present Illness: This is a 59 y/o woman with a PMHx of HTN, CHF, obesity, ELLE, Asthma (never intubated, never hospitalized 2/2 asthma), OA, Atrial Fibrillation on Eliquis, DVT, Aortic Stenosis, Mitral Regurgitation, SBO, Pulmonary HTN, s/p Gastric Bypass, Endometrial Ca, Ovarian Ca s/p ALESSANDRO + BSO (2008) s/p chemo, Who presents to the ED sent in by her PCP for shortness of breath occurring over the last couple of weeks, worsening today. Patient reports over a week ago she was seen by her PCP, told she had the flu, prescribed Tamiflu, which she completed. She reports recent travel > 8 hrs via train, then 4hrs via car. She reports left calf pain. She reported left sided chest pain, intermittent, worse with inspiration, worse with coughing, nonradiating, no alleviating factors for the last 3-4 days. She believes this pain is related to her cough which she has had for 1.5 weeks. She reported she has albuterol nebuilzer at home, which she tried this morning with minimal improvement. She reported she felt palpitations today and figured her atrial fibrillation "was acting up" prompting her to go to her PCP Dr. Link today. Patient denies fever, vomiting, abdominal pain. Patient denies active malignancy <6 months, surgery <4 weeks, hormone use , control use, hemoptysis.Patient reports not taking her Eliquis x3 days ago, and has missed taking her Lasix over the last three days due to being out of town and not wanting to urinate a lot. History Source: Patient Limitations to Obtaining History: No Limitations - Past Medical History Cardiovascular: Yes: AFIB, Aortic Stenosis, HTN, Mitral Insufficiency, Pulmonary Hypertension Pulmonary: Yes: Asthma, Sleep Apnea Gastrointestinal: Yes: Other (ventral hernia, small bowel obstruction). No: Ascites Hepatobiliary: Yes: Cholecystitis Heme/Onc: Yes: Anemia Psych: Yes: Depression Musculoskeletal: Yes: Other (carpal tunnel) - Past Surgical History Past Surgical History: Yes: Bariatric Surgery, Cholecystectomy, Hernia Repair, Hysterectomy, Oopherectomy - Smoking History Smoking history: Never smoked Have you smoked in the past 12 months: No Aproximately how many cigarettes per day: 0 - Alcohol/Substance Use Hx Alcohol Use: Yes History of Substance Use: reports: None - Social History Usual Living Arrangement: Yes: With Spouse ADL: Independent 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 History of Recent Travel: Yes (train, car) Home Medications - Allergies Allergies/Adverse Reactions: Allergies Allergy/AdvReac Type Severity Reaction Status Date / Time No Known Allergies Allergy Verified 09/21/19 17:48 - Home Medications Home Medications: Ambulatory Orders Apixaban [Eliquis -] 5 mg PO BID #60 tablet 11/28/15 Furosemide [Lasix -] 40 mg PO DAILY #30 tablet 04/05/17 Spironolactone [Aldactone -] 25 mg PO DAILY 04/23/18 Amiodarone HCl [Cordarone -] 200 mg PO BID 04/24/18 Duloxetine HCl [Cymbalta -] 60 mg PO HS 02/12/19 traZODone HCL [Trazodone HCl] 100 mg PO HS 02/12/19 Ranitidine HCl [Zantac 75] 75 mg PO BID #60 tablet 02/15/19 Family Medical History Family History: Unable to Obtain Review of Systems - Review of Systems Constitutional: reports: No Symptoms Eyes: reports: No Symptoms HENT: reports: No Symptoms Neck: reports: No Symptoms Cardiovascular: reports: Chest Pain, Palpitations, Shortness of Breath Respiratory: reports: Cough, SOB, SOB on Exertion Gastrointestinal: reports: No Symptoms Genitourinary: reports: No Symptoms Breasts: reports: No Symptoms Reported Musculoskeletal: reports: Extremity Pain, Joint Pain Neurological: reports: Headache Endocrine: reports: No Symptoms Hematology/Lymphatic: reports: No Symptoms Psychiatric: reports: No Symptoms Pain Intensity: 6 Physical Examination Vital Signs: Vital Signs Temperature 98.3 F 09/22/19 00:14 Pulse Rate 82 09/22/19 00:14 Respiratory Rate 15 09/22/19 00:14 Blood Pressure 159/75 09/22/19 00:14 O2 Sat by Pulse Oximetry (%) 97 09/22/19 00:14 Constitutional: Yes: Well Nourished, Mild Distress, Obese Eyes: Yes: WNL, Conjunctiva Clear, EOM Intact, PERRL HENT: Yes: WNL, Atraumatic, Normocephalic Neck: Yes: WNL, Supple, Trachea Midline Cardiovascular: Yes: Pulse Irregular, Murmur, S1, S2 Respiratory: Yes: Cough, Diminished, On Nasal O2, Rhonchi, SOB on Exertion Gastrointestinal: Yes: WNL, Normal Bowel Sounds, Soft, Abdomen, Obese ...Rectal Exam: Yes: Deferred Renal/: Yes: WNL Breast(s): Yes: WNL Musculoskeletal: Yes: WNL Edema: Yes Edema: LLE: 3+, RLE: 3+ Peripheral Pulses WNL: Yes Integumentary: Yes: Venous Stasis Changes Neurological: Yes: WNL, Alert, Oriented, Cran Nerves II-XII Intact ...Motor Strength: WNL Psychiatric: Yes: WNL, Alert, Oriented Labs: CBC, BMP 09/21/19 18:13 09/21/19 18:13 Laboratory Results - last 24 hr 09/21/19 09/21/19 09/21/19 18:13 18:13 20:34 WBC 7.3 RBC 4.33 Hgb 12.3 Hct 38.2 D MCV 88.4 MCH 28.4 MCHC 32.1 RDW 16.8 H Plt Count 288 D MPV 8.8 Absolute Neuts (auto) 5.6 Neutrophils % 76.5 D Lymphocytes % 13.8 D Monocytes % 9.2 Eosinophils % 0.1 Basophils % 0.4 Nucleated RBC % 0 PT with INR 12.40 INR 1.05 PTT (Actin FS) 28.2 D-Dimer Sodium 142 Potassium 4.3 Chloride 109 H Carbon Dioxide 26 Anion Gap 7 L BUN 14.6 Creatinine 1.2 Est GFR (CKD-EPI)AfAm 57.69 Est GFR (CKD-EPI)NonAf 49.78 Random Glucose 141 H Calcium 8.7 Total Bilirubin 0.5 AST 14 L ALT 22 Alkaline Phosphatase 118 H Creatine Kinase 79 Troponin I 0.03 B-Natriuretic Peptide 2232.8 H Total Protein 6.7 Albumin 3.1 L 09/21/19 20:34 WBC RBC Hgb Hct MCV MCH MCHC RDW Plt Count MPV Absolute Neuts (auto) Neutrophils % Lymphocytes % Monocytes % Eosinophils % Basophils % Nucleated RBC % PT with INR INR PTT (Actin FS) D-Dimer 2840 H Sodium Potassium Chloride Carbon Dioxide Anion Gap BUN Creatinine Est GFR (CKD-EPI)AfAm Est GFR (CKD-EPI)NonAf Random Glucose Calcium Total Bilirubin AST ALT Alkaline Phosphatase Creatine Kinase Troponin I B-Natriuretic Peptide Total Protein Albumin Intake & Output 09/19/19 09/20/19 09/21/19 09/22/19 23:59 23:59 23:59 23:59 Weight 172.365 kg Current Medications Generic Name Dose Route Start Last Admin Trade Name Lennyq PRN Reason Stop Dose Admin Albuterol/Ipratropium 1 amp 09/21/19 20:00 09/21/19 21:43 Duoneb - NEB 1 amp RQID SHIRLENE Administration Apixaban 5 mg 09/21/19 22:00 09/21/19 23:00 Eliquis - PO 5 mg BID SHIRLENE Administration Duloxetine HCl 60 mg 09/21/19 22:00 09/22/19 02:50 Cymbalta - PO 60 mg HS SHIRLENE Administration Famotidine 10 mg 09/21/19 22:00 09/22/19 02:[address] Worker PO 10 mg BID SHIRLENE Administration Furosemide 40 mg 09/22/19 10:00 Lasix - PO DAILY SHIRLENE Ceftriaxone Sodium 1 gm/ 100 mls @ 200 mls/hr 09/22/19 10:00 Dextrose IVPB DAILY [facility] Protocol Methylprednisolone Sodium Succinate 40 mg 09/22/19 10:00 Solu-Medrol - IVPUSH DAILY SHIRLENE Metoprolol Tartrate 50 mg 09/21/19 22:00 09/22/19 02:50 Lopressor - PO 50 mg TID SHIRLENE Administration Spironolactone 25 mg 09/22/19 10:00 Aldactone - PO DAILY SHIRLENE Trazodone HCl 100 mg 09/21/19 22:00 09/22/19 02:50 Desyrel - PO 100 mg HS SHIRLENE Administration Imaging - Results Chest X-ray: Image Reviewed Ultrasound: Pending EKG: Image Reviewed Problem List - Problems (1) Atrial fibrillation with RVR Code(s): I48.91 - UNSPECIFIED ATRIAL FIBRILLATION (2) Acute on chronic diastolic (congestive) heart failure Code(s): I50.33 - ACUTE ON CHRONIC DIASTOLIC (CONGESTIVE) HEART FAILURE (3) Asthma exacerbation Code(s): J45.901 - UNSPECIFIED ASTHMA WITH (ACUTE) EXACERBATION (4) Chest pain Code(s): R07.9 - CHEST PAIN, UNSPECIFIED Qualifiers: Chest pain type: unspecified Qualified Code(s): R07.9 - Chest pain, unspecified (5) Aortic stenosis, moderate Code(s): I35.0 - NONRHEUMATIC AORTIC (VALVE) STENOSIS (6) HTN (hypertension) Code(s): I10 - ESSENTIAL (PRIMARY) HYPERTENSION (7) Lymph edema Code(s): I89.0 - LYMPHEDEMA, NOT ELSEWHERE CLASSIFIED (8) Morbid obesity with BMI of 50.0-59.9, adult Code(s): E66.01 - MORBID (SEVERE) OBESITY DUE TO EXCESS CALORIES; Z68.43 - BODY MASS INDEX (BMI) 50.0-59.9, ADULT Assessment/Plan This is a PMHx of HTN, CHF, obesity, ELLE, Asthma (never intubated, never hospitalized 2/2 asthma), OA, Atrial Fibrillation on Eliquis, DVT, Aortic Stenosis, Mitral Regurgitation, SBO, Pulmonary HTN, s/p Gastric Bypass, Endometrial Ca, Ovarian Ca s/p ALESSANDRO + BSO (2008) s/p chemo. Admitted to Telemetry for Afib with RVR, Acute Exacerbation of CHF, Acute Exacerbation of Asthma for further evaluation of their emergent condition. Plan: Admit Telemetry Likely secondary to non-compliance vs PE Wells Score- 6 CTA- not completed due to peripheral vasculature Consider VQ scan Continue Eliquis Duplex BLE-pending Consider Vascular consult Continue cardiac monitoring Appreciate Cardiology consult Serial Enzymes Echo 02/15/19- [id number], mild concentric lvh, EF 55-60%, mild mr, mild tr, mod as , mod ar, no pericardial effusion Continue Lasix O2 Strict INOs Daily weight Chest Xray- reviewed EKG- reviewed Continue home meds FEN- Fluid restriction 1L, replete lytes prn, Low Na Diet DVT ppx- OOB, Continue Eliquis Dispo: Requires Inpatient Care Visit type - Emergency Visit Emergency Visit: Yes ED Registration Date: 09/21/19 Care time: The patient presented to the Emergency Department on the above date and was hospitalized for further evaluation of their emergent condition. - New Patient This patient is new to me today: Yes Date on this admission: 09/22/19 - Critical Care Critical Care patient: No
[2019-09-22] MEDS ORDERED: FAMOTIDINE 10 MG TABLET ONE ×3 (02:37→22:43)
[2019-09-22] MEDS ORDERED: DULoxetine HCL 30 MG CAPSULE.DR PO ONE ×2 (02:38→22:44)
[2019-09-22] MEDS ORDERED: METOPROLOL TARTRATE 50 MG TABLET (FP) ONE ×4 (02:38→22:44)
[2019-09-22] MEDS: FAMOTIDINE 10 MG TABLET PO SCH ×3 (02:50→22:50)
[2019-09-22] MEDS: traZODone HCL 100 MG TABLET (FP) PO SCH ×2 (02:50→23:39)
[2019-09-22] MEDS: DULoxetine HCL 60 MG CAPSULE.DR PO SCH ×2 (02:50→22:50)
[2019-09-22] MEDS: METOPROLOL TARTRATE 50 MG TABLET (FP) PO SCH ×4 (02:50→22:50)
[2019-09-22 07:04] LABS: BASO % 0.1 % (0-2.0); HEMATOCRIT 36.8 % (32.4-45.2); LYMPH % 7.2 % (8-40); MCH 28.7 pg (25.7-33.7); MCHC 32.6 g/dl (32.0-36.0); MEAN CELL VOLUME 87.9 fl (80-96); MEAN PLT VOLUME 9.2 fl (7.5-11.1); MONO % 1.3 % (3.8-10.2); NEUT % 91.4 % (42.8-82.8); PLATELET COUNT 240 K/MM3 (134-434); RBC 4.19 M/mm3 (3.60-5.2); RDW 17.1 % (11.6-15.6); WHITE BLOOD COUNT 5.5 K/mm3 (4.0-10.0)
[2019-09-22 07:27] LABS: ALBUMIN 2.9 g/dl (3.4-5.0); BILIRUBIN,TOTAL 0.6 mg/dL (0.2-1); BLOOD UREA NITROGEN 12.2 mg/dL (7-18); CALCIUM 8.5 mg/dL (8.5-10.1); CREATININE 0.8 mg/dL (0.55-1.3); MAGNESIUM 2.1 mg/dL (1.8-2.4); PHOSPHOROUS 3.2 mg/dL (2.5-4.9); POTASSIUM 3.8 mmol/L (3.5-5.1); TOT PROT 6.1 g/dl (6.4-8.2)
[2019-09-22] MEDS ORDERED: ALBUTEROL SO4 2.5/IPRATROPIUM 0.5 INH SOL 3 ML VIAL.NEB. NEB ONE ×3 (08:05→20:38)
[2019-09-22] MEDS: ALBUTEROL SO4 2.5/IPRATROPIUM 0.5 INH SOL 3 ML VIAL.NEB. NEB SCH ×4 (08:06→21:21)
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
[2019-09-22] MEDS ORDERED: methylPREDNISolone NA SUCC 40 MG/1 ML VIAL IVPUSH SCH (10:00)
[2019-09-22] MEDS ORDERED: FUROSEMIDE 40 MG TABLET (FP) ONE (11:18)
[2019-09-22] MEDS ORDERED: SPIRONOLACTONE 25 MG TABLET (FP) ONE (11:18)
[2019-09-22] MEDS ORDERED: APIXABAN 5 MG TABLET ONE ×2 (11:18→22:44)
[2019-09-22] MEDS ORDERED: methylPREDNISolone NA SUCC 40 MG/1 ML VIAL ONE (11:19)
[2019-09-22] MEDS ORDERED: CEFTRIAXONE 1 GM/50 ML BAG ONE (11:19)
--- NOTE | 2019-09-22 11:20 | EKG ---
Test Reason : Blood Pressure : / mmHG Vent. Rate : 138 BPM Atrial Rate : 156 BPM P-R Int : 000 ms QRS Dur : 102 ms QT Int : 328 ms P-R-T Axes : 000 -14 134 degrees QTc Int : 496 ms POOR DATA QUALITY, INTERPRETATION MAY BE ADVERSELY AFFECTED ATRIAL FIBRILLATION WITH RAPID VENTRICULAR RESPONSE LEFT VENTRICULAR HYPERTROPHY WITH REPOLARIZATION ABNORMALITY ABNORMAL ECG Confirmed by MD HERNANDES MOYSES ([id number]) on 09/22/2019 11:20:38 AM Referred By: Confirmed By:MYRTLE HERNANDES MD
[2019-09-22] MEDS: FUROSEMIDE 40 MG TABLET (FP) PO SCH (11:25)
[2019-09-22] MEDS: SPIRONOLACTONE 25 MG TABLET (FP) PO SCH (11:25)
[2019-09-22] MEDS: CEFTRIAXONE 1 GM in DEXTROSE 5%-WATER - 100 ML IVPB SCH (11:25)
[2019-09-22] MEDS: APIXABAN 5 MG TABLET PO SCH ×2 (11:25→22:50)
[2019-09-22 13:56] LABS: PLATELET ESTIMATE NORMAL
[2019-09-23 07:13] LABS: BASO % 0.1 % (0-2.0); HEMATOCRIT 36.3 % (32.4-45.2); HEMOGLOBIN 11.7 GM/dL (10.7-15.3); MCH 28.3 pg (25.7-33.7); MCHC 32.3 g/dl (32.0-36.0); MEAN CELL VOLUME 87.5 fl (80-96); MEAN PLT VOLUME 8.8 fl (7.5-11.1); MONO % 6.6 % (3.8-10.2); NEUT % 86.3 % (42.8-82.8); PLATELET COUNT 262 K/MM3 (134-434); RBC 4.15 M/mm3 (3.60-5.2); WHITE BLOOD COUNT 7.4 K/mm3 (4.0-10.0)
[2019-09-23 07:16] LABS: ALBUMIN 2.8 g/dl (3.4-5.0); BILIRUBIN,TOTAL 0.4 mg/dL (0.2-1); BLOOD UREA NITROGEN 22.8 mg/dL (7-18); CALCIUM 8.8 mg/dL (8.5-10.1); CREATININE 1.2 mg/dL (0.55-1.3); TOT PROT 6.2 g/dl (6.4-8.2)
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
[2019-09-23] MEDS ORDERED: ALBUTEROL SO4 2.5/IPRATROPIUM 0.5 INH SOL 3 ML VIAL.NEB. NEB ONE (08:05)
[2019-09-23] MEDS: ALBUTEROL SO4 2.5/IPRATROPIUM 0.5 INH SOL 3 ML VIAL.NEB. NEB SCH ×3 (08:06→20:48)
[2019-09-23] MEDS ORDERED: PT OWN MED DRAWER 7, Y5N ONE (10:27)
[2019-09-23] MEDS: METOPROLOL TARTRATE 50 MG TABLET (FP) PO SCH ×2 (10:29→21:32)
[2019-09-23] MEDS: FUROSEMIDE 40 MG TABLET (FP) PO SCH (10:29)
[2019-09-23] MEDS: SPIRONOLACTONE 25 MG TABLET (FP) PO SCH (10:29)
[2019-09-23] MEDS: APIXABAN 5 MG TABLET PO SCH ×2 (10:29→21:32)
[2019-09-23] MEDS: methylPREDNISolone NA SUCC 40 MG/1 ML VIAL IVPUSH SCH ×2 (10:29→21:33)
[2019-09-23] MEDS: FAMOTIDINE 10 MG TABLET PO SCH ×2 (10:29→21:30)
[2019-09-23] MEDS ORDERED: CEFTRIAXONE 1 GM/50 ML BAG ONE (10:34)
[2019-09-23] MEDS: CEFTRIAXONE 1 GM in DEXTROSE 5%-WATER - 100 ML IVPB SCH (10:38)
--- NOTE | 2019-09-23 11:45 | CONS ---
CARDIOLOGY CONSULTATION DATE OF CONSULTATION: DATE OF DICTATION: 09/23/2019 REQUESTING PHYSICIAN: Juaquin Link MD CHIEF COMPLAINT: 1. Recent upper respiratory tract infection. 2. Persistent cough with yellowish expectoration. 3. Dyspnea. 4. Atypical left parasternal chest discomfort. HISTORY: Patient is a 59-year-old morbidly obese female with longstanding history of hypertension, hypertensive cardiovascular disease, aortic valvular disease with aortic stenosis, paroxysmal atrial fibrillation, mitral valvular disease and mitral regurgitation, history of congestive heart failure, history of depression and anxiety disorder. Patient states that she developed an upper respiratory tract infection approximately 2 weeks ago, and it progressively became more pronounced. The cough was persistent and was accompanied by yellowish expectoration. She also started experiencing wheezing and dyspnea on minimal exertion. There is no history of chills, fever, or night sweats. Patient in the interim travelled to [place], and the symptoms became more pronounced, and on her return, she went to see her PCP who advised hospitalization.she developed sharp parasternal localized parasternal sharp chest pain that was also aggravated by change in posture. PAST HISTORY: As mentioned in the history of present illness. Status post endometrial and ovarian carcinoma. SURGICAL HISTORY: Status post tonsillectomy, status post repair of a ventral hernia, status post hysterectomy and oophorectomy, status post gastric bypass surgery, status post cholecystectomy, status post surgery on the left knee, status post surgery for intestinal adhesions. SOCIAL HISTORY: without children. Disabled. Nonsmoker. Occasional alcoholic drink. Has an occasional cup of coffee. FAMILY HISTORY: Father in his 70s of a myocardial infarction. Mother in her 60s apparently related to a myocardial infarction. She has 2 brothers and a sister. One of the brothers of a drug overdose. The others are apparently healthy. ALLERGIES: None reported. CURRENT MEDICATIONS: 1. Solu-Medrol 40 mg IV b.i.d. 2. DuoNeb via nebulizer 1 ampule q.i.d. 3. Ceftriaxone 1 daily IV. 4. Lopressor 100 mg p.o. b.i.d. 5. Eliquis 5 mg p.o. b.i.d. 6. Famotidine 10 mg p.o. b.i.d. 7. Lasix 40 mg p.o. daily. 8. Aldactone 25 mg p.o. daily. 9. Cymbalta 60 mg p.o. nightly. 10. Trazodone 100 mg p.o. nightly. REVIEW OF SYSTEMS: Constitutional: Denies having chills, fever, or night sweats. There is no history of unintentional weight loss. HEENT: Denies having headaches, diplopia, or blurred vision. No history of epistaxis, hoarseness, tinnitus, or deafness. Cardiovascular: See history of present illness. History of left parasternal sharp pain precipitated by coughing and change in posture. Respiratory: See history of present illness. No history of hemoptysis. Gastrointestinal: No history of nausea, vomiting, melena, or hematemesis. No history of abdominal pain or discomfort. Neurological: No history of seizures or syncope. No history of focal weakness. No history of lightheadedness or dizziness. Endocrine: No history of polydipsia or polyuria. No history of increased thirst. Denies having intolerance to cold or warm weather. Musculoskeletal: History of bilateral arthritis involving the knees. No history of myalgias. Hematological: No history of anemia, bleeding, or ecchymosis. No history of lymphadenopathy. Genitourinary: Denies having any dysuria, frequency, or hematuria. PHYSICAL EXAMINATION: General: A 59-year-old morbidly obese female who was coughing, and there is audible wheeze. There is no pallor or cyanosis. Vital Signs: Blood pressure 125/69 mmHg, pulse 100 beats per minute and irregularly irregular, respirations are 20 per minute. Temperature and weight are not available. Neck: Supple. No jugular venous distention. Carotids are 2+. Upstrokes are normal. No bruits are heard, and no thyromegaly is present. Heart: PMI is not localized. No heaves or thrills. Heart sounds are distant. S1 is normal. S2, A2 are reduced. Ejection systolic murmur grade 2/6 is heard at the 2nd right intercostal space ending in mid-to-late systole. No diastolic murmur or gallops are heard. Lungs: Bilateral scattered expiratory wheezing more pronounced on the left posterior lung field. There are scattered crepitations at the right base. Chest: Normal AP diameter. Expansion is symmetrical. There is slight left parasternal tenderness on palpation. Abdomen: Morbidly obese, soft, and nontender. Unable to appreciate hepatosplenomegaly. Bowel sounds are distant. Unable to appreciate bruits are heard. Extremities: Bilateral stasis changes. Brawny edema. Dorsalis pedis and posterior tibialis pulses are not palpable. X-ray chest, September 22, 2019, portable. AP view of the chest submitted since the prior study of September 21, 2019. Again noted is the prominent mediastinum. The slight prominence of the hilar marking but no signs of true infiltrate or failure. The angles are sharp. The bones and soft tissues are intact. Correlation recommended. CTA of the chest, September 22, 2019. Impression: 1. Inadequate evaluation of pulmonary embolism. 2. Patchy, bibasilar consolidation/ atelectasis suspicious for developing pneumonia. Clinical correlation and follow up recommended. ECG, September 21, 2019, reported as poor quality. Interpretation may be adversely affected. Atrial fibrillation with rapid ventricular response. Left ventricular hypertrophy with repolarization abnormalities. Abnormal ECG. LABORATORY DATA: September 23, 2019; WBC 7400, hemoglobin 11.7 g/dL. Normal cell indices except RDW 17.0 (elevated). Platelet count was 262,000. Differential; neutrophils 83.3%, lymphocytes 7.0%, monocytes 6.6%, eosinophils 0, basophils 0.1%. Chemistry, September 23, 2019; sodium 142, potassium 4.0, chloride 110, CO2 is 26 mmol/L, BUN 22.8, creatinine 1.2 mg/dL, random glucose 131 mg/dL, calcium 8.8 mg /dL. Normal LFTs. BNP 2232.8. IMPRESSION: 1. Upper respiratory tract infection complicated by A. Acute asthmatic bronchitis/pneumonia. B. Congestive heart failure. 2. Recurrence of atrial fibrillation. 3. Aortic valvular disease with history of aortic stenosis. 4. History of mitral valvular disease with mitral regurgitation. 5. Hypertension, hypertensive cardiovascular disease. 6. History of depression and anxiety disorder. 7. Chronic venous insufficiency. RECOMMENDATION: 1. Concur with current line of cardiac therapy. 2. If patient continues to have rapid ventricular response, may need to add diltiazem 120 mg extended release. 3. Echocardiogram. 4. T3, T4, TSH. 5. Further suggestions will depend on the results of the above-mentioned tests. PROGNOSIS: Guarded. Thank you for your referral. Yours Sincerely, PAULETTE ALATORRE M.D. [id number] EDGARD
[2019-09-23] MEDS ORDERED: traZODone HCL 50 MG TABLET (FP) ONE (20:20)
[2019-09-23] MEDS: traZODone HCL 100 MG TABLET (FP) PO SCH (21:31)
[2019-09-23] MEDS: DULoxetine HCL 30 MG CAPSULE.DR PO SCH (21:31)
[2019-09-24] MEDS: ALBUTEROL SO4 2.5/IPRATROPIUM 0.5 INH SOL 3 ML VIAL.NEB. NEB SCH ×4 (08:40→20:50)
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
[2019-09-24] MEDS: CEFTRIAXONE 1 GM in DEXTROSE 5%-WATER - 100 ML IVPB SCH (09:53)
[2019-09-24] MEDS: methylPREDNISolone NA SUCC 40 MG/1 ML VIAL IVPUSH SCH ×3 (09:55→22:19)
[2019-09-24] MEDS: METOPROLOL TARTRATE 50 MG TABLET (FP) PO SCH ×2 (09:56→22:21)
[2019-09-24] MEDS: SPIRONOLACTONE 25 MG TABLET (FP) PO SCH (09:57)
[2019-09-24] MEDS: FUROSEMIDE 40 MG TABLET (FP) PO SCH (09:57)
[2019-09-24] MEDS: APIXABAN 5 MG TABLET PO SCH ×2 (09:57→22:21)
[2019-09-24] MEDS: FAMOTIDINE 10 MG TABLET PO SCH ×2 (09:57→22:20)
--- NOTE | 2019-09-24 11:38 | PN ---
Progress Note (short form) - Note Progress Note: PULMONARY CONSULTATION DICTATED 09/24/19 IMP DYSPNEA ACUTE ASTHMA EXACERBATION LIKELY SECONDARY TO URI CHF AFIB ASHD PULMONARY HTN H/O ENDOMETRIAL AND OVARIAN CA S/P TAHBSO,RT,CHEMO H/O GASTRIC BYPASS PLAN IV STEROIDS INHALED BRONCHODILATORS O2 ABX COUGH MEDS ELIQUIS INCENTIVE SPIROMETER MONITOR PEAK FLOW DR LEMUS Problem List - Problems (1) Asthma exacerbation Code(s): J45.901 - UNSPECIFIED ASTHMA WITH (ACUTE) EXACERBATION (2) Cough Code(s): R05 - COUGH (3) Afib Code(s): I48.91 - UNSPECIFIED ATRIAL FIBRILLATION Qualifiers: Atrial fibrillation type: chronic (4) Aortic valve stenosis Code(s): I35.0 - NONRHEUMATIC AORTIC (VALVE) STENOSIS Qualifiers: Cardiac valve disease etiology: nonrheumatic Qualified Code(s): I35.0 - Nonrheumatic aortic (valve) stenosis (5) CHF (congestive heart failure) Code(s): I50.9 - HEART FAILURE, UNSPECIFIED Qualifiers: Heart failure type: diastolic (6) Dyspnea Code(s): R06.00 - DYSPNEA, UNSPECIFIED Qualifiers: Dyspnea type: dyspnea on exertion Qualified Code(s): R06.09 - Other forms of dyspnea (7) Morbid obesity with BMI of 50.0-59.9, adult Code(s): E66.01 - MORBID (SEVERE) OBESITY DUE TO EXCESS CALORIES; Z68.43 - BODY MASS INDEX (BMI) 50.0-59.9, ADULT (8) HTN (hypertension) Code(s): I10 - ESSENTIAL (PRIMARY) HYPERTENSION
--- NOTE | 2019-09-24 13:16 | CONS ---
PULMONARY CONSULTATION DATE OF CONSULTATION: 09/24/2019 REFERRING PHYSICIAN: Juaquin Link MD HISTORY: Patient is a 59-year-old female with a past medical history, which includes asthma, never been intubated, nonsmoker, osteoarthritis, atrial fibrillation on Eliquis, history of DVT, aortic stenosis, congestive heart failure, hypertension, mitral regurgitation, history of pulmonary hypertension, history of gastric bypass, history of endometrial carcinoma, ovarian carcinoma status post ALESSANDRO/BSO as well as chemotherapy and RT. Admitted to [facility] with increasing shortness of breath over the past couple of weeks. Patient states for the past week or so she has been dealing with an increasing shortness of breath and cough and wheezing. At that time, she was felt to have a viral syndrome and was started on Tamiflu. Despite these measures, she is having some dyspnea not completely resolved. Apparently, she recently travelled on an 8-hour train and car ride to [place] to a family emergency. She also complained of left calf pain. Patient also noticed some left-sided chest discomfort intermittent worse with inspiration and coughing. Patient presented to the emergency room with above. In the ER, she underwent a CTA of the chest, which was inconclusive of pulmonary emboli. It did show evidence of patchy, bibasilar consolidation, possibly atelectasis. Patient was admitted to the floor. She was started on IV steroids, inhaled bronchodilators, and antibiotics. Patient also underwent a duplex of the lower extremity, which showed no evidence of DVT. As stated before, the patient is a nonsmoker. There is no history of occupational exposure to chemicals or fumes. There is no history of respiratory failure in the past requiring ventilatory support. PAST MEDICAL HISTORY: Again includes asthma, congestive heart failure, atrial fibrillation with obstructive sleep apnea, aortic stenosis, pulmonary hypertension, history of endometrial and ovarian carcinoma, status post ALESSANDRO/BSO, RT, and chemotherapy, history of gastric bypass. MEDICATIONS: Solu-Medrol 40 b.i.d., ceftriaxone 1 g daily, Eliquis, Cymbalta, Desyrel, DuoNeb, Lopressor, famotidine, Lasix, Aldactone. REVIEW OF SYSTEMS: Positive shortness of breath, positive cough. No fever, no chills, no hemoptysis, no abdominal pain. Positive mild chest discomfort. Positive lower extremity edema. PHYSICAL EXAMINATION: General: Patient is an obese female awake and alert in no acute distress. Vital Signs: She is currently afebrile. Blood pressure is 111/59, respiratory rate is 20. HEENT: Normocephalic, atraumatic. Neck: Supple. Heart: Irregular S1, S2. Chest: Diffuse bilateral wheezes. Abdomen: Soft. Bowel sounds are positive. Extremities: No cyanosis. Positive left lower extremity edema. LABORATORIES: WBC 7.4, hemoglobin 11.7, hematocrit 36.3 with a platelet count of 262,000. D-dimer is 2840, BUN 28.2, creatinine 1.2. IMPRESSION: 1. Dyspnea most likely secondary to acute asthma exacerbation likely secondary to recent upper respiratory infection. 2. Bibasilar consolidation, likely atelectasis. 3. History of congestive heart failure. 4. Atrial fibrillation. 5. Arteriosclerotic heart disease. 6. Aortic stenosis. 7. Pulmonary hypertension. 8. History of endometrial and ovarian carcinoma status post total abdominal hysterectomy/bilateral salpingo-oophorectomy, radiation therapy, and chemotherapy. 9. History of gastric bypass. PLAN: IV steroids, inhaled bronchodilators, supplemental O2, cough medications, incentive spirometer. Continue Eliquis. Monitor peak flow. JENNIFER LEMUS M.D. [id number]
[2019-09-24] MEDS: guaiFENesin/CODEINE 5 ML UNIT-DOSE CUPS PO PRN (16:45)
[2019-09-24] MEDS ORDERED: traZODone HCL 50 MG TABLET (FP) ONE (22:16)
[2019-09-24] MEDS: DULoxetine HCL 30 MG CAPSULE.DR PO SCH (22:19)
[2019-09-24] MEDS: traZODone HCL 100 MG TABLET (FP) PO SCH (22:20)
[2019-09-25] MEDS: methylPREDNISolone NA SUCC 40 MG/1 ML VIAL IVPUSH SCH ×4 (02:44→22:02)
[2019-09-25 07:41] LABS: BASO % 0.1 % (0-2.0); HEMATOCRIT 36.4 % (32.4-45.2); HEMOGLOBIN 11.8 GM/dL (10.7-15.3); LYMPH % 6.7 % (8-40); MCH 28.6 pg (25.7-33.7); MCHC 32.6 g/dl (32.0-36.0); MEAN CELL VOLUME 87.7 fl (80-96); MEAN PLT VOLUME 8.9 fl (7.5-11.1); MONO % 1.6 % (3.8-10.2); NEUT % 91.6 % (42.8-82.8); PLATELET COUNT 219 K/MM3 (134-434); RBC 4.15 M/mm3 (3.60-5.2); RDW 17.3 % (11.6-15.6); WHITE BLOOD COUNT 5.3 K/mm3 (4.0-10.0)
[2019-09-25 08:07] LABS: ALBUMIN 2.8 g/dl (3.4-5.0); BILIRUBIN,TOTAL 0.4 mg/dL (0.2-1); BLOOD UREA NITROGEN 30.3 mg/dL (7-18); CALCIUM 8.8 mg/dL (8.5-10.1); POTASSIUM 4.3 mmol/L (3.5-5.1)
--- NOTE | 2019-09-25 09:10 | PN ---
Physical Exam: SUBJECTIVE: Patient seen and examined. reports a non productive cough but denies shortness of breath with ambulation or chest pain. States she is feeling better today. OBJECTIVE: Symphony coverage for Dr. Link tele: afib 102-113s patient is a 58 y/o woman with a PMHx of HTN, CAD, Morbid Obesity, paroxysmal Afib, Mitral Valve Disease, PHTN, ELLE, Bronchial Asthma, Chronic Venous Stasis Insufficiency with Lymph Edema. Patient comes to the ED with c/o wheezing, cough and shortness of breath and is being treated with acute exacerbation of COPD. Vital Signs Period Temp Pulse Resp BP Sys/Ruiz Pulse Ox Last 24 Hr 97.7 F-98.4 F 78-104 20-20 110-146/77-94 100-100 Constitutional: Yes: No Distress, Calm Eyes: Yes: WNL HENT: Yes: WNL, Atraumatic Neck: Yes: WNL, Supple Cardiovascular: Yes: afib 102-113s Respiratory: Yes: WNL, CTA Bilaterally Gastrointestinal: Yes: WNL, large obese abdomen Genitourinary: Yes: WNL Edema: Yes Edema: LLE: 2+ (hx of lymphedema), RLE: 2+ (hx of lymphedema) Integumentary: Yes: WNL Neurological: Yes: WNL Laboratory Results - last 24 hr 09/25/19 09/25/19 06:15 06:15 WBC 5.3 RBC 4.15 Hgb 11.8 Hct 36.4 MCV 87.7 MCH 28.6 MCHC 32.6 RDW 17.3 H Plt Count 219 MPV 8.9 Absolute Neuts (auto) 4.9 Neutrophils % 91.6 H Lymphocytes % 6.7 L Monocytes % 1.6 L Eosinophils % 0.0 Basophils % 0.1 Nucleated RBC % 0 Sodium 139 Potassium 4.3 Chloride 108 H Carbon Dioxide 28 Anion Gap 3 L BUN 30.3 H Creatinine 1.0 Est GFR (CKD-EPI)AfAm 71.92 Est GFR (CKD-EPI)NonAf 62.05 Random Glucose 144 H Calcium 8.8 Total Bilirubin 0.4 AST 20 ALT 37 Alkaline Phosphatase 91 Total Protein 6.0 L Albumin 2.8 L Active Medications Generic Name Dose Route Start Last Admin Trade Name Freq PRN Reason Stop Dose Admin Albuterol/Ipratropium 1 amp 09/21/19 20:00 09/24/19 20:50 Duoneb - NEB 1 amp RQID SHIRLENE Administration Apixaban 5 mg 09/21/19 22:00 09/24/19 22:21 Eliquis - PO 5 mg BID SHIRLENE Administration Duloxetine HCl 60 mg 09/23/19 22:00 09/24/19 22:19 Cymbalta - PO 60 mg HS SHIRLENE Administration Famotidine 10 mg 09/21/19 22:00 09/24/19 22:20 Acid Coffee Farmer PO 10 mg BID SHIRLENE Administration Furosemide 40 mg 09/22/19 10:00 09/24/19 09:57 Lasix - PO 40 mg DAILY SHIRLENE Administration Guaifenesin/Codeine Phosphate 5 ml 09/24/19 11:41 09/24/19 16:45 Robitussin Ac - PO 5 ml TID PRN Administration COUGH Ceftriaxone Sodium 1 gm/ 100 mls @ 200 mls/hr 09/22/19 10:00 09/24/19 09:53 Dextrose IVPB 200 mls/hr DAILY SHIRLENE Administration Protocol Methylprednisolone Sodium Succinate 40 mg 09/24/19 15:00 09/25/19 08:19 Solu-Medrol - IVPUSH 40 mg Q6H-IV SHIRLENE Administration Metoprolol Tartrate 100 mg 09/22/19 10:00 09/24/19 22:21 Lopressor - PO 100 mg BID SHIRLENE Administration Spironolactone 25 mg 09/22/19 10:00 09/24/19 09:57 Aldactone - PO 25 mg DAILY SHIRLENE Administration Trazodone HCl 100 mg 09/21/19 22:00 09/24/19 22:20 Desyrel - PO 100 mg HS SHIRLENE Administration ASSESSMENT/PLAN: Problem List - Problems (1) Asthma exacerbation Assessment/Plan: on solumedrol taper, nebulizers, antibiotics for bronchitis tolerating room air monitor oxygen saturations Code(s): J45.901 - UNSPECIFIED ASTHMA WITH (ACUTE) EXACERBATION (2) Atrial fibrillation with RVR Assessment/Plan: episodes of rvr to the 110s on monitor on metoprolol 100mg bid eliquis 5 mg bid Code(s): I48.91 - UNSPECIFIED ATRIAL FIBRILLATION (3) Cough Assessment/Plan: dry cough prn anti tussive Code(s): R05 - COUGH (4) Pneumonia Assessment/Plan: Patchy B/L B/B infiltrates -developing PNA. Continue Ceftriaxone IV. Code(s): J18.9 - PNEUMONIA, UNSPECIFIED ORGANISM Qualifiers: Pneumonia type: due to unspecified organism Laterality: bilateral Lung location: lower lobe of lung Qualified Code(s): J18.9 - Pneumonia, unspecified organism (5) Acute on chronic diastolic (congestive) heart failure Code(s): I50.33 - ACUTE ON CHRONIC DIASTOLIC (CONGESTIVE) HEART FAILURE (6) Aortic valve stenosis Assessment/Plan: cardiology following Code(s): I35.0 - NONRHEUMATIC AORTIC (VALVE) STENOSIS Qualifiers: Cardiac valve disease etiology: nonrheumatic Qualified Code(s): I35.0 - Nonrheumatic aortic (valve) stenosis (7) Morbid obesity Assessment/Plan: dietary consult Code(s): E66.01 - MORBID (SEVERE) OBESITY DUE TO EXCESS CALORIES (8) DVT prophylaxis Assessment/Plan: [facility] Code(s): [id number] - Visit type - Emergency Visit Emergency Visit: Yes ED Registration Date: 09/21/19 Care time: The patient presented to the Emergency Department on the above date and was hospitalized for further evaluation of their emergent condition. - New Patient This patient is new to me today: Yes Date on this admission: 09/25/19 - Critical Care Critical Care patient: No - Discharge Referral Referred to [facility] No
--- NOTE | 2019-09-25 10:26 | PN ---
Progress Note, Physician History of Present Illness: pulmonary alert,less dyspneic,+ cough - Current Medication List Current Medications: Active Medications Albuterol/Ipratropium (Duoneb -) 1 amp NEB RQID [facility] Last Admin: 09/24/19 20:50 Dose: 1 amp Apixaban (Eliquis -) 5 mg PO BID [facility] Last Admin: 09/24/19 22:21 Dose: 5 mg Duloxetine HCl (Cymbalta -) 60 mg PO [facility] Last Admin: 09/24/19 22:19 Dose: 60 mg Famotidine (Acid Inside Sales Manager) 10 mg PO BID [facility] Last Admin: 09/24/19 22:20 Dose: 10 mg Furosemide (Lasix -) 40 mg PO DAILY [facility] Last Admin: 09/24/19 09:57 Dose: 40 mg Guaifenesin/Codeine Phosphate (Robitussin Ac -) 5 ml PO TID PRN PRN Reason: COUGH Last Admin: 09/24/19 16:45 Dose: 5 ml Ceftriaxone Sodium 1 gm/ (Dextrose) 100 mls @ 200 mls/hr IVPB DAILY [facility]; Protocol Last Admin: 09/24/19 09:53 Dose: 200 mls/hr Methylprednisolone Sodium Succinate (Solu-Medrol -) 40 mg IVPUSH Q6H-IV [facility] Last Admin: 09/25/19 08:19 Dose: 40 mg Metoprolol Tartrate (Lopressor -) 100 mg PO BID [facility] Last Admin: 09/24/19 22:21 Dose: 100 mg Spironolactone (Aldactone -) 25 mg PO DAILY [facility] Last Admin: 09/24/19 09:57 Dose: 25 mg Trazodone HCl (Desyrel -) 100 mg PO HS [facility] Last Admin: 09/24/19 22:20 Dose: 100 mg - Objective Vital Signs: Vital Signs Temperature 98 F 09/25/19 09:03 Pulse Rate 88 09/25/19 09:03 Respiratory Rate 20 09/25/19 09:03 Blood Pressure 146/94 09/25/19 09:03 O2 Sat by Pulse Oximetry (%) 100 09/25/19 09:00 Constitutional: Yes: Well Nourished, Calm, Obese Eyes: Yes: WNL HENT: Yes: WNL Neck: Yes: WNL Cardiovascular: Yes: Pulse Irregular, S1, S2 Respiratory: Yes: Rhonchi (few rhonchi) Gastrointestinal: Yes: Normal Bowel Sounds, Soft, Abdomen, Obese Extremities: Yes: WNL Edema: Yes Labs: CBC, BMP 09/25/19 06:15 09/25/19 06:15 INR, PTT INR 1.05 (0.83-1.09) 09/21/19 20:34 Problem List - Problems (1) Asthma exacerbation Code(s): J45.901 - UNSPECIFIED ASTHMA WITH (ACUTE) EXACERBATION (2) Cough Code(s): R05 - COUGH (3) Afib Code(s): I48.91 - UNSPECIFIED ATRIAL FIBRILLATION Qualifiers: Atrial fibrillation type: chronic (4) Aortic valve stenosis Code(s): I35.0 - NONRHEUMATIC AORTIC (VALVE) STENOSIS Qualifiers: Cardiac valve disease etiology: nonrheumatic Qualified Code(s): I35.0 - Nonrheumatic aortic (valve) stenosis (5) CHF (congestive heart failure) Code(s): I50.9 - HEART FAILURE, UNSPECIFIED Qualifiers: Heart failure type: diastolic (6) Dyspnea Code(s): R06.00 - DYSPNEA, UNSPECIFIED Qualifiers: Dyspnea type: dyspnea on exertion Qualified Code(s): R06.09 - Other forms of dyspnea (7) Morbid obesity with BMI of 50.0-59.9, adult Code(s): E66.01 - MORBID (SEVERE) OBESITY DUE TO EXCESS CALORIES; Z68.43 - BODY MASS INDEX (BMI) 50.0-59.9, ADULT (8) HTN (hypertension) Code(s): I10 - ESSENTIAL (PRIMARY) HYPERTENSION Assessment/Plan IMP DYSPNEA ACUTE ASTHMA EXACERBATION LIKELY SECONDARY TO URI CHF AFIB ASHD PULMONARY HTN H/O ENDOMETRIAL AND OVARIAN CA S/P TAHBSO,RT,CHEMO H/O GASTRIC BYPASS PLAN STEROID TAPER INHALED BRONCHODILATORS O2 ABX COUGH MEDS ELIQUIS INCENTIVE SPIROMETER MONITOR PEAK FLOW DR LEMUS Problem List - Problems (1) Asthma exacerbation Code(s): J45.901 - UNSPECIFIED ASTHMA WITH (ACUTE) EXACERBATION (2) Cough Code(s): R05 - COUGH (3) Afib Code(s): I48.91 - UNSPECIFIED ATRIAL FIBRILLATION Qualifiers: Atrial fibrillation type: chronic (4) Aortic valve stenosis Code(s): I35.0 - NONRHEUMATIC AORTIC (VALVE) STENOSIS Qualifiers: Cardiac valve disease etiology: nonrheumatic Qualified Code(s): I35.0 - Nonrheumatic aortic (valve) stenosis (5) CHF (congestive heart failure) Code(s): I50.9 - HEART FAILURE, UNSPECIFIED Qualifiers: Heart failure type: diastolic (6) Dyspnea Code(s): R06.00 - DYSPNEA, UNSPECIFIED Qualifiers: Dyspnea type: dyspnea on exertion Qualified Code(s): R06.09 - Other forms of dyspnea (7) Morbid obesity with BMI of 50.0-59.9, adult Code(s): E66.01 - MORBID (SEVERE) OBESITY DUE TO EXCESS CALORIES; Z68.43 - BODY MASS INDEX (BMI) 50.0-59.9, ADULT (8) HTN (hypertension) Code(s): I10 - ESSENTIAL (PRIMARY) HYPERTENSION
[2019-09-25 10:39] LABS: ANISOCYTOSIS 1+; MACROCYTOSIS 1+; OVALOCYTE 1+; PLATELET ESTIMATE NORMAL; TARGET CELLS 1+; TOXIC GRANULATION 2+
[2019-09-25] MEDS: ALBUTEROL SO4 2.5/IPRATROPIUM 0.5 INH SOL 3 ML VIAL.NEB. NEB SCH ×4 (11:00→20:20)
[2019-09-25] MEDS ORDERED: PT OWN MED DRAWER 7, Y5N ONE (11:05)
[2019-09-25] MEDS: CEFTRIAXONE 1 GM in DEXTROSE 5%-WATER - 100 ML IVPB SCH (11:07)
[2019-09-25] MEDS: FUROSEMIDE 40 MG TABLET (FP) PO SCH (11:08)
[2019-09-25] MEDS: SPIRONOLACTONE 25 MG TABLET (FP) PO SCH (11:08)
[2019-09-25] MEDS: FAMOTIDINE 10 MG TABLET PO SCH ×2 (11:08→22:03)
[2019-09-25] MEDS: APIXABAN 5 MG TABLET PO SCH ×2 (11:08→22:02)
[2019-09-25] MEDS: METOPROLOL TARTRATE 50 MG TABLET (FP) PO SCH ×2 (11:09→22:03)
[2019-09-25] MEDS: guaiFENesin/CODEINE 5 ML UNIT-DOSE CUPS PO PRN (12:51)
--- NOTE | 2019-09-25 17:09 | PN ---
Progress Note (short form) - Note Progress Note: 59 year olf female admitted with URT infection complicated wit acute asthmatic bronchitis and recurrence of atrial fib with periods of rapid ventricular response. Patient has no further wheezing, minimal cough. no chest pain or discomfort. H/ o HTN, calcific aortic stenosis, depression.CHF related to LVDD. Active Medications Albuterol/Ipratropium (Duoneb -) 1 amp NEB RQID [facility] BEDS AT [facility] Last Admin: 09/25/19 16:00 Dose: 1 amp Apixaban (Eliquis -) 5 mg PO BID [facility] 234 BEDS AT [facility] Last Admin: 09/25/19 11:08 Dose: 5 mg Duloxetine HCl (Cymbalta -) 60 mg PO HS [facility] 234 BEDS AT [facility] Last Admin: 09/24/19 22:19 Dose: 60 mg Famotidine (Acid Stock Drier Tender) 10 mg PO BID [facility] 234 BEDS AT [facility] Last Admin: 09/25/19 11:08 Dose: 10 mg Furosemide (Lasix -) 40 mg PO DAILY [facility] 234 BEDS AT [facility] Last Admin: 09/25/19 11:08 Dose: 40 mg Guaifenesin/Codeine Phosphate (Robitussin Ac -) 5 ml PO TID PRN PRN Reason: COUGH Last Admin: 09/25/19 12:51 Dose: 5 ml Ceftriaxone Sodium 1 gm/ (Dextrose) 100 mls @ 200 mls/hr IVPB DAILY [facility] 234 BEDS AT [facility]; Protocol Last Admin: 09/25/19 11:07 Dose: 200 mls/hr Methylprednisolone Sodium Succinate (Solu-Medrol -) 40 mg IVPUSH Q6H-IV [facility] 234 BEDS AT [facility] Last Admin: 09/25/19 14:49 Dose: 40 mg Metoprolol Tartrate (Lopressor -) 100 mg PO BID [facility] 234 BEDS AT [facility] Last Admin: 09/25/19 11:09 Dose: 100 mg Spironolactone (Aldactone -) 25 mg PO DAILY [facility] 234 BEDS AT [facility] Last Admin: 09/25/19 11:08 Dose: 25 mg Trazodone HCl (Desyrel -) 100 mg PO HS [facility] 234 BEDS AT [facility] Last Admin: 09/24/19 22:20 Dose: 100 mg Last Vital Signs Temp Pulse Resp BP Pulse Ox 97.9 F 100 H 20 117/71 100 09/25/19 14:00 09/25/19 14:00 09/25/19 14:00 09/25/19 14:00 09/25/19 09:00 NECK: Supplle, no JVD. HEART: PMI is not localised,S1 normal S2A2 decrased. SLOAN II/ at the 2nd right ICS. No diastolic murmur or gallopps heard. LUNGS: Clear. ABDOMEN: obese, nontender, No organomegaly felt. EXTREMITIES: Brawny edama, 2+, chronic stasis. IMPRESSION: 1. Acute asthm,atic bronchitis. 2. Paroxysmal atrial fib with periords. of rapud ventricular response. 3. HTN. 4. Calcific aortic stenosis. 5. CHF, resolved. 6. LVDD. RECOMMENDATIONS: 1. Consider addition of Digoxin 0.25 mg. for rate control. 2. patient needs EP revaluation for RFA. 3 Dietary restictions 4. Consider bariatric evaluation
--- NOTE | 2019-09-25 18:06 | PN ---
Progress Note (short form) - Note Progress Note: 59 year old female admitted with URT infection ans acute asthmatic broncitis, h/ o HTN, persistent atrial fib., AV stenosis, CHF, LVDD. No further sob, no chest pain or discomfort. Active Medications Generic Name Dose Route Start Last Admin Trade Name Freq PRN Reason Stop Dose Admin Albuterol/Ipratropium 1 amp 09/21/19 20:00 09/25/19 16:00 Duoneb - NEB 1 amp RQID [facility] Administration Apixaban 5 mg 09/21/19 22:00 09/25/19 11:08 Eliquis - PO 5 mg BID [facility] Administration Duloxetine HCl 60 mg 09/23/19 22:00 09/24/19 22:19 Cymbalta - PO 60 mg HS [facility] Administration Famotidine 10 mg 09/21/19 22:00 09/25/19 11:08 Acid Ceramics Engineer PO 10 mg BID [facility] Administration Furosemide 40 mg 09/22/19 10:00 09/25/19 11:08 Lasix - PO 40 mg DAILY [facility] Administration Guaifenesin/Codeine Phosphate 5 ml 09/24/19 11:41 09/25/19 12:51 Robitussin Ac - PO 5 ml TID PRN Administration COUGH Ceftriaxone Sodium 1 gm/ 100 mls @ 200 mls/hr 09/22/19 10:00 09/25/19 11:07 Dextrose IVPB 200 mls/hr DAILY [facility] Administration Protocol Methylprednisolone Sodium Succinate 40 mg 09/24/19 15:00 09/25/19 14:49 Solu-Medrol - IVPUSH 40 mg Q6H-IV [facility] Administration Metoprolol Tartrate 100 mg 09/22/19 10:00 09/25/19 11:09 Lopressor - PO 100 mg BID [facility] Administration Spironolactone 25 mg 09/22/19 10:00 09/25/19 11:08 Aldactone - PO 25 mg DAILY [facility] Administration Trazodone HCl 100 mg 09/21/19 22:00 09/24/19 22:20 Desyrel - PO 100 mg HS [facility] Administration Last Vital Signs Temp Pulse Resp BP Pulse Ox 97.9 F 100 H 20 117/71 100 09/25/19 14:00 09/25/19 14:00 09/25/19 14:00 09/25/19 14:00 09/25/19 09:00 NECK: Supple, no JVD. HEART: PMI, not localised, SLOAN II/ . LUNGS: clesr. ABDOMEN: Soft, nontender, no organomegaly appreciated. EXTREMITIES: Brawny edema, no calf tenderness CBC, BMP 09/25/19 06:15 09/25/19 06:15 IMPRESSION: 1. Acute asthmatic bronchitis, resolving. 2. CHF, resolved. 3. Atrial fib. with periods rapid ventricular response. 4. HTN. 5. LVDD. RECOMMENDATIONS: 1. Continue current medications. 2. May need to consider digoxin if rapid ventricular response recurs. 3. EPS evaluation for RFA( medication failure). 4. Bariatric evaluation.
[2019-09-25] MEDS ORDERED: traZODone HCL 50 MG TABLET (FP) ONE (21:56)
[2019-09-25] MEDS: traZODone HCL 100 MG TABLET (FP) PO SCH (22:02)
[2019-09-25] MEDS: DULoxetine HCL 30 MG CAPSULE.DR PO SCH (22:03)
[2019-09-26] MEDS: methylPREDNISolone NA SUCC 40 MG/1 ML VIAL IVPUSH SCH ×3 (03:46→21:34)
[2019-09-26] MEDS: ALBUTEROL SO4 2.5/IPRATROPIUM 0.5 INH SOL 3 ML VIAL.NEB. NEB SCH ×4 (08:11→20:10)
--- NOTE | 2019-09-26 10:41 | PN ---
Progress Note, Physician History of Present Illness: PULMONARY ALERT,FEELING BETTER,STILL DYSPNEIC WITH EXERTION,+COUGH - Current Medication List Current Medications: Active Medications Albuterol/Ipratropium (Duoneb -) 1 amp NEB RQID [facility] Last Admin: 09/26/19 08:11 Dose: 1 amp Apixaban (Eliquis -) 5 mg PO BID [facility] Last Admin: 09/25/19 22:02 Dose: 5 mg Duloxetine HCl (Cymbalta -) 60 mg PO [facility] Last Admin: 09/25/19 22:03 Dose: 60 mg Famotidine (Acid Health Outreach Worker) 10 mg PO BID [facility] Last Admin: 09/25/19 22:03 Dose: 10 mg Furosemide (Lasix -) 40 mg PO DAILY [facility] Last Admin: 09/25/19 11:08 Dose: 40 mg Guaifenesin/Codeine Phosphate (Robitussin Ac -) 5 ml PO TID PRN PRN Reason: COUGH Last Admin: 09/25/19 12:51 Dose: 5 ml Ceftriaxone Sodium 1 gm/ (Dextrose) 100 mls @ 200 mls/hr IVPB DAILY [facility]; Protocol Last Admin: 09/25/19 11:07 Dose: 200 mls/hr Methylprednisolone Sodium Succinate (Solu-Medrol -) 40 mg IVPUSH Q6H-IV [facility] Last Admin: 09/26/19 09:31 Dose: 40 mg Metoprolol Tartrate (Lopressor -) 100 mg PO BID [facility] Last Admin: 09/25/19 22:03 Dose: 100 mg Spironolactone (Aldactone -) 25 mg PO DAILY [facility] Last Admin: 09/25/19 11:08 Dose: 25 mg Trazodone HCl (Desyrel -) 100 mg PO [facility] Last Admin: 09/25/19 22:02 Dose: 100 mg - Objective Vital Signs: Vital Signs Temperature 98 F 09/26/19 08:41 Pulse Rate 110 H 09/26/19 08:41 Respiratory Rate 20 09/26/19 08:41 Blood Pressure 136/75 09/26/19 08:41 O2 Sat by Pulse Oximetry (%) 98 09/26/19 08:39 Constitutional: Yes: Calm, Obese Eyes: Yes: WNL HENT: Yes: WNL Neck: Yes: WNL Cardiovascular: Yes: Pulse Irregular, S1, S2 Respiratory: Yes: Wheezes (SCATTERED PRECIOUS WHEEZES) Gastrointestinal: Yes: Normal Bowel Sounds, Soft Extremities: Yes: WNL Edema: Yes Labs: Problem List - Problems (1) Asthma exacerbation Code(s): J45.901 - UNSPECIFIED ASTHMA WITH (ACUTE) EXACERBATION (2) Cough Code(s): R05 - COUGH (3) Afib Code(s): I48.91 - UNSPECIFIED ATRIAL FIBRILLATION Qualifiers: Atrial fibrillation type: chronic (4) Aortic valve stenosis Code(s): I35.0 - NONRHEUMATIC AORTIC (VALVE) STENOSIS Qualifiers: Cardiac valve disease etiology: nonrheumatic Qualified Code(s): I35.0 - Nonrheumatic aortic (valve) stenosis (5) CHF (congestive heart failure) Code(s): I50.9 - HEART FAILURE, UNSPECIFIED Qualifiers: Heart failure type: diastolic (6) Dyspnea Code(s): R06.00 - DYSPNEA, UNSPECIFIED Qualifiers: Dyspnea type: dyspnea on exertion Qualified Code(s): R06.09 - Other forms of dyspnea (7) Morbid obesity with BMI of 50.0-59.9, adult Code(s): E66.01 - MORBID (SEVERE) OBESITY DUE TO EXCESS CALORIES; Z68.43 - BODY MASS INDEX (BMI) 50.0-59.9, ADULT (8) HTN (hypertension) Code(s): I10 - ESSENTIAL (PRIMARY) HYPERTENSION Assessment/Plan IMP DYSPNEA ACUTE ASTHMA EXACERBATION LIKELY SECONDARY TO URI CHF AFIB ASHD PULMONARY HTN H/O ENDOMETRIAL AND OVARIAN CA S/P TAHBSO,RT,CHEMO H/O GASTRIC BYPASS PLAN STEROID TAPER INHALED BRONCHODILATORS O2 ABX COUGH MEDS ELIQUIS INCENTIVE SPIROMETER MONITOR PEAK FLOW DR LEMUS Problem List - Problems (1) Asthma exacerbation Code(s): J45.901 - UNSPECIFIED ASTHMA WITH (ACUTE) EXACERBATION (2) Cough Code(s): R05 - COUGH (3) Afib Code(s): I48.91 - UNSPECIFIED ATRIAL FIBRILLATION Qualifiers: Atrial fibrillation type: chronic (4) Aortic valve stenosis Code(s): I35.0 - NONRHEUMATIC AORTIC (VALVE) STENOSIS Qualifiers: Cardiac valve disease etiology: nonrheumatic Qualified Code(s): I35.0 - Nonrheumatic aortic (valve) stenosis (5) CHF (congestive heart failure) Code(s): I50.9 - HEART FAILURE, UNSPECIFIED Qualifiers: Heart failure type: diastolic (6) Dyspnea Code(s): R06.00 - DYSPNEA, UNSPECIFIED Qualifiers: Dyspnea type: dyspnea on exertion Qualified Code(s): R06.09 - Other forms of dyspnea (7) Morbid obesity with BMI of 50.0-59.9, adult Code(s): E66.01 - MORBID (SEVERE) OBESITY DUE TO EXCESS CALORIES; Z68.43 - BODY MASS INDEX (BMI) 50.0-59.9, ADULT (8) HTN (hypertension) Code(s): I10 - ESSENTIAL (PRIMARY) HYPERTENSION
[2019-09-26] MEDS: METOPROLOL TARTRATE 50 MG TABLET (FP) PO SCH ×2 (11:01→21:34)
[2019-09-26] MEDS: FAMOTIDINE 10 MG TABLET PO SCH ×2 (11:01→21:35)
[2019-09-26] MEDS: APIXABAN 5 MG TABLET PO SCH ×2 (11:01→21:34)
[2019-09-26] MEDS: SPIRONOLACTONE 25 MG TABLET (FP) PO SCH (11:01)
[2019-09-26] MEDS: FUROSEMIDE 40 MG TABLET (FP) PO SCH (11:01)
[2019-09-26 11:23] LABS: BASO % 0.1 % (0-2.0); HEMATOCRIT 37.2 % (32.4-45.2); LYMPH % 4.5 % (8-40); MCH 28.3 pg (25.7-33.7); MCHC 32.3 g/dl (32.0-36.0); MEAN CELL VOLUME 87.6 fl (80-96); MEAN PLT VOLUME 8.9 fl (7.5-11.1); NEUT % 92.4 % (42.8-82.8); PLATELET COUNT 238 K/MM3 (134-434); RBC 4.25 M/mm3 (3.60-5.2); WHITE BLOOD COUNT 5.9 K/mm3 (4.0-10.0)
[2019-09-26] MEDS: CEFTRIAXONE 1 GM in DEXTROSE 5%-WATER - 100 ML IVPB SCH (11:23)
[2019-09-26 11:56] LABS: ALBUMIN 2.9 g/dl (3.4-5.0); BILIRUBIN,TOTAL 0.7 mg/dL (0.2-1); CALCIUM 8.9 mg/dL (8.5-10.1); CREATININE 1.1 mg/dL (0.55-1.3); MAGNESIUM 2.3 mg/dL (1.8-2.4); POTASSIUM 4.3 mmol/L (3.5-5.1); TOT PROT 6.3 g/dl (6.4-8.2)
[2019-09-26 12:11] LABS: PLATELET ESTIMATE ADEQUATE
[2019-09-26] MEDS ORDERED: PT OWN MED DRAWER 7, Y5N ONE (13:52)
[2019-09-26] MEDS: LACTOBACILLUS ACIDOPHILUS 1 TABLET PO SCH (15:19)
--- NOTE | 2019-09-26 16:04 | PN ---
Physical Exam: SUBJECTIVE: Patient seen and examined at the bedside. having some stomach upset and had one episode of loose stools. otherwise doing well and tolerating room. OBJECTIVE: Symphony coverage for Dr. Link patient is a 58 y/o woman with a PMHx of HTN, CAD, Morbid Obesity, paroxysmal Afib, Mitral Valve Disease, PHTN, ELLE, Bronchial Asthma, Chronic Venous Stasis Insufficiency with Lymph Edema. Patient comes to the ED on 09/21/2019 with c/o wheezing, cough and shortness of breath and is being treated with acute exacerbation of COPD. Vital Signs Period Temp Pulse Resp BP Sys/Ruiz Pulse Ox Last 24 Hr 97.7 F-98.3 F 73-110 20-20 118-147/71-88 97-98 Constitutional: Yes: No Distress, Calm Eyes: Yes: WNL HENT: Yes: WNL, Atraumatic Neck: Yes: WNL, Supple Cardiovascular: Yes: afib 102-113s Respiratory: Yes: + scattered wheezing, tolerating room air, stable oxygen saturations without accessory muscle use. Gastrointestinal: Yes: WNL, large obese abdomen Genitourinary: Yes: WNL Edema: Yes Edema: LLE: 2+ (hx of lymphedema), RLE: 2+ (hx of lymphedema) Integumentary: Yes: WNL Neurological: Yes: WNL Laboratory Results - last 24 hr 09/26/19 09/26/19 11:07 11:07 WBC 5.9 RBC 4.25 Hgb 12.0 Hct 37.2 MCV 87.6 MCH 28.3 MCHC 32.3 RDW 17.0 H Plt Count 238 MPV 8.9 Absolute Neuts (auto) 5.4 Neutrophils % 92.4 H Neutrophils % (Manual) 92.0 H Band Neutrophils % 0.0 Lymphocytes % 4.5 L D Lymphocytes % (Manual) 7.0 L Monocytes % 3.0 L D Monocytes % (Manual) 1 L Eosinophils % 0.0 Eosinophils % (Manual) 0.0 Basophils % 0.1 Basophils % (Manual) 0.0 Nucleated RBC % 0 Platelet Estimate Adequate Sodium 140 Potassium 4.3 Chloride 107 Carbon Dioxide 26 Anion Gap 8 BUN 35.0 H Creatinine 1.1 Est GFR (CKD-EPI)AfAm 64.09 Est GFR (CKD-EPI)NonAf 55.30 Random Glucose 134 H Calcium 8.9 Magnesium 2.3 Total Bilirubin 0.7 AST 24 ALT 51 Alkaline Phosphatase 95 Total Protein 6.3 L Albumin 2.9 L Active Medications Generic Name Dose Route Start Last Admin Trade Name Freq PRN Reason Stop Dose Admin Albuterol/Ipratropium 1 amp 09/21/19 20:00 09/26/19 11:52 Duoneb - NEB 1 amp RQID [facility] Administration Apixaban 5 mg 09/21/19 22:00 09/26/19 11:01 Eliquis - PO 5 mg BID [facility] Administration Duloxetine HCl 60 mg 09/23/19 22:00 09/25/19 22:03 Cymbalta - PO 60 mg HS [facility] Administration Famotidine 10 mg 09/21/19 22:00 09/26/19 11:01 Acid Acid Condenser PO 10 mg BID [facility] Administration Furosemide 40 mg 09/22/19 10:00 09/26/19 11:01 Lasix - PO 40 mg DAILY [facility] Administration Guaifenesin/Codeine Phosphate 5 ml 09/24/19 11:41 09/25/19 12:51 Robitussin Ac - PO 5 ml TID PRN Administration COUGH Ceftriaxone Sodium 1 gm/ 100 mls @ 200 mls/hr 09/22/19 10:00 09/26/19 11:23 Dextrose IVPB 200 mls/hr DAILY [facility] Administration Protocol Lactobacillus Acidophilus 1 tab 09/26/19 14:00 09/26/19 15:19 Bacid - PO 1 tab DAILY [facility] Administration Methylprednisolone Sodium Succinate 40 mg 09/26/19 18:00 Solu-Medrol - IVPUSH Q8H-IV [facility] Metoprolol Tartrate 100 mg 09/22/19 10:00 09/26/19 11:01 Lopressor - PO 100 mg BID [facility] Administration Spironolactone 25 mg 09/22/19 10:00 09/26/19 11:01 Aldactone - PO 25 mg DAILY [facility] Administration Trazodone HCl 100 mg 09/21/19 22:00 09/25/19 22:02 Desyrel - PO 100 mg HS [facility] Administration ASSESSMENT/PLAN: Problem List - Problems (1) Asthma exacerbation Assessment/Plan: on solumedrol taper, nebulizers, antibiotics for bronchitis tolerating room air monitor oxygen saturations Code(s): J45.901 - UNSPECIFIED ASTHMA WITH (ACUTE) EXACERBATION (2) Atrial fibrillation with RVR Assessment/Plan: on metoprolol 100mg bid eliquis 5 mg bid Code(s): I48.91 - UNSPECIFIED ATRIAL FIBRILLATION (3) Cough Assessment/Plan: dry cough prn anti tussive Code(s): R05 - COUGH (4) Pneumonia Assessment/Plan: Patchy B/L B/B infiltrates -developing PNA. Continue Ceftriaxone IV. Code(s): J18.9 - PNEUMONIA, UNSPECIFIED ORGANISM Qualifiers: Pneumonia type: due to unspecified organism Laterality: bilateral Lung location: lower lobe of lung Qualified Code(s): J18.9 - Pneumonia, unspecified organism (5) Acute on chronic diastolic (congestive) heart failure Code(s): I50.33 - ACUTE ON CHRONIC DIASTOLIC (CONGESTIVE) HEART FAILURE (6) Aortic valve stenosis Assessment/Plan: cardiology following Code(s): I35.0 - NONRHEUMATIC AORTIC (VALVE) STENOSIS Qualifiers: Cardiac valve disease etiology: nonrheumatic Qualified Code(s): I35.0 - Nonrheumatic aortic (valve) stenosis (7) Morbid obesity Assessment/Plan: dietary consult Code(s): E66.01 - MORBID (SEVERE) OBESITY DUE TO EXCESS CALORIES (8) DVT prophylaxis Assessment/Plan: on eliquis physical therapy Code(s): [id number] - Visit type - Emergency Visit Emergency Visit: Yes ED Registration Date: 09/21/19 Care time: The patient presented to the Emergency Department on the above date and was hospitalized for further evaluation of their emergent condition. - New Patient This patient is new to me today: No - Critical Care Critical Care patient: No - Discharge Referral Referred to [facility] Med [facility] No
--- NOTE | 2019-09-26 16:17 | PN ---
Progress Note (short form) - Note Progress Note: 59 year old female admitted with URT infection ans acute asthmatic broncitis, h/ o HTN, persistent atrial fib., AV stenosis, CHF, LVDD. Recurrence of SOB, wheezing and cough, under treatment, no chest pain or discomfort. Last Vital Signs Temp Pulse Resp BP Pulse Ox 97.9 F 100 H 20 117/71 100 09/25/19 14:00 09/25/19 14:00 09/25/19 14:00 09/25/19 14:00 09/25/19 09:00 NECK: Supple, no JVD. HEART: PMI, not localised, SLOAN II/ . LUNGS: bilateral expiratory wheezing. ABDOMEN: Soft, nontender, no organomegaly appreciated. EXTREMITIES: Brawny edema, no calf tendernes CBC, BMP 09/26/19 11:07 09/26/19 11:07 IMPRESSION: 1. Acute asthmatic bronchitis, resolving. 2. CHF, resolved. 3. Atrial fib. with periods rapid ventricular response. 4. HTN. 5. LVDD. RECOMMENDATIONS: 1. Continue current medications. 2. May need to consider digoxin if rapid ventricular response recurs. 3. EPS evaluation for RFA( medication failure).
[2019-09-26] MEDS ORDERED: traZODone HCL 50 MG TABLET (FP) ONE (21:21)
[2019-09-26] MEDS: traZODone HCL 100 MG TABLET (FP) PO SCH (21:35)
[2019-09-26] MEDS: DULoxetine HCL 30 MG CAPSULE.DR PO SCH (21:35)
[2019-09-27] MEDS: methylPREDNISolone NA SUCC 40 MG/1 ML VIAL IVPUSH SCH (03:38)
[2019-09-27] MEDS: ALBUTEROL SO4 2.5/IPRATROPIUM 0.5 INH SOL 3 ML VIAL.NEB. NEB SCH ×4 (07:29→20:00)
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
[2019-09-27] MEDS: METOPROLOL TARTRATE 50 MG TABLET (FP) PO SCH ×2 (10:04→22:01)
[2019-09-27] MEDS: FUROSEMIDE 40 MG TABLET (FP) PO SCH (10:04)
[2019-09-27] MEDS: DIGOXIN 0.25 MG TABLET (FP) PO ONE ×2 (10:04→10:05)
[2019-09-27] MEDS: predniSONE 20 MG TABLET (UD) PO SCH (10:04)
[2019-09-27] MEDS: SPIRONOLACTONE 25 MG TABLET (FP) PO SCH (10:04)
[2019-09-27] MEDS: LACTOBACILLUS ACIDOPHILUS 1 TABLET PO SCH (10:04)
[2019-09-27] MEDS: APIXABAN 5 MG TABLET PO SCH ×2 (10:04→22:01)
--- NOTE | 2019-09-27 10:05 | PN ---
Progress Note (short form) - Note Progress Note: 59 year old female admitted with URT infection and acute asthmatic bronchitis, h /o HTN, persistent atrial fib., AV stenosis, CHF, LVDD. Feeling better, minimal SOB, still has periods of RVR, no chest pain or discomfort. Active Medications Albuterol/Ipratropium (Duoneb -) 1 amp NEB RQID [facility] Last Admin: 09/26/19 20:10 Dose: 1 amp Apixaban (Eliquis -) 5 mg PO BID [facility] Last Admin: 09/26/19 21:34 Dose: 5 mg Digoxin (Lanoxin -) 0.25 mg PO DAILY [facility] Duloxetine HCl (Cymbalta -) 60 mg PO HS [facility] Last Admin: 09/26/19 21:35 Dose: 60 mg Famotidine (Acid Anthropometrist) 10 mg PO BID [facility] Last Admin: 09/26/19 21:35 Dose: 10 mg Furosemide (Lasix -) 40 mg PO DAILY [facility] Last Admin: 09/26/19 11:01 Dose: 40 mg Guaifenesin/Codeine Phosphate (Robitussin Ac -) 5 ml PO TID PRN PRN Reason: COUGH Last Admin: 09/25/19 12:51 Dose: 5 ml Ceftriaxone Sodium 1 gm/ (Dextrose) 100 mls @ 200 mls/hr IVPB DAILY [facility]; Protocol Last Admin: 09/26/19 11:23 Dose: 200 mls/hr Lactobacillus Acidophilus (Bacid -) 1 tab PO DAILY [facility] Last Admin: 09/26/19 15:19 Dose: 1 tab Metoprolol Tartrate (Lopressor -) 100 mg PO BID [facility] Last Admin: 09/26/19 21:34 Dose: 100 mg Prednisone (Deltasone -) 40 mg PO DAILY [facility] Spironolactone (Aldactone -) 25 mg PO DAILY [facility] Last Admin: 09/26/19 11:01 Dose: 25 mg Trazodone HCl (Desyrel -) 100 mg PO HS [facility] Last Admin: 09/26/19 21:35 Dose: 100 mg Last Vital Signs Temp Pulse Resp BP Pulse Ox 98.3 F 98 H 20 124/65 97 09/27/19 07:52 09/27/19 07:52 09/27/19 07:54 09/27/19 07:52 09/27/19 07:54 HEART: S1 variable S2A2 decreased SLOAN II/. LUNGS: Scattered bilateral expiratory wheezing. ABDOMEN: Soft, nontender, no organomegaly appreciated. EXTREMITIES: Brawny edema, no calf tendernes. CBC, BMP 09/26/19 11:07 09/26/19 11:07 IMPRESSION: 1. Acute asthmatic bronchitis, resolving. 2. CHF, resolved. 3. Atrial fib. with periods rapid ventricular response. 4. HTN. 5. LVDD. RECOMMENDATIONS: 1. Continue current medications. 2. placed on dixoxin. 3. F/u digoxin level.
[2019-09-27] MEDS: CEFTRIAXONE 1 GM in DEXTROSE 5%-WATER - 100 ML IVPB SCH (10:06)
[2019-09-27] MEDS: DIGOXIN 0.25 MG TABLET (FP) PO SCH (10:06)
[2019-09-27] MEDS: FAMOTIDINE 10 MG TABLET PO SCH ×2 (10:07→22:01)
--- NOTE | 2019-09-27 12:33 | PN ---
Progress Note (short form) - Note Progress Note: PULMONARY States breathing is improving. Less cough and wheezing. No fevers. Vital Signs Period Temp Pulse Resp BP Sys/Ruiz Pulse Ox Last 24 Hr 97.9 F-98.9 F 75-101 20-20 111-135/65-88 97-97 Gen: NAD at rest Heart: RRR Lung: scattered wheezes Abd: soft, nontender Ext: + edema CBC, BMP 09/26/19 11:07 09/26/19 11:07 Active Medications Albuterol/Ipratropium (Duoneb -) 1 amp NEB RQID [facility] Last Admin: 09/27/19 07:29 Dose: 1 amp Apixaban (Eliquis -) 5 mg PO BID [facility] Last Admin: 09/27/19 10:04 Dose: 5 mg Digoxin (Lanoxin -) 0.25 mg PO DAILY [facility] Last Admin: 09/27/19 10:06 Dose: 0.25 mg Duloxetine HCl (Cymbalta -) 60 mg PO HS [facility] Last Admin: 09/26/19 21:35 Dose: 60 mg Famotidine (Acid Order Builder Loader) 10 mg PO BID [facility] Last Admin: 09/27/19 10:07 Dose: 10 mg Furosemide (Lasix -) 40 mg PO DAILY [facility] Last Admin: 09/27/19 10:04 Dose: 40 mg Ceftriaxone Sodium 1 gm/ (Dextrose) 100 mls @ 200 mls/hr IVPB DAILY [facility]; Protocol Last Admin: 09/27/19 10:06 Dose: 200 mls/hr Lactobacillus Acidophilus (Bacid -) 1 tab PO DAILY [facility] Last Admin: 09/27/19 10:04 Dose: 1 tab Metoprolol Tartrate (Lopressor -) 100 mg PO BID [facility] Last Admin: 09/27/19 10:04 Dose: 100 mg Prednisone (Deltasone -) 40 mg PO DAILY [facility] Last Admin: 09/27/19 10:04 Dose: 40 mg Spironolactone (Aldactone -) 25 mg PO DAILY [facility] Last Admin: 09/27/19 10:04 Dose: 25 mg Trazodone HCl (Desyrel -) 100 mg PO HS [facility] Last Admin: 09/26/19 21:35 Dose: 100 mg A/P Acute Asthma Exacerbation LV Diastolic Dysfunction Pulmonary HTN Aortic Stenosis CAD Atrial Fibrillation Cellulitis h/o Endometrial/Ovarian Ca s/p Gastric Bypass Obstructive Sleep Apnea - prednisone taper - inhaled bronchodilators - rate control - continue anticoagulation - continue antibiotics
[2019-09-27 13:41] LABS: BASO % 0.7 % (0-2.0); HEMOGLOBIN 13.8 GM/dL (10.7-15.3); LYMPH % 3.1 % (8-40); MCH 27.7 pg (25.7-33.7); MCHC 31.3 g/dl (32.0-36.0); MEAN CELL VOLUME 88.4 fl (80-96); MEAN PLT VOLUME 9.2 fl (7.5-11.1); MONO % 3.4 % (3.8-10.2); NEUT % 92.8 % (42.8-82.8); PLATELET COUNT 297 K/MM3 (134-434); RBC 4.98 M/mm3 (3.60-5.2); RDW 17.3 % (11.6-15.6)
[2019-09-27 13:56] LABS: ALBUMIN 3.3 g/dl (3.4-5.0); BILIRUBIN,TOTAL 0.5 mg/dL (0.2-1); BLOOD UREA NITROGEN 37.4 mg/dL (7-18); CALCIUM 8.8 mg/dL (8.5-10.1); CREATININE 1.2 mg/dL (0.55-1.3); MAGNESIUM 2.4 mg/dL (1.8-2.4); POTASSIUM 4.4 mmol/L (3.5-5.1); TOT PROT 6.8 g/dl (6.4-8.2)
[2019-09-27 14:29] LABS: PLATELET ESTIMATE ADEQUATE
[2019-09-27] MEDS ORDERED: traZODone HCL 50 MG TABLET (FP) ONE (21:05)
[2019-09-27] MEDS: DULoxetine HCL 30 MG CAPSULE.DR PO SCH (22:01)
[2019-09-27] MEDS: traZODone HCL 100 MG TABLET (FP) PO SCH (22:02)
[2019-09-28 05:56] VITALS: TEMP 97.9
[2019-09-28] MEDS: ALBUTEROL SO4 2.5/IPRATROPIUM 0.5 INH SOL 3 ML VIAL.NEB. NEB SCH (08:09)
[2019-09-28 09:09] LABS: BASO % 0.1 % (0-2.0); HEMATOCRIT 41.3 % (32.4-45.2); HEMOGLOBIN 13.3 GM/dL (10.7-15.3); LYMPH % 8.1 % (8-40); MCH 28.1 pg (25.7-33.7); MCHC 32.2 g/dl (32.0-36.0); MEAN CELL VOLUME 87.2 fl (80-96); MEAN PLT VOLUME 9.1 fl (7.5-11.1); NEUT % 86.8 % (42.8-82.8); PLATELET COUNT 267 K/MM3 (134-434); RBC 4.74 M/mm3 (3.60-5.2); RDW 17.2 % (11.6-15.6); WHITE BLOOD COUNT 7.5 K/mm3 (4.0-10.0)
[2019-09-28] MEDS ORDERED: CEFTRIAXONE 1 GM in DEXTROSE 5%-WATER - 50 ML IVPB SCH (09:14)
[2019-09-28] MEDS: SPIRONOLACTONE 25 MG TABLET (FP) PO SCH (09:23)
[2019-09-28] MEDS: METOPROLOL TARTRATE 50 MG TABLET (FP) PO SCH (09:23)
[2019-09-28] MEDS: APIXABAN 5 MG TABLET PO SCH (09:23)
[2019-09-28] MEDS: LACTOBACILLUS ACIDOPHILUS 1 TABLET PO SCH (09:23)
[2019-09-28] MEDS: FUROSEMIDE 40 MG TABLET (FP) PO SCH (09:24)
[2019-09-28] MEDS: DIGOXIN 0.25 MG TABLET (FP) PO SCH (09:24)
[2019-09-28] MEDS: FAMOTIDINE 10 MG TABLET PO SCH (09:24)
[2019-09-28] MEDS: predniSONE 20 MG TABLET (UD) PO SCH (09:26)
[2019-09-28] MEDS ORDERED: cefTRIAXone SODIUM 1 GM VIAL ONE (09:26)
[2019-09-28] MEDS ORDERED: DEXTROSE 5%-WATER - 50 ML IVPB ONE (09:26)
[2019-09-28 09:37] LABS: ALBUMIN 3.1 g/dl (3.4-5.0); BILIRUBIN,TOTAL 1.2 mg/dL (0.2-1); BLOOD UREA NITROGEN 34.5 mg/dL (7-18); CREATININE 1.1 mg/dL (0.55-1.3); MAGNESIUM 2.4 mg/dL (1.8-2.4); POTASSIUM 4.3 mmol/L (3.5-5.1); TOT PROT 6.5 g/dl (6.4-8.2)
--- NOTE | 2019-09-28 10:35 | PN ---
Progress Note, Physician History of Present Illness: pulmonary alert,oob-chair,comfortable,-resp distress - Current Medication List Current Medications: Active Medications Albuterol/Ipratropium (Duoneb -) 1 amp NEB RQID [facility] Last Admin: 09/27/19 20:00 Dose: 1 amp Apixaban (Eliquis -) 5 mg PO BID [facility] Last Admin: 09/28/19 09:23 Dose: 5 mg Digoxin (Lanoxin -) 0.25 mg PO DAILY [facility] Last Admin: 09/28/19 09:24 Dose: 0.25 mg Duloxetine HCl (Cymbalta -) 60 mg PO [facility] Last Admin: 09/27/19 22:01 Dose: 60 mg Famotidine (Acid Dealer Analyst) 10 mg PO BID [facility] Last Admin: 09/28/19 09:24 Dose: 10 mg Furosemide (Lasix -) 40 mg PO DAILY [facility] Last Admin: 09/28/19 09:24 Dose: 40 mg Ceftriaxone Sodium 1 gm/ (Dextrose) 50 mls @ 200 mls/hr IVPB DAILY [facility]; Protocol Last Admin: 09/28/19 09:27 Dose: 200 mls/hr Lactobacillus Acidophilus (Bacid -) 1 tab PO DAILY [facility] Last Admin: 09/28/19 09:23 Dose: 1 tab Metoprolol Tartrate (Lopressor -) 100 mg PO BID [facility] Last Admin: 09/28/19 09:23 Dose: 100 mg Prednisone (Deltasone -) 40 mg PO DAILY [facility] Last Admin: 09/28/19 09:26 Dose: 40 mg Spironolactone (Aldactone -) 25 mg PO DAILY [facility] Last Admin: 09/28/19 09:23 Dose: 25 mg Trazodone HCl (Desyrel -) 100 mg PO [facility] Last Admin: 09/27/19 22:02 Dose: 100 mg - Objective Vital Signs: Vital Signs Temperature 97.9 F 09/28/19 05:55 Pulse Rate 70 09/28/19 09:24 Respiratory Rate 18 09/28/19 05:55 Blood Pressure 118/64 09/28/19 05:55 O2 Sat by Pulse Oximetry (%) 95 09/27/19 21:00 Constitutional: Yes: Calm, Obese Eyes: Yes: WNL HENT: Yes: WNL Neck: Yes: WNL Cardiovascular: Yes: Pulse Irregular, S1, S2 Respiratory: Yes: Wheezes (FEW WHEEZES) Extremities: Yes: WNL Edema: Yes Labs: CBC, BMP 09/28/19 08:19 09/28/19 08:19 INR, PTT INR 1.05 (0.83-1.09) 09/21/19 20:34 Problem List - Problems (1) Asthma exacerbation Code(s): J45.901 - UNSPECIFIED ASTHMA WITH (ACUTE) EXACERBATION (2) Cough Code(s): R05 - COUGH (3) Afib Code(s): I48.91 - UNSPECIFIED ATRIAL FIBRILLATION Qualifiers: Atrial fibrillation type: chronic (4) Aortic valve stenosis Code(s): I35.0 - NONRHEUMATIC AORTIC (VALVE) STENOSIS Qualifiers: Cardiac valve disease etiology: nonrheumatic Qualified Code(s): I35.0 - Nonrheumatic aortic (valve) stenosis (5) CHF (congestive heart failure) Code(s): I50.9 - HEART FAILURE, UNSPECIFIED Qualifiers: Heart failure type: diastolic (6) Dyspnea Code(s): R06.00 - DYSPNEA, UNSPECIFIED Qualifiers: Dyspnea type: dyspnea on exertion Qualified Code(s): R06.09 - Other forms of dyspnea (7) Morbid obesity with BMI of 50.0-59.9, adult Code(s): E66.01 - MORBID (SEVERE) OBESITY DUE TO EXCESS CALORIES; Z68.43 - BODY MASS INDEX (BMI) 50.0-59.9, ADULT (8) HTN (hypertension) Code(s): I10 - ESSENTIAL (PRIMARY) HYPERTENSION Assessment/Plan IMP DYSPNEA IMPROVED ACUTE ASTHMA EXACERBATION LIKELY SECONDARY TO URI CHF AFIB ASHD PULMONARY HTN H/O ENDOMETRIAL AND OVARIAN CA S/P TAHBSO,RT,CHEMO H/O GASTRIC BYPASS PLAN PREDNISONE TAPER INHALED BRONCHODILATORS O2 ABX COUGH MEDS ELIQUIS INCENTIVE SPIROMETER MONITOR PEAK FLOW DR LEMUS Problem List - Problems (1) Asthma exacerbation Code(s): J45.901 - UNSPECIFIED ASTHMA WITH (ACUTE) EXACERBATION (2) Cough Code(s): R05 - COUGH (3) Afib Code(s): I48.91 - UNSPECIFIED ATRIAL FIBRILLATION Qualifiers: Atrial fibrillation type: chronic (4) Aortic valve stenosis Code(s): I35.0 - NONRHEUMATIC AORTIC (VALVE) STENOSIS Qualifiers: Cardiac valve disease etiology: nonrheumatic Qualified Code(s): I35.0 - Nonrheumatic aortic (valve) stenosis (5) CHF (congestive heart failure) Code(s): I50.9 - HEART FAILURE, UNSPECIFIED Qualifiers: Heart failure type: diastolic (6) Dyspnea Code(s): R06.00 - DYSPNEA, UNSPECIFIED Qualifiers: Dyspnea type: dyspnea on exertion Qualified Code(s): R06.09 - Other forms of dyspnea (7) Morbid obesity with BMI of 50.0-59.9, adult Code(s): E66.01 - MORBID (SEVERE) OBESITY DUE TO EXCESS CALORIES; Z68.43 - BODY MASS INDEX (BMI) 50.0-59.9, ADULT (8) HTN (hypertension) Code(s): I10 - ESSENTIAL (PRIMARY) HYPERTENSION
--- NOTE | 2019-09-28 10:48 | PN ---
Progress Note (short form) - Note Progress Note: 59 year old female admitted with URT infection and acute asthmatic bronchitis, h /o HTN, persistent atrial fib., AV stenosis, CHF, LVDD. Feeling better, Atrial fib with controlled ventricular response since on digoxin. no chest pain or discomfort. A Active Medications Albuterol/Ipratropium (Duoneb -) 1 amp NEB RQID [facility] Last Admin: 09/27/19 20:00 Dose: 1 amp Apixaban (Eliquis -) 5 mg PO BID [facility] Last Admin: 09/28/19 09:23 Dose: 5 mg Digoxin (Lanoxin -) 0.25 mg PO DAILY [facility] Last Admin: 09/28/19 09:24 Dose: 0.25 mg Duloxetine HCl (Cymbalta -) 60 mg PO [facility] Last Admin: 09/27/19 22:01 Dose: 60 mg Famotidine (Acid Briefcase Sewer) 10 mg PO BID [facility] Last Admin: 09/28/19 09:24 Dose: 10 mg Furosemide (Lasix -) 40 mg PO DAILY [facility] Last Admin: 09/28/19 09:24 Dose: 40 mg Ceftriaxone Sodium 1 gm/ (Dextrose) 50 mls @ 200 mls/hr IVPB DAILY [facility]; Protocol Last Admin: 09/28/19 09:27 Dose: 200 mls/hr Lactobacillus Acidophilus (Bacid -) 1 tab PO DAILY [facility] Last Admin: 09/28/19 09:23 Dose: 1 tab Metoprolol Tartrate (Lopressor -) 100 mg PO BID [facility] Last Admin: 09/28/19 09:23 Dose: 100 mg Prednisone (Deltasone -) 40 mg PO DAILY [facility] Last Admin: 09/28/19 09:26 Dose: 40 mg Spironolactone (Aldactone -) 25 mg PO DAILY [facility] Last Admin: 09/28/19 09:23 Dose: 25 mg Trazodone HCl (Desyrel -) 100 mg PO HS [facility] Last Admin: 09/27/19 22:02 Dose: 100 mg Last Vital Signs Temp Pulse Resp BP Pulse Ox 97.9 F 70 18 118/64 95 09/28/19 05:55 09/28/19 09:24 09/28/19 05:55 09/28/19 05:55 09/27/19 21:00 HEART: S1 variable S2A2 decreased SLOAN II/. LUNGS: Scattered bilateral expiratory wheezing. ABDOMEN: Soft, nontender, no organomegaly appreciated. EXTREMITIES: Brawny edema, no calf tendernes. CBC, BMP 09/28/19 08:19 09/28/19 08:19 IMPRESSION: 1. Acute asthmatic bronchitis, resolving. 2. CHF, resolved. 3. Atrial fib. with controlled ventricular response. 4. HTN. 5. LVDD. RECOMMENDATIONS: 1. Continue current medications. 2. Digoxin level. 3. EP evaluation for RFA. 4. Bariatic evaluation.
[2019-09-28 11:00] VITALS: BP 153/84; PULSE 87
--- NOTE | 2019-09-28 12:03 | PN ---
Progress Note (short form) - Note Progress Note: Feels better, no wheezing. HR is controlled. Vital Signs - 24 hr 09/27/19 09/27/19 09/27/19 14:00 17:00 21:00 Temperature 97.8 F 97.9 F 98.5 F Pulse Rate 100 H 103 H 102 H Respiratory 20 18 Rate Blood Pressure 135/84 139/70 127/79 O2 Sat by Pulse 95 Oximetry (%) 09/28/19 09/28/19 09/28/19 02:00 05:55 09:00 Temperature 97.7 F 97.9 F Pulse Rate 116 H 98 H Respiratory 20 18 18 Rate Blood Pressure 114/54 L 118/64 O2 Sat by Pulse 97 Oximetry (%) 09/28/19 09/28/19 09:24 10:00 Temperature 97.9 F Pulse Rate 70 87 Respiratory 18 Rate Blood Pressure 153/84 O2 Sat by Pulse Oximetry (%) Awake, alert No JVD Lungs are Clear Heart S1S2 irregular c/w a.fib, SLOAN on Ao c/w Abdomen soft, obese Ext no redness, chronic stasis changes. Laboratory Results - last 24 hr 09/27/19 09/27/19 09/28/19 13:07 13:07 08:19 WBC 9.0 7.5 RBC 4.98 4.74 Hgb 13.8 13.3 Hct 44.0 D 41.3 MCV 88.4 87.2 MCH 27.7 28.1 MCHC 31.3 L 32.2 RDW 17.3 H 17.2 H Plt Count 297 D 267 MPV 9.2 9.1 Absolute Neuts (auto) 8.4 H 6.5 Neutrophils % 92.8 H 86.8 H Neutrophils % (Manual) 89.0 H Band Neutrophils % 0.0 Lymphocytes % 3.1 L D 8.1 D Lymphocytes % (Manual) 6.0 L Monocytes % 3.4 L 5.0 Monocytes % (Manual) 5 D Eosinophils % 0.0 0.0 Eosinophils % (Manual) 0.0 Basophils % 0.7 D 0.1 Basophils % (Manual) 0.0 Nucleated RBC % 0 0 Platelet Estimate Adequate Sodium 138 Potassium 4.4 Chloride 106 Carbon Dioxide 24 Anion Gap 9 BUN 37.4 H Creatinine 1.2 Est GFR (CKD-EPI)AfAm 57.69 Est GFR (CKD-EPI)NonAf 49.78 Random Glucose 168 H Calcium 8.8 Magnesium 2.4 Total Bilirubin 0.5 AST 21 ALT 56 Alkaline Phosphatase 104 Total Protein 6.8 Albumin 3.3 L 09/28/19 08:19 WBC RBC Hgb Hct MCV MCH MCHC RDW Plt Count MPV Absolute Neuts (auto) Neutrophils % Neutrophils % (Manual) Band Neutrophils % Lymphocytes % Lymphocytes % (Manual) Monocytes % Monocytes % (Manual) Eosinophils % Eosinophils % (Manual) Basophils % Basophils % (Manual) Nucleated RBC % Platelet Estimate Sodium 139 Potassium 4.3 Chloride 105 Carbon Dioxide 26 Anion Gap 8 BUN 34.5 H Creatinine 1.1 Est GFR (CKD-EPI)AfAm 64.09 Est GFR (CKD-EPI)NonAf 55.30 Random Glucose 140 H Calcium 9.0 Magnesium 2.4 Total Bilirubin 1.2 H AST 13 L ALT 47 Alkaline Phosphatase 95 Total Protein 6.5 Albumin 3.1 L Imp Current Active Problems Problem Status Onset Asthma exacerbation Acute Atrial fibrillation with RVR Acute Cough Acute Pneumonia Acute Plan D/c Abx D/c home on Dig/Toprol Taper steroids Cardiology f/u Problem List - Problems (1) Asthma exacerbation Code(s): J45.901 - UNSPECIFIED ASTHMA WITH (ACUTE) EXACERBATION (2) Atrial fibrillation with RVR Code(s): I48.91 - UNSPECIFIED ATRIAL FIBRILLATION (3) Acute on chronic diastolic (congestive) heart failure Code(s): I50.33 - ACUTE ON CHRONIC DIASTOLIC (CONGESTIVE) HEART FAILURE (4) Aortic valve stenosis Code(s): I35.0 - NONRHEUMATIC AORTIC (VALVE) STENOSIS Qualifiers: Cardiac valve disease etiology: nonrheumatic Qualified Code(s): I35.0 - Nonrheumatic aortic (valve) stenosis (5) Pneumonia Code(s): J18.9 - PNEUMONIA, UNSPECIFIED ORGANISM Qualifiers: Pneumonia type: due to unspecified organism Laterality: bilateral Lung location: lower lobe of lung Qualified Code(s): J18.9 - Pneumonia, unspecified organism (6) Cellulitis of ankle Code(s): L03.119 - CELLULITIS OF UNSPECIFIED PART OF LIMB
--- NOTE | 2019-09-28 12:04 | DS ---
Physical Examination Vital Signs: Vital Signs Temperature 97.9 F 09/28/19 10:00 Pulse Rate 87 09/28/19 10:00 Respiratory Rate 18 09/28/19 10:00 Blood Pressure 153/84 09/28/19 10:00 O2 Sat by Pulse Oximetry (%) 97 09/28/19 09:00 Constitutional: Yes: No Distress, Calm Eyes: Yes: Conjunctiva Clear, EOM Intact HENT: Yes: Atraumatic, Normocephalic Neck: Yes: Supple, Trachea Midline Cardiovascular: Yes: Pulse Irregular, Murmur, S1, S2 Respiratory: Yes: Regular, CTA Bilaterally Gastrointestinal: Yes: Normal Bowel Sounds, Soft, Abdomen, Obese ...Rectal Exam: Yes: Deferred Renal/: No: Anuria, Bladder Distention Breast(s): Yes: WNL Musculoskeletal: No: Back Pain, Joint Stiffness Extremities: No: Amputation, Calf Tenderness, Cold, Cyanosis Edema: No Peripheral Pulses WNL: No Integumentary: Yes: WNL Neurological: Yes: WNL ...Motor Strength: WNL Psychiatric: Yes: WNL Labs: CBC, BMP 09/28/19 08:19 09/28/19 08:19 Discharge Summary Problems reviewed: Yes Reason For Visit: DYSPNEA/PNA/RAPID A.FIB. Current Active Problems Asthma exacerbation (Acute) Atrial fibrillation with RVR (Acute) Cough (Acute) Pneumonia (Acute) Condition: Improved - Instructions Referrals: Juaquin Link MD [Primary Care Provider] - Disposition: HOME - Home Medications Comprehensive Discharge Medication List: Ambulatory Orders Apixaban [Eliquis -] 5 mg PO BID #60 tablet 11/28/15 Furosemide [Lasix -] 40 mg PO DAILY #30 tablet 04/05/17 Spironolactone [Aldactone -] 25 mg PO DAILY 04/23/18 Amiodarone HCl [Cordarone -] 200 mg PO BID 04/24/18 Duloxetine HCl [Cymbalta -] 60 mg PO HS 02/12/19 traZODone HCL [Trazodone HCl] 100 mg PO HS 02/12/19 Ranitidine HCl [Zantac 75] 75 mg PO BID #60 tablet 02/15/19
== END 2019-09-28 15:00 | disposition home or self-care (01) | DRG 291 ==
LOC: JER 17:37 → JERBED 21:02 → J4W 09-23 14:36
PROVIDERS: ADMIT Internal Medicine; ATTEND Internal Medicine
DX: I11.0 Hypertensive heart disease with heart failure (principal); J18.9 Pneumonia, unspecified organism; J45.901 Unspecified asthma with (acute) exacerbation; J98.11 Atelectasis; L03.119 Cellulitis of unspecified part of limb; Z68.43 Body mass index [BMI] 50.0-59.9, adult; I50.33 Acute on chronic diastolic (congestive) heart failure; G47.33 Obstructive sleep apnea (adult) (pediatric); Z79.01 Long term (current) use of anticoagulants; I35.0 Nonrheumatic aortic (valve) stenosis; I34.0 Nonrheumatic mitral (valve) insufficiency; I27.20 Pulmonary hypertension, unspecified; Z85.43 Personal history of malignant neoplasm of ovary; Z86.718 Personal history of other venous thrombosis and embolism; E66.01 Morbid (severe) obesity due to excess calories; Z91.14 Patient's other noncompliance with medication regimen; J06.9 Acute upper respiratory infection, unspecified; F32.9 Major depressive disorder, single episode, unspecified; I87.2 Venous insufficiency (chronic) (peripheral); I48.0 Paroxysmal atrial fibrillation
CPT/HCPCS: 36415; 71045-TC-FY; 71275-TC; 80053; 82550; 83735; 83880; 84100; 84484; 85025; 85379; 85610; 85730; 93005; 93010; 93970-TC; 94640; 99285-25

== ENCOUNTER 2019-10-12 10:01 | Observation (INO) | payer OTHER ==
--- NOTE | 2019-10-12 11:19 | PDOC ---
History of Present Illness - General Stated Complaint: FALL Time Seen by Provider: 10/12/19 10:08 - History of Present Illness Initial Comments: Betsy Lopez, is a 59 y/o female with reported PMH significant for HTN, CHF, obesity, ELLE, asthma, OA, a-fib on eliquis, DVT, aortic stenosis, mitral regurg, SBO, pulm HTN, gastric bypass, endometrial/ovarian CA s/p ALESSANDRO BSO (2008) s/p chemo, presenting today after slipping off her bed. Reports that at around 3am she was climbing into bed when she slid off and onto the floor. Denies hitting her head. Reports back pain. Denies dizziness/heart palpitations. Denies LOC. Reports that she laid on the ground for a few hours because her could not help her up and she was waiting for her nephews to return. When her nephews did not return home from work this morning, she called EMS. Denies fever/chills/recent illness. Denies chest pain/shortness of breath. Past History - Past Medical History Allergies/Adverse Reactions: Allergies Allergy/AdvReac Type Severity Reaction Status Date / Time No Known Allergies Allergy Verified 09/21/19 17:48 Home Medications: Ambulatory Orders Apixaban [Eliquis -] 5 mg PO BID #60 tablet 11/28/15 Furosemide [Lasix -] 40 mg PO DAILY #30 tablet 04/05/17 Spironolactone [Aldactone -] 25 mg PO DAILY 04/23/18 Duloxetine HCl [Cymbalta -] 60 mg PO HS 02/12/19 traZODone HCL [Trazodone HCl] 100 mg PO HS 02/12/19 Ranitidine HCl [Zantac 75] 75 mg PO BID #60 tablet 02/15/19 Albuterol 2.5/Ipratropium 0.5 [Duoneb -] 1 amp NEB RQID amp 09/28/19 Digoxin [Lanoxin -] 0.25 mg PO DAILY #90 tablet 09/28/19 Metoprolol Tartrate [Lopressor -] 100 mg PO BID tablet 09/28/19 Prednisone 5 mg PO DAILY #60 tablet 09/28/19 Anemia: No Asthma: Yes (CONTROLLED UNLESS PT GETS A COLD) Cancer: Yes (UTERINE AND OVARIAN. CA FREE 2008) Cardiac Disorders: Yes (AFIB 12/2015 / AORTIC STENOSIS) CVA: No COPD: No CHF: Yes DVT: No Dementia: No Diabetes: No GI Disorders: No Disorders: No HTN: Yes Hypercholesterolemia: No Liver Disease: No Seizures: No Thyroid Disease: No - Surgical History Abdominal Surgery: Yes (HERNIA REPAIR AFTER ALESSANDRO 2011,GASTRIC BYPASS) Appendectomy: No Cardiac Surgery: No Cholecystectomy: Yes (2002) GI Surgery: Yes (BYPASS 2001) Lung Surgery: No Neurologic Surgery: No Orthopedic Surgery: No - Immunization History Immunization Up to Date: Yes (FLU UTD) - Psycho Social/Smoking Cessation Hx Smoking Status: No Smoking History: Never smoked Have you smoked in the past 12 months: No Number of Cigarettes Smoked Daily: 0 Information on smoking cessation initiated: No Hx Alcohol Use: No Drug/Substance Use Hx: No Substance Use Type: None Hx Substance Use Treatment: No Review of Systems - Review of Systems Comments:: GENERAL/CONSTITUTIONAL: No fever or chills. No weakness._ HEAD, EYES, EARS, NOSE AND THROAT: No change in vision. No change in hearing. No sore throat._ CARDIOVASCULAR: No chest pain or shortness of breath_ RESPIRATORY: Denies cough, hemoptysis_ GASTROINTESTINAL: No nausea, vomiting, diarrhea or constipation._ GENITOURINARY: No dysuria, frequency, or change in urination._ MUSCULOSKELETAL: Reports lower extremity swelling (baseline). No neck pain. Reports back pain. SKIN: No rash_ NEUROLOGIC: No headache, vertigo, loss of consciousness, or change in strength/sensation._ ENDOCRINE: No increased thirst. No abnormal weight change_ HEMATOLOGIC/LYMPHATIC: No anemia, easy bleeding, or history of blood clots._ ALLERGIC/IMMUNOLOGIC: No hives or skin allergy._ *Physical Exam - Vital Signs Last Vital Signs Temp Pulse Resp BP Pulse Ox 98.1 F 96 H 18 144/103 H 98 10/12/19 10:10/12/19 10:10/12/19 10:10/12/19 10:10/12/19 10:01 - Physical Exam GENERAL: Awake, alert, and oriented to person/place/time, in no acute distress_ HEAD: No signs of trauma, normocephalic, atraumatic _ EYES: PERRLA, EOMI, sclera anicteric, conjunctiva clear_ ENT: Hearing grossly normal, nares patent, oropharynx clear without exudates. No uvular deviation. Moist mucosa_ NECK: Normal ROM, supple, no lymphadenopathy, JVD, or masses_ LUNGS: No distress, speaks in full sentences, clear to auscultation bilaterally _ HEART: Regular rate and rhythm, normal S1 and S2, no murmurs appreciated, peripheral pulses normal and equal bilaterally._ ABDOMEN: Soft, obese, nontender, normoactive bowel sounds. No guarding, no rebound. No masses_ EXTREMITIES: Normal inspection, Normal range of motion. 4+ pitting edema in BLE. No clubbing or cyanosis_ NEUROLOGICAL: Cranial nerves II through XII grossly intact. Normal speech, ambulates with assistance, no focal sensorimotor deficits _ SKIN: Warm, Dry, normal turgor, no rashes or lesions noted_ ED Treatment Course - LABORATORY CBC & Chemistry Diagram: 10/13/19 07:50 10/13/19 07:50 - RADIOLOGY Radiology Studies Ordered: Category Date Time Status CERVICAL SPINE CT W/O CONTR [CT] Stat CT Scan 10/12/19 10:[address] WITHOUT CONTRAST [CT] Stat CT Scan 10/12/19 10:16 Taken CHEST X-RAY PORTABLE* [RAD] Stat Radiology 10/12/19 10:17 Completed Medical Decision Making - Medical Decision Making 59F presenting today s/p fall after sliding off her bed. -cbc, cmp, bnp -ekg, trop, cxr -ua -ct head/neck -XR t-spine, L-spine 10/12/19 11:26 CT head shows no acute intracranial pathology. 10/12/19 12:07 CT c-spine negative for acute fracture or subluxation. 10/12/19 12:55 Pt reassessed. Able to ambulate. Reports mild paraspinal back pain. Will give flexeril 10 mg. 10/12/19 13:20 XR T spine and L spine negative for acute fracture or subluxation. Labs reviewed. Laboratory Last Values WBC 4.7 K/mm3 (4.0-10.0) 10/12/19 11:41 RBC 4.31 M/mm3 (3.60-5.2) 10/12/19 11:41 Hgb 12.2 GM/dL (10.7-15.3) 10/12/19 11:41 Hct 37.9 % (32.4-45.2) 10/12/19 11:41 MCV 88.0 fl (80-96) 10/12/19 11:41 MCH 28.3 pg (25.7-33.7) 10/12/19 11:41 MCHC 32.2 g/dl (32.0-36.0) 10/12/19 11:41 RDW 18.2 % (11.6-15.6) H 10/12/19 11:41 Plt Count 135 K/MM3 (134-434) D 10/12/19 11:41 MPV 8.8 fl (7.5-11.1) 10/12/19 11:41 Absolute Neuts (auto) 3.5 K/mm3 (1.5-8.0) 10/12/19 11:41 Neutrophils % 73.9 % (42.8-82.8) 10/12/19 11:41 Lymphocytes % 15.2 % (8-40) D 10/12/19 11:41 Monocytes % 9.7 % (3.8-10.2) D 10/12/19 11:41 Eosinophils % 0.6 % (0-4.5) D 10/12/19 11:41 Basophils % 0.6 % (0-2.0) D 10/12/19 11:41 Nucleated RBC % 0 % (0-0) 10/12/19 11:41 PT with INR 12.70 SEC (9.7-13.0) 10/12/19 11:41 INR 1.08 (0.83-1.09) 10/12/19 11:41 PTT (Actin FS) 30.4 SECONDS (25.2-36.5) 10/12/19 11:41 Sodium 142 mmol/L (136-145) 10/12/19 11:41 Potassium 3.9 mmol/L (3.5-5.1) 10/12/19 11:41 Chloride 107 mmol/L (98-107) 10/12/19 11:41 Carbon Dioxide 28 mmol/L (21-32) 10/12/19 11:41 Anion Gap 7 MMOL/L (8-16) L 10/12/19 11:41 BUN 15.1 mg/dL (7-18) 10/12/19 11:41 Creatinine 1.0 mg/dL (0.55-1.3) 10/12/19 11:41 Est GFR (CKD-EPI)AfAm 71.92 10/12/19 11:41 Est GFR (CKD-EPI)NonAf 62.05 10/12/19 11:41 Random Glucose 91 mg/dL (74-106) 10/12/19 11:41 Calcium 8.2 mg/dL (8.5-10.1) L 10/12/19 11:41 Total Bilirubin 0.9 mg/dL (0.2-1) 10/12/19 11:41 AST 16 U/L (15-37) 10/12/19 11:41 ALT 24 U/L (13-61) 10/12/19 11:41 Alkaline Phosphatase 99 U/L (45-117) 10/12/19 11:41 Creatine Kinase 46 U/L (26-192) 10/12/19 11:41 Troponin I 0.02 ng/ml (0.00-0.05) 10/12/19 11:41 B-Natriuretic Peptide 2376.0 pg/ml (5-125) H 10/12/19 11:41 Total Protein 6.4 g/dl (6.4-8.2) 10/12/19 11:41 Albumin 3.2 g/dl (3.4-5.0) L 10/12/19 11:41 Urine Color Yellow 10/12/19 11: Urine Appearance Clear 10/12/19 11: Urine pH 5.0 (5.0-8.0) 10/12/19 11:27 Ur Specific [place] 1.016 (1.010-1.035) 10/12/19 11:27 Urine Protein Negative (NEGATIVE) 10/12/19 11:27 Urine Glucose (UA) Negative (NEGATIVE) 10/12/19 11: Urine Ketones Negative (NEGATIVE) 10/12/19 11: Urine Blood Negative (NEGATIVE) 10/12/19 11: Urine Nitrite Negative (NEGATIVE) 10/12/19 11: Urine Bilirubin Negative (NEGATIVE) 10/12/19 11: Urine Urobilinogen 0.2 mg/dL (0.2-1.0) 10/12/19 11:27 Ur Leukocyte Esterase Negative (NEGATIVE) 10/12/19 11:27 10/12/19 14:17 EKG shows a-fib with RVR, 110 bpm, no axis deviation, QTc 443. Pt is known to have a-fib and is on eliquis. 10/12/19 14:44 Call placed to [facility]. Pt is on 0.25 mg digoxin QD and 100 mg lopressor BID. 10/12/19 16:41 Pt reassessed. Reports generalized weakness, fatigue, and feels that she is not able to care for herself at home. D/w the case with the pt's PCP Dr. Link who accepts the patient for admission. Discharge - Discharge Information Problems reviewed: Yes Clinical Impression/Diagnosis: Fall Qualifiers: Encounter type: initial encounter Qualified Code(s): W19.XXXA - Unspecified fall, initial encounter Condition: Stable - Admission Yes - Follow up/Referral - Patient Discharge Instructions - Post Discharge Activity
[2019-10-12 12:15] LABS: BASO % 0.6 % (0-2.0); EOS % 0.6 % (0-4.5); HEMATOCRIT 37.9 % (32.4-45.2); HEMOGLOBIN 12.2 GM/dL (10.7-15.3); LYMPH % 15.2 % (8-40); MCH 28.3 pg (25.7-33.7); MCHC 32.2 g/dl (32.0-36.0); MEAN PLT VOLUME 8.8 fl (7.5-11.1); MONO % 9.7 % (3.8-10.2); NEUT % 73.9 % (42.8-82.8); PLATELET COUNT 135 K/MM3 (134-434); RBC 4.31 M/mm3 (3.60-5.2); RDW 18.2 % (11.6-15.6); WHITE BLOOD COUNT 4.7 K/mm3 (4.0-10.0)
[2019-10-12 12:22] LABS: INR 1.08 (0.83-1.09); PROTHROMBIN TIME (PATIENT) 12.7 SEC (9.7-13.0)
[2019-10-12 12:25] LABS: ACTIVATED PTT 30.4 SECONDS (25.2-36.5)
[2019-10-12 12:45] LABS: URINE APPEARANCE CLEAR; URINE BILIRUBIN NEGATIVE (NEGATIVE); URINE COLOR YELLOW; URINE GLUCOSE (UA) NEGATIVE (NEGATIVE); URINE KETONE NEGATIVE (NEGATIVE); URINE LEUK ESTERASE NEGATIVE (NEGATIVE); URINE NITRITE NEGATIVE (NEGATIVE); URINE PROTEIN NEGATIVE (NEGATIVE); URINE UROBILINOGEN 0.2 mg/dL (0.2-1.0)
--- NOTE | 2019-10-12 12:45 | PDOC ---
Documentation entered by Gerald Barajas SCRIBE, acting as scribe for Joe Gage MD. Joe Gage MD: This documentation has been prepared by the Mayo gutierrez Nirvannie, SCRIBE, under my direction and personally reviewed by me in its entirety. I confirm that the documentation accurately reflects all work, treatment, procedures, and medical decision making performed by me. Attending Attestation - Resident Resident Name: Ferny Blevins - ED Attending Attestation I have performed the following: I have examined & evaluated the patient, The case was reviewed & discussed with the resident, I agree w/resident's findings & plan - HPI HPI: 10/12/19 11:47 The patient is a 59 year old female, with a significant past medical history of HTN, CHF, obesity, ELLE, asthma (never intubated), OA, atrial fibrillation (on Eliquis), DVT, aortic stenosis, mitral regurgitation, SBO, pulmonary HTN, s/p gastric bypass, endometrial and ovarian cancer (s/p ALESSANDRO + BSO 2009 s/p chemo), who presents to the emergency department s/p mechanical fall. As per patient, this morning at approximately 3am she was trying to get into bed at which time she fell onto her back, no head injury. She notes sleeping on the ground for about 6 hours because she was waiting for family to come in and help her up. Patient has been able to ambulate with a steady gait s/p fall. She denies any LOC, chest pain, palpitations, diaphoresis, or new shortness of breath. Allergies: NKA Primary Care Physician: Dr. Link Wind Up Operator: Dr. Reddy - Physicial Exam PE: 10/12/19 12:43 Vitals as noted, afebrile Pleasant woman lying alert in stretcher, speaking full sentences in no acute distress. Head is atraumatic, neck is supple Heart is irregular with normal rate, lungs are clear Some sternal and T and L-spine discomfort to palpation without focal step-off or deformity Abdomen benign Full range of motion of all joints without ecchymosis or deformity or focal bony tenderness - Medical Decision Making 10/12/19 12:44 59-year-old morbidly obese female on anticoagulation presents with musculoskeletal aches that developed gradually after accidentally slipping from her bed while trying to get into bed last night. She proceeded to sleep on the floor for a few hours, presents now with generalized aches without hemodynamic instability and without focal findings on trauma examination. CT head and C-spine performed and showed no acute fracture Labs sent T and L-spine imaging Pain control If above is within normal limits, patient has already ambulated with a cane as is her baseline and can be discharged home with return precautions. 10/12/19 16:26 upon reassessment, increasingly weak upon standing. afib with rvr noted on EKG, attempted to control with home meds. will admit for weakness leading to falls, afib with rvr Heart Score/ECG Review #1 ECG reviewed & interpreted by me at: 13:56 General ECG Interpretation: Normal Rate (afib at 110), Normal Intervals (LVH, qtc 443), No acute ischemic changes
[2019-10-12 12:46] LABS: ALBUMIN 3.2 g/dl (3.4-5.0); BILIRUBIN,TOTAL 0.9 mg/dL (0.2-1); BLOOD UREA NITROGEN 15.1 mg/dL (7-18); CALCIUM 8.2 mg/dL (8.5-10.1); POTASSIUM 3.9 mmol/L (3.5-5.1); TOT PROT 6.4 g/dl (6.4-8.2)
[2019-10-12] MEDS ORDERED: CYCLOBENZAPRINE HCL 10 MG TABLET (FP) PO ONE (12:55)
[2019-10-12] MEDS ORDERED: CYCLOBENZAPRINE HCL 10 MG TABLET (FP) ONE (13:18)
[2019-10-12] MEDS ORDERED: DIGOXIN 0.25 MG TABLET (FP) PO ONE (14:44)
[2019-10-12] MEDS ORDERED: METOPROLOL TARTRATE 50 MG TABLET (FP) PO ONE (14:44)
[2019-10-12] MEDS ORDERED: METOPROLOL TARTRATE 50 MG TABLET (FP) ONE (15:37)
[2019-10-12] MEDS ORDERED: DIGOXIN 0.25 MG TABLET (FP) ONE (15:37)
[2019-10-12] MEDS: ALBUTEROL SO4 2.5/IPRATROPIUM 0.5 INH SOL 3 ML VIAL.NEB. NEB SCH ×2 (20:21→20:45)
[2019-10-12 21:00] VITALS: BMI 56.7
[2019-10-12] MEDS ORDERED: DULoxetine HCL 30 MG CAPSULE.DR PO ONE (21:04)
[2019-10-12] MEDS: METOPROLOL TARTRATE 50 MG TABLET (FP) PO SCH (21:32)
[2019-10-12] MEDS: APIXABAN 5 MG TABLET PO SCH (21:33)
[2019-10-12] MEDS ORDERED: traZODone HCL 100 MG TABLET (FP) PO SCH (22:00)
[2019-10-12] MEDS ORDERED: DULoxetine HCL 60 MG CAPSULE.DR PO SCH (22:00)
[2019-10-13] MEDS: ALBUTEROL SO4 2.5/IPRATROPIUM 0.5 INH SOL 3 ML VIAL.NEB. NEB SCH ×2 (07:46→11:18)
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
--- NOTE | 2019-10-13 08:13 | DS ---
Physical Examination Vital Signs: Vital Signs Temperature 97.8 F 10/13/19 07:36 Pulse Rate 99 H 10/13/19 07:36 Respiratory Rate 20 10/13/19 07:36 Blood Pressure 97/64 10/13/19 07:36 O2 Sat by Pulse Oximetry (%) 96 10/12/19 21:00 Constitutional: Yes: No Distress, Calm Eyes: Yes: Conjunctiva Clear, EOM Intact HENT: Yes: Atraumatic, Normocephalic Neck: Yes: Supple, Trachea Midline Cardiovascular: Yes: Pulse Irregular Respiratory: Yes: Regular Gastrointestinal: Yes: Normal Bowel Sounds, Soft, Abdomen, Obese ...Rectal Exam: Yes: Deferred Renal/: No: Anuria, Bladder Distention, CVA Tenderness - Left, CVA Tenderness - Right Breast(s): Yes: WNL Musculoskeletal: Yes: Muscle Weakness Extremities: No: Amputation, Calf Tenderness Edema: No Peripheral Pulses WNL: No Integumentary: Yes: WNL Neurological: Yes: WNL Psychiatric: Yes: WNL Labs: CBC, BMP 10/12/19 11:41 10/12/19 11:41 Abnormal Lab Results 10/12/19 10/12/19 10/12/19 11:41 11:41 11:41 RDW 18.2 H Anion Gap 7 L Calcium 8.2 L B-Natriuretic Peptide 2376.0 H Albumin 3.2 L Discharge Summary Reason For Visit: MORBID OBESITY;WEAKNESS;ATRIAL FIBRILLATION WITH - Instructions Referrals: Juaquin Link MD [Primary Care Provider] - - Home Medications Comprehensive Discharge Medication List: Ambulatory Orders Apixaban [Eliquis -] 5 mg PO BID #60 tablet 11/28/15 Furosemide [Lasix -] 40 mg PO DAILY #30 tablet 04/05/17 Spironolactone [Aldactone -] 25 mg PO DAILY 04/23/18 Duloxetine HCl [Cymbalta -] 60 mg PO HS 02/12/19 traZODone HCL [Trazodone HCl] 100 mg PO HS 02/12/19 Ranitidine HCl [Zantac 75] 75 mg PO BID #60 tablet 02/15/19 Albuterol 2.5/Ipratropium 0.5 [Duoneb -] 1 amp NEB RQID amp 09/28/19 Digoxin [Lanoxin -] 0.25 mg PO DAILY #90 tablet 09/28/19 Metoprolol Tartrate [Lopressor -] 100 mg PO BID tablet 09/28/19 Prednisone 5 mg PO DAILY #60 tablet 09/28/19
[2019-10-13 08:46] LABS: HEMATOCRIT 34.4 % (32.4-45.2); MCH 28.2 pg (25.7-33.7); MEAN CELL VOLUME 88.2 fl (80-96); MEAN PLT VOLUME 8.7 fl (7.5-11.1); PLATELET COUNT 114 K/MM3 (134-434); RDW 17.7 % (11.6-15.6); WHITE BLOOD COUNT 3.1 K/mm3 (4.0-10.0)
[2019-10-13 09:22] LABS: ALBUMIN 2.5 g/dl (3.4-5.0); BILIRUBIN,TOTAL 0.7 mg/dL (0.2-1); BLOOD UREA NITROGEN 14.8 mg/dL (7-18); CALCIUM 7.8 mg/dL (8.5-10.1); CREATININE 0.8 mg/dL (0.55-1.3); POTASSIUM 4.2 mmol/L (3.5-5.1); TOT PROT 5.2 g/dl (6.4-8.2)
[2019-10-13] MEDS: APIXABAN 5 MG TABLET PO SCH (09:52)
[2019-10-13] MEDS: METOPROLOL TARTRATE 50 MG TABLET (FP) PO SCH (09:52)
[2019-10-13 09:54] VITALS: PULSE 68
[2019-10-13] MEDS ORDERED: DIGOXIN 0.25 MG TABLET (FP) PO SCH (10:00)
[2019-10-13] MEDS ORDERED: FUROSEMIDE 40 MG TABLET (FP) PO SCH (10:00)
[2019-10-13] MEDS ORDERED: SPIRONOLACTONE 25 MG TABLET (FP) PO SCH (10:00)
--- NOTE | 2019-10-13 11:14 | EKG ---
Test Reason : Blood Pressure : / mmHG Vent. Rate : 110 BPM Atrial Rate : 187 BPM P-R Int : 000 ms QRS Dur : 110 ms QT Int : 328 ms P-R-T Axes : 000 -16 153 degrees QTc Int : 443 ms ATRIAL FIBRILLATION WITH RAPID VENTRICULAR RESPONSE VOLTAGE CRITERIA FOR LEFT VENTRICULAR HYPERTROPHY MARKED ST ABNORMALITY, POSSIBLE INFERIOR SUBENDOCARDIAL INJURY ABNORMAL ECG WHEN COMPARED WITH ECG OF 21-SEP-2019 18:10, NO SIGNIFICANT CHANGE WAS FOUND Confirmed by MD RENÉE, REBECCA ([id number]) on 10/13/2019 11:13:50 AM Referred By: Confirmed By:REBECCA CHINCHILLA MD
[2019-10-13 11:47] VITALS: BP 103/74; TEMP 98
== END 2019-10-13 14:27 | disposition home or self-care (01) ==
LOC: JER 10:01 → JERBED 16:27 → INTOOBSV 16:27 → UNDOADMOB 16:27 → J6S 18:51 → JERBED 18:51 → J6S 10-13 08:14
PROVIDERS: ADMIT Internal Medicine; ATTEND Internal Medicine
DX: Z04.3 Encounter for examination and observation following other accident (principal); I10 Essential (primary) hypertension; I50.9 Heart failure, unspecified; G47.33 Obstructive sleep apnea (adult) (pediatric); J45.909 Unspecified asthma, uncomplicated; M19.90 Unspecified osteoarthritis, unspecified site; I48.91 Unspecified atrial fibrillation; I35.0 Nonrheumatic aortic (valve) stenosis; I34.0 Nonrheumatic mitral (valve) insufficiency; E66.01 Morbid (severe) obesity due to excess calories; Z68.43 Body mass index [BMI] 50.0-59.9, adult; Z85.43 Personal history of malignant neoplasm of ovary; Z85.42 Personal history of malignant neoplasm of other parts of uterus; Z79.01 Long term (current) use of anticoagulants; Z86.718 Personal history of other venous thrombosis and embolism; Z98.84 Bariatric surgery status; W18.39XA Other fall on same level, initial encounter; Z91.81 History of falling; Y93.89 Activity, other specified; Y92.003 Bedroom of unspecified non-institutional (private) residence as the place of occurrence of the external cause
CPT/HCPCS: 36415; 70450-TC; 71045-TC-FY; 72070-TC-FY; 72100-TC-FY; 72125-TC; 80053; 81003; 82550; 83880; 84484; 85025; 85027; 85610; 85730; 93005; 93010; 97116-GP; 97161-GP; 99285-25; G0378